=== PATIENT | female | born 1955 | race Caucasian/White ===

== ENCOUNTER → 2017-09-20 08:01 | Outpatient (CLI) | payer OTHER, BC, SELFPAY ==
--- NOTE | 2017-09-20 08:04 | HPBI_ITS ---
MAMMOGRAPHY - BILATERAL SCREENING REASON FOR EXAM: Female, 62 years old. Routine annual screening examination. PERTINENT HISTORY: Remote left excisional breast biopsy. Prior right stereotactic breast biopsy. TECHNIQUE: Digital bilateral breast shirin (3D mammographic acquisition) in the CC and MLO projections. 2-D mediolateral oblique (MLO) and craniocaudad (CC) views of both breasts were obtained. CAD: Full Field Digital Mammography with Computer Added Detection was performed. COMPARISON: Comparison is made with prior study dated August 24, 2016 and February 26, 2016. FINDINGS: Breast Composition: There are scattered areas of fibroglandular density. There are no dominant masses or suspicious calcifications. A tissue clip marker is seen in the inferior retroareolar region of the right breast. No other significant abnormalities are identified. There has been no significant change since the prior study. HPBI/SCREENING MAMM (CAD), BILAT IMPRESSION: Stable bilateral screening mammogram. Yearly follow-up mammogram recommended. (A) ASSESSMENT CATEGORY: BIRADS Category 2: Benign. A letter regarding these results will be sent to the patient by the facility within 30 days. Approximately 10% of breast cancers are not detected by mammography. A normal mammogram should not delay biopsy of a clinically suspicious abnormality. [id number] Electronically Signed: Justo Gautam MD at 10:33 EST Tel [phone], Service support ,
== END ==
PROVIDERS: Family Provider Family Medicine; PCP Family Medicine; Visit Provider Family Medicine
DX: Z12.31 Encounter for screening mammogram for malignant neoplasm of breast (principal)
CPT/HCPCS: 77063; 77067

== ENCOUNTER → 2018-09-25 07:48 | Outpatient (CLI) | payer OTHER, SELFPAY ==
--- NOTE | 2018-09-25 07:51 | BI_ITS ---
MAMMOGRAPHY - BILATERAL SCREENING REASON FOR EXAM: Female, 63 years old. Routine annual screening examination. PERTINENT HISTORY: Non-contributory. Remote left excisional and right stereotactic breast biopsies. TECHNIQUE: Digital bilateral breast shirin (3D mammographic acquisition) in the CC and MLO projections. 2-D mediolateral oblique (MLO) and craniocaudad (CC) views of both breasts were obtained. CAD: Full Field Digital Mammography with Computer Added Detection was performed. COMPARISON: Comparison is made with prior examination dated September 20, 2017 and August 24, 2016. FINDINGS: Breast Composition: There are scattered areas of fibroglandular density. There are no dominant masses or suspicious calcifications. A tissue clip marker is once again seen in the anterior inferior medial retroareolar region of the right breast. No other significant abnormalities are identified. There has been no significant change since the prior study. BI/SCREENING MAMM (CAD), BILAT IMPRESSION: Stable bilateral screening mammogram. Yearly follow-up mammogram recommended. (A) ASSESSMENT CATEGORY: BIRADS Category 2: Benign. A letter regarding these results will be sent to the patient by the facility within 30 days. Approximately 10% of breast cancers are not detected by mammography. A normal mammogram should not delay biopsy of a clinically suspicious abnormality. [id number] Electronically Signed: Justo Gautam MD at 9:41 EST , Service support ,
== END ==
PROVIDERS: Family Provider Family Medicine; PCP Family Medicine
DX: Z12.31 Encounter for screening mammogram for malignant neoplasm of breast (principal)
CPT/HCPCS: 77063; 77067

== ENCOUNTER → 2020-02-13 07:10 | Outpatient (CLI) | payer OTHER, SELFPAY ==
--- NOTE | 2020-02-13 07:13 | BI_ITS ---
MAMMOGRAPHY - BILATERAL SCREENING REASON FOR EXAM: Female, 64 years old. Routine annual screening examination. PERTINENT HISTORY: Non-contributory. Prior left excisional breast biopsy and right Sterotactic breast biopsy. TECHNIQUE: Digital bilateral breast cm (3D mammographic acquisition) in the CC and MLO projections. 2-D mediolateral oblique (MLO) and craniocaudad (CC) views of both breasts were obtained. CAD: Full Field Digital Mammography with Computer Added Detection was performed. COMPARISON: Comparison is made with prior study dated September 25, 2018 and September 20, 2017. FINDINGS: Breast Composition: There are scattered areas of fibroglandular density. There are no dominant masses or suspicious calcifications. No other significant abnormalities are identified. There has been no significant change since the prior study. BI/SCREEN MAMM (CAD) W/CM BILAT IMPRESSION: Stable bilateral screening mammogram. Yearly follow-up mammogram recommended. (A) ASSESSMENT CATEGORY: BIRADS Category 1: Negative. A letter regarding these results will be sent to the patient by the facility within 30 days. Approximately 10% of breast cancers are not detected by mammography. A normal mammogram should not delay biopsy of a clinically suspicious abnormality. [id number] Electronically Signed: Justo Gautam, at 10:01 EDT , Service support ,
== END ==
PROVIDERS: PCP Family Medicine
DX: Z12.31 Encounter for screening mammogram for malignant neoplasm of breast (principal)
CPT/HCPCS: 77063; 77067

== ENCOUNTER → 2020-02-20 09:32 | Outpatient (CLI) | payer OTHER, SELFPAY ==
--- NOTE | 2020-02-20 09:46 | BD_ITS ---
STUDY: DUAL ENERGY X-RAY ABSORPTIOMETRY / DXA REASON FOR EXAM: Female, 64 years old. [employer] PROCESSING -- HX OF SMOKING- QUIT 25 YRS AGO -- TAKES VITAMIN D -- DOES LITTLE EXERCISE -- NANNETTE OF 1.5 INCHES TECHNIQUE: Bone Mineral Density (BMD) measurements of lumbar spine and bilateral hips were obtained. COMPARISON: Comparison is made with prior examination dated 08-24-16. FINDINGS: Lumbar Spine (L1-L4): g/cm2 (0.952) / T-score (-1.8) / Z-score (-0.2) Findings are suggestive of osteopenia with a moderate fracture risk. Left Femur Total: g/cm2 (0.837) / T-score (-1.4) / Z-score (-0.2) Left Femoral Neck: g/cm2 (0.785) / T-score (-1.8) / Z-score (-0.4) Right Femur Total: g/cm2 (0.876) / T-score (-1.0) / Z-score (0.1) Right Femoral Neck: g/cm2 (0.808) / T-score (-1.7) / Z-score (-0.2) The T-Scores on the most recent prior examination were: Lumbar Spine (L1-L4): There has been improvement of bone density since the previous examination. Left Femur Total: which represents a worsening of 3.7%. Right Femur Total: which represents a worsening of 4.6%. BD/Dexa Bone Density Study IMPRESSION: The patient is considered osteopenic as outlined below according to World Doug Organization (WHO) criteria with a moderate fracture risk. There has been worsening of bone density since the previous examination. Reference Information: The T-score is the number of standard deviations above or below the standard which is normal for young adults at their peak bone mineral density. The World Health Organization (WHO) interprets the T-scores as follows: Above -1 Normal bone density Between -1 and -2.5 Osteopenia Equal to / or below -2.5 Osteoporosis As a practical clinical guideline, osteopenia may be graded as follows: Mild -1 through -1.5 Moderate -1.6 through -2.0 Severe -2.1 through -2.4 The Z-score is the number of standard deviations above or below age-matched controls. A Z-score of less than -1.5 would be considered abnormal. References: 1. NIH Osteoporosis and Related Bone Diseases http://www.osteo.org 2. International Society for Clinical Densitometry http://www.iscd.org 3. National Osteoporosis Foundation http://www.nof.org Electronically Signed: Justo Gautam, at 15:49 EDT , Service support ,
== END ==
PROVIDERS: PCP Family Medicine
DX: M81.0 Age-related osteoporosis without current pathological fracture (principal); Z13.820 Encounter for screening for osteoporosis
CPT/HCPCS: 77080

== ENCOUNTER 2021-05-15 05:17 | Day surgery (SDC) | payer MEDICARE, OTHER, SELFPAY ==
[2021-05-15] VITALS (15 sets, daily range): BP systolic 62–120; BP diastolic 54–88; PULSE 56–78; RESP 12–18; TEMP 36.2–36.6; O2SAT 92–99; BMI 27.3
--- NOTE | 2021-05-15 | COLBX_PTH ---
PATIENT: ALYCE PENA LOC: EN U#:[id number] AGE/SX: 66/F ROOM: RE05/15/[address]: Dr. Hipolito Walker MD : 1955 BED: DIS: 05/15/2021 SPEC #: [id number] RECD: 05/15/21 10:56 STATUS: MARIBEL SUSAN #: [id number] ROXY: 05/15/21 00:[address]: Hipolito Walker DEPT: SURGICAL PATHOLOGY RECD BY: Ravindra Carpenter ENTERED: 05/15/21 10:56 SP TYPE: COLON BX OTHR DR: Dr. Olena Hooper, DO Tissues: Transverse colon Procedures: Surgery Specimen Level IV HEADER OPERATION: Colonoscopy ? open access (MOD) PRE-OP DIAGNOSIS: Screening colonoscopy TISSUE SUBMITTED: Mid transverse polyp biopsy MICROSCOPIC DIAGNOSIS Mid transverse colon polyp, biopsy: A fragment of colonic mucosa, no pathologic diagnosis. See comment. SJ:kranthi 05/18/2021 COMMENT Adenomatous changes or hyperplastic changes are not seen. MICROSCOPIC DESCRIPTION Slides are reviewed. GROSS DESCRIPTION Received in fixative is one container labeled with the patient's name and designated mid transverse polyp biopsy. The specimen consists of one irregular fragment of light hubbard soft tissue that measures 0.3 x 0.3 x 0.1 cm. The specimen is totally submitted in one cassette. / IDALIA:kranthi 05/15/21 TC:4 CPT: 47080
[2021-05-15] MEDS: Lactated Ringers 1,000 ML 100 ML IV ×2 (06:00→06:58)
--- NOTE | 2021-05-15 06:12 | HP.PCM_ITS ---
HPI - General HPI Narrative ALYCE PENA, is a 66 F who presents for surveillance colonoscopy. 5 years ago was her previous colonoscopy. She has a personal history of colon polyps. She denies bright red blood per rectum or melena. No abdominal pain. She has not had COVID-19. She just successfully had her second vaccination. No history of DVT. [facility] Medical History (Updated 05/15/21 @ 06:[address] Hipolito Walker MD) Blood disorder Cyst of right kidney Former smoker Gastric reflux High cholesterol History of ITP History of stress test Hypertension Post-menopausal Rheumatoid arthritis Wears glasses Home Medications acetaminophen [Tylenol] 325 mg PO Q6H PRN 05/11/21 [History Last Taken Unknown] calcium carbonate [Tums 500] 1,000 mg PO PRN PRN 05/11/21 [History Last Taken Unknown] cholecalciferol (vitamin D3) [Vitamin D3] 25 mcg PO DAILY 05/11/21 [History Last Taken Unknown] losartan 50 mg PO DAILY 05/11/21 [History Last Taken 1 Day Ago ~05/14/21] tofacitinib [Xeljanz XR] 11 mg PO DAILY 05/11/21 [History Last Taken Unknown] Allergy/AdvReac Type Severity Reaction Status Date / Time ciprofloxacin [From Cipro] Allergy Severe tendinopath Verified 07/31/17 08:54 y nitrofurantoin Allergy Other Verified 05/11/21 10:40 [From Macrobid] Sulfa (Sulfonamide Allergy Pain in Verified 08/10/17 12:24 Antibiotics) joints sulfamethoxazole Allergy Pain in Verified 08/10/17 12:24 [From Bactrim] joints trimethoprim [From Bactrim] Allergy Pain in Verified 08/10/17 12:24 joints Surgical History (Updated 05/11/21 @ 10:57 by Anitha Nichols) Hx of arthroscopic knee surgery Hx of bilateral cataract extraction Hx of breast biopsy Hx of colonoscopy Social History (Updated 07/31/17 @ 09:06 by BAY Thompson) Smoking Status: Never smoker alcohol intake: never ROS Constitutional Constitutional: Reports systems reviewed and no addt'l complaints, except as documented Cardiovascular Cardiovascular: Denies chest pain Respiratory/Chest Respiratory/Chest: Denies shortness of breath at rest Gastrointestinal Gastrointestinal: Denies abdominal pain, change in bowel habits, hematochezia or melena Vital Signs Vital Signs Vital Signs: 10/15/21 05:45 Respiratory Pattern Normal Physical Exam Const alert, oriented x3 and no apparent distress General Appearance: cooperative and comfortable Eyes General Eye: normal appearance of both eyes Neck General: normal visual inspection Chest inspection of chest normal Resp Effort and Inspection: able to speak in complete sentences and symmetric chest movement Auscultation: clear to auscultation bilaterally Cardio regular rate and regular rhythm GI soft to palpation, non-tender and non-distended Extremity no calf tenderness Neuro oriented x3 Psych thought process normal Assessment & Plan Assessment/Plan (1) Personal history of colonic polyps: PLAN: 66-year-old female presents via open access today as she has a personal history of colon polyps and her previous colonoscopy was 5 years ago. I plan to proceed with a colonoscopy with possible biopsy or polypectomy as indicated. She is aware of technique, benefit, risk, alternatives. We will proceed as noted. Hipolito Walker M.D., F.A.C.S.
[2021-05-15] MEDS: Midazolam 5 MG/ML Syringe (06:28)
--- NOTE | 2021-05-15 06:45 | OP.COLON_ITS ---
Patient Name: Sanaz Delcid Procedure Date: 05/15/2021 6:09 AM Date of : 1955 Age: 66 Procedure: Colonoscopy Indications: High risk colon cancer surveillance: Personal history of colonic polyps Providers: Hipolito Walker MD Referring MD: Olena Hooper Medicines: Midazolam 3.5 mg IV, Meperidine 100 mg IV Patient Profile: Last Colonoscopy: 5 years ago. Complications: No immediate complications. Procedure: Pre-Anesthesia Assessment: - Prior to the procedure, a History and Physical was performed, and patient medications and allergies were reviewed. The patient's tolerance of previous anesthesia was also reviewed. The risks and benefits of the procedure and the sedation options and risks were discussed with the patient. All questions were answered, and informed consent was obtained. Prior Anticoagulants: The patient has taken no previous anticoagulant or antiplatelet agents. ASA Grade Assessment: II - A patient with mild systemic disease. After reviewing the risks and benefits, the patient was deemed in satisfactory condition to undergo the procedure. After I obtained informed consent, the scope was passed under direct vision. Throughout the procedure, the patient's blood pressure, pulse, and oxygen saturations were monitored continuously. The Colonoscope was introduced through the anus and advanced to the cecum, identified by appendiceal orifice and ileocecal valve. The colonoscopy was performed without difficulty. The patient tolerated the procedure well. The quality of the bowel preparation was good. The ileocecal valve and the appendiceal orifice were photographed. Moderate Sedation: Moderate (conscious) sedation was personally administered by the endoscopist. The following parameters were monitored: oxygen saturation, heart rate, blood pressure, and response to care. Total physician intraservice time was 15 minutes. Scope In: 6:29:50 AM Scope Withdrawal Time 0 hours 6 minutes 28 seconds Scope Out: 6:40:41 AM Total Procedure Duration Time 0 hours 10 minutes 51 seconds Findings: Hemorrhoids were found on perianal exam. A 3 mm polyp was found in the mid transverse colon. The polyp was sessile. The polyp was removed with a cold biopsy forceps. Resection and retrieval were complete. Multiple diverticula were found in the sigmoid colon and descending colon. Impression: - Hemorrhoids found on perianal exam. - One 3 mm polyp in the mid transverse colon, removed with a cold biopsy forceps. Resected and retrieved. - Diverticulosis in the sigmoid colon and in the descending colon. Recommendation: - Discharge patient to home. - Resume previous diet. - Continue present medications. - Repeat colonoscopy in 5 years for surveillance based on pathology results. - Telephone my office for pathology results in 1 week. Procedure Code(s): --- Professional --- 73986, Colonoscopy, flexible; with biopsy, single or multiple 80024, 59, Moderate sedation services provided by the same physician or other qualified health home care nurse performing the diagnostic or therapeutic service that the sedation supports, requiring the presence of an independent trained observer to assist in the monitoring of the patient's level of consciousness and physiological status; initial 15 minutes of intraservice time, patient age 5 years or older Diagnosis Code(s): --- Professional --- Z86.010, Personal history of colonic polyps K64.9, Unspecified hemorrhoids D12.3, Benign neoplasm of transverse colon (hepatic flexure or splenic flexure) K57.30, Diverticulosis of large intestine without perforation or abscess without bleeding CPT copyright 2017 [employer]. All rights reserved. The codes documented in this report are preliminary and upon supervisor of instruction review may be revised to meet current compliance requirements. Hipolito Walker MD 05/15/2021 6:45:23 AM This report has been signed electronically. Number of Addenda: 0 Note Initiated On: 05/15/2021 6:09 AM
--- NOTE | 2021-05-15 06:45 | OP.CCLET_ITS ---
05/15/2021 Olena Hooper Re : Colonoscopy procedure for Sanaz Larios Rufus This procedure was performed on Saturday, May 15, 2021. My impressions and recommendations are as follows: Impressions : - Hemorrhoids found on perianal exam. - One 3 mm polyp in the mid transverse colon, removed with a cold biopsy forceps. Resected and retrieved. - Diverticulosis in the sigmoid colon and in the descending colon. Recommendations : - Discharge patient to home. - Resume previous diet. - Continue present medications. - Repeat colonoscopy in 5 years for surveillance based on pathology results. - Telephone my office for pathology results in 1 week. My findings are described in the full procedure note, which is enclosed. If I can be of further assistance, please feel free to contact me at Doctor phone number(s): Work: . Sincerely, Hipolito Walker MD 05/15/2021 6:45:23 AM This report has been signed electronically.
== END 2021-05-15 07:50 ==
LOC: EN 05:17 → AC 05:18
PROVIDERS: Visit Provider Surgery
PROC: 0DJD8ZZ Inspection of Lower Intestinal Tract, Via Natural or Artificial Opening Endoscopic (ICD-10-PCS; CPT 45378; principal; 2021-05-15 06:25)
DX: Z12.11 Encounter for screening for malignant neoplasm of colon (principal); K63.5 Polyp of colon; K64.9 Unspecified hemorrhoids; K57.30 Diverticulosis of large intestine without perforation or abscess without bleeding; M06.9 Rheumatoid arthritis, unspecified; I10 Essential (primary) hypertension; K21.9 Gastro-esophageal reflux disease without esophagitis; Z79.899 Other long term (current) drug therapy; Z87.891 Personal history of nicotine dependence
CPT/HCPCS: 45380; 88305; 99152; 99153; J7120

== ENCOUNTER → 2021-05-26 07:45 | Outpatient (CLI) | payer MEDICARE, OTHER, SELFPAY ==
--- NOTE | 2021-05-26 07:48 | BI_ITS ---
MAMMOGRAPHY - BILATERAL SCREENING REASON FOR EXAM: Female, 66 years old. Routine annual screening examination. PERTINENT HISTORY: Non-contributory. TECHNIQUE: Digital bilateral breast cm (3D mammographic acquisition) in the CC and MLO projections. 2-D mediolateral oblique (MLO) and craniocaudad (CC) views of both breasts were obtained. CAD: Full Field Digital Mammography with Computer Added Detection was performed. COMPARISON: Comparison is made with prior study dated 02/13/2020 and 09/25/2018. FINDINGS: Breast Composition: There are scattered areas of fibroglandular density. There are no dominant masses or suspicious calcifications. No other significant abnormalities are identified. There has been no significant change since the prior study. BI/SCRN MAMM (CAD)W/CM BILAT IMPRESSION: Stable bilateral screening mammogram. Yearly follow-up mammogram recommended. (A) ASSESSMENT CATEGORY: BIRADS Category 1: Negative. A letter regarding these results will be sent to the patient by the facility within 30 days. Approximately 10% of breast cancers are not detected by mammography. A normal mammogram should not delay biopsy of a clinically suspicious abnormality. [id number] Electronically Signed: Justo Gautam MD at 9:10 EDT , Service support ,
== END ==
DX: Z12.31 Encounter for screening mammogram for malignant neoplasm of breast (principal)
CPT/HCPCS: 77063; 77067

== ENCOUNTER → 2022-06-03 | Outpatient (CLI) | payer MEDICARE, OTHER, SELFPAY ==
--- NOTE | 2022-06-03 09:54 | BI_ITS ---
MAMMOGRAPHY - BILATERAL SCREENING REASON FOR EXAM: Female, 67 years old. Routine annual screening examination. PERTINENT HISTORY: Non-contributory. Remote left excisional breast biopsy and right stereotactic breast biopsy. TECHNIQUE: Digital bilateral breast cm (3D mammographic acquisition) in the CC and MLO projections. 2-D mediolateral oblique (MLO) and craniocaudad (CC) views of both breasts were obtained. CAD: Full Field Digital Mammography with Computer Added Detection was performed. COMPARISON: Comparison is made with prior study dated 05/26/2021 and 02/13/2020. FINDINGS: Breast Composition: There are scattered areas of fibroglandular density. There are no dominant masses or suspicious calcifications. No other significant abnormalities are identified. There has been no significant change since the prior study. BI/SCRN MAMM (CAD)W/CM BILAT IMPRESSION: Stable bilateral screening mammogram. Yearly follow-up mammogram recommended. (A) ASSESSMENT CATEGORY: BIRADS Category 1: Negative. A letter regarding these results will be sent to the patient by the facility within 30 days. Approximately 10% of breast cancers are not detected by mammography. A normal mammogram should not delay biopsy of a clinically suspicious abnormality. [id number] Electronically Signed: Justo Gautam MD at 10:54 EDT ,
--- NOTE | 2022-06-03 10:02 | BD_ITS ---
STUDY: DUAL ENERGY X-RAY ABSORPTIOMETRY / DXA REASON FOR EXAM: Female, 67 years old. Z780 TECHNIQUE: Bone Mineral Density (BMD) measurements of lumbar spine and bilateral hips were obtained. COMPARISON: Comparison is made with prior study dated 02/20/2020. FINDINGS: Lumbar Spine (L1-L4): g/cm2 (0.880) / T-score (-1.5) / Z-score (0.4) Findings are suggestive of osteopenia with a low fracture risk. Left Femur Total: g/cm2 (0.783) / T-score (-1.3) / Z-score (0.0) Left Femoral Neck: g/cm2 (0.600) / T-score (-2.2) / Z-score (-0.6) Right Femur Total: g/cm2 (0.832) / T-score (-0.9) / Z-score (0.4) Right Femoral Neck: g/cm2 (0.658) / T-score (-1.7) / Z-score (-0.3) The T-Scores on the most recent prior examination were: Lumbar Spine (L1-L4): There has been worsening of bone density since the previous examination. Left Femur Total: which represents an improvement of 0.9%. Right Femur Total: which represents an improvement of 2.3%. BD/Dexa Bone Density Study IMPRESSION: The patient is considered osteopenic as outlined below according to World Doug Organization (WHO) criteria with a moderate fracture risk. There has been improvement of bone density since the previous examination. Reference Information: The T-score is the number of standard deviations above or below the standard which is normal for young adults at their peak bone mineral density. The World Health Organization (WHO) interprets the T-scores as follows: Above -1 Normal bone density Between -1 and -2.5 Osteopenia Equal to / or below -2.5 Osteoporosis As a practical clinical guideline, osteopenia may be graded as follows: Mild -1 through -1.5 Moderate -1.6 through -2.0 Severe -2.1 through -2.4 The Z-score is the number of standard deviations above or below age-matched controls. A Z-score of less than -1.5 would be considered abnormal. References: 1. NIH Osteoporosis and Related Bone Diseases www osteo.org 2. International Society for Clinical Densitometry www iscd.org 3. National Osteoporosis Foundation www nof.org Electronically Signed: Justo Gautam MD at 15:38 EDT ,
== END | disposition home or self-care (01) ==
LOC: OPBD 09:50
DX: Z78.0 Asymptomatic menopausal state (principal); Z12.31 Encounter for screening mammogram for malignant neoplasm of breast
CPT/HCPCS: 77063; 77067; 77080

== ENCOUNTER → 2023-06-09 | Outpatient (CLI) | payer MEDICARE, OTHER, SELFPAY ==
--- NOTE | 2023-06-09 07:55 | BI_ITS ---
MAMMOGRAPHY - BILATERAL SCREENING REASON FOR EXAM: Female, 68 years old. Routine annual screening examination. PERTINENT HISTORY: Non-contributory. History of prior left excisional breast biopsy and right stereotactic breast biopsy. TECHNIQUE: Digital bilateral breast cm (3D mammographic acquisition) in the CC and MLO projections. 2-D mediolateral oblique (MLO) and craniocaudad (CC) views of both breasts were obtained. CAD: Full Field Digital Mammography with Computer Added Detection was performed. COMPARISON: Comparison is made with prior study June 03, 2022 and May 26, 2021. FINDINGS: Breast Composition: The breasts are almost entirely fatty. There are no dominant masses or suspicious calcifications. A tissue clip marker is seen in the inferior medial retroareolar region of the right breast. No other significant abnormalities are identified. There has been no significant change since the prior study. BI/SCRN MAMM (CAD)W/CM BILAT IMPRESSION: Stable bilateral screening mammogram. Yearly follow-up mammogram recommended. (A) ASSESSMENT CATEGORY: BIRADS Category 2: Benign. A letter regarding these results will be sent to the patient by the facility within 30 days. Approximately 10% of breast cancers are not detected by mammography. A normal mammogram should not delay biopsy of a clinically suspicious abnormality. [id number] Electronically Signed: Justo Gautam MD at 9:15 EST ,
== END | disposition home or self-care (01) ==
LOC: OPBI 07:54
DX: Z12.31 Encounter for screening mammogram for malignant neoplasm of breast (principal)
CPT/HCPCS: 77063; 77067

== ENCOUNTER → 2025-06-28 | Outpatient (CLI) | payer MEDICARE, OTHER, SELFPAY ==
--- NOTE | 2025-06-28 07:48 | BI_ITS ---
EXAM: SCRN MAMM (CAD)W/CM BILAT DATE: 06/28/2025 CLINICAL HISTORY: F, Age 70 y/o , SCREENING TECHNIQUE: Procedure Code: [id number] Modality: MG Procedure: SCRN MAMM (CAD)W/CM BILAT COMPARISON: Prior exam(s) dated 06/26/2024, 06/09/2023, and 06/03/2022. FINDINGS: TISSUE DENSITY: There are scattered areas of fibroglandular density. Bilateral Breast Mammographic Findings: No significant masses, calcifications or other abnormalities are identified. There are benign-appearing round microcalcifications and secretory type calcifications in both breasts. A stable 1 cm density in the slightly superior far anterior aspect of the right breast is noted. A stable asymmetric density in the lateral far anterior aspect of the left breast is noted. This appears to represent residual fibroglandular tissue. BI/SCRN MAMM (CAD)W/CM BILAT IMPRESSION: Benign screening mammogram OVERALL FINAL ASSESSMENT BI-RADS 2: BENIGN RECOMMENDATION: Routine annual follow-up in 1 Year Additional Recommendation none A letter with findings and recommendations will be mailed to the patient. Reading Location: [id number]
--- OUTSIDE RECORDS SUMMARY | 2025-06-28 07:50 | XMS RPT_ITS | CCD ---
Author Organization [facility] Care Team Providers Care Joint Cutter Machine Name Role Phone Peggy Miguel Unavailable Unavailable Chapincito, Samantha A Unavailable Unavailable Loren Green Unavailable Unavailable Loren Green Unavailable Unavailable Chapincito, Samantha A Unavailable Unavailable Loren Green Unavailable Unavailable Unavailable RUFUS DUNHAM, DR PIMENTEL Primary Care Physician Dickson RAYA, Lacey Unavailable Unavailable Maria L, Dr. Woods Referring Unavailable Trung, MsGabriel Bryan Attending Nancy vailable Rufus, Dr. Loren Butterfield Primary Care Unavailab mavis Green, Dr. Loren Butterfield Primary Care Unavailab mavis Green, Dr. Loren Butterfield Referring Unavailab mavis Miguel, Dr. Woods Attending Unavailable Rufus, Dr. Loren Butterfield Primary Care Unavailab mavis Green, Dr. Loren Butterfield Attending Unavailab mavis Green, Dr. Loren Butterfield Referring Unavailab Peggy Stevens MD Unavailable [phone] Loren Green DO Primary Care Provider RUFUS DUNHAM, DR PIMENTEL Attending Unavailable RUFUS DUNHAM, DR PIMENTEL Primary Care Unavailable RUFUS DUNHAM, DR PIMENTEL Attending Unavailable RUFUS DUNHAM, DR PIMENTEL Primary Care Unavailable Peggy Miguel MD Unavailable Lyly Barillas Unavailable Unavailable ANDREW ROSA Referring Unavailable ANDREW ROSA Admitting Unavailable MONICA ROGERS-DELILAH, LACEY M Consulting Unavaila ble RUFUS DUNHAM, DR PIMENTEL Primary Care Unavailable ANDREW ROSA Attending Unavailable RUFUS DO, DR PIMENTEL Primary Care Unavailable MOEANDREW Attending Unavailable RUFUS DO, DR PIMENTEL Primary Care Unavailable MOE, ANDREW Attending Unavailable RUFUS DO, DR PIMENTEL Primary Care Unavailable RUFUS DO, DR PIMENTEL Attending Unavailable RUFUS DO, DR PIMENTEL Primary Care Unavailable RUFUS DO, DR PIMENTEL Attending Unavailable RUFUS DO, DR PIMENTEL Primary Care Unavailable RUFUS DO, DR PIMENTEL Attending Unavailable RUFUS DO, DR PIMENTEL Primary Care Unavailable MOE, ANDREW Attending Unavailable RUFUS DO, DR PIMENTEL Attending Unavailable RUFUS DO, DR PIMENTEL Primary Care Unavailable RUFUS DO, DR PIMENTEL Attending Unavailable RUFUS DO, DR PIMENTEL Primary Care Unavailable MOE, ANDREW Attending Unavailable RUFUS DO, DR PIMENTEL Primary Care Unavailable RUFUS DO, DR PIMENTEL Consulting Unavailable MOE, ANDREW Admitting Unavailable KENYOANNA ROGERS-COMPLAINT SUPERVISOR, KRAIG Fernández Consulting Loren Vázquez Referring Unavailable Rufus, Loren Butterfield Attending Unavailable Rufus, Loren Butterfield Primary Care Unavailable RUFUS, LOREN BUTTERFIELD Primary Care Unavailable PEGGY MIGUEL Attending Unavailable RUFUS, LOREN BUTTERFIELD Primary Care Unavailable PEGGY MIGUEL Attending Unavailable RUFUS, LOREN BUTTERFIELD Primary Care Unavailable PEGGY MIGUEL Attending Unavailable PEGGY MIGUEL Referring Unavailable RUFUS, LOREN BUTTERFIELD Primary Care Unavailable Allergies Allergy Classification Reported Allergen(s) Allergy Type Date of Onset Reaction(s) Facility NITROFURANTOIN, MACROCRYSTALS / Nitrofurantoin, Monohydrate (1 source) NITROFURANTOIN, MACROCRYSTALS / Nitrofurantoin, Monohydrate; Translations: [Macrobid] Drug Allergy [facility] Work Phone: NSAIDs (1 source) NSAIDs; Translations: [NSAIDs] Drug Allergy [facility] Work Phone: Quinolones (antibiotic) (1 source) Ciprofloxacin; Translations: [ciprofloxacin] Drug Allergy [facility] Work Phone: Sulfamethoxazole / Trimethoprim (1 source) Sulfamethoxazole / Trimethoprim; Translations: [Bactrim] Drug Allergy [facility] Work Phone: [phone] Sulfonamides (antibiotic) (1 source) Sulfonamides (Antibiotic); Translations: [Sulfa Drugs] Drug Allergy [facility] Work Phone: [phone] (20 sources) Ciprofloxacin; Translations: [ciprofloxacin] Drug Allergy 07-31-20 17 Muscle pain (finding), Unknown [facility] (19 sources) Nitrofurantoin; Translations: [Macrobid] Drug Allergy [facility] Work Phone: [phone] (19 sources) NSAIDs; Translations: [NSAIDs] drug allergy [facility] Work Phone: [phone] (19 sources) Sulfonamides (Antibiotic); Translations: [Sulfa Drugs] drug allergy [facility] Work Phone: [phone] (20 sources) Sulfamethoxazole / Trimethoprim; Translations: [Bactrim] Drug Allergy 03-25-20 23 Swelling (morphologic abnormality), Unknown [facility] (8 sources) Sulfonamides (Antibiotic); Translations: [sulfa drugs] Drug allergy 03-25-20 23 Muscle pain (finding), Unknown [facility] (2 sources) Nitrofurantoin Drug Allergy 05-11-20 21 Other [facility] (2 sources) Sulfamethoxazole Drug Allergy 08-10-19 18 Pain in joints [facility] (4 sources) Sulfonamides (Antibiotic); Translations: [SULFA (SULFONAMIDE ANTIBIOTICS)] Allergy to substance 08-10-19 18 Pain in joints [facility] (2 sources) Trimethoprim Drug Allergy 08-10-19 18 Pain in joints [facility] (14 sources) NITROFURANTOIN, MACROCRYSTALS / Nitrofurantoin, Monohydrate; Translations: [nitrofurantoin] Drug Allergy 03-25-20 23 Tendinitis (disorder), Unknown [facility] Comment on above: antibiotic induced tendonitis (7 sources) Acetaminophen / HYDROcodone; Translations: [HYDROCODONE-ACETAM INOPHEN] Drug Allergy 06-20-20 15 Other [facility] (7 sources) Non-steroidal anti-inflammatory agent; Translations: [NSAIDS (NON-STEROIDAL ANTI-INFLAMMATORY DRUG)] Drug Allergy 03-25-20 Unknown [facility] Work Phone: (12 sources) Pravastatin; Translations: [pravastatin] Drug Allergy 11-08-19 Cramp in calf (finding), Myalgia [facility] (12 sources) rosuvastatin; Translations: [rosuvastatin] Drug Allergy 11-08-19 Flushed complexion (finding), Rash [facility] (8 sources) Sulfonamide; Translations: [sulfa drugs] Drug allergy Muscle pain (finding) [facility] (1 source) Nitrofurantoin Drug Allergy 06-20-20 [facility] (1 source) Sulfamethoxazole Drug Allergy 06-20-20 [facility] (1 source) Sulfonamides (Antibiotic) Drug allergy (disorder) 06-20-20 [facility] (1 source) Trimethoprim Drug Allergy 06-20-20 [facility] (2 sources) Sulfamethoxazole / Trimethoprim; Translations: [SULFAMETHOXAZOLE-T RIMETHOPRIM] Drug Allergy 03-25-20 [facility] (2 sources) NITROFURANTOIN MONOHYD/M-CRYST; Translations: [NITROFURANTOIN MONOHYD/M-CRYST] Propensity to adverse reactions to drug (disorder) 03-25-20 [facility] Medications Current Medications Medication Drug Class(es) Dates Sig (Normalized) Sig (Original) acetaminophen 1000 mg oral tablet (10 sources) Start: 11-21-2024 take 1 tablet by mouth once daily Tylenol Dose : 1,000 mg = 2 tab(s), Oral, TID, not to exceed 3000 mg/day, 0 Refill(s) Start Date: 11/21/24 Status: Ordered Medication Dispense Status: Completed Total Allowed Fills: 1 Fills Dispensed: 0 Start: 07-11-2024 End: 07-25-2024 take 1 tablet by mouth once daily acetaminophen 500 mg oral tablet Dose : 1,000 mg = 2 tab(s), Oral, TID, PRN as needed for pain, not to exceed 3000 mg/day, # 100 tab(s), 0 Refill(s), 07/25/24 9:39:00 AM EST, Pharmacy: [facility]30, 157.44, cm, 07/10/24 13:31:00 EST, Height, kg, 07/10/24 13:31:00 EST, Dosing Weight Start Date: 07/11/24 Stop Date: 07/25/24 Status: Ordered Start: 06-15-2024 Tylenol 8 HR A rthritis Pain 650 mg oral tablet, extended release Dose : 1,300 mg = 2 tab(s), Oral, q8h, PRN as needed for pain Start Date: 06/15/24 Status: Ordered Start: 05-11-2021 take 1 tablet by heidi th every six hours Acetaminophen (Tylenol) 325 mg Tablet Active 325 MG PO EVERY 6 HOURS May 10, 2021 11:00pm calcium carbonate 1500 mg or al tablet (7 sources) Start: 07-10-2024 calcium (as ca rbonate) 600 mg oral tablet Dose : 600 mg = 1 tab(s), Oral, BIDM, 0 Refill(s) Start Date: 07/10/24 Status: Ordered Medication Dispense Status: Completed Total Allowed Fills: 1 Fills Dispensed: 0 Start: 05-11-2021 Calcium Carbon ate (Tums 500) 500 mg calcium (1,250 mg) Tablet,Chewable Active 1000 MG PO NEEDED May 10, 2021 11:00pm cholecalciferol 0.025 mg oral tablet (20 sources) Vitamin D Start: 03-19-2020 take 1 tablet by mouth once daily cholecalciferol (Vitamin D-3) 25 MCG (1000 UT) tablet Take 1 tablet (25 mcg) by mouth once daily. 03/19/2020 Active Co Q-10 100 mg oral capsule (8 sources) Start: 12-06-2023 Co Q-10 100 mg oral capsule Dose : 100 mg = 1 cap(s), Oral, Daily, 0 Refill(s) Start Date: 12/06/23 Status: Ordered Medication Dispense Status: Completed Total Allowed Fills: 1 Fills Dispensed: 0 Start: 12-06-2023 Co Q-10 100 mg oral capsule Dose : 100 mg = 1 cap(s), Oral, Daily, 0 Refill(s) Start Date: 12/06/23 Status: Ordered Repeat number: 1 Start: 12-06-2023 Co Q-10 100 mg oral capsule Dose : 100 mg = 1 cap(s), Oral, Daily, 0 Refill(s) Start Date: 12/06/23 Status: Ordered docusate sodium 50 mg / sennosides, fdc 8.6 mg oral tablet (1 source) Start: 11-21-2024 End: 11-24-2024 take 1 tablet by mouth twice daily Senokot S 50 mg-8.6 mg oral tablet Dose = 2 tab(s), Oral, BID, Take until first bowel movement, then as needed, X 3 day(s), # 12 tab(s), 0 Refill(s), Pharmacy: [facility], 157.4, cm, 11/20/24 15:20:00 EDT, Height, kg, 11/20/24 15:20:00 EDT, Dosing Weight Start Date: 11/21/24 Stop Date: 11/24/24 Status: Ordered Quantity: 12.0 Unit: tab(s) Repeat number: 1 famotidine 20 mg oral tablet (4 sources) Histamine-2 Receptor Antagonist Start: 11-21-2024 Pepcid 20 mg oral tablet Dose : 20 mg = 1 tab(s), Oral, qDay, # 30 tab(s), 0 Refill(s), Pharmacy: [facility], 157.4, cm, 11/20/24 15:20:00 EDT, Height, kg, 11/20/24 15:20:00 EDT, Dosing Weight Start Date: 11/21/24 Status: Ordered Quantity: 30.0 Unit: tab(s) Repeat number: 1 Start: 07-11-2024 Pepcid 20 mg o ral tablet Dose : 20 mg = 1 tab(s), Oral, qDay, # 30 tab(s), 0 Refill(s), Pharmacy: [facility], 157.44, cm, 07/10/24 13:31:00 EST, Height, kg, 07/10/24 13:31:00 EST, Dosing Weight Start Date: 07/11/24 Status: Ordered Fish Oils (8 sources) Start: 12-06-2023 Fish Oil 1000 mg oral capsule Dose : 1,000 mg = 1 cap(s), Oral, qDay, # 90 cap(s), 0 Refill(s) Start Date: 12/06/23 Status: Ordered Medication Dispense Status: Completed Quantity: 90.0 Unit: cap(s) Total Allowed Fills: 1 Fills Dispensed: 0 Start: 12-06-2023 Fish Oil 1000 mg oral capsule Dose : 1,000 mg = 1 cap(s), Oral, qDay, # 90 cap(s), 0 Refill(s) Start Date: 12/06/23 Status: Ordered Quantity: 90.0 Unit: cap(s) Repeat number: 1 Start: 12-06-2023 Fish Oil 1000 mg oral capsule Dose : 1,000 mg = 1 cap(s), Oral, qDay, # 90 cap(s), 0 Refill(s) Start Date: 12/06/23 Status: Ordered losartan potassium 50 mg oral tablet (20 sources) Angiotensin 2 Receptor Josue Start: 01-05-2021 End: 12-19-2025 losartan 50 mg oral tablet Dose : 50 mg = 1 tab(s), Oral, qDay, # 30 tab(s), 0 Refill(s) Start Date: 03/17/21 Status: Ordered Medication Dispense Status: Completed Quantity: 30.0 Unit: tab(s) Total Allowed Fills: 1 Fills Dispensed: 0 omega 0-vip-ogp-fish oil (Fish OiL) 100-160-1,000 mg capsule (5 sources) take 100-160 capsules by mouth once daily omega 3-wkc-ehi-fish oil (Fish OiL) 100-160-1,000 mg capsule Take 2 capsules by mouth once daily. Active take 100-160 capsule s by mouth once daily omega 4-qnw-rea-fish oil (Fish OiL) 100-160-1,000 mg capsule Take 2 capsules by mouth once daily. 0 Active oxyCODONE hydrochloride 5 mg oral tablet (2 sources) Opioid Agonist Start: 11-21-2024 End: 11-28-2024 take 1-2 tablets by mouth every four hours as needed for pain oxyCODONE 5 mg oral tablet ( IMMEDIATE release ) See Instructions, PRN as needed for pain, 1-2 tab(s) Oral q4h, # 42 tab(s), 0 Refill(s), 11/28/24 8:10:00 AM EDT, Pharmacy: [facility], S/P total right hip arthroplasty, 157.4, cm, 11/20/24 15:20:00 EDT, Height, 63.6, kg, 11/20/24 15:20:00 EDT, Dosing Weight Start Date: 11/21/24 Stop Date: 11/28/24 Status: Ordered Quantity: 42.0 Unit: tab(s) Repeat number: 1 Indications: Presence of right artificial hip joint; Start: 07-11-2024 End: 07-18-2024 take 1-2 tablets by mouth every four hours as needed for pain oxyCODONE 5 mg oral tablet ( IMMEDIATE release ) See Instructions, PRN as needed for pain, 1-2 tab(s) Oral q4h, # 42 tab(s), 0 Refill(s), 07/18/24 9:41:00 AM EST, Pharmacy: [facility], Status post left hip replacement, 157.44, cm, 07/10/24 13:31:00 EST, Height, 64.5, kg, 07/10/24 13:31:00 EST, Dosing Weight Start Date: 07/11/24 Stop Date: 07/18/24 Status: Ordered pravastatin sodium 10 mg oral tablet (1 source) HMG-CoA Reductase Inhibitor Start: 04-28-2023 End: 09-29-2023 take 1 tablet by mouth once daily pravastatin (Pravachol) 10 mg tablet Take 1 tablet (10 mg) by mouth once daily. 0 04/28/2023 09/29/2023 Discontinued (Med List Cleanup) red yeast rice 600 mg oral tablet (5 sources) take 2 tablets by mouth twice daily red yeast rice 600 mg tablet Take 2 tablets by mouth 2 times a day. Active Red Yeast Rice 600 mg oral capsule (8 sources) Start: 12-06-2023 take 1 capsule by mouth once daily Red Yeast Rice 600 mg oral capsule Dose : 1,200 mg =, Oral, Daily, 0 Refill(s) Start Date: 12/06/23 Status: Ordered Medication Dispense Status: Completed Total Allowed Fills: 1 Fills Dispensed: 0 Start: 12-06-2023 take 1 capsule by [facility] once daily Red Yeast Rice 600 mg oral capsule Dose : 1,200 mg =, Oral, Daily, 0 Refill(s) Start Date: 12/06/23 Status: Ordered Repeat number: 1 Start: 12-06-2023 take 1 capsule by [facility] once daily Red Yeast Rice 600 mg oral capsule Dose : 1,200 mg =, Oral, Daily, 0 Refill(s) Start Date: 12/06/23 Status: Ordered 24 hr tofacitinib 11 mg exte nded release oral tablet (20 sources) Start: 12-27-2024 Xeljanz XR 11 mg oral tablet, extended release Dose : 11 mg = 1 tab(s), Oral, qDay, # 30 tab(s), 0 Refill(s) Start Date: 12/27/24 Status: Ordered Medication Dispense Status: Completed Quantity: 30.0 Unit: tab(s) Total Allowed Fills: 1 Fills Dispensed: 0 Start: 11-14-2023 End: 11-13-2024 take 1 tablet by mouth once daily tofacitinib ER (Xeljanz XR) 11 mg tablet extended release 24 hr Indications: Rheumatoid arthritis involving multiple sites with positive rheumatoid factor (Multi) TAKE ONE (1) TABLET BY MOUTH ONCE DAILY 30 tablet 11 02/19/2025 12:34 PM EDT 11/07/2024 Active Start: 12-19-2019 End: 10-28-2023 Xeljanz XR 11 mg oral tablet , extended release Dose : 11 mg = 1 tab(s), Oral, qDay, # 30 tab(s), 0 Refill(s) Start Date: 06/19/20 Status: Ordered ubidecarenone 100 mg oral capsule (5 sources) take 1 capsule by mouth once daily coenzyme Q-10 100 mg capsule Take 1 capsule (100 mg) by mouth once daily. Active Vitamin D3 (11 sources) Start: 03-17-2021 Vitamin D3 Dose : 1,000 unit(s) = 1 tab(s), Oral, Daily, 0 Refill(s) Start Date: 03/17/21 Status: Ordered Medication Dispense Status: Completed Total Allowed Fills: 1 Fills Dispensed: 0 Start: 03-17-2021 Vitamin D3 Dos e : 1,000 unit(s) = 1 tab(s), Oral, Daily, 0 Refill(s) Start Date: 03/17/21 Status: Ordered Repeat number: 1 Start: 03-17-2021 Vitamin D3 Dos e : 1,000 unit(s) = 1 tab(s), Oral, Daily, 0 Refill(s) Start Date: 03/17/21 Status: Ordered Completed/Discontinued Medications Medication Drug Class(es) Dates Sig (Normalized) Sig (Original) aspirin 81 mg oral tablet (4 sources) Platelet Aggregation Inhibitor, Nonsteroidal Anti-inflammatory Drug Start: 11-21-2024 End: 12-21-2024 take 1 tablet by mouth twice daily at mealtime aspirin Dose : 81 mg = 1 tab(s), Oral, BIDM, Take 81 mg aspirin twice daily with food for 4 weeks postoperatively for DVT prophylaxis., 0 Refill(s) Start Date: 11/21/24 Stop Date: 12/21/24 Status: Ordered Repeat number: 1 Start: 07-11-2024 End: 08-10-2024 take 1 tablet by mouth twice daily aspirin 81 mg oral delayed release tablet Dose : 81 mg = 1 tab(s), Oral, BID, Take 81 mg aspirin twice daily with food for 4 weeks postoperatively for DVT prophylaxis., # 60 tab(s), 0 Refill(s), Pharmacy: [facility] #30, 157.44, cm, 07/10/24 13:31:00 EST, Height, kg, 07/10/24 13:31:00 EST, Dosing Weight Start Date: 07/11/24 Stop Date: 08/10/24 Status: Ordered folic acid 1 mg oral tablet (2 sources) Start: 05-17-2019 take 1 tablet by mouth once daily Folic Acid 1 MG Oral Tablet Take 1 tablet daily Quantity: 30 Refills: 5 Peggy Miguel MD Start : 17-May-2019 Active meloxicam 7.5 mg oral tablet (4 sources) Nonsteroidal Anti-inflammatory Drug Start: 11-21-2024 End: 12-21-2024 Mobic 7.5 mg oral tablet Dose : 7.5 mg = 1 tab(s), Oral, BIDM, Do not take any other nonsteroidal anti-inflammatories while on meloxicam/Mobic., # 60 tab(s), 0 Refill(s), Pharmacy: [facility], 157.4, cm, 11/20/24 15:20:00 EDT, Height, kg, 11/20/24 15:20:00 EDT, Dosing Weight Start Date: 11/21/24 Stop Date: 12/21/24 Status: Ordered Quantity: 60.0 Unit: tab(s) Repeat number: 1 Start: 07-11-2024 Mobic 7.5 mg o ral tablet Dose : 7.5 mg = 1 tab(s), Oral, BIDM, Do not take any other nonsteroidal anti-inflammatories while on meloxicam/Mobic., # 60 tab(s), 0 Refill(s), Pharmacy: [facility], 157.44, cm, 07/10/24 13:31:00 EST, Height, kg, 07/10/24 13:31:00 EST, Dosing Weight Start Date: 07/11/24 Status: Ordered methotrexate 2.5 mg oral tablet (2 sources) Folate Analog Metabolic Inhibitor Start: 05-17-2019 take 6 tablets by mouth every week Methotrexate 2.5 MG Oral Tablet TAKE 6 TABLETS BY MOUTH ONCE WEEKLY. Quantity: 24 Refills: Peggy Davis MD Start : 17-May-2019 Active Start: 05-17-2019 take 4 tablets by mo uth every week Methotrexate 2.5 MG Oral Tablet TAKE 4 TABLETS WEEKLY. Quantity: 16 Refills: Peggy Davis MD Start : 17-May-2019 Active Problems Active Problems Problem Classification Problem Date Documented Date Episodic/Chronic Cataract (20 sources) Bilateral cataracts; Translations: [Unspecified cataract] Chronic Coagulation and hemorrhagic disorders (20 sources) Idiopathic thrombocytopenic purpura; Translations: [Immune thrombocytopenic purpura] Onset: 03-25-2023 02-18-2020 Chronic Comment on above: Idiopathic thrombocy topenic purpura; Disorders of lipid metabolism (20 sources) Mixed hyperlipidemia; Translations: [Mixed hyperlipidemia] Onset: 05-04-2023 02-18-2020 Chronic Essential hypertension (20 sources) Hypertensive disorder; Translations: [Unspecified essential hypertension] Onset: 03-25-2023 03-25-2023 Chronic Immunity disorders (9 sources) Drug-induced immunodeficiency ; Translations: [Immunosuppression] 12-06-2023 Chronic Immunizations and screening for infectious disease (17 sources) Tuberculosis screening status; Translations: [Screening examination for pulmonary tuberculosis] Resolved: 09-06-2021 Episodic Menopausal disorders (10 sources) Menopausal and postmenopausal disorders 02-18-2020 Chronic Osteoarthritis (6 sources) Osteoarthritis of right hip joint; Translations: [Unilateral primary osteoarthritis, right hip] Onset: 06-14-2024 Resolved: 03-14-2025 06-14-2024 Chronic Other aftercare (20 sources) Long-term current use of tofacitinib; Translations: [Long-term (current) use of other medications] Onset: 03-25-2023 09-29-2023 Episodic Other aftercare (13 sources) Immunosuppression; Translations: [Long-term (current) use of other medications] Onset: 03-25-2023 09-29-2023 Episodic Other bone disease and musculoskeletal deformities (11 sources) Osteopenia 03-25-2022 Episodic Other connective tissue disease (1 source) Hip joint prosthesis present; Translations: [Presence of right artificial hip joint] Onset: 11-21-2024 Chronic Other connective tissue disease (1 source) Presence of right artificial hip joint; Translations: [Presence of right artificial hip joint] Onset: 11-20-2024 Chronic Other connective tissue disease (1 source) Presence of left artificial hip joint; Translations: [Presence of left artificial hip joint] Onset: 11-20-2024 Chronic Other non-traumatic joint disorders (3 sources) Joint pain 02-18-2020 Episodic Other nutritional; endocrine; and metabolic disorders (4 sources) Body mass index 25-29 - overweight; Translations: [BMI 28.0-28.9,adult] Chronic Other nutritional; endocrine; and metabolic disorders (1 source) Obesity, unspecified; Translations: [Obesity, unspecified] Onset: 11-20-2024 Chronic Other nutritional; endocrine; and metabolic disorders (13 sources) Overweight in adulthood with body mass index of 25 or more but less than 30; Translations: [Overweight] Resolved: 06-23-2020 Episodic Other screening for suspected conditions (not mental disorders or infectious disease) (2 sources) Blood chemistry abnormal; Translations: [Abnormal finding of blood chemistry, unspecified] Onset: 05-29-2025 01-27-2024 Episodic Residual codes; unclassified (10 sources) Postmenopausal state 03-25-2022 Episodic Residual codes; unclassified (10 sources) Requires vaccination 04-14-2020 Episodic Rheumatoid arthritis and related disease (20 sources) Rheumatoid arthritis of multiple joints; Translations: [Rheumatoid arthritis] Onset: 03-25-2023 09-29-2023 Chronic Unclassified (20 sources) Patient encounter status; Translations: [History of Encounter for monitoring leflunomide therapy] 03-25-2022 Unclassified (2 sources) Long-term current use of tofacitinib; Translations: [Long-term current use of tofacitinib] 11-07-2024 Unclassified (10 sources) Osteopenia 02-18-2020 Comment on above: of multiple sites Unclassified (1 source) Immunodeficiency due to drugs; 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] Onset: 11-20-2024 Unclassified (1 source) predatory animal exterminator (current) use of Janus kinase inhibitor; Translations: [predatory animal exterminator (current) use of Janus kinase inhibitor] Onset: 11-20-2024 Unclassified (1 source) 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); 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)] Onset: 03-25-2023 Unclassified (1 source) predatory animal exterminator (current) use of janus kinase inhibitor; Translations: [predatory animal exterminator (current) use of janus kinase inhibitor] Onset: 03-25-2023 Past or Other Problems Problem Classification Problem Date Documented Da te Episodic/Chronic Allergic reactions (4 sources) Allergy status to other antibiotic agents status; Translations: [Allergy status to sulfonamides status] Onset: 5 Episodic Other aftercare (20 sources) Drug therapy finding; Translations: [Long-term (current) use of other medications] Resolved: 0 Episodic Other aftercare (20 sources) Patient encounter status; Translations: [Encounter for therapeutic drug monitoring] Resolved: 0 Episodic Other aftercare (1 source) Encounter for therapeutic drug level monitoring; Translations: [Encounter for therapeutic drug level monitoring] Onset: 5 Episodic Other aftercare (3 sources) Other meterman (current) drug therapy; Translations: [Other meterman (current) drug therapy] Onset: 3 Episodic Other and unspecified benign neoplasm (7 sources) History of polyp of colon; Translations: [Personal history of colonic polyps] Onset: 6 Resolved: 3 05-15-2021 Episodic Other bone disease and musculoskeletal deformities (3 sources) Other specified disorders of bone density and structure, unspecified site; Translations: [Other specified disorders of bone density and structure, unspecified site] Onset: 5 Episodic Other connective tissue disease (20 sources) Tendinitis of wrist; Translations: [Other tenosynovitis of hand and wrist] Resolved: 1 Episodic Other gastrointestinal disorders (1 source) Other constipation; Translations: [Other constipation] Onset: 5 Episodic Other nutritional; endocrine; and metabolic disorders (20 sources) Body mass index 25-29 - overweight; Translations: [Body Mass Index 28.0-28.9, adult] Resolved: 0 Episodic Other nutritional; endocrine; and metabolic disorders (1 source) Body mass index (BMI) 25.0-25.9, adult; Translations: [Body mass index [BMI] 25.0-25.9, adult] Onset: 5 Episodic Screening and history of mental health and substance abuse codes (1 source) Personal history of nicotine dependence; Translations: [Personal history of nicotine dependence] Onset: 5 Episodic Unclassified (6 sources) Drug therapy finding; Translations: [On methotrexate therapy] Unclassified (5 sources) Onset: 4 Resolved: 5 09-29-2023 Unclassified (1 source) 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); 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)] Onset: 5 Unclassified (1 source) predatory animal exterminator (current) use of janus kinase inhibitor; Translations: [USP (current) use of janus kinase inhibitor] Onset: 5 NEGATED: Highlighted row has not occurred!Residual codes; unclassified (17 sources) Disease Episodic Results Test Name Value Interpretation Reference Range Facility C-REACTIVE PROTEINon 025 CRP [Mass/Vol] mg/L Normal <8.0 [facility] Comment on above: Performed By: #### 6 399, 48776, 809 #### [facility] of [place] [address] Buttermaker: Bijan Linn MD CBC (INCLUDES DIFF/PLT)on Basophils (Bld) [#/Vol] 0.059 10*3/uL Normal 0-200 [facility] Comment on above: Performed By: #### 6 399, 86453, 809 #### [facility] of [place] [address] Buttermaker: Bijan Linn MD Basophils/100 WBC (Bld) 0.8 % Normal [facility] Comment on above: Performed By: #### 6 399, 42265, 809 #### [facility] [place] [address] Buttermaker: Bijan Linn MD Eosinophils (Bld) [#/Vol] 0.289 10*3/uL Normal 15-500 [facility] Comment on above: Performed By: #### 6 399, 23906, 809 #### [facility] [place] [address] Buttermaker: Bijan Linn MD Eosinophils/100 WBC (Bld) 3.9 % Normal [facility] Comment on above: Performed By: #### 6 399, 00123, 809 #### [facility] [place] [address] Buttermaker: Bijan Linn MD Erythrocyte distribution width (RBC) [Ratio] 12.7 % Normal 11.0-15.0 [facility] Comment on above: Performed By: #### 6 399, 87062, 809 #### [facility] [place] [address] Buttermaker: Bijan Linn MD Hematocrit (Bld) [Volume fraction] 39.6 % Normal 35.0-45.0 [facility] Comment on above: Performed By: #### 6 399, 66555, 809 #### [facility] of [address], [address] [place] [address] Buttermaker: Bijan Linn MD Hemoglobin (Bld) [Mass/Vol] 13.0 g/dL Normal 11.7-15.5 [facility] Comment on above: Performed By: #### 6 399, 88161, 809 #### [facility] [place] [address] Buttermaker: Bijan Linn MD Lymphocytes (Bld) [#/Vol] 1.85 10*3/uL Normal 850-3900 [facility] Comment on above: Performed By: #### 6 399, 57302, 809 #### [facility] [place] [address] Buttermaker: Bijan Linn MD Lymphocytes/100 WBC (Bld) 25.0 % Normal [facility] Comment on above: Performed By: #### 6 399, 35929, 809 #### [facility] [place] [address] Buttermaker: Bijan Linn MD MCH (RBC) [Entitic mass] 30.6 pg Normal 27.0-33.0 [facility] Comment on above: Performed By: #### 6 399, 51421, 809 #### [facility] [place] [address] Buttermaker: Bijan Linn MD MCHC (RBC) [Mass/Vol] 32.8 g/dL Normal 32.0-36.0 [facility] Comment on above: Result Comment: For adults, a slight decrease in the calculated MCHC value (in the range of 30 to 32 g/dL) is most likely not clinically significant; however, it should be interpreted with caution in correlation with other red cell parameters and the patient's clinical condition. Performed By: #### 6 399, 40593, 809 #### [facility] of [place] [address] Buttermaker: Bijan Linn MD MCV (RBC) [Entitic vol] 93.2 fL Normal 80.0-100.0 [facility] Comment on above: Performed By: #### 6 399, 01189, 809 #### [facility] of [place] [address] Buttermaker: Bijan Linn MD Monocytes (Bld) [#/Vol] 0.777 10*3/uL Normal 200-950 [facility] Comment on above: Performed By: #### 6 399, 08578, 809 #### [facility] of [place] [address] Buttermaker: Bijan Linn MD Monocytes/100 WBC (Bld) 10.5 % Normal [facility] Comment on above: Performed By: #### 6 399, 83342, 809 #### [facility] of [place] [address] Buttermaker: Bijan Linn MD Neutrophils (Bld) [#/Vol] 4.425 10*3/uL Normal 7006-3074 [facility] Comment on above: Performed By: #### 6 399, 16601, 809 #### [facility] of [place] [address] Buttermaker: Bijan Linn MD Neutrophils/100 WBC (Bld) 59.8 % Normal [facility] Comment on above: Performed By: #### 6 399, 01971, 809 #### [facility] of [place] [address] Buttermaker: Bijan Linn MD Platelet mean volume (Bld) [Entitic vol] 10.0 fL Normal 7.5-12.5 [facility] Comment on above: Performed By: #### 6 399, 68956, 809 #### [facility] of [place] [address] Buttermaker: Bijan Linn MD Platelets (Bld) [#/Vol] 221 10*3/uL Normal 140-400 [facility] Comment on above: Performed By: #### 6 399, 72529, 809 #### [facility] of [address], [address] [place] [address] Buttermaker: Bijan Linn MD RBC (Bld) [#/Vol] 4.25 10*6/uL Normal 3.80-5.10 [facility] Comment on above: Performed By: #### 6 399, 58420, 809 #### [facility] of [address], [address] [place] [address] Buttermaker: Bijan Linn MD WBC (d) [#/Vol] 7.4 10*3/uL Normal 3.8-10.8 [facility] Comment on above: Performed By: #### 6 399, 98728, 809 #### [facility] of [address], [address] [place] [address] Buttermaker: Bijan Linn MD COMPREHENSIVE METABOLIC PANE L W/ANION GAPon 06-12-2025 Albumin [Mass/Vol] 4.3 g/dL Normal 3.6-5.1 [facility] Comment on above: Order Comment: FASTI NG:YES FASTING: YES Performed By: #### 6 399, 77684, 809 #### [facility] of [place] [address] Buttermaker: Bijan Linn MD ALP [Catalytic activity/Vol] 55 U/L Normal 37-153 [facility] Comment on above: Order Comment: FASTI NG:YES FASTING: YES Performed By: #### 6 399, 87189, 809 #### [facility] of [address], [address] [place] [address] Buttermaker: Bijan Linn MD ALT [Catalytic activity/Vol] 17 U/L Normal 6-29 [facility] Comment on above: Order Comment: FASTI NG:YES FASTING: YES Performed By: #### 6 399, 80529, 809 #### [facility] of [place] [address] Buttermaker: Bijna Linn MD AST [Catalytic activity/Vol] 18 U/L Normal 10-35 [facility] Comment on above: Order Comment: FASTI NG:YES FASTING: YES Performed By: #### 6 399, 09231, 809 #### [facility] [place] [address] Buttermaker: Bijan Linn MD Bilirubin [Mass/Vol] 0.4 mg/dL Normal 0.2-1.2 [facility] Comment on above: Order Comment: FASTI NG:YES FASTING: YES Performed By: #### 6 399, 00225, 809 #### [facility] [place] [address] Buttermaker: Bijan Linn MD Calcium [Mass/Vol] 9.4 mg/dL Normal 8.6-10.4 [facility] Comment on above: Order Comment: FASTI NG:YES FASTING: YES Performed By: #### 6 399, 28127, 809 #### [facility] [address], [address] [place] [address] Buttermaker: Bijan Linn MD Chloride [Moles/Vol] 105 mmol/L Normal 98-110 [facility] Comment on above: Order Comment: FASTI NG:YES FASTING: YES Performed By: #### 6 399, 51916, 809 #### [facility] [place] [address] Buttermaker: Bijan Linn MD CO2 [Moles/Vol] 24 mmol/L Normal 20-32 [facility] Comment on above: Order Comment: FASTI NG:YES FASTING: YES Performed By: #### 6 399, 62226, 809 #### [facility] [place] [address] Buttermaker: Bijan Linn MD Creatinine [Mass/Vol] 0.83 mg/dL Normal 0.60-1.00 [facility] Comment on above: Order Comment: FASTI NG:YES FASTING: YES Performed By: #### 6 399, 30215, 809 #### [facility] [address], [address] [place] [address] Buttermaker: Bijan Linn MD ELECTROLYTE BALANCE 10 mmol/L (calc) Normal 7-17 [facility] Comment on above: Order Comment: FASTI NG:YES FASTING: YES Performed By: #### 6 399, 67990, 809 #### [facility] [address], [address] [place] [address] Buttermaker: Bijan Linn MD GFR/1.73 sq M.predicted among non-blacks MDRD (S/P/Bld) [Vol rate/Area] 76 mL/min/{1.73_m2} Normal > OR = 60 [facility] Comment on above: Order Comment: FASTI NG:YES FASTING: YES Performed By: #### 6 399, 12284, 809 #### [facility] [address], [address] [place] [address] Buttermaker: Bijan Linn MD Glucose [Mass/Vol] 78 mg/dL Normal 65-99 [facility] Comment on above: Order Comment: FASTI NG:YES FASTING: YES Result Comment: Fasting reference interval Performed By: #### 6 399, 38151, 809 #### [facility] [address], [address] [place] [address] Buttermaker: Bijan Linn MD Potassium [Moles/Vol] 4.1 mmol/L Normal 3.5-5.3 [facility] Comment on above: Order Comment: FASTI NG:YES FASTING: YES Performed By: #### 6 399, 87253, 809 #### [facility] [address], [address] [place] [address] Buttermaker: Bijan Linn MD Protein [Mass/Vol] 7.1 g/dL Normal 6.1-8.1 [facility] Comment on above: Order Comment: FASTI NG:YES FASTING: YES Performed By: #### 6 399, 13519, 809 #### [facility] [address], [address] [place] [address] Buttermaker: Bijan Linn MD Sodium [Moles/Vol] 139 mmol/L Normal 135-146 [facility] Comment on above: Order Comment: FASTI NG:YES FASTING: YES Performed By: #### 6 399, 10972, 809 #### [facility] [place] [address] Buttermaker: Bijan Linn MD Urea nitrogen [Mass/Vol] 17 mg/dL Normal 7-25 [facility] Comment on above: Order Comment: FASTI NG:YES FASTING: YES Performed By: #### 6 399, 56577, 809 #### [facility] [place] [address] Buttermaker: Bijan Linn MD SED RATE BY MODIFIED WESTERG RENon 06-12-2025 SED RATE BY MODIFIED WESTERGREN 22 mm/h Normal < OR = 30 [facility] Comment on above: Performed By: #### 6 399, 71408, 809 #### [facility] [place] [address] Buttermaker: Bijan Linn MD .Auto Diffon 05-07-2025 Basophil, Absolute 0.1 10 3/mcL Normal 0.0-0.3 [facility] Comment on above: Performed By: #### A IVELISSE, CBC, ADIFF, GFR, BMP #### [address] [address] Basophils/100 WBC (Bld) 1.0 % Normal 0.0-2.5 [facility] Comment on above: Performed By: #### A IVELISSE, CBC, ADIFF, GFR, BMP #### [address] [address] Eosinophil, Absolute 0.2 10 3/mcL Normal 0.0-0.7 [facility] Comment on above: Performed By: #### A IVELISSE, CBC, ADIFF, GFR, BMP #### [address] [address] Eosinophils/100 WBC (Bld) 4.4 % Normal 0.0-6.0 [facility] Comment on above: Performed By: #### A IVELISSE, CBC, ADIFF, GFR, BMP #### [address] [address] Lymphocyte, Absolute 1.6 10 3/mcL Normal 0.9-4.3 [facility] Comment on above: Performed By: #### A IVELISSE, CBC, ADIFF, GFR, BMP #### [address] [address] Lymphocytes/100 WBC (Bld) 30.3 % Normal 20.0-40.0 [facility] Comment on above: Performed By: #### A IVELISSE, CBC, ADIFF, GFR, BMP #### [address] [address] Monocyte, Absolute 0.6 10 3/mcL Normal 0.1-1.4 [facility] Comment on above: Performed By: #### A IVELISSE, CBC, ADIFF, GFR, BMP #### [address] [address] Monocytes/100 WBC (Bld) 11.1 % Normal 2.0-13.0 [facility] Comment on above: Performed By: #### A IVELISSE, CBC, ADIFF, GFR, BMP #### [address] [address] Neutrophils/100 WBC (Bld) 53.2 % Normal 50.0-75.0 [facility] Comment on above: Performed By: #### A IVELISSE, CBC, ADIFF, GFR, BMP #### [address] [address] .GFRon 05-07-2025 Estimated Glomerular Filtration Rate 69 ml/min/1.73sqm Normal [facility] Comment on above: Result Comment: Stages of Chronic Kidney Disease (CKD) Stage Description eGFR(ml/min/1.73 sq.m.) CKD 1 Normal kidney function or >=90 normal kindney function with possible kidney damage (ex. Proteinuria) CKD 2 Kidney damage with mild loss 60-89 of kidney function CKD 3a Mild to moderate loss of kidney 45-59 function CKD 3b Moderate to severe loss of 30-44 of kindey function CKD 4 Severe loss of kidney function 15-29 CKD 5 Kidney failure <15 Note: (go live 2024) the eGFR calculation was updated to the 2020 CKD-EPI creatinine equation without a race factor to calculate the eGFR results. Performed By: #### A IVELISSE, CBC, ADIFF, GFR, BMP #### [place] [address] .NEUABSon 05-07-2025 Neutrophil, Absolute 2.8 10 3/mcL Normal 2.3-8.1 [facility] Comment on above: Performed By: #### A IVELISSE, CBC, ADIFF, GFR, BMP #### [place] [address] CBCon 05-07-2025 Erythrocyte distribution width (RBC) [Ratio] 13.0 % Normal 11.5-15.5 [facility] Comment on above: Performed By: #### A IVELISSE, CBC, ADIFF, GFR, BMP #### [place] [address] Hematocrit (Bld) [Volume fraction] 38.5 % Normal 34.0-46.0 [facility] Comment on above: Performed By: #### A IVELISSE, CBC, ADIFF, GFR, BMP #### [place] [address] Hgb 13.1 G/dL Normal 12.0-16.0 [facility] Comment on above: Performed By: #### A IVELISSE, CBC, ADIFF, GFR, BMP #### [place] [address] MCH (RBC) [Entitic mass] 30.7 pg Normal 27.0-33.0 [facility] Comment on above: Performed By: #### A IVELISSE, CBC, ADIFF, GFR, BMP #### [place] [address] MCHC 34.0 G/dL Normal 32.0-36.0 [facility] Comment on above: Performed By: #### A IVELISSE, CBC, ADIFF, GFR, BMP #### [address] [address] MCV (RBC) [Entitic vol] 90.4 fL Normal 80.0-99.0 [facility] Comment on above: Performed By: #### A IVELISSE, CBC, ADIFF, GFR, BMP #### [address] [address] Platelet 206 10 3/mcL Normal 150-450 [facility] Comment on above: Performed By: #### A IVELISSE, CBC, ADIFF, GFR, BMP #### [address] [address] Platelet mean volume (Bld) [Entitic vol] 7.9 fL Normal 6.6-10.5 [facility] Comment on above: Performed By: #### A IVELISSE, CBC, ADIFF, GFR, BMP #### [address] [address] RBC 4.26 10 6/mcL Normal 4.10-5.30 [facility] Comment on above: Performed By: #### A IVELISSE, CBC, ADIFF, GFR, BMP #### [address] [address] WBC 5.3 10 3/mcL Normal 4.5-10.8 [facility] Comment on above: Performed By: #### A IVELISSE, CBC, ADIFF, GFR, BMP #### [address] [address] CMPon 05-07-2025 Albumin Level 3.8 G/dL Normal 3.4-4.8 [facility] Comment on above: Performed By: #### A IVELISSE, CBC, ADIFF, GFR, BMP #### [address] [address] Albumin/Globulin [Mass ratio] 1.0 {ratio} Low 1.1-2.5 [facility] Comment on above: Performed By: #### A IVELISSE, CBC, ADIFF, GFR, BMP #### [address] [address] ALP [Catalytic activity/Vol] 73 U/L Normal 40-135 [facility] Comment on above: Performed By: #### A IVELISSE, CBC, ADIFF, GFR, BMP #### [address] [address] ALT [Catalytic activity/Vol] 28 U/L Normal 14-59 [facility] Comment on above: Performed By: #### A IVELISSE, CBC, ADIFF, GFR, BMP #### [address] [address] AST [Catalytic activity/Vol] 21 U/L Normal 10-40 [facility] Comment on above: Performed By: #### A IVELISSE, CBC, ADIFF, GFR, BMP #### [address] [address] Bili Total 0.4 mg/dL Normal 0.2-1.0 [facility] Comment on above: Result Comment: Use of this assay is not recommended for patients undergoing treatment with eltrombopag due to the potential for falsely elevated results. Performed By: #### A IVELISSE, CBC, ADIFF, GFR, BMP #### [place] [id number] BUN/Creatinine Ratio 12 ratio Normal 7-27 [facility] Comment on above: Performed By: #### A IVELISSE, CBC, ADIFF, GFR, BMP #### [address] [address] Calcium [Mass/Vol] 9.5 mg/dL Normal 8.4-10.2 [facility] Comment on above: Performed By: #### A IVELISSE, CBC, ADIFF, GFR, BMP #### [address] [address] Chloride [Moles/Vol] 103 mmol/L Normal 98-107 [facility] Comment on above: Performed By: #### A IVELISSE, CBC, ADIFF, GFR, BMP #### [address] [address] CO2 [Moles/Vol] 28 mmol/L Normal 23-31 [facility] Comment on above: Performed By: #### A IVELISSE, CBC, ADIFF, GFR, BMP #### [address] [address] Creatinine [Mass/Vol] 0.90 mg/dL Normal 0.51-0.95 [facility] Comment on above: Performed By: #### A IVELISSE, CBC, ADIFF, GFR, BMP #### [address] [address] Electrolyte Balance 8.0 mEq/L Normal 4.0-15.0 [facility] Comment on above: Performed By: #### A IVELISSE, CBC, ADIFF, GFR, BMP #### [address] [address] Globulin 3.9 G/dL Normal 2.7-4.4 [facility] Comment on above: Performed By: #### A IVELISSE, CBC, ADIFF, GFR, BMP #### [address] [address] Glucose [Mass/Vol] 89 mg/dL Normal 83-110 [facility] Comment on above: Performed By: #### A IVELISSE, CBC, ADIFF, GFR, BMP #### [address] [address] Potassium [Moles/Vol] 4.3 mmol/L Normal 3.5-5.1 [facility] Comment on above: Performed By: #### A IVELISSE, CBC, ADIFF, GFR, BMP #### [address] [address] Sodium [Moles/Vol] 139 mmol/L Normal 136-145 [facility] Comment on above: Performed By: #### A IVELISSE, CBC, ADIFF, GFR, BMP #### [address] [address] Total Protein 7.7 G/dL Normal 6.4-8.2 [facility] Comment on above: Performed By: #### A IVELISSE, CBC, ADIFF, GFR, BMP #### [facility] [address] [place], [place] [address] Urea nitrogen [Mass/Vol] 11 mg/dL Normal 7-18 [facility] Comment on above: Performed By: #### A IVELISSE, CBC, ADIFF, GFR, BMP #### [facility] [address] [place], [place] [address] LABORATORYOrdered By: SYSTEM SYSTEM on 05-07-2025 25-hydroxyvitamin D3 [Mass/Vol] 45.6 ng/mL Invalid Interpretation Code AO ADM SS Comment on above: Interpretive Data: I nterpretive Values Based on Total 25(OH) Vitamin D: Deficient <20 ng/mL Insufficient 20 - <30 ng/mL Sufficient 30-100 ng/mL Albumin BCP dye [Mass/Vol] 3.8 G/dL Normal 3.4 - 4.8 G/dL AO ADM SS Albumin/Globulin [Mass ratio] 1.0 {ratio} Low 1.1 - 2.5 ratio AO ADM SS ALP [Catalytic activity/Vol] 73 U/L Normal 40 - 135 U/L AO ADM SS ALT With P-5'-P [Catalytic activity/Vol] 28 U/L Normal 14 - 59 U/L AO ADM SS AST With P-5'-P [Catalytic activity/Vol] 21 U/L Normal 10 - 40 U/L AO ADM SS Basophils (Bld) [#/Vol] 0.1 103/mcL Normal 0.0 - 0.3 10^3/mcL AO Workflow SS Basophils/100 WBC (Bld) 1.0 % Normal 0.0 - 2.5 % AO Workflow SS Bilirubin [Mass/Vol] 0.4 mg/dL Normal 0.2 - 1 .0 mg/dL AO ADM SS Comment on above: Interpretive Data: U se of this assay is not recommended for patients undergoing treatment with eltrombopag due to the potential for falsely elevated results. Calcium [Mass/Vol] 9.5 mg/dL Normal 8.4 - 10. 2 mg/dL AO ADM SS Chloride [Moles/Vol] 103 mmol/L Normal 98 - 10 7 mmol/L AO ADM SS CO2 [Moles/Vol] 28 mmol/L Normal 23 - 31 mmol/L AO ADM SS Creatinine [Mass/Vol] 0.90 mg/dL Normal 0.51 - 0.95 mg/dL AO ADM SS Electrolyte Balance 8.0 mEq/L Normal 4.0 - 15 .0 mEq/L AO ADM SS Eosinophil, Absolute 0.2 103/mcL Normal 0.0 - 0 .7 10^3/mcL AO Workflow SS Eosinophils/100 WBC (Bld) 4.4 % Normal 0.0 - 6.0 % AO Workflow SS Erythrocyte distribution width (RBC) [Ratio] 13.0 % Normal 11.5 - 15.5 % AO Workflow SS Globulin 3.9 G/dL Normal 2.7 - 4.4 G/dL AO ADM SS GLOMERULAR FILTRATION RATE/1.73 SQ M.PREDICTED:ARVRAT:PT :SER/PLAS/BLD:QN:CREA TININE-BASED FORMULA (CKD-EPI 2020) 69 ml/min/1.73sqm Invalid Interpretation Code AO Chemistry S Comment on above: Interpretive Data: Stages of Chronic Kidney Disease (CKD) Stage Description eGFR(ml/min/1.73 sq.m.) CKD 1 Normal kidney function or >=90 normal kindney function with possible kidney damage (ex. Proteinuria) CKD 2 Kidney damage with mild loss 60-89 of kidney function CKD 3a Mild to moderate loss of kidney 45-59 function CKD 3b Moderate to severe loss of 30-44 of kindey function CKD 4 Severe loss of kidney function 15-29 CKD 5 Kidney failure <15 Note: (go live 2024) the eGFR calculation was updated to the 2020 CKD-EPI creatinine equation without a race factor to calculate the eGFR results. Glucose [Mass/Vol] 89 mg/dL Normal 83 - 110 mg/dL AO ADM SS Hematocrit (Bld) [Volume fraction] 38.5 % Normal 34.0 - 46.0 % AO Workflow SS Hemoglobin (Bld) [Mass/Vol] 13.1 G/dL Normal 12.0 - 16.0 G/dL AO Workflow SS Lymphocytes (Bld) [#/Vol] 1.6 103/mcL Normal 0.9 - 4.3 10^3/mcL AO Workflow SS Lymphocytes/100 WBC (Bld) 30.3 % Normal 20.0 - 40.0 % AO Workflow SS MCH (RBC) [Entitic mass] 30.7 pg Normal 27.0 - 33.0 pg AO Workflow SS MCHC 34.0 G/dL Normal 32.0 - 36.0 G/dL AO Workflow SS MCV (RBC) [Entitic vol] 90.4 fL Normal 80.0 - 99.0 fL AO Workflow SS Monocytes (Bld) [#/Vol] 0.6 103/mcL Normal 0.1 - 1.4 10^3/mcL AO Workflow SS Monocytes/100 WBC (Bld) 11.1 % Normal 2.0 - 13.0 % AO Workflow SS Neutrophils (Bld) [#/Vol] 2.8 103/mcL Normal 2.3 - 8.1 10^3/mcL AO Workflow SS Neutrophils/100 WBC (Bld) 53.2 % Normal 50.0 - 75.0 % AO Workflow SS Platelet mean volume (Bld) [Entitic vol] 7.9 fL Normal 6.6 - 10.5 fL AO Workflow SS Platelets (Bld) [#/Vol] 206 103/mcL Normal 150 - 450 10^3/mcL AO Workflow SS Potassium [Moles/Vol] 4.3 mmol/L Normal 3.5 - 5.1 mmol/L AO ADM SS Protein [Mass/Vol] 7.7 G/dL Normal 6.4 - 8.2 G/dL AO ADM SS RBC (Bld) [#/Vol] 4.26 106/mcL Normal 4.10 - 5.3 0 10^6/mcL AO Workflow SS Sodium [Moles/Vol] 139 mmol/L Normal 136 - 145 mmol/L AO ADM SS TSH Qn 2.08 m[IU]/L Normal 0.36 - 3.74 mcIU/mL AO ADM SS Urea nitrogen [Mass/Vol] 11 mg/dL Normal 7 - 18 mg/dL AO ADM SS Urea nitrogen/Creatinine [Mass ratio] 12 ratio Normal 7 - 27 ratio AO ADM SS WBC (Bld) [#/Vol] 5.3 103/mcL Normal 4.5 - 10.8 10^3/mcL AO Workflow SS LABORATORYOrdered By: Luis F Harkins on 05-07-2025 Cholesterol [Mass/Vol] 199 mg/dL Normal 0 - 200 mg/dL AO ADM SS Comment on above: Interpretive Data: C holesterol Reference Interval: Less than 200 Desirable 200-239 Borderline high risk 240 and above High risk Cholesterol in HDL [Mass/Vol] 68 mg/dL High 40 - 60 mg/dL AO ADM SS Cholesterol in LDL [Mass/Vol] 116 mg/dL Normal 0 - 130 mg/dL AO ADM SS Triglyceride [Mass/Vol] 76 mg/dL Normal 0 - 150 mg/dL AO ADM SS Comment on above: Interpretive Data: T riglyceride Reference Interval: Less than 150 Normal 150-199 Borderline high risk 200-499 High risk 500 or higher Very high risk LIPIDon 05-07-2025 Cholesterol [Mass/Vol] 199 mg/dL Normal 0-200 [facility] Comment on above: Result Comment: Chol esterol Reference Interval: Less than 200 Desirable 200-239 Borderline high risk 240 and above High risk Performed By: #### A IVELISSE, CBC, ADIFF, GFR, BMP #### [address] [address] Cholesterol in HDL [Mass/Vol] 68 mg/dL High 40-60 [facility] Comment on above: Performed By: #### A IVELISSE, CBC, ADIFF, GFR, BMP #### [address] [address] Cholesterol in LDL [Mass/Vol] 116 mg/dL Normal 0-130 [facility] Comment on above: Performed By: #### A IVELISSE, CBC, ADIFF, GFR, BMP #### [address] [address] Triglyceride [Mass/Vol] 76 mg/dL Normal 0-150 [facility] Comment on above: Result Comment: Trig lyceride Reference Interval: Less than 150 Normal 150-199 Borderline high risk 200-499 High risk 500 or higher Very high risk Performed By: #### A IVELISSE, CBC, ADIFF, GFR, BMP #### [address] [address] TSHon 05-07-2025 TSH Qn 2.08 m[IU]/L Normal 0.36-3.74 [facility] Comment on above: Performed By: #### A IVELISSE, CBC, ADIFF, GFR, BMP #### [address] [address] VIDHon 05-07-2025 Vit. D 25-Hydroxy 45.6 ng/mL Normal [facility] Comment on above: Result Comment: Inte rpretive Values Based on Total 25(OH) Vitamin D: Deficient <20 ng/mL Insufficient 20 - <30 ng/mL Sufficient 30-100 ng/mL Performed By: #### A IVELISSE, CBC, ADIFF, GFR, BMP #### [place] [id number] [place], [place] [address] C-REACTIVE PROTEINon 025 C-REACTIVE PROTEIN Normal [facility] Comment on above: Performed By: #### 8 , 63, [address] #### [facility] [address], [address] [place] [address] Buttermaker: Bijan Linn MD CBC (INCLUDES DIFF/PLT)on Basophils (Bld) [#/Vol] 0.059 10*3/uL Normal 0-200 [facility] Comment on above: Performed By: #### 8 , 44, [address] #### [facility] [place] [address] Buttermaker: Bijan Linn MD Basophils/100 WBC (Bld) 1.1 % Normal [facility] Diagnostics Comment on above: Performed By: #### 8 , 57, 75915 #### [facility] [place] [address] Buttermaker: Bijan Linn MD Eosinophils (Bld) [#/Vol] 0.27 10*3/uL Normal 15-500 [facility] Comment on above: Performed By: #### 8 , 40, 52173 #### [facility] [place] [address] Buttermaker: Bijan Linn MD Eosinophils/100 WBC (Bld) 5.0 % Normal [facility] Comment on above: Performed By: #### 8 , 49, 87576 #### [facility] [place] [address] Buttermaker: Bijan Linn MD Erythrocyte distribution width (RBC) [Ratio] 13.4 % Normal 11.0-15.0 [facility] Comment on above: Performed By: #### 8 , 63, 41439 #### [facility] of [place] [address] Buttermaker: Bijan Linn MD Hematocrit (Bld) [Volume fraction] 41.8 % Normal 35.0-45.0 [facility] Comment on above: Performed By: #### 8 , 63, 82583 #### [facility] [place] [address] Buttermaker: Bijan Linn MD Hemoglobin (Bld) [Mass/Vol] 13.1 g/dL Normal 11.7-15.5 [facility] Comment on above: Performed By: #### 8 , 6398, 13611 #### [facility] [place] [address] Buttermaker: Bijan Linn MD Lymphocytes (Bld) [#/Vol] 1.706 10*3/uL Normal 850-3900 [facility] Comment on above: Performed By: #### 8 , 6398, 86153 #### [facility] [place] [address] Buttermaker: Bijan Linn MD Lymphocytes/100 WBC (Bld) 31.6 % Normal [facility] Comment on above: Performed By: #### 8 , 68, 19368 #### [facility] [place] [address] Buttermaker: Bijan Linn MD MCH (RBC) [Entitic mass] 30.3 pg Normal 27.0-33.0 [facility] Comment on above: Performed By: #### 8 , 93, 81795 #### [facility] [place] [address] Buttermaker: Bijan Linn MD MCHC (RBC) [Mass/Vol] 31.3 g/dL Low 32.0-36.[address] [facility] Comment on above: Result Comment: For adults, a slight decrease in the calculated MCHC value (in the range of 30 to 32 g/dL) is most likely not clinically significant; however, it should be interpreted with caution in correlation with other red cell parameters and the patient's clinical condition. Performed By: #### 8 , 63, 33842 #### [facility] of [address], [address] [place] [address] Buttermaker: Bijan Linn MD MCV (RBC) [Entitic vol] 96.8 fL Normal 80.0-100.0 [facility] Comment on above: Performed By: #### 8 , 6398, 61470 #### [facility] [place] [address] Buttermaker: Bijan Linn MD Monocytes (Bld) [#/Vol] 0.589 10*3/uL Normal 200-950 [facility] Comment on above: Performed By: #### 8 , 6398, 54980 #### [facility] of [address], [address] [place] [address] Buttermaker: Bijan Linn MD Monocytes/100 WBC (Bld) 10.9 % Normal [facility] Comment on above: Performed By: #### 8 , 30, 54517 #### [facility] [place] [address] Buttermaker: Bijan Linn MD Neutrophils (Bld) [#/Vol] 2.776 10*3/uL Normal 4974-1326 [facility] Comment on above: Performed By: #### 8 , 32, 89095 #### [facility] [place] [address] Buttermaker: Bijan Linn MD Neutrophils/100 WBC (Bld) 51.4 % Normal [facility] Comment on above: Performed By: #### 8 , 86, 59210 #### [facility] [place] [address] Buttermaker: Bijan Linn MD Platelet mean volume (Bld) [Entitic vol] 10.3 fL Normal 7.5-12.5 [facility] Comment on above: Performed By: #### 8 , 63, 37724 #### [facility] [place] [address] Buttermaker: Bijan Linn MD Platelets (Bld) [#/Vol] 227 10*3/uL Normal 140-400 [facility] Comment on above: Performed By: #### 8 09, 63, 83098 #### [facility] [place] [address] Buttermaker: Bijan Linn MD RBC (Bld) [#/Vol] 4.32 10*6/uL Normal 3.80-5.10 [facility] Comment on above: Performed By: #### 8 , 16, 17945 #### [facility] [place] [address] Buttermaker: Bijan Linn MD WBC (Bld) [#/Vol] 5.4 10*3/uL Normal 3.8-10.8 [facility] Comment on above: Performed By: #### 8 , 00, 47907 #### [facility] [place] [address] Buttermaker: Bijan Linn MD COMPREHENSIVE METABOLIC PANE L W/ANION GAPon 02-26-2025 Albumin [Mass/Vol] 4.4 g/dL Normal 3.6-5.1 [facility] Comment on above: Order Comment: FASTI NG:YES FASTING: YES Performed By: #### 8 , 26, 37804 #### [facility] [place] [address] Buttermaker: Bijan Linn MD ALP [Catalytic activity/Vol] 68 U/L Normal 37-153 [facility] Comment on above: Order Comment: FASTI NG:YES FASTING: YES Performed By: #### 8 , 36, 37483 #### [facility] [place] [address] Buttermaker: Bijan Linn MD ALT [Catalytic activity/Vol] 23 U/L Normal 6-29 [facility] Comment on above: Order Comment: FASTI NG:YES FASTING: YES Performed By: #### 8 09, 6399, 03909 #### [facility] [place] [address] Buttermaker: Bijan Linn MD AST [Catalytic activity/Vol] 23 U/L Normal 10-35 [facility] Comment on above: Order Comment: FASTI NG:YES FASTING: YES Performed By: #### 8 09, 63, 85509 #### [facility] [place] [address] Buttermaker: Bijan Linn MD Bilirubin [Mass/Vol] 0.3 mg/dL Normal 0.2-1.2 [facility] Comment on above: Order Comment: FASTI NG:YES FASTING: YES Performed By: #### 8 09, 97, 40772 #### [facility] [place] [address] Buttermaker: Bijan Linn MD Calcium [Mass/Vol] 9.9 mg/dL Normal 8.6-10.4 [facility] Comment on above: Order Comment: FASTI NG:YES FASTING: YES Performed By: #### 8 09, 41, 27203 #### [facility] [place] [address] Buttermaker: Bijan Linn MD Chloride [Moles/Vol] 103 mmol/L Normal 98-110 [facility] Comment on above: Order Comment: FASTI NG:YES FASTING: YES Performed By: #### 8 09, 7599, 01404 #### [facility] [place] [address] Buttermaker: Bijan Linn MD CO2 [Moles/Vol] 26 mmol/L Normal 20-32 [facility] Comment on above: Order Comment: FASTI NG:YES FASTING: YES Performed By: #### 8 09, 08, 28085 #### [facility] [address], [address] [place] [address] Buttermaker: Bijan Linn MD Creatinine [Mass/Vol] 0.79 mg/dL Normal 0.50-1.05 [facility] Comment on above: Order Comment: FASTI NG:YES FASTING: YES Performed By: #### 8 , 39, 79571 #### [facility] [address], [address] [place] [address] Buttermaker: Bijan Linn MD ELECTROLYTE BALANCE 8 mmol/L (calc) Normal 7-17 [facility] Comment on above: Order Comment: FASTI NG:YES FASTING: YES Performed By: #### 8 , 49, 70308 #### [facility] [address], [address] [place] [address] Buttermaker: Bijan Linn MD GFR/1.73 sq M.predicted among non-blacks MDRD (S/P/Bld) [Vol rate/Area] 81 mL/min/{1.73_m2} Normal > OR = 60 [facility] Comment on above: Order Comment: FASTI NG:YES FASTING: YES Performed By: #### 8 , 29, 63662 #### [facility] [address], [address] [place] [address] Buttermaker: Bijan Linn MD Glucose [Mass/Vol] 82 mg/dL Normal 65-99 [facility] Comment on above: Order Comment: FASTI NG:YES FASTING: YES Result Comment: Fasting reference interval Performed By: #### 8 , 21, 41573 #### [facility] [address], [address] [place] [address] Buttermaker: Bijan Linn MD Potassium [Moles/Vol] 4.3 mmol/L Normal 3.5-5.3 [facility] Comment on above: Order Comment: FASTI NG:YES FASTING: YES Performed By: #### 8 , 95, 90117 #### [facility] [place] [address] Buttermaker: Bijan Linn MD Protein [Mass/Vol] 7.3 g/dL Normal 6.1-8.1 [facility] Comment on above: Order Comment: FASTI NG:YES FASTING: YES Performed By: #### 8 09, 63, 39005 #### [facility] [place] [address] Buttermaker: Bijan Linn MD Sodium [Moles/Vol] 137 mmol/L Normal 135-146 [facility] Comment on above: Order Comment: FASTI NG:YES FASTING: YES Performed By: #### 8 , 63, 32227 #### [facility] [place] [address] Buttermaker: Bijan Linn MD Urea nitrogen [Mass/Vol] 15 mg/dL Normal 7-25 [facility] Comment on above: Order Comment: FASTI NG:YES FASTING: YES Performed By: #### 8 , 63, 50513 #### [facility] [place] [address] Buttermaker: Bijan Linn MD SED RATE BY MODIFIED WESTERG RENon 02-26-2025 SED RATE BY MODIFIED WESTERGREN 11 mm/h Normal < OR = 30 [facility] Comment on above: Performed By: #### 8 , 36, 49716 #### [facility] [place] [address] Buttermaker: Bijan Linn MD .Auto Diffon 12-19-2024 Basophil, Absolute 0.1 10 3/mcL Normal 0.0-0.3 [facility] Comment on above: Performed By: #### A IVELISSE, CBC, ADIFF, GFR, BMP #### [facility] [address] [place] [address] Basophils/100 WBC (Bld) 1.2 % Normal 0.0-2.5 [facility] Comment on above: Performed By: #### A IVELISSE, CBC, ADIFF, GFR, BMP #### [address] [address] Eosinophil, Absolute 0.4 10 3/mcL Normal 0.0-0.7 [facility] Comment on above: Performed By: #### A IVELISSE, CBC, ADIFF, GFR, BMP #### [address] [address] Eosinophils/100 WBC (Bld) 5.8 % Normal 0.0-6.0 [facility] Comment on above: Performed By: #### A IVELISSE, CBC, ADIFF, GFR, BMP #### [address] [address] Lymphocyte, Absolute 1.5 10 3/mcL Normal 0.9-4.3 [facility] Comment on above: Performed By: #### A IVELISSE, CBC, ADIFF, GFR, BMP #### [address] [address] Lymphocytes/100 WBC (Bld) 21.7 % Normal 20.0-40.0 [facility] Comment on above: Performed By: #### A IVELISSE, CBC, ADIFF, GFR, BMP #### [address] [address] Monocyte, Absolute 0.6 10 3/mcL Normal 0.1-1.4 [facility] Comment on above: Performed By: #### A IVELISSE, CBC, ADIFF, GFR, BMP #### [address] [address] Monocytes/100 WBC (Bld) 8.8 % Normal 2.0-13.0 [facility] Comment on above: Performed By: #### A IVELISSE, CBC, ADIFF, GFR, BMP #### [address] [address] Neutrophils/100 WBC (Bld) 62.5 % Normal 50.0-75.0 [facility] Comment on above: Performed By: #### A IVELISSE, CBC, ADIFF, GFR, BMP #### [address] [address] .GFRon 12-19-2024 Estimated Glomerular Filtration Rate 77 ml/min/1.73sqm Normal [facility] Comment on above: Result Comment: Stages of Chronic Kidney Disease (CKD) Stage Description eGFR(ml/min/1.73 sq.m.) CKD 1 Normal kidney function or >=90 normal kindney function with possible kidney damage (ex. Proteinuria) CKD 2 Kidney damage with mild loss 60-89 of kidney function CKD 3a Mild to moderate loss of kidney 45-59 function CKD 3b Moderate to severe loss of 30-44 of kindey function CKD 4 Severe loss of kidney function 15-29 CKD 5 Kidney failure <15 Note: (go live 2024) the eGFR calculation was updated to the 2020 CKD-EPI creatinine equation without a race factor to calculate the eGFR results. Performed By: #### A IVELISSE, CBC, ADIFF, GFR, BMP #### [place] [address] .NEUABSon 12-19-2024 Neutrophil, Absolute 4.5 10 3/mcL Normal 2.3-8.1 [facility] Comment on above: Performed By: #### A IVELISSE, CBC, ADIFF, GFR, BMP #### [place] [address] CBCon 12-19-2024 Erythrocyte distribution width (RBC) [Ratio] 14.0 % Normal 11.5-15.5 [facility] Comment on above: Performed By: #### A IVELISSE, CBC, ADIFF, GFR, BMP #### [place] [address] Hematocrit (Bld) [Volume fraction] 38.2 % Normal 34.0-46.0 [facility] Comment on above: Performed By: #### A IVELISSE, CBC, ADIFF, GFR, BMP #### [place] [address] Hgb 12.7 G/dL Normal 12.0-16.0 [facility] Comment on above: Performed By: #### A IVELISSE, CBC, ADIFF, GFR, BMP #### [address] [address] MCH (RBC) [Entitic mass] 30.5 pg Normal 27.0-33.0 [facility] Comment on above: Performed By: #### A IVELISSE, CBC, ADIFF, GFR, BMP #### [address] [address] MCHC 33.3 G/dL Normal 32.0-36.0 [facility] Comment on above: Performed By: #### A IVELISSE, CBC, ADIFF, GFR, BMP #### [address] [address] MCV (RBC) [Entitic vol] 91.6 fL Normal 80.0-99.0 [facility] Comment on above: Performed By: #### A IVELISSE, CBC, ADIFF, GFR, BMP #### [address] [address] Platelet 251 10 3/mcL Normal 150-450 [facility] Comment on above: Performed By: #### A IVELISSE, CBC, ADIFF, GFR, BMP #### [address] [address] Platelet mean volume (Bld) [Entitic vol] 8.6 fL Normal 6.6-10.5 [facility] Comment on above: Performed By: #### A IVELISSE, CBC, ADIFF, GFR, BMP #### [address] [address] RBC 4.17 10 6/mcL Normal 4.10-5.30 [facility] Comment on above: Performed By: #### A IVELISSE, CBC, ADIFF, GFR, BMP #### [address] [address] WBC 7.1 10 3/mcL Normal 4.5-10.8 [facility] Comment on above: Performed By: #### A IVELISSE, CBC, ADIFF, GFR, BMP #### [address] [address] CMPon 12-19-2024 Albumin Level 3.8 G/dL Normal 3.4-4.8 [facility] Comment on above: Performed By: #### A IVELISSE, CBC, ADIFF, GFR, BMP #### [place] [id number] Albumin/Globulin [Mass ratio] 0.9 {ratio} Low 1.1-2.5 [facility] Comment on above: Performed By: #### A IVELISSE, CBC, ADIFF, GFR, BMP #### [place] [id number] ALP [Catalytic activity/Vol] 123 U/L Normal 40-135 [facility] Comment on above: Performed By: #### A IVELISSE, CBC, ADIFF, GFR, BMP #### [place] [address] ALT [Catalytic activity/Vol] 34 U/L Normal 14-59 [facility] Comment on above: Performed By: #### A IVELISSE, CBC, ADIFF, GFR, BMP #### [place] [id number] AST [Catalytic activity/Vol] 23 U/L Normal 10-40 [facility] Comment on above: Performed By: #### A IVELISSE, CBC, ADIFF, GFR, BMP #### [address] [address] Bili Total 0.4 mg/dL Normal 0.2-1.0 [facility] Comment on above: Result Comment: Use of this assay is not recommended for patients undergoing treatment with eltrombopag due to the potential for falsely elevated results. Performed By: #### A IVELISSE, CBC, ADIFF, GFR, BMP #### [address] [address] BUN/Creatinine Ratio 18 ratio Normal 7-27 [facility] Comment on above: Performed By: #### A IVELISSE, CBC, ADIFF, GFR, BMP #### [address] [address] Calcium [Mass/Vol] 9.9 mg/dL Normal 8.4-10.2 [facility] Comment on above: Performed By: #### A IVELISSE, CBC, ADIFF, GFR, BMP #### [address] [address] Chloride [Moles/Vol] 101 mmol/L Normal 98-107 [facility] Comment on above: Performed By: #### A IVELISSE, CBC, ADIFF, GFR, BMP #### [place] [address] CO2 [Moles/Vol] 26 mmol/L Normal 23-31 [facility] Comment on above: Performed By: #### A IVELISSE, CBC, ADIFF, GFR, BMP #### [place] [address] Creatinine [Mass/Vol] 0.82 mg/dL Normal 0.51-0.95 [facility] Comment on above: Performed By: #### A IVELISSE, CBC, ADIFF, GFR, BMP #### [place] [address] Electrolyte Balance 9.0 mEq/L Normal 4.0-15.0 [facility] Comment on above: Performed By: #### A IVELISSE, CBC, ADIFF, GFR, BMP #### [place] [address] Globulin 4.1 G/dL Normal 2.7-4.4 [facility] Comment on above: Performed By: #### A IVELISSE, CBC, ADIFF, GFR, BMP #### [place] [address] Glucose [Mass/Vol] 86 mg/dL Normal 80-115 [facility] Comment on above: Performed By: #### A IVELISSE, CBC, ADIFF, GFR, BMP #### [place] [address] Potassium [Moles/Vol] 4.3 mmol/L Normal 3.5-5.1 [facility] Comment on above: Performed By: #### A IVELISSE, CBC, ADIFF, GFR, BMP #### [place] [address] Sodium [Moles/Vol] 136 mmol/L Normal 136-145 [facility] Comment on above: Performed By: #### A IVELISSE, CBC, ADIFF, GFR, BMP #### [place] [address] [place], [place] [address] Total Protein 7.9 G/dL Normal 6.4-8.2 [facility] Comment on above: Performed By: #### A IVELISSE, CBC, ADIFF, GFR, BMP #### [place] [address] [place], [place] [address] Urea nitrogen [Mass/Vol] 15 mg/dL Normal 7-18 [facility] Comment on above: Performed By: #### A IVELISSE, CBC, ADIFF, GFR, BMP #### [place] [address] [place], [place] [address] LABORATORYOrdered By: SYSTEM SYSTEM on 12-19-2024 25-hydroxyvitamin D3 [Mass/Vol] 47.8 ng/mL Invalid Interpretation Code AO ADM SS Comment on above: Interpretive Data: I nterpretive Values Based on Total 25(OH) Vitamin D: Deficient <20 ng/mL Insufficient 20 - <30 ng/mL Sufficient 30-100 ng/mL Albumin BCP dye [Mass/Vol] 3.8 G/dL Normal 3.4 - 4.8 G/dL AO ADM SS Albumin/Globulin [Mass ratio] 0.9 {ratio} Low 1.1 - 2.5 ratio AO ADM SS ALP [Catalytic activity/Vol] 123 U/L Normal 40 - 135 U/L AO ADM SS ALT With P-5'-P [Catalytic activity/Vol] 34 U/L Normal 14 - 59 U/L AO ADM SS AST With P-5'-P [Catalytic activity/Vol] 23 U/L Normal 10 - 40 U/L AO ADM SS Basophils (Bld) [#/Vol] 0.1 103/mcL Normal 0.0 - 0.3 10^3/mcL AO Workflow SS Basophils/100 WBC (Bld) 1.2 % Normal 0.0 - 2.5 % AO Workflow SS Bilirubin [Mass/Vol] 0.4 mg/dL Normal 0.2 - 1 .0 mg/dL AO ADM SS Comment on above: Interpretive Data: U se of this assay is not recommended for patients undergoing treatment with eltrombopag due to the potential for falsely elevated results. Calcium [Mass/Vol] 9.9 mg/dL Normal 8.4 - 10. 2 mg/dL AO ADM SS Chloride [Moles/Vol] 101 mmol/L Normal 98 - 10 7 mmol/L AO ADM SS CO2 [Moles/Vol] 26 mmol/L Normal 23 - 31 mmol/L AO ADM SS Creatinine [Mass/Vol] 0.82 mg/dL Normal 0.51 - 0.95 mg/dL AO ADM SS Electrolyte Balance 9.0 mEq/L Normal 4.0 - 15 .0 mEq/L AO ADM SS Eosinophil, Absolute 0.4 103/mcL Normal 0.0 - 0 .7 10^3/mcL AO Workflow SS Eosinophils/100 WBC (Bld) 5.8 % Normal 0.0 - 6.0 % AO Workflow SS Erythrocyte distribution width (RBC) [Ratio] 14.0 % Normal 11.5 - 15.5 % AO Workflow SS Estimated Glomerular Filtration Rate 77 ml/min/1.73sqm Invalid Interpretation Code AO Chemistry S Comment on above: Interpretive Data: Stages of Chronic Kidney Disease (CKD) Stage Description eGFR(ml/min/1.73 sq.m.) CKD 1 Normal kidney function or >=90 normal kindney function with possible kidney damage (ex. Proteinuria) CKD 2 Kidney damage with mild loss 60-89 of kidney function CKD 3a Mild to moderate loss of kidney 45-59 function CKD 3b Moderate to severe loss of 30-44 of kindey function CKD 4 Severe loss of kidney function 15-29 CKD 5 Kidney failure <15 Note: (go live 2024) the eGFR calculation was updated to the 2020 CKD-EPI creatinine equation without a race factor to calculate the eGFR results. Globulin 4.1 G/dL Normal 2.7 - 4.4 G/dL AO ADM SS Glucose [Mass/Vol] 86 mg/dL Normal 80 - 115 mg/dL AO ADM SS Hematocrit (Bld) [Volume fraction] 38.2 % Normal 34.0 - 46.0 % AO Workflow SS Hemoglobin (Bld) [Mass/Vol] 12.7 G/dL Normal 12.0 - 16.0 G/dL AO Workflow SS Lymphocytes (Bld) [#/Vol] 1.5 103/mcL Normal 0.9 - 4.3 10^3/mcL AO Workflow SS Lymphocytes/100 WBC (Bld) 21.7 % Normal 20.0 - 40.0 % AO Workflow SS MCH (RBC) [Entitic mass] 30.5 pg Normal 27.0 - 33.0 pg AO Workflow SS MCHC 33.3 G/dL Normal 32.0 - 36.0 G/dL AO Workflow SS MCV (RBC) [Entitic vol] 91.6 fL Normal 80.0 - 99.0 fL AO Workflow SS Monocytes (Bld) [#/Vol] 0.6 103/mcL Normal 0.1 - 1.4 10^3/mcL AO Workflow SS Monocytes/100 WBC (Bld) 8.8 % Normal 2.0 - 13.0 % AO Workflow SS Neutrophils (Bld) [#/Vol] 4.5 103/mcL Normal 2.3 - 8.1 10^3/mcL AO Workflow SS Neutrophils/100 WBC (Bld) 62.5 % Normal 50.0 - 75.0 % AO Workflow SS Platelet mean volume (Bld) [Entitic vol] 8.6 fL Normal 6.6 - 10.5 fL AO Workflow SS Platelets (Bld) [#/Vol] 251 103/mcL Normal 150 - 450 10^3/mcL AO Workflow SS Potassium [Moles/Vol] 4.3 mmol/L Normal 3.5 - 5.1 mmol/L AO ADM SS Protein [Mass/Vol] 7.9 G/dL Normal 6.4 - 8.2 G/dL AO ADM SS RBC (Bld) [#/Vol] 4.17 106/mcL Normal 4.10 - 5.3 0 10^6/mcL AO Workflow SS Sodium [Moles/Vol] 136 mmol/L Normal 136 - 145 mmol/L AO ADM SS Urea nitrogen [Mass/Vol] 15 mg/dL Normal 7 - 18 mg/dL AO ADM SS Urea nitrogen/Creatinine [Mass ratio] 18 ratio Normal 7 - 27 ratio AO ADM SS WBC (Bld) [#/Vol] 7.1 103/mcL Normal 4.5 - 10.8 10^3/mcL AO Workflow SS LABORATORYOrdered By: Carol Pereira on 12-19-2024 Cholesterol [Mass/Vol] 219 mg/dL High 0 - 200 mg/dL AO ADM SS Comment on above: Interpretive Data: C holesterol Reference Interval: Less than 200 Desirable 200-239 Borderline high risk 240 and above High risk Cholesterol in HDL [Mass/Vol] 64 mg/dL High 40 - 60 mg/dL AO ADM SS Cholesterol in LDL [Mass/Vol] 126 mg/dL Normal 0 - 130 mg/dL AO ADM SS Triglyceride [Mass/Vol] 143 mg/dL Normal 0 - 150 mg/dL AO ADM SS Comment on above: Interpretive Data: T riglyceride Reference Interval: Less than 150 Normal 150-199 Borderline high risk 200-499 High risk 500 or higher Very high risk LIPIDon 12-19-2024 Cholesterol [Mass/Vol] 219 mg/dL High 0-200 [facility] Comment on above: Result Comment: Chol esterol Reference Interval: Less than 200 Desirable 200-239 Borderline high risk 240 and above High risk Performed By: #### A IVELISSE, CBC, ADIFF, GFR, BMP #### [address] [address] Cholesterol in HDL [Mass/Vol] 64 mg/dL High 40-60 [facility] Comment on above: Performed By: #### A IVELISSE, CBC, ADIFF, GFR, BMP #### [address] [address] Cholesterol in LDL [Mass/Vol] 126 mg/dL Normal 0-130 [facility] Comment on above: Performed By: #### A IVELISSE, CBC, ADIFF, GFR, BMP #### [address] [address] Triglyceride [Mass/Vol] 143 mg/dL Normal 0-150 [facility] Comment on above: Result Comment: Trig lyceride Reference Interval: Less than 150 Normal 150-199 Borderline high risk 200-499 High risk 500 or higher Very high risk Performed By: #### A IVELISSE, CBC, ADIFF, GFR, BMP #### [address] [address] VIDHon 12-19-2024 Vit. D 25-Hydroxy 47.8 ng/mL Normal [facility] Comment on above: Result Comment: Inte rpretive Values Based on Total 25(OH) Vitamin D: Deficient <20 ng/mL Insufficient 20 - <30 ng/mL Sufficient 30-100 ng/mL Performed By: #### A IVELISSE, CBC, ADIFF, GFR, BMP #### [place] [address] .Auto Diffon 11-21-2024 Basophil, Absolute 0.1 10 3/mcL Normal 0.0-0.3 [facility] Comment on above: Performed By: #### A IVELISSE, CBC, ADIFF, GFR, BMP #### [place] [address] Lymphocyte, Absolute 1.4 10 3/mcL Normal 0.9-4.3 [facility] Comment on above: Performed By: #### A IVELISSE, CBC, ADIFF, GFR, BMP #### [place] [address] Monocyte, Absolute 1.8 10 3/mcL High 0.1-1.4 [facility] Comment on above: Performed By: #### A IVELISSE, CBC, ADIFF, GFR, BMP #### [place] [address] .Auto DiffOrdered By: SYSTEM SYSTEM on 11-21-2024 Basophils/100 WBC (Bld) 0.6 % Normal 0.0-2.5 AO Workflow SS Comment on above: Performed By: #### A IVELISSE, CBC, ADIFF, GFR, BMP #### [place] [address] Eosinophil, Absolute 0.0 103/mcL Normal 0.0-0.7 AO Workflow SS Comment on above: Performed By: #### A IVELISSE, CBC, ADIFF, GFR, BMP #### [place] [address] Eosinophils/100 WBC (Bld) 0.1 % Normal 0.0-6.0 AO Workflow SS Comment on above: Performed By: #### A IVELISSE, CBC, ADIFF, GFR, BMP #### [place] [address] Lymphocytes/100 WBC (Bld) 9.1 % Low 20.0-40.0 AO Workflow SS Comment on above: Performed By: #### A IVELISSE, CBC, ADIFF, GFR, BMP #### [address] [address] Monocytes/100 WBC (Bld) 11.5 % Normal 2.0-13.0 AO Workflow SS Comment on above: Performed By: #### A IVELISSE, CBC, ADIFF, GFR, BMP #### [address] [address] Neutrophils/100 WBC (Bld) 78.7 % High 50.0-75.0 AO Workflow SS Comment on above: Performed By: #### A IVELISSE, CBC, ADIFF, GFR, BMP #### [address] [address] .GFRon 11-21-2024 Estimated Glomerular Filtration Rate 90 ml/min/1.73sqm Normal [facility] Comment on above: Result Comment: Stages of Chronic Kidney Disease (CKD) Stage Description eGFR(ml/min/1.73 sq.m.) CKD 1 Normal kidney function or >=90 normal kindney function with possible kidney damage (ex. Proteinuria) CKD 2 Kidney damage with mild loss 60-89 of kidney function CKD 3a Mild to moderate loss of kidney 45-59 function CKD 3b Moderate to severe loss of 30-44 of kindey function CKD 4 Severe loss of kidney function 15-29 CKD 5 Kidney failure <15 Note: (go live 2024) the eGFR calculation was updated to the 2020 CKD-EPI creatinine equation without a race factor to calculate the eGFR results. Performed By: #### A IVELISSE, CBC, ADIFF, GFR, BMP #### [address] [address] .NEUABSon 11-21-2024 Neutrophil, Absolute 12.0 10 3/mcL High 2.3-8.1 A [facility] Comment on above: Performed By: #### A IVELISSE, CBC, ADIFF, GFR, BMP #### [address] [address] BMPon 11-21-2024 BUN/Creatinine Ratio 36 ratio High 7-27 [facility] Comment on above: Performed By: #### A IVELISSE, CBC, ADIFF, GFR, BMP #### [address] [address] Calcium [Mass/Vol] 9.4 mg/dL Normal 8.4-10.2 [facility] Comment on above: Performed By: #### A IVELISSE, CBC, ADIFF, GFR, BMP #### [place] [address] Chloride [Moles/Vol] 104 mmol/L Normal 98-107 [facility] Comment on above: Performed By: #### A IVELISSE, CBC, ADIFF, GFR, BMP #### [place] [address] CO2 [Moles/Vol] 28 mmol/L Normal 23-31 [facility] Comment on above: Performed By: #### A IVELISSE, CBC, ADIFF, GFR, BMP #### [place] [address] Creatinine [Mass/Vol] 0.72 mg/dL Normal 0.51-0.95 [facility] Comment on above: Performed By: #### A IVELISSE, CBC, ADIFF, GFR, BMP #### [place] [address] Electrolyte Balance 4.0 mEq/L Normal 4.0-15.0 [facility] Comment on above: Performed By: #### A IVELISSE, CBC, ADIFF, GFR, BMP #### [place] [address] Glucose [Mass/Vol] 112 mg/dL Normal 80-115 [facility] Comment on above: Performed By: #### A IVELISSE, CBC, ADIFF, GFR, BMP #### [place] [address] Potassium [Moles/Vol] 4.6 mmol/L Normal 3.5-5.1 [facility] Comment on above: Performed By: #### A IVELISSE, CBC, ADIFF, GFR, BMP #### [place] [address] Sodium [Moles/Vol] 136 mmol/L Normal 136-145 [facility] Comment on above: Performed By: #### A IVELISSE, CBC, ADIFF, GFR, BMP #### [address] [address] Urea nitrogen [Mass/Vol] 26 mg/dL High 7-18 [facility] Comment on above: Performed By: #### A IVELISSE, CBC, ADIFF, GFR, BMP #### [address] [address] CBCon 11-21-2024 Hgb 12.4 G/dL Normal 12.0-16.0 [facility] Comment on above: Performed By: #### A IVELISSE, CBC, ADIFF, GFR, BMP #### [address] [address] Platelet 187 10 3/mcL Normal 150-450 [facility] Comment on above: Performed By: #### A IVELISSE, CBC, ADIFF, GFR, BMP #### [address] [address] RBC 4.08 10 6/mcL Low 4.10-5.30 [facility] Comment on above: Performed By: #### A IVELISSE, CBC, ADIFF, GFR, BMP #### [address] [address] WBC 15.3 10 3/mcL High 4.5-10.8 [facility] Comment on above: Performed By: #### A IVELISSE, CBC, ADIFF, GFR, BMP #### [address] [address] CBCOrdered By: SYSTEM SYSTEM on 11-21-2024 Erythrocyte distribution width (RBC) [Ratio] 13.5 % Normal 11.5-15.5 AO [facility] Comment on above: Performed By: #### A IVELISSE, CBC, ADIFF, GFR, BMP #### [address] [address] Hematocrit (Bld) [Volume fraction] 36.5 % Normal 34.0-46.0 [facility] Comment on above: Performed By: #### A IVELISSE, CBC, ADIFF, GFR, BMP #### [address] [address] MCH (RBC) [Entitic mass] 30.4 pg Normal 27.0-33.0 [facility] Comment on above: Performed By: #### A IVELISSE, CBC, ADIFF, GFR, BMP #### [place] [id number] MCHC 34.1 G/dL Normal 32.0-36.0 [facility] Comment on above: Performed By: #### A IVELISSE, CBC, ADIFF, GFR, BMP #### [address] [address] MCV (RBC) [Entitic vol] 89.4 fL Normal 80.0-99.0 [facility] Comment on above: Performed By: #### A IVELISSE, CBC, ADIFF, GFR, BMP #### [address] [address] Platelet mean volume (Bld) [Entitic vol] 7.1 fL Normal 6.6-10.5 AO [facility] Comment on above: Performed By: #### A IVELISSE, CBC, ADIFF, GFR, BMP #### [address] [address] LABORATORYOrdered By: SYSTEM SYSTEM on 11-21-2024 Basophils (Bld) [#/Vol] 0.1 103/mcL Normal 0.0 - 0.3 10^3/mcL AO Workflow SS Calcium [Mass/Vol] 9.4 mg/dL Normal 8.4 - 10. 2 mg/dL AO ADM SS Chloride [Moles/Vol] 104 mmol/L Normal 98 - 10 7 mmol/L AO ADM SS CO2 [Moles/Vol] 28 mmol/L Normal 23 - 31 mmol/L AO ADM SS Creatinine [Mass/Vol] 0.72 mg/dL Normal 0.51 - 0.95 mg/dL AO ADM SS Electrolyte Balance 4.0 mEq/L Normal 4.0 - 15 .0 mEq/L AO ADM SS Estimated Glomerular Filtration Rate 90 ml/min/1.73sqm Invalid Interpretation Code AO Chemistry S Comment on above: Interpretive Data: Stages of Chronic Kidney Disease (CKD) Stage Description eGFR(ml/min/1.73 sq.m.) CKD 1 Normal kidney function or >=90 normal kindney function with possible kidney damage (ex. Proteinuria) CKD 2 Kidney damage with mild loss 60-89 of kidney function CKD 3a Mild to moderate loss of kidney 45-59 function CKD 3b Moderate to severe loss of 30-44 of kindey function CKD 4 Severe loss of kidney function 15-29 CKD 5 Kidney failure <15 Note: (go live 2024) the eGFR calculation was updated to the 2020 CKD-EPI creatinine equation without a race factor to calculate the eGFR results. Glucose [Mass/Vol] 112 mg/dL Normal 80 - 115 mg/dL AO ADM SS Hemoglobin (Bld) [Mass/Vol] 12.4 G/dL Normal 12.0 - 16.0 G/dL AO Workflow SS Lymphocytes (Bld) [#/Vol] 1.4 103/mcL Normal 0.9 - 4.3 10^3/mcL AO Workflow SS Monocytes (Bld) [#/Vol] 1.8 103/mcL High 0.1 - 1.4 10^3/mcL AO Workflow SS Neutrophils (Bld) [#/Vol] 12.0 103/mcL High 2.3 - 8.1 10^3/mcL AO Workflow SS Platelets (Bld) [#/Vol] 187 103/mcL Normal 150 - 450 10^3/mcL AO Workflow SS Potassium [Moles/Vol] 4.6 mmol/L Normal 3.5 - 5.1 mmol/L AO ADM SS RBC (Bld) [#/Vol] 4.08 106/mcL Low 4.10 - 5.3 0 10^6/mcL AO Workflow SS Sodium [Moles/Vol] 136 mmol/L Normal 136 - 145 mmol/L AO ADM SS Urea nitrogen [Mass/Vol] 26 mg/dL High 7 - 18 mg/dL AO ADM SS Urea nitrogen/Creatinine [Mass ratio] 36 ratio High 7 - 27 ratio AO ADM SS WBC (Bld) [#/Vol] 15.3 103/mcL High 4.5 - 10.8 10^3/mcL AO Workflow SS ABO/Rh (Gel)on 11-20-2024 ABO/Rh Interp Positive Invalid Interpretation Code [facility] Comment on above: Performed By: #### A BSGEL, ABOGEL #### [place] [address] [place], [place] [address] ABS (Gel)on 11-20-2024 ABSC Interp (Gel) Negative Normal [facility] Comment on above: Performed By: #### A BSGEL, ABOGEL #### [place] [address] [place], [place] [address] LABORATORYOrdered By: Luis F Harkins on 11-20-2024 ABO and Rh group Nom (Bld) Blood group A Rh(D) positive Invalid Interpretation Code AO BB Auto SS Blood group antibody screen Ql Negative ABSC (11/20/24 10:18 AM) Normal AO BB Auto SS XR FLUORO 1-2 HRS TECH TIMEo n 11-20-2024 XR FLUORO 1-2 HRS TECH TIME ORIGINAL Images acquired, not reported on this accession number. Normal [facility] XR HIP RIGHT W/PELVIS 4 VIEW Son 11-20-2024 XR HIP RIGHT W/PELVIS 4 VIEWS ORIGINAL EXAMINATION: 1 x-ray view of the pelvis and 2 x-ray views of the right hip. COMPARISON: None. HISTORY: ORDERING SYSTEM PROVIDED HISTORY: Reason for Exam: Status Post Arthroplasty FINDINGS: Status post right hip arthroplasty. Hardware appears intact and in appropriate alignment. No evidence of periprosthetic fracture. Visualized pelvic ring is intact. Left hip arthroplasty is unchanged. SI joints are symmetric. 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 Soft tissue gas along the right hip joint is likely postoperative in etiology. IMPRESSION: Expected postsurgical changes of right hip arthroplasty. Interpreted by: Neeraj Khan Preliminary Report By: Neeraj Khan Electronically signed By Neeraj Khan Dictated Date: 11/20/2024 2:50:47 PM Prelim Date: 11/20/2024 2:52:23 PM Sign Date: 11/20/2024 2:52:23 PM Ordering Provider: ANDREW ROSA Normal [facility] .Auto Diffon 10-22-2024 Basophil, Absolute 0.0 10 3/mcL Normal 0.0-0.2 [facility] Comment on above: Performed By: #### A IVELISSE, CBC, ADIFF, GFR, BMP #### [place] [address] [place], [place] [address] Basophils/100 WBC (Bld) 0.6 % Normal 0.0-2.5 [facility] Comment on above: Performed By: #### A IVELISSE, CBC, ADIFF, GFR, BMP #### [address] [address] Eosinophil, Absolute 0.3 10 3/mcL Normal 0.0-0.7 [facility] Comment on above: Performed By: #### A IVELISSE, CBC, ADIFF, GFR, BMP #### [address] [address] Eosinophils/100 WBC (Bld) 3.7 % Normal 0.0-7.0 [facility] Comment on above: Performed By: #### A IVELISSE, CBC, ADIFF, GFR, BMP #### [address] [address] Lymphocyte, Absolute 1.5 10 3/mcL Normal 0.9-4.3 [facility] Comment on above: Performed By: #### A IVELISSE, CBC, ADIFF, GFR, BMP #### [address] [address] Lymphocytes/100 WBC (Bld) 19.3 % Low 20.0-40.0 [facility] Comment on above: Performed By: #### A IVELISSE, CBC, ADIFF, GFR, BMP #### [address] [address] Monocyte, Absolute 0.7 10 3/mcL Normal 0.1-1.4 [facility] Comment on above: Performed By: #### A IVELISSE, CBC, ADIFF, GFR, BMP #### [address] [address] Monocytes/100 WBC (Bld) 8.4 % Normal 2.0-13.0 [facility] Comment on above: Performed By: #### A IVELISSE, CBC, ADIFF, GFR, BMP #### [address] [address] Neutrophils/100 WBC (Bld) 68.0 % Normal 50.0-75.0 [facility] Comment on above: Performed By: #### A IVELISSE, CBC, ADIFF, GFR, BMP #### [address] [address] .GFRon 10-22-2024 Estimated Glomerular Filtration Rate 82 ml/min/1.73sqm Normal [facility] Comment on above: Result Comment: Stages of Chronic Kidney Disease (CKD) Stage Description eGFR(ml/min/1.73 sq.m.) CKD 1 Normal kidney function or >=90 normal kindney function with possible kidney damage (ex. Proteinuria) CKD 2 Kidney damage with mild loss 60-89 of kidney function CKD 3a Mild to moderate loss of kidney 45-59 function CKD 3b Moderate to severe loss of 30-44 of kindey function CKD 4 Severe loss of kidney function 15-29 CKD 5 Kidney failure <15 Note: (go live 2024) the eGFR calculation was updated to the 2020 CKD-EPI creatinine equation without a race factor to calculate the eGFR results. Performed By: #### A IVELISSE, CBC, ADIFF, GFR, BMP #### [address] [address] .NEUABSon 10-22-2024 Neutrophil, Absolute 5.4 10 3/mcL Normal 2.3-8.1 [facility] Comment on above: Performed By: #### A IVELISSE, CBC, ADIFF, GFR, BMP #### [address] [address] ALBon 10-22-2024 Albumin Level 4.0 G/dL Normal 3.4-4.8 [facility] Comment on above: Performed By: #### A IVELISSE, CBC, ADIFF, GFR, BMP #### [address] [address] BMPon 10-22-2024 BUN/Creatinine Ratio 22 ratio Normal 7-27 [facility] Comment on above: Performed By: #### A IVELISSE, CBC, ADIFF, GFR, BMP #### [address] [address] Calcium [Mass/Vol] 9.7 mg/dL Normal 8.4-10.2 [facility] Comment on above: Performed By: #### A IVELISSE, CBC, ADIFF, GFR, BMP #### [address] [address] Chloride [Moles/Vol] 102 mmol/L Normal 98-107 [facility] Comment on above: Performed By: #### A IVELISSE, CBC, ADIFF, GFR, BMP #### [address] [address] CO2 [Moles/Vol] 27 mmol/L Normal 23-31 [facility] Comment on above: Performed By: #### A IVELISSE, CBC, ADIFF, GFR, BMP #### [address] [address] Creatinine [Mass/Vol] 0.78 mg/dL Normal 0.55-1.02 [facility] Comment on above: Result Comment: Test ing performed on Siemens Dimension EXL analyzer using a modified kinetic Lauren technique. Performed By: #### A IVELISSE, CBC, ADIFF, GFR, BMP #### [address] [address] Electrolyte Balance 9.0 mEq/L Normal 4.0-15.0 [facility] Comment on above: Performed By: #### A IVELISSE, CBC, ADIFF, GFR, BMP #### [address] [address] Glucose [Mass/Vol] 95 mg/dL Normal 80-115 [facility] Comment on above: Performed By: #### A IVELISSE, CBC, ADIFF, GFR, BMP #### [address] [address] Potassium [Moles/Vol] 4.3 mmol/L Normal 3.5-5.1 [facility] Comment on above: Performed By: #### A IVELISSE, CBC, ADIFF, GFR, BMP #### [address] [address] Sodium [Moles/Vol] 138 mmol/L Normal 136-145 [facility] Comment on above: Performed By: #### A IVELISSE, CBC, ADIFF, GFR, BMP #### [address] [address] Urea nitrogen [Mass/Vol] 17 mg/dL Normal 7-18 [facility] Comment on above: Performed By: #### A IVELISSE, CBC, ADIFF, GFR, BMP #### [address] [address] CBCon 10-22-2024 Erythrocyte distribution width (RBC) [Ratio] 13.3 % Normal 11.5-15.5 [facility] Comment on above: Order Comment: Pre-A dmission Testing Performed By: #### A IVELISSE, CBC, ADIFF, GFR, BMP #### [place] [address] Hematocrit (Bld) [Volume fraction] 41.1 % Normal 34.0-46.0 [facility] Comment on above: Order Comment: Pre-A dmission Testing Performed By: #### A IVELISSE, CBC, ADIFF, GFR, BMP #### [place] [address] Hgb 13.8 G/dL Normal 12.0-16.0 [facility] Comment on above: Order Comment: Pre-A dmission Testing Performed By: #### A IVELISSE, CBC, ADIFF, GFR, BMP #### [address] [address] MCH (RBC) [Entitic mass] 30.2 pg Normal 27.0-33.0 [facility] Comment on above: Order Comment: Pre-A dmission Testing Performed By: #### A IVELISSE, CBC, ADIFF, GFR, BMP #### [place] [address] MCHC 33.6 G/dL Normal 32.0-36.0 [facility] Comment on above: Order Comment: Pre-A dmission Testing Performed By: #### A IVELISSE, CBC, ADIFF, GFR, BMP #### [place] [id number] MCV (RBC) [Entitic vol] 90.0 fL Normal 80.0-99.0 [facility] Comment on above: Order Comment: Pre-A dmission Testing Performed By: #### A IVELISSE, CBC, ADIFF, GFR, BMP #### [address] [address] Platelet 214 10 3/mcL Normal 150-450 [facility] Comment on above: Order Comment: Pre-A dmission Testing Performed By: #### A IVELISSE, CBC, ADIFF, GFR, BMP #### [place] [address] Platelet mean volume (Bld) [Entitic vol] 7.4 fL Normal 6.6-10.5 [facility] Comment on above: Order Comment: Pre-A dmission Testing Performed By: #### A IVELISSE, CBC, ADIFF, GFR, BMP #### [address] [address] RBC 4.56 10 6/mcL Normal 4.10-5.30 [facility] Comment on above: Order Comment: Pre-A dmission Testing Performed By: #### A IVELISSE, CBC, ADIFF, GFR, BMP #### [place] [address] WBC 7.9 10 3/mcL Normal 4.5-10.8 [facility] Comment on above: Order Comment: Pre-A dmission Testing Performed By: #### A IVELISSE, CBC, ADIFF, GFR, BMP #### [place] [address] MRSAPCRon 10-22-2024 MRSA (PCR) Not detected Normal Not Detected [facility] Comment on above: Result Comment: [place] s [id number] Performed By: #### A IVELISSE, CBC, ADIFF, GFR, BMP #### [place] [address] MRSA PCR Int Normal [facility] Comment on above: Result Comment: MRSA DNA not detected by Real-Time Polymerase Chain Reaction (PCR). A negative result may be due to intermittent colonization. Colonization may vary depending on patient treatment, patient status, or exposure to high-risk environments. As with all PCR based in vitro diagnostic tests, extremely low levels of target below the limit of detection of the assay may be detected, but results may not be reproducible. See Below Performed By: #### A IVELISSE, CBC, ADIFF, GFR, BMP #### Diya Becker [address] [place], [place] [address] C-REACTIVE PROTEINon 025 CRP [Mass/Vol] mg/L Normal <8.0 [facility] Comment on above: Performed By: #### 8 , 63, [address] #### [facility] [place] [address] Buttermaker: Bijan Linn MD CBC (INCLUDES DIFF/PLT)on Basophils (Bld) [#/Vol] 0.097 10*3/uL Normal 0-200 [facility] Comment on above: Performed By: #### 8 , 6398, [address] #### [facility] [place] [address] Buttermaker: Bijan Linn MD Basophils/100 WBC (Bld) 1.0 % Normal [facility] Comment on above: Performed By: #### 8 , 6398, [address] #### [facility] [place] [address] Buttermaker: Bijan Linn MD Eosinophils (Bld) [#/Vol] 0.301 10*3/uL Normal 15-500 [facility] Comment on above: Performed By: #### 8 , 07, [address] #### [facility] [place] [address] Buttermaker: Bijan Linn MD Eosinophils/100 WBC (Bld) 3.1 % Normal [facility] Comment on above: Performed By: #### 8 , 68, [address] #### [facility] [place] [address] Buttermaker: Bijan Linn MD Erythrocyte distribution width (RBC) [Ratio] 12.5 % Normal 11.0-15.0 [facility] Comment on above: Performed By: #### 8 , 63, [address] #### [facility] of [place] [address] Buttermaker: Bijan Linn MD Hematocrit (Bld) [Volume fraction] 42.3 % Normal 35.0-45.0 [facility] Comment on above: Performed By: #### 8 , 63, [address] #### [facility] [place] [address] Buttermaker: Bijan Linn MD Hemoglobin (Bld) [Mass/Vol] 13.4 g/dL Normal 11.7-15.5 [facility] Comment on above: Performed By: #### 8 , 6398, [address] #### [facility] of [place] [address] Buttermaker: Bijan Linn MD Lymphocytes (Bld) [#/Vol] 1.882 10*3/uL Normal 850-3900 [facility] Comment on above: Performed By: #### 8 , 6398, [address] #### [facility] of [place] [address] Buttermaker: Bijan Linn MD Lymphocytes/100 WBC (Bld) 19.4 % Normal [facility] Comment on above: Performed By: #### 8 , 63, [address] #### [facility] [place] [address] Buttermaker: Bijan Linn MD MCH (RBC) [Entitic mass] 29.8 pg Normal 27.0-33.0 [facility] Comment on above: Performed By: #### 8 , 45, [address]645 #### [facility] [place] [address] Buttermaker: Bijan Linn MD MCHC (RBC) [Mass/Vol] 31.7 g/dL Low 32.0-36.[address] [facility] Comment on above: Result Comment: For adults, a slight decrease in the calculated MCHC value (in the range of 30 to 32 g/dL) is most likely not clinically significant; however, it should be interpreted with caution in correlation with other red cell parameters and the patient's clinical condition. Performed By: #### 8 , 63, [address] #### [facility] of [place] [address] Buttermaker: Bijan Linn MD MCV (RBC) [Entitic vol] 94.0 fL Normal 80.0-100.0 [facility] Comment on above: Performed By: #### 8 , 6398, [address] #### [facility] [place] [address] Buttermaker: Bijan Linn MD Monocytes (Bld) [#/Vol] 0.922 10*3/uL Normal 200-950 [facility] Comment on above: Performed By: #### 8 , 41, [address] #### [facility] [place] [address] Buttermaker: Bijan Linn MD Monocytes/100 WBC (Bld) 9.5 % Normal [facility] Comment on above: Performed By: #### 8 , 00, [address] #### [facility] [place] [address] Buttermaker: Bijan Linn MD Neutrophils (Bld) [#/Vol] 6.499 10*3/uL Normal 2587-0521 [facility] Comment on above: Performed By: #### 8 , 79, [address] #### [facility] [place] [address] Buttermaker: Bijan Linn MD Neutrophils/100 WBC (Bld) 67 % Normal [facility] Comment on above: Performed By: #### 8 , 61, [address] #### [facility] [place] [address] Buttermaker: Bijan Linn MD Platelet mean volume (Bld) [Entitic vol] 10.7 fL Normal 7.5-12.5 [facility] Comment on above: Performed By: #### 8 09, 6399, 79[address] #### [facility] [place] [address] Buttermaker: Bijan Linn MD Platelets (Bld) [#/Vol] 239 10*3/uL Normal 140-400 [facility] Comment on above: Performed By: #### 8 09, 63, 0[address] #### [facility] [place] [address] Buttermaker: Bijan Linn MD RBC (Bld) [#/Vol] 4.50 10*6/uL Normal 3.80-5.10 [facility] Comment on above: Performed By: #### 8 09, 63, 117[address] #### [facility] [place] [address] Buttermaker: Bijan Linn MD WBC (Bld) [#/Vol] 9.7 10*3/uL Normal 3.8-10.8 [facility] Comment on above: Performed By: #### 8 09, 6399, 12962 #### [facility] [place] [address] Buttermaker: Bijan Linn MD COMPREHENSIVE METABOLIC PANE L W/ANION GAPon 10-16-2024 Albumin [Mass/Vol] 4.3 g/dL Normal 3.6-5.1 [facility] Comment on above: Order Comment: FASTI NG:NO FASTING: NO Performed By: #### 9 5155, 809, 6399 #### [facility] [place] [address] Buttermaker: Bijan Linn MD ALP [Catalytic activity/Vol] 54 U/L Normal 37-153 [facility] Comment on above: Order Comment: FASTI NG:NO FASTING: NO Performed By: #### 9 1945, 809, 6899 #### [facility] of [address] [address] Buttermaker: Bijan Linn MD ALT [Catalytic activity/Vol] 14 U/L Normal 6-29 [facility] Comment on above: Order Comment: FASTI NG:NO FASTING: NO Performed By: #### 9 2545, 809, 6399 #### [facility] [address], [address] [place] [address] Buttermaker: Bijan Linn MD AST [Catalytic activity/Vol] 17 U/L Normal 10-35 [facility] Comment on above: Order Comment: FASTI NG:NO FASTING: NO Performed By: #### 9 8835, 809, 6399 #### [facility] [place] [address] Buttermaker: Bijan Linn MD Bilirubin [Mass/Vol] 0.4 mg/dL Normal 0.2-1.2 [facility] Comment on above: Order Comment: FASTI NG:NO FASTING: NO Performed By: #### 9 3665, 809, 6399 #### [facility] [place] [address] Buttermaker: Bijan Linn MD Calcium [Mass/Vol] 9.7 mg/dL Normal 8.6-10.4 [facility] Comment on above: Order Comment: FASTI NG:NO FASTING: NO Performed By: #### 9 2185, 809, 6399 #### [facility] [place] [address] Buttermaker: Bijan Linn MD Chloride [Moles/Vol] 104 mmol/L Normal 98-110 [facility] Comment on above: Order Comment: FASTI NG:NO FASTING: NO Performed By: #### 9 2375, 809, 6399 #### [facility] [place] [address] Buttermaker: Bijan Linn MD CO2 [Moles/Vol] 25 mmol/L Normal 20-32 [facility] Comment on above: Order Comment: FASTI NG:NO FASTING: NO Performed By: #### 9 6565, 809, 6399 #### [facility] [place] [address] Buttermaker: Bijan Linn MD Creatinine [Mass/Vol] 0.78 mg/dL Normal 0.50-1.[address] [facility] Comment on above: Order Comment: FASTI NG:NO FASTING: NO Performed By: #### 9 2345, 809, 6399 #### [facility] [address], [address] [place] [address] Buttermaker: Bijan Linn MD ELECTROLYTE BALANCE 10 mmol/L (calc) Normal 7-17 [facility] Comment on above: Order Comment: FASTI NG:NO FASTING: NO Performed By: #### 9 1955, 809, 6399 #### [facility] [place] [address] Buttermaker: Bijan Linn MD GFR/1.73 sq M.predicted among non-blacks MDRD (S/P/Bld) [Vol rate/Area] 82 mL/min/{1.73_m2} Normal > OR = 60 [facility] Comment on above: Order Comment: FASTI NG:NO FASTING: NO Performed By: #### 9 0945, 809, 6399 #### [facility] [place] [address] Buttermaker: Bijan Linn MD Glucose [Mass/Vol] 78 mg/dL Normal 65-139 [facility] Comment on above: Order Comment: FASTI NG:NO FASTING: NO Result Comment: Non-fasting reference interval Performed By: #### 9 4235, 809, 6399 #### [facility] [place] [address] Buttermaker: Bijan Linn MD Potassium [Moles/Vol] 4.4 mmol/L Normal 3.5-5.[address] [facility] Comment on above: Order Comment: FASTI NG:NO FASTING: NO Performed By: #### 9 5765, 809, 6399 #### [facility] of [place] [address] Buttermaker: Bijan Linn MD Protein [Mass/Vol] 7.2 g/dL Normal 6.1-8.1 [facility] Comment on above: Order Comment: FASTI NG:NO FASTING: NO Performed By: #### 9 1775, 809, 6399 #### [facility] [place] [address] Buttermaker: Bijan Linn MD Sodium [Moles/Vol] 139 mmol/L Normal 135-146 [facility] Comment on above: Order Comment: FASTI NG:NO FASTING: NO Performed By: #### 9 5425, 809, 6399 #### [facility] [place] [address] Buttermaker: Bijan Linn MD Urea nitrogen [Mass/Vol] 19 mg/dL Normal 7-25 [facility] Comment on above: Order Comment: FASTI NG:NO FASTING: NO Performed By: #### 9 2665, 809, 6399 #### [facility] [place] [address] Buttermaker: Bijan Linn MD SED RATE BY MODIFIED WESTERG RENon 10-16-2024 SED RATE BY MODIFIED WESTERGREN 19 mm/h Normal < OR = 30 [facility] Comment on above: Performed By: #### 9 4195, 809, 6399 #### [facility] [place] [address] Buttermaker: Bijan Linn MD .Auto Diffon 07-16-2024 Basophil, Absolute 0.1 10 3/mcL Normal 0.0-0.2 [facility] Comment on above: Performed By: #### A IVELISSE, CBC, ADIFF, GFR, BMP #### [facility] [address] [place], [place] [address] Basophils/100 WBC (Bld) 0.8 % Normal 0.0-2.5 [facility] Comment on above: Performed By: #### A IVELISSE, CBC, ADIFF, GFR, BMP #### [address] [address] Eosinophil, Absolute 0.3 10 3/mcL Normal 0.0-0.7 [facility] Comment on above: Performed By: #### A IVELISSE, CBC, ADIFF, GFR, BMP #### [address] [address] Eosinophils/100 WBC (Bld) 2.6 % Normal 0.0-7.0 [facility] Comment on above: Performed By: #### A IVELISSE, CBC, ADIFF, GFR, BMP #### [address] [address] Lymphocyte, Absolute 1.2 10 3/mcL Normal 0.9-4.3 [facility] Comment on above: Performed By: #### A IVELISSE, CBC, ADIFF, GFR, BMP #### [address] [address] Lymphocytes/100 WBC (Bld) 11.9 % Low 20.0-40.0 [facility] Comment on above: Performed By: #### A IVELISSE, CBC, ADIFF, GFR, BMP #### [address] [address] Monocyte, Absolute 1.2 10 3/mcL Normal 0.1-1.4 [facility] Comment on above: Performed By: #### A IVELISSE, CBC, ADIFF, GFR, BMP #### [address] [address] Monocytes/100 WBC (Bld) 11.9 % Normal 2.0-13.0 [facility] Comment on above: Performed By: #### A IVELISSE, CBC, ADIFF, GFR, BMP #### [address] [address] Neutrophils/100 WBC (Bld) 72.8 % Normal 50.0-75.0 [facility] Comment on above: Performed By: #### A IVELISSE, CBC, ADIFF, GFR, BMP #### [address] [address] .GFRon 07-16-2024 GFR 89 ml/min/1.73sqm Normal [facility] Comment on above: Result Comment: GFR Population mean for , Non- Americans Ages 20-29 = 116 mL/min/1.73 sq.m. Ages 30-39 = 107 mL/min/1.73 sq.m. Ages 40-49 = 99 mL/min/1.73 sq.m. Ages 50-59 = 93 mL/min/1.73 sq.m. Ages 60-69 = 85 mL/min/1.73 sq.m. Ages 70+ = 75 mL/min/1.73 sq.m. Chronic Kidney Disease: Less than 60 mL/min/1.73 square meters End Stage Renal Disease: Less than 15 mL/min/1.73 square meters Performed By: #### A IVELISSE, CBC, ADIFF, GFR, BMP #### [address] [address] GFR Non- 73 ml/min/1.73sqm Normal [facility] Comment on above: Result Comment: GFR Population mean for , Non- Americans Ages 20-29 = 116 mL/min/1.73 sq.m. Ages 30-39 = 107 mL/min/1.73 sq.m. Ages 40-49 = 99 mL/min/1.73 sq.m. Ages 50-59 = 93 mL/min/1.73 sq.m. Ages 60-69 = 85 mL/min/1.73 sq.m. Ages 70+ = 75 mL/min/1.73 sq.m. Chronic Kidney Disease: Less than 60 mL/min/1.73 square meters End Stage Renal Disease: Less than 15 mL/min/1.73 square meters Performed By: #### A IVELISSE, CBC, ADIFF, GFR, BMP #### [address] [address] .NEUABSon 07-16-2024 Neutrophil, Absolute 7.3 10 3/mcL Normal 2.3-8.1 [facility] Comment on above: Performed By: #### A IVELISSE, CBC, ADIFF, GFR, BMP #### [address] [address] BMPon 07-16-2024 BUN/Creatinine Ratio 19 ratio Normal 7-27 [facility] Comment on above: Performed By: #### A IVELISSE, CBC, ADIFF, GFR, BMP #### [address] [address] Calcium [Mass/Vol] 9.6 mg/dL Normal 8.4-10.2 [facility] Comment on above: Performed By: #### A IVELISSE, CBC, ADIFF, GFR, BMP #### [address] [address] Chloride [Moles/Vol] 100 mmol/L Normal 98-107 [facility] Comment on above: Performed By: #### A IVELISSE, CBC, ADIFF, GFR, BMP #### [address] [address] CO2 [Moles/Vol] 29 mmol/L Normal 23-31 [facility] Comment on above: Performed By: #### A IVELISSE, CBC, ADIFF, GFR, BMP #### [address] [address] Creatinine [Mass/Vol] 0.78 mg/dL Normal 0.55-1.02 [facility] Comment on above: Result Comment: Test ing performed on Siemens Dimension EXL analyzer using a modified kinetic Lauren technique. Performed By: #### A IVELISSE, CBC, ADIFF, GFR, BMP #### [address] [address] Electrolyte Balance 10.0 mEq/L Normal 4.0-15.0 [facility] Comment on above: Performed By: #### A IVELISSE, CBC, ADIFF, GFR, BMP #### [address] [address] Glucose [Mass/Vol] 89 mg/dL Normal 80-115 [facility] Comment on above: Performed By: #### A IVELISSE, CBC, ADIFF, GFR, BMP #### [address] [address] Potassium [Moles/Vol] 4.6 mmol/L Normal 3.5-5.1 [facility] Comment on above: Performed By: #### A IVELISSE, CBC, ADIFF, GFR, BMP #### [address] [address] Sodium [Moles/Vol] 139 mmol/L Normal 136-145 [facility] Comment on above: Performed By: #### A IVELISSE, CBC, ADIFF, GFR, BMP #### [place] [id number] Urea nitrogen [Mass/Vol] 15 mg/dL Normal 7-18 [facility] Comment on above: Performed By: #### A IVELISSE, CBC, ADIFF, GFR, BMP #### [address] [address] CBCon 07-16-2024 Erythrocyte distribution width (RBC) [Ratio] 13.2 % Normal 11.5-15.5 [facility] Comment on above: Performed By: #### A IVELISSE, CBC, ADIFF, GFR, BMP #### [address] [address] Hematocrit (Bld) [Volume fraction] 32.7 % Low 34.0-46.0 [facility] Comment on above: Performed By: #### A IVELISSE, CBC, ADIFF, GFR, BMP #### [address] [address] Hgb 11.2 G/dL Low 12.0-16.0 [facility] Comment on above: Performed By: #### A IVELISSE, CBC, ADIFF, GFR, BMP #### [address] [address] MCH (RBC) [Entitic mass] 31.4 pg Normal 27.0-33.0 [facility] Comment on above: Performed By: #### A IVELISSE, CBC, ADIFF, GFR, BMP #### [address] [address] MCHC 34.2 G/dL Normal 32.0-36.0 [facility] Comment on above: Performed By: #### A IVELISSE, CBC, ADIFF, GFR, BMP #### [address] [address] MCV (RBC) [Entitic vol] 91.9 fL Normal 80.0-99.0 [facility] Comment on above: Performed By: #### A IVELISSE, CBC, ADIFF, GFR, BMP #### [place] [address] Platelet 323 10 3/mcL Normal 150-450 [facility] Comment on above: Performed By: #### A IVELISSE, CBC, ADIFF, GFR, BMP #### [place] [address]17 Platelet mean volume (Bld) [Entitic vol] 7.4 fL Normal 6.6-10.5 [facility] Comment on above: Performed By: #### A IVELISSE, CBC, ADIFF, GFR, BMP #### [place] [address] RBC 3.56 10 6/mcL Low 4.10-5.30 [facility] Comment on above: Performed By: #### A IVELISSE, CBC, ADIFF, GFR, BMP #### [place] [id number] WBC 10.1 10 3/mcL Normal 4.5-10.8 [facility] Comment on above: Performed By: #### A IVELISSE, CBC, ADIFF, GFR, BMP #### [place] [id number] LABORATORYOrdered By: SYSTEM SYSTEM on 07-16-2024 Basophils (Bld) [#/Vol] 0.1 103/mcL Normal 0.0 - 0.2 10^3/mcL AO Workflow SS Basophils/100 WBC (Bld) 0.8 % Normal 0.0 - 2.5 % AO Workflow SS Calcium [Mass/Vol] 9.6 mg/dL Normal 8.4 - 10. 2 mg/dL AO ADM SS Chloride [Moles/Vol] 100 mmol/L Normal 98 - 10 7 mmol/L AO ADM SS CO2 [Moles/Vol] 29 mmol/L Normal 23 - 31 mmol/L AO ADM SS Creatinine [Mass/Vol] 0.78 mg/dL Normal 0.55 - 1.02 mg/dL AO ADM SS Comment on above: Interpretive Data: T esting performed on Siemens Dimension EXL analyzer using a modified kinetic Lauren technique. Electrolyte Balance 10.0 mEq/L Normal 4.0 - 15 .0 mEq/L AO ADM SS Eosinophil, Absolute 0.3 103/mcL Normal 0.0 - 0 .7 10^3/mcL AO Workflow SS Eosinophils/100 WBC (Bld) 2.6 % Normal 0.0 - 7.0 % AO Workflow SS Erythrocyte distribution width (RBC) [Ratio] 13.2 % Normal 11.5 - 15.5 % AO Workflow SS GFR/1.73 sq M.predicted among blacks MDRD (S/P/Bld) [Vol rate/Area] 89 ml/min/1.73sqm Invalid Interpretation Code AO Chemistry S Comment on above: Interpretive Data: GFR Population mean for , Non- Americans Ages 20-29 = 116 mL/min/1.73 sq.m. Ages 30-39 = 107 mL/min/1.73 sq.m. Ages 40-49 = 99 mL/min/1.73 sq.m. Ages 50-59 = 93 mL/min/1.73 sq.m. Ages 60-69 = 85 mL/min/1.73 sq.m. Ages 70+ = 75 mL/min/1.73 sq.m. Chronic Kidney Disease: Less than 60 mL/min/1.73 square meters End Stage Renal Disease: Less than 15 mL/min/1.73 square meters GFR/1.73 sq M.predicted among non-blacks MDRD (S/P/Bld) [Vol rate/Area] 73 ml/min/1.73sqm Invalid Interpretation Code AO Chemistry S Comment on above: Interpretive Data: GFR Population mean for , Non- Americans Ages 20-29 = 116 mL/min/1.73 sq.m. Ages 30-39 = 107 mL/min/1.73 sq.m. Ages 40-49 = 99 mL/min/1.73 sq.m. Ages 50-59 = 93 mL/min/1.73 sq.m. Ages 60-69 = 85 mL/min/1.73 sq.m. Ages 70+ = 75 mL/min/1.73 sq.m. Chronic Kidney Disease: Less than 60 mL/min/1.73 square meters End Stage Renal Disease: Less than 15 mL/min/1.73 square meters Glucose [Mass/Vol] 89 mg/dL Normal 80 - 115 mg/dL AO ADM SS Hematocrit (Bld) [Volume fraction] 32.7 % Low 34.0 - 46.0 % AO Workflow SS Hemoglobin (Bld) [Mass/Vol] 11.2 G/dL Low 12.0 - 16.0 G/dL AO Workflow SS Lymphocytes (Bld) [#/Vol] 1.2 103/mcL Normal 0.9 - 4.3 10^3/mcL AO Workflow SS Lymphocytes/100 WBC (Bld) 11.9 % Low 20.0 - 40.0 % AO Workflow SS MCH (RBC) [Entitic mass] 31.4 pg Normal 27.0 - 33.0 pg AO Workflow SS MCHC 34.2 G/dL Normal 32.0 - 36.0 G/dL AO Workflow SS MCV (RBC) [Entitic vol] 91.9 fL Normal 80.0 - 99.0 fL AO Workflow SS Monocytes (Bld) [#/Vol] 1.2 103/mcL Normal 0.1 - 1.4 10^3/mcL AO Workflow SS Monocytes/100 WBC (Bld) 11.9 % Normal 2.0 - 13.0 % AO Workflow SS Neutrophils (Bld) [#/Vol] 7.3 103/mcL Normal 2.3 - 8.1 10^3/mcL AO Workflow SS Neutrophils/100 WBC (Bld) 72.8 % Normal 50.0 - 75.0 % AO Workflow SS Platelet mean volume (Bld) [Entitic vol] 7.4 fL Normal 6.6 - 10.5 fL AO Workflow SS Platelets (Bld) [#/Vol] 323 103/mcL Normal 150 - 450 10^3/mcL AO Workflow SS Potassium [Moles/Vol] 4.6 mmol/L Normal 3.5 - 5.1 mmol/L AO ADM SS RBC (Bld) [#/Vol] 3.56 106/mcL Low 4.10 - 5.3 0 10^6/mcL AO Workflow SS Sodium [Moles/Vol] 139 mmol/L Normal 136 - 145 mmol/L AO ADM SS Urea nitrogen [Mass/Vol] 15 mg/dL Normal 7 - 18 mg/dL AO ADM SS Urea nitrogen/Creatinine [Mass ratio] 19 ratio Normal 7 - 27 ratio AO ADM SS WBC (Bld) [#/Vol] 10.1 103/mcL Normal 4.5 - 10.8 10^3/mcL AO Workflow SS XR FLUORO 1-2 HRS TECH TIMEo n 07-13-2024 XR FLUORO 1-2 HRS TECH TIME ORIGINAL Images acquired, not reported on this accession number. Normal [facility] .Auto Diffon 07-11-2024 Basophil, Absolute 0.0 10 3/mcL Normal 0.0-0.2 [facility] Comment on above: Performed By: #### A IVELISSE, CBC, ADIFF, GFR, BMP #### [address] [address] Basophils/100 WBC (Bld) 0.4 % Normal 0.0-2.5 [facility] Comment on above: Performed By: #### A IVELISSE, CBC, ADIFF, GFR, BMP #### [address] [address] Eosinophil, Absolute 0.0 10 3/mcL Normal 0.0-0.7 [facility] Comment on above: Performed By: #### A IVELISSE, CBC, ADIFF, GFR, BMP #### [address] [address] Eosinophils/100 WBC (Bld) 0.0 % Normal 0.0-7.0 [facility] Comment on above: Performed By: #### A IVELISSE, CBC, ADIFF, GFR, BMP #### [address] [address] Lymphocyte, Absolute 1.2 10 3/mcL Normal 0.9-4.3 [facility] Comment on above: Performed By: #### A IVELISSE, CBC, ADIFF, GFR, BMP #### [address] [address] Lymphocytes/100 WBC (Bld) 10.5 % Low 20.0-40.0 [facility] Comment on above: Performed By: #### A IVELISSE, CBC, ADIFF, GFR, BMP #### [address] [address] Monocyte, Absolute 1.5 10 3/mcL High 0.1-1.4 [facility] Comment on above: Performed By: #### A IVELISSE, CBC, ADIFF, GFR, BMP #### [address] [address] Monocytes/100 WBC (Bld) 12.7 % Normal 2.0-13.0 [facility] Comment on above: Performed By: #### A IVELISSE, CBC, ADIFF, GFR, BMP #### [address] [address] Neutrophils/100 WBC (Bld) 76.4 % High 50.0-75.0 [facility] Comment on above: Performed By: #### A IVELISSE, CBC, ADIFF, GFR, BMP #### [address] [address] .GFRon 07-11-2024 GFR 76 ml/min/1.73sqm Normal [facility] Comment on above: Result Comment: GFR Population mean for , Non- Americans Ages 20-29 = 116 mL/min/1.73 sq.m. Ages 30-39 = 107 mL/min/1.73 sq.m. Ages 40-49 = 99 mL/min/1.73 sq.m. Ages 50-59 = 93 mL/min/1.73 sq.m. Ages 60-69 = 85 mL/min/1.73 sq.m. Ages 70+ = 75 mL/min/1.73 sq.m. Chronic Kidney Disease: Less than 60 mL/min/1.73 square meters End Stage Renal Disease: Less than 15 mL/min/1.73 square meters Performed By: #### M RSAPCR #### [facility] [address] [place] [address] GFR Non- 63 ml/min/1.73sqm Normal [facility] Comment on above: Result Comment: GFR Population mean for , Non- Americans Ages 20-29 = 116 mL/min/1.73 sq.m. Ages 30-39 = 107 mL/min/1.73 sq.m. Ages 40-49 = 99 mL/min/1.73 sq.m. Ages 50-59 = 93 mL/min/1.73 sq.m. Ages 60-69 = 85 mL/min/1.73 sq.m. Ages 70+ = 75 mL/min/1.73 sq.m. Chronic Kidney Disease: Less than 60 mL/min/1.73 square meters End Stage Renal Disease: Less than 15 mL/min/1.73 square meters Performed By: #### M RSAPCR #### [address] [address] .NEUABSon 07-11-2024 Neutrophil, Absolute 9.0 10 3/mcL High 2.3-8.1 [facility] Comment on above: Performed By: #### M RSAPCR #### [address] [address] BMPon 07-11-2024 BUN/Creatinine Ratio 27 ratio Normal 7-27 [facility] Comment on above: Performed By: #### M RSAPCR #### [address] [address] Calcium [Mass/Vol] 9.6 mg/dL Normal 8.4-10.2 [facility] Comment on above: Performed By: #### M RSAPCR #### [address] [address] Chloride [Moles/Vol] 104 mmol/L Normal 98-107 [facility] Comment on above: Performed By: #### M RSAPCR #### [address] [address] CO2 [Moles/Vol] 30 mmol/L Normal 23-31 [facility] Comment on above: Performed By: #### M RSAPCR #### [place] [id number] Creatinine [Mass/Vol] 0.89 mg/dL Normal 0.55-1.02 [facility] Comment on above: Result Comment: Test ing performed on Siemens Dimension EXL analyzer using a modified kinetic Lauren technique. Performed By: #### M RSAPCR #### [address] [address] Electrolyte Balance 4.0 mEq/L Normal 4.0-15.0 [facility] Comment on above: Performed By: #### M RSAPCR #### [address] [address] Glucose [Mass/Vol] 101 mg/dL Normal 80-115 [facility] Comment on above: Performed By: #### M RSAPCR #### [address] [address] Potassium [Moles/Vol] 5.4 mmol/L High 3.5-5.1 [facility] Comment on above: Performed By: #### M RSAPCR #### [address] [address] Sodium [Moles/Vol] 138 mmol/L Normal 136-145 [facility] Comment on above: Performed By: #### M RSAPCR #### [address] [address] Urea nitrogen [Mass/Vol] 24 mg/dL High 7-18 [facility] Comment on above: Performed By: #### M RSAPCR #### [address] [address] CBCon 07-11-2024 Erythrocyte distribution width (RBC) [Ratio] 13.1 % Normal 11.5-15.5 [facility] Comment on above: Performed By: #### A IVELISSE, CBC, ADIFF, GFR, BMP #### [address] [address] Hematocrit (Bld) [Volume fraction] 33.0 % Low 34.0-46.0 [facility] Comment on above: Performed By: #### A IVELISSE, CBC, ADIFF, GFR, BMP #### [address] [address] Hgb 11.2 G/dL Low 12.0-16.0 [facility] Comment on above: Performed By: #### A IVELISSE, CBC, ADIFF, GFR, BMP #### [address] [address] MCH (RBC) [Entitic mass] 31.2 pg Normal 27.0-33.0 [facility] Comment on above: Performed By: #### A IVELISSE, CBC, ADIFF, GFR, BMP #### [address] [address] MCHC 33.9 G/dL Normal 32.0-36.0 [facility] Comment on above: Performed By: #### A IVELISSE, CBC, ADIFF, GFR, BMP #### [address] [address] MCV (RBC) [Entitic vol] 92.0 fL Normal 80.0-99.0 [facility] Comment on above: Performed By: #### A IVELISSE, CBC, ADIFF, GFR, BMP #### [place] [id number] Platelet 209 10 3/mcL Normal 150-450 [facility] Comment on above: Performed By: #### A IVELISSE, CBC, ADIFF, GFR, BMP #### [address] [address] Platelet mean volume (Bld) [Entitic vol] 7.5 fL Normal 6.6-10.5 [facility] Comment on above: Performed By: #### A IVELISSE, CBC, ADIFF, GFR, BMP #### [address] [address] RBC 3.59 10 6/mcL Low 4.10-5.30 [facility] Comment on above: Performed By: #### A IVELISSE, CBC, ADIFF, GFR, BMP #### [address] [address] WBC 11.8 10 3/mcL High 4.5-10.8 [facility] Comment on above: Performed By: #### A IVELISSE, CBC, ADIFF, GFR, BMP #### [address] [address] ABO/Rh (Gel)on 07-10-2024 ABO/Rh Interp Positive Invalid Interpretation Code [facility] Comment on above: Performed By: #### A IVELISSE, CBC, ADIFF, GFR, BMP #### [place] [address] [place], [place] [address] ABS (Gel)on 07-10-2024 ABSC Interp (Gel) Negative Normal [facility] Comment on above: Performed By: #### A IVELISSE, CBC, ADIFF, GFR, BMP #### [place] [address] [place], [place] [address] XR HIP LEFT W/PELVIS 4 VIEWS on 07-10-2024 XR HIP LEFT W/PELVIS 4 VIEWS ORIGINAL EXAMINATION: ONE XRAY VIEW OF THE PELVIS AND TWO XRAY VIEWS LEFT HIP 07/10/2024 12:35 pm COMPARISON: None. HISTORY: ORDERING SYSTEM PROVIDED HISTORY: Reason for Exam: Status Post Arthroplasty FINDINGS: Intact left hip prosthesis noted in functional alignment. Moderate joint space narrowing affects the [place] right hip. There is no acute fracture or subluxation. IMPRESSION: 1. Left hip prosthesis in functional alignment. 2. No acute fracture. Interpreted by: Toni Belcher DO Preliminary Report By: Toni Belcher DO Electronically signed By Toni Belcher DO Dictated Date: 07/10/2024 12:42:20 PM Prelim Date: 07/10/2024 12:43:07 PM Sign Date: 07/10/2024 12:43:07 PM Ordering Provider: ANDREW Hair [facility] BD BONE DENSITY DEXA AXIAL S Jhon 06-26-2024 BD BONE DENSITY DEXA AXIAL SKELETON ORIGINAL EXAMINATION: BONE DENSITOMETRY 06/26/2024 11:58 am TECHNIQUE: A bone density dual x-ray absorptiometry (DEXA) scan was performed of the axial (e.g. hips, spine) and/or appendicular (e.g. radius) skeleton as appropriate. COMPARISON: None. HISTORY: Reason for Exam: screening FINDINGS: T Score Left Femoral Neck: -2.5 Left Femoral Neck: 0.569 (g/cm2) T Score Left Hip: -2.2 Left Hip: 0.675 (g/cm2) T Score Lumbar Spine: -1.7 Lumbar Spine: 0.855 (g/cm2) FRAX score: Not calculated The BHOF f/k/a NOF recommends that FDA-approved medical therapies be considered in post-menopausal women and men age >/= 50 years with a: * Hip or vertebral fracture, or * T-score of /= 20% for major osteoporotic fractures or * >/= 3% for hip fractures All treatment decisions require clinical judgement and consideration of individual patient factors, including patient preferences, comorbidities, previous drug use, risk factors not captured in the FRAX registered model (e.g., frailty, falls, vitamin D deficiency, increased bone turnover, interval significant decline in bone density) and possible under- or over-estimation of fracture risk by FRAX. IMPRESSION: Osteoporosis by WHO criteria. I have personally reviewed the images of this examination and agree with the resident's findings and interpretations. Interpreted by: Kamaljit Kearns MD Preliminary Report By: Tex Manrique Electronically signed By Kamaljit Kearns MD Dictated Date: 06/26/2024 1:43:53 PM Prelim Date: 06/26/2024 3:51:44 PM Sign Date: 06/26/2024 3:51:44 PM Ordering Provider: LOREN GREEN [facility] MA MAMMOGRAM SCREENING BILAT ERAL W/TOMOon 06-26-2024 NE MAMMOGRAM SCREENING BILATERAL W/RICARDO ORIGINAL FROM: [place] [address] PROCEDURE FOR: ALYCE PENA [address] [place] [address] Home: PID#: [id number] Exam#: [id number] : 1955 Age: 69 TO: LOREN GREEN [place] [address] Fax: NO FAX EXAMINATION: SCREENING DIGITAL BILATERAL MAMMOGRAM WITH TOMOSYNTHESIS, 06/26/2024 11:11 am TECHNIQUE: Screening mammography of the bilateral breasts was performed with tomosynthesis. 2D standard and 3D tomosynthesis combination imaging performed through both breasts in the MLO and CC projection. Computer aided detection was utilized in the interpretation of this exam. COMPARISON: 06/09/2023, 06/03/2022 HISTORY: Breast cancer screening. FINDINGS: BREAST DENSITY: There are scattered areas of fibroglandular density. There are benign appearing calcifications in both breasts. There are postoperative changes in the left breast. There are no significant masses or calcifications. IMPRESSION: No mammographic evidence of malignancy. Continued screening with annual mammograms is recommended. Sunita Ashley risk calculations, generated with the history provided, report this patient's 10 year risk and lifetime risk for developing breast cancer at 3.2% and 5.5%, respectively. Based on this assessment tool, if the patient's calculated lifetime risk is below 20%, then the patient is considered at average risk for developing breast cancer. If the patient's calculated lifetime risk is at or above 20%, then the patient is considered high risk for developing breast cancer and may be a candidate for supplemental breast MRI screening in addition to annual mammographic screening per the [employer]. BIRADS: BI-RADS: 2: Benign RECALL: 1 year screening RECALL TYPE: mammo LETTER SENT: Normal BI-RADS 1 and 2 Interpreted by: Del Kern MD Preliminary Report By: Del Kern MD Electronically signed By Del Kern MD Dictated Date: 06/26/2024 8:22:25 PM Prelim Date: 06/26/2024 8:24:41 PM Sign Date: 06/26/2024 8:24:41 PM Ordering Provider: LOREN GREEN CLINICAL: Outside mamms. [employer] Liqu[employer] Maker: OLGA SANTIAGO RT (R)(M) letter sent: Normal BI-RADS 1 and 2 Mammogram BI-RADS: 2 Benign Normal [facility] .Auto Diffon 06-19-2024 Basophil, Absolute 0.1 10 3/mcL Normal 0.0-0.2 [facility] Comment on above: Performed By: #### A IVELISSE, CBC, ADIFF, GFR, BMP #### [address] [address] Basophils/100 WBC (Bld) 0.6 % Normal 0.0-2.5 [facility] Comment on above: Performed By: #### A IVELISSE, CBC, ADIFF, GFR, BMP #### Diya [address] [address] Eosinophil, Absolute 0.1 10 3/mcL Normal 0.0-0.7 [facility] Comment on above: Performed By: #### A IVELISSE, CBC, ADIFF, GFR, BMP #### [address] [address] Eosinophils/100 WBC (Bld) 1.5 % Normal 0.0-7.0 [facility] Comment on above: Performed By: #### A IVELISSE, CBC, ADIFF, GFR, BMP #### [address] [address] Lymphocyte, Absolute 1.3 10 3/mcL Normal 0.9-4.3 [facility] Comment on above: Performed By: #### A IVELISSE, CBC, ADIFF, GFR, BMP #### [address] [address] Lymphocytes/100 WBC (Bld) 15.8 % Low 20.0-40.0 [facility] Comment on above: Performed By: #### A IVELISSE, CBC, ADIFF, GFR, BMP #### [address] [address] Monocyte, Absolute 0.7 10 3/mcL Normal 0.1-1.4 [facility] Comment on above: Performed By: #### A IVELISSE, CBC, ADIFF, GFR, BMP #### [address] [address] Monocytes/100 WBC (Bld) 8.4 % Normal 2.0-13.0 [facility] Comment on above: Performed By: #### A IVELISSE, CBC, ADIFF, GFR, BMP #### [address] [address] Neutrophils/100 WBC (Bld) 73.7 % Normal 50.0-75.0 [facility] Comment on above: Performed By: #### A IVELISSE, CBC, ADIFF, GFR, BMP #### [address] [address] .GFRon 06-19-2024 GFR Non- 60 ml/min/1.73sqm Normal [facility] Comment on above: Result Comment: GFR Population mean for , Non- Americans Ages 20-29 = 116 mL/min/1.73 sq.m. Ages 30-39 = 107 mL/min/1.73 sq.m. Ages 40-49 = 99 mL/min/1.73 sq.m. Ages 50-59 = 93 mL/min/1.73 sq.m. Ages 60-69 = 85 mL/min/1.73 sq.m. Ages 70+ = 75 mL/min/1.73 sq.m. Chronic Kidney Disease: Less than 60 mL/min/1.73 square meters End Stage Renal Disease: Less than 15 mL/min/1.73 square meters Performed By: #### A IVELISSE, CBC, ADIFF, GFR, BMP #### [address] [address] GFR 72 ml/min/1.73sqm Normal [facility] Comment on above: Result Comment: GFR Population mean for , Non- Americans Ages 20-29 = 116 mL/min/1.73 sq.m. Ages 30-39 = 107 mL/min/1.73 sq.m. Ages 40-49 = 99 mL/min/1.73 sq.m. Ages 50-59 = 93 mL/min/1.73 sq.m. Ages 60-69 = 85 mL/min/1.73 sq.m. Ages 70+ = 75 mL/min/1.73 sq.m. Chronic Kidney Disease: Less than 60 mL/min/1.73 square meters End Stage Renal Disease: Less than 15 mL/min/1.73 square meters Performed By: #### A IVELISSE, CBC, ADIFF, GFR, BMP #### [address] [address] .NEUABSon 06-19-2024 Neutrophil, Absolute 6.1 10 3/mcL Normal 2.3-8.1 [facility] Comment on above: Performed By: #### A IVELISSE, CBC, ADIFF, GFR, BMP #### [address] [address] CBCon 06-19-2024 Erythrocyte distribution width (RBC) [Ratio] 13.8 % Normal 11.5-15.5 [facility] Comment on above: Performed By: #### A IVELISSE, CBC, ADIFF, GFR, BMP #### [address] [address] Hematocrit (Bld) [Volume fraction] 41.4 % Normal 34.0-46.0 [facility] Comment on above: Performed By: #### A IVELISSE, CBC, ADIFF, GFR, BMP #### [address] [address] Hgb 14.1 G/dL Normal 12.0-16.0 [facility] Comment on above: Performed By: #### A IVELISSE, CBC, ADIFF, GFR, BMP #### [address] [address] MCH (RBC) [Entitic mass] 31.6 pg Normal 27.0-33.0 [facility] Comment on above: Performed By: #### A IVELISSE, CBC, ADIFF, GFR, BMP #### [address] [address] MCHC 34.0 G/dL Normal 32.0-36.0 [facility] Comment on above: Performed By: #### A IVELISSE, CBC, ADIFF, GFR, BMP #### [address] [address] MCV (RBC) [Entitic vol] 92.8 fL Normal 80.0-99.0 [facility] Comment on above: Performed By: #### A IVELISSE, CBC, ADIFF, GFR, BMP #### [address] [address] Platelet 256 10 3/mcL Normal 150-450 [facility] Comment on above: Performed By: #### A IVELISSE, CBC, ADIFF, GFR, BMP #### [address] [address] Platelet mean volume (Bld) [Entitic vol] 7.3 fL Normal 6.6-10.5 [facility] Comment on above: Performed By: #### A IVELISSE, CBC, ADIFF, GFR, BMP #### [address] [address] RBC 4.47 10 6/mcL Normal 4.10-5.30 [facility] Comment on above: Performed By: #### A IVELISSE, CBC, ADIFF, GFR, BMP #### [address] [address] WBC 8.3 10 3/mcL Normal 4.5-10.8 [facility] Comment on above: Performed By: #### A IVELISSE, CBC, ADIFF, GFR, BMP #### [address] [address] CMPon 06-19-2024 Albumin Level 4.0 G/dL Normal 3.4-4.8 [facility] Comment on above: Performed By: #### A IVELISSE, CBC, ADIFF, GFR, BMP #### [address] [address] Albumin/Globulin [Mass ratio] 1.2 {ratio} Normal 1.1-2.5 [facility] Comment on above: Performed By: #### A IVELISSE, CBC, ADIFF, GFR, BMP #### [address] [address] ALP [Catalytic activity/Vol] 86 U/L Normal 40-135 [facility] Comment on above: Performed By: #### A IVELISSE, CBC, ADIFF, GFR, BMP #### [address] [address] ALT [Catalytic activity/Vol] 27 U/L Normal 14-59 [facility] Comment on above: Performed By: #### A IVELISSE, CBC, ADIFF, GFR, BMP #### [address] [address] AST [Catalytic activity/Vol] 14 U/L Normal 10-40 [facility] Comment on above: Performed By: #### A IVELISSE, CBC, ADIFF, GFR, BMP #### [address] [address] Bili Total 0.4 mg/dL Normal 0.2-1.0 [facility] Comment on above: Result Comment: Use of this assay is not recommended for patients undergoing treatment with eltrombopag due to the potential for falsely elevated results. Performed By: #### A IVELISSE, CBC, ADIFF, GFR, BMP #### [place] [address] BUN/Creatinine Ratio 18 ratio Normal 7-27 [facility] Comment on above: Performed By: #### A IVELISSE, CBC, ADIFF, GFR, BMP #### [place] [address] Calcium [Mass/Vol] 10.0 mg/dL Normal 8.4-10.2 [facility] Comment on above: Performed By: #### A IVELISSE, CBC, ADIFF, GFR, BMP #### [place] [address] Chloride [Moles/Vol] 103 mmol/L Normal 98-107 [facility] Comment on above: Performed By: #### A IVELISSE, CBC, ADIFF, GFR, BMP #### [place] [address] CO2 [Moles/Vol] 29 mmol/L Normal 23-31 [facility] Comment on above: Performed By: #### A IVELISSE, CBC, ADIFF, GFR, BMP #### [address] [address] Creatinine [Mass/Vol] 0.93 mg/dL Normal 0.55-1.02 [facility] Comment on above: Result Comment: Test ing performed on Siemens Dimension EXL analyzer using a modified kinetic Lauren technique. Performed By: #### A IVELISSE, CBC, ADIFF, GFR, BMP #### [place] [address] Electrolyte Balance 8.0 mEq/L Normal 4.0-15.0 [facility] Comment on above: Performed By: #### A IVELISSE, CBC, ADIFF, GFR, BMP #### [address] [address] Globulin 3.2 G/dL Normal [facility] Comment on above: Performed By: #### A IVELISSE, CBC, ADIFF, GFR, BMP #### [address] [address] Glucose [Mass/Vol] 95 mg/dL Normal 80-115 [facility] Comment on above: Performed By: #### A IVELISSE, CBC, ADIFF, GFR, BMP #### [address] [address] Potassium [Moles/Vol] 4.1 mmol/L Normal 3.5-5.1 [facility] Comment on above: Performed By: #### A IVELISSE, CBC, ADIFF, GFR, BMP #### [address] [address] Sodium [Moles/Vol] 140 mmol/L Normal 136-145 [facility] Comment on above: Performed By: #### A IVELISSE, CBC, ADIFF, GFR, BMP #### [address] [address] Total Protein 7.2 G/dL Normal 6.4-8.2 [facility] Comment on above: Performed By: #### A IVELISSE, CBC, ADIFF, GFR, BMP #### [address] [address] Urea nitrogen [Mass/Vol] 17 mg/dL Normal 7-18 [facility] Comment on above: Performed By: #### A IVELISSE, CBC, ADIFF, GFR, BMP #### [address] [address] LABORATORYOrdered By: SYSTEM SYSTEM on 06-19-2024 25-hydroxyvitamin D3 [Mass/Vol] 44.8 ng/mL Invalid Interpretation Code AO ADM SS Comment on above: Interpretive Data: I nterpretive Values Based on Total 25(OH) Vitamin D: Deficient <20 ng/mL Insufficient 20 - <30 ng/mL Sufficient 30-100 ng/mL Albumin BCP dye [Mass/Vol] 4.0 G/dL Normal 3.4 - 4.8 G/dL AO ADM SS Albumin/Globulin [Mass ratio] 1.2 {ratio} Normal 1.1 - 2.5 ratio AO ADM SS ALP [Catalytic activity/Vol] 86 U/L Normal 40 - 135 U/L AO ADM SS ALT With P-5'-P [Catalytic activity/Vol] 27 U/L Normal 14 - 59 U/L AO ADM SS AST With P-5'-P [Catalytic activity/Vol] 14 U/L Normal 10 - 40 U/L AO ADM SS Basophils (Bld) [#/Vol] 0.1 103/mcL Normal 0.0 - 0.2 10^3/mcL AO Workflow SS Basophils/100 WBC (Bld) 0.6 % Normal 0.0 - 2.5 % AO Workflow SS Bilirubin [Mass/Vol] 0.4 mg/dL Normal 0.2 - 1 .0 mg/dL AO ADM SS Comment on above: Interpretive Data: U se of this assay is not recommended for patients undergoing treatment with eltrombopag due to the potential for falsely elevated results. Calcium [Mass/Vol] 10.0 mg/dL Normal 8.4 - 10. 2 mg/dL AO ADM SS Chloride [Moles/Vol] 103 mmol/L Normal 98 - 10 7 mmol/L AO ADM SS CO2 [Moles/Vol] 29 mmol/L Normal 23 - 31 mmol/L AO ADM SS Creatinine [Mass/Vol] 0.93 mg/dL Normal 0.55 - 1.02 mg/dL AO ADM SS Comment on above: Interpretive Data: T esting performed on Siemens Dimension EXL analyzer using a modified kinetic Lauren technique. Electrolyte Balance 8.0 mEq/L Normal 4.0 - 15 .0 mEq/L AO ADM SS Eosinophil, Absolute 0.1 103/mcL Normal 0.0 - 0 .7 10^3/mcL AO Workflow SS Eosinophils/100 WBC (Bld) 1.5 % Normal 0.0 - 7.0 % AO Workflow SS Erythrocyte distribution width (RBC) [Ratio] 13.8 % Normal 11.5 - 15.5 % AO Workflow SS GFR/1.73 sq M.predicted among blacks MDRD (S/P/Bld) [Vol rate/Area] 72 ml/min/1.73sqm Invalid Interpretation Code AO Chemistry S Comment on above: Interpretive Data: GFR Population mean for , Non- Americans Ages 20-29 = 116 mL/min/1.73 sq.m. Ages 30-39 = 107 mL/min/1.73 sq.m. Ages 40-49 = 99 mL/min/1.73 sq.m. Ages 50-59 = 93 mL/min/1.73 sq.m. Ages 60-69 = 85 mL/min/1.73 sq.m. Ages 70+ = 75 mL/min/1.73 sq.m. Chronic Kidney Disease: Less than 60 mL/min/1.73 square meters End Stage Renal Disease: Less than 15 mL/min/1.73 square meters GFR/1.73 sq M.predicted among non-blacks MDRD (S/P/Bld) [Vol rate/Area] 60 ml/min/1.73sqm Invalid Interpretation Code AO Chemistry S Comment on above: Interpretive Data: GFR Population mean for , Non- Americans Ages 20-29 = 116 mL/min/1.73 sq.m. Ages 30-39 = 107 mL/min/1.73 sq.m. Ages 40-49 = 99 mL/min/1.73 sq.m. Ages 50-59 = 93 mL/min/1.73 sq.m. Ages 60-69 = 85 mL/min/1.73 sq.m. Ages 70+ = 75 mL/min/1.73 sq.m. Chronic Kidney Disease: Less than 60 mL/min/1.73 square meters End Stage Renal Disease: Less than 15 mL/min/1.73 square meters Globulin 3.2 G/dL Invalid Interpretation Code AO ADM SS Glucose [Mass/Vol] 95 mg/dL Normal 80 - 115 mg/dL AO ADM SS Hematocrit (Bld) [Volume fraction] 41.4 % Normal 34.0 - 46.0 % AO Workflow SS Hemoglobin (Bld) [Mass/Vol] 14.1 G/dL Normal 12.0 - 16.0 G/dL AO Workflow SS Lymphocytes (Bld) [#/Vol] 1.3 103/mcL Normal 0.9 - 4.3 10^3/mcL AO Workflow SS Lymphocytes/100 WBC (Bld) 15.8 % Low 20.0 - 40.0 % AO Workflow SS MCH (RBC) [Entitic mass] 31.6 pg Normal 27.0 - 33.0 pg AO Workflow SS MCHC 34.0 G/dL Normal 32.0 - 36.0 G/dL AO Workflow SS MCV (RBC) [Entitic vol] 92.8 fL Normal 80.0 - 99.0 fL AO Workflow SS Monocytes (Bld) [#/Vol] 0.7 103/mcL Normal 0.1 - 1.4 10^3/mcL AO Workflow SS Monocytes/100 WBC (Bld) 8.4 % Normal 2.0 - 13.0 % AO Workflow SS Neutrophils (Bld) [#/Vol] 6.1 103/mcL Normal 2.3 - 8.1 10^3/mcL AO Workflow SS Neutrophils/100 WBC (Bld) 73.7 % Normal 50.0 - 75.0 % AO Workflow SS Platelet mean volume (Bld) [Entitic vol] 7.3 fL Normal 6.6 - 10.5 fL AO Workflow SS Platelets (Bld) [#/Vol] 256 103/mcL Normal 150 - 450 10^3/mcL AO Workflow SS Potassium [Moles/Vol] 4.1 mmol/L Normal 3.5 - 5.1 mmol/L AO ADM SS Protein [Mass/Vol] 7.2 G/dL Normal 6.4 - 8.2 G/dL AO ADM SS RBC (Bld) [#/Vol] 4.47 106/mcL Normal 4.10 - 5.3 0 10^6/mcL AO Workflow SS Sodium [Moles/Vol] 140 mmol/L Normal 136 - 145 mmol/L AO ADM SS TSH Qn 1.39 m[IU]/L Normal 0.36 - 3.74 mcIU/mL AO ADM SS Urea nitrogen [Mass/Vol] 17 mg/dL Normal 7 - 18 mg/dL AO ADM SS Urea nitrogen/Creatinine [Mass ratio] 18 ratio Normal 7 - 27 ratio AO ADM SS WBC (Bld) [#/Vol] 8.3 103/mcL Normal 4.5 - 10.8 10^3/mcL AO Workflow SS LABORATORYOrdered By: Juan M Kearns on 06-19-2024 Cholesterol [Mass/Vol] 235 mg/dL High 0 - 200 mg/dL AO ADM SS Comment on above: Interpretive Data: C holesterol Reference Interval: Less than 200 Desirable 200-239 Borderline high risk 240 and above High risk Cholesterol in HDL [Mass/Vol] 76 mg/dL High 40 - 60 mg/dL AO ADM SS Cholesterol in LDL [Mass/Vol] 130 mg/dL Normal 0 - 130 mg/dL AO ADM SS Triglyceride [Mass/Vol] 143 mg/dL Normal 0 - 150 mg/dL AO ADM SS Comment on above: Interpretive Data: T riglyceride Reference Interval: Less than 150 Normal 150-199 Borderline high risk 200-499 High risk 500 or higher Very high risk LIPIDon 06-19-2024 Cholesterol [Mass/Vol] 235 mg/dL High 0-200 [facility] Comment on above: Result Comment: Chol esterol Reference Interval: Less than 200 Desirable 200-239 Borderline high risk 240 and above High risk Performed By: #### A IVELISSE, CBC, ADIFF, GFR, BMP #### [address] [address] Cholesterol in HDL [Mass/Vol] 76 mg/dL High 40-60 [facility] Comment on above: Performed By: #### A IVELISSE, CBC, ADIFF, GFR, BMP #### [address] [address] Cholesterol in LDL [Mass/Vol] 130 mg/dL Normal 0-130 [facility] Comment on above: Performed By: #### A IVELISSE, CBC, ADIFF, GFR, BMP #### [address] [address] Triglyceride [Mass/Vol] 143 mg/dL Normal 0-150 [facility] Comment on above: Result Comment: Trig lyceride Reference Interval: Less than 150 Normal 150-199 Borderline high risk 200-499 High risk 500 or higher Very high risk Performed By: #### A IVELISSE, CBC, ADIFF, GFR, BMP #### [address] [address] TSHon 06-19-2024 TSH Qn 1.39 m[IU]/L Normal 0.36-3.74 [facility] Comment on above: Performed By: #### A IVELISSE, CBC, ADIFF, GFR, BMP #### [address] [address] VIDHon 06-19-2024 Vit. D 25-Hydroxy 44.8 ng/mL Normal [facility] Comment on above: Result Comment: Inte rpretive Values Based on Total 25(OH) Vitamin D: Deficient <20 ng/mL Insufficient 20 - <30 ng/mL Sufficient 30-100 ng/mL Performed By: #### A IVELISSE, CBC, ADIFF, GFR, BMP #### [facility] [address] [place], [place] [address] .Auto Diffon 06-15-2024 Basophil, Absolute 0.0 10 3/mcL Normal 0.0-0.2 [facility] Comment on above: Performed By: #### M RSAPCR #### [address] [address] Basophils/100 WBC (Bld) 0.6 % Normal 0.0-2.5 [facility] Comment on above: Performed By: #### M RSAPCR #### [address] [address] Eosinophil, Absolute 0.2 10 3/mcL Normal 0.0-0.7 [facility] Comment on above: Performed By: #### M RSAPCR #### [address] [address] Eosinophils/100 WBC (Bld) 3.5 % Normal 0.0-7.0 [facility] Comment on above: Performed By: #### M RSAPCR #### [address] [address] Lymphocyte, Absolute 1.2 10 3/mcL Normal 0.9-4.3 [facility] Comment on above: Performed By: #### M RSAPCR #### [address] [address] Lymphocytes/100 WBC (Bld) 17.8 % Low 20.0-40.0 [facility] Comment on above: Performed By: #### M RSAPCR #### [address] [address] Monocyte, Absolute 0.6 10 3/mcL Normal 0.1-1.4 [facility] Comment on above: Performed By: #### M RSAPCR #### [address] [address] Monocytes/100 WBC (Bld) 8.5 % Normal 2.0-13.0 [facility] Comment on above: Performed By: #### M RSAPCR #### [address] [address] Neutrophils/100 WBC (Bld) 69.6 % Normal 50.0-75.0 [facility] Comment on above: Performed By: #### M RSAPCR #### [address] [address] .GFRon 06-15-2024 GFR 83 ml/min/1.73sqm Normal [facility] Comment on above: Result Comment: GFR Population mean for , Non- Americans Ages 20-29 = 116 mL/min/1.73 sq.m. Ages 30-39 = 107 mL/min/1.73 sq.m. Ages 40-49 = 99 mL/min/1.73 sq.m. Ages 50-59 = 93 mL/min/1.73 sq.m. Ages 60-69 = 85 mL/min/1.73 sq.m. Ages 70+ = 75 mL/min/1.73 sq.m. Chronic Kidney Disease: Less than 60 mL/min/1.73 square meters End Stage Renal Disease: Less than 15 mL/min/1.73 square meters Performed By: #### M RSAPCR #### [address] [address] GFR Non- 68 ml/min/1.73sqm Normal [facility] Comment on above: Result Comment: GFR Population mean for , Non- Americans Ages 20-29 = 116 mL/min/1.73 sq.m. Ages 30-39 = 107 mL/min/1.73 sq.m. Ages 40-49 = 99 mL/min/1.73 sq.m. Ages 50-59 = 93 mL/min/1.73 sq.m. Ages 60-69 = 85 mL/min/1.73 sq.m. Ages 70+ = 75 mL/min/1.73 sq.m. Chronic Kidney Disease: Less than 60 mL/min/1.73 square meters End Stage Renal Disease: Less than 15 mL/min/1.73 square meters Performed By: #### M RSAPCR #### [address] [address] .NEUABSon 06-15-2024 Neutrophil, Absolute 4.8 10 3/mcL Normal 2.3-8.1 [facility] Comment on above: Performed By: #### M RSAPCR #### [address] [address] ABO/Rh (Gel)on 06-15-2024 ABO/Rh Interp Positive Invalid Interpretation Code [facility] Comment on above: Performed By: #### A BSGEL, ABOGEL #### [facility] [address] [place], [place] [address] ABS (Gel)on 06-15-2024 ABSC Interp (Gel) Negative Normal [facility] Comment on above: Performed By: #### M RSAPCR #### [address] [address] ALBon 06-15-2024 Albumin Level 3.9 G/dL Normal 3.4-4.8 [facility] Comment on above: Performed By: #### M RSAPCR #### [address] [address] BMPon 06-15-2024 BUN/Creatinine Ratio 18 ratio Normal 7-27 [facility] Comment on above: Performed By: #### M RSAPCR #### [address] [address] Calcium [Mass/Vol] 9.7 mg/dL Normal 8.4-10.2 [facility] Comment on above: Performed By: #### M RSAPCR #### [address] [address] Chloride [Moles/Vol] 103 mmol/L Normal 98-107 [facility] Comment on above: Performed By: #### M RSAPCR #### [address] [address] CO2 [Moles/Vol] 29 mmol/L Normal 23-31 [facility] Comment on above: Performed By: #### M RSAPCR #### [address] [address] Creatinine [Mass/Vol] 0.83 mg/dL Normal 0.55-1.02 [facility] Comment on above: Result Comment: Test ing performed on Siemens Dimension EXL analyzer using a modified kinetic Lauren technique. Performed By: #### M RSAPCR #### [address] [address] Electrolyte Balance 9.0 mEq/L Normal 4.0-15.0 [facility] Comment on above: Performed By: #### M RSAPCR #### [place] [id number] Glucose [Mass/Vol] 93 mg/dL Normal 80-115 [facility] Comment on above: Performed By: #### M RSAPCR #### [place] [id number] Potassium [Moles/Vol] 4.2 mmol/L Normal 3.5-5.1 [facility] Comment on above: Performed By: #### M RSAPCR #### [place] [id number] Sodium [Moles/Vol] 141 mmol/L Normal 136-145 [facility] Comment on above: Performed By: #### M RSAPCR #### [address] [address] Urea nitrogen [Mass/Vol] 15 mg/dL Normal 7-18 [facility] Comment on above: Performed By: #### M RSAPCR #### [address] [address] CBCon 06-15-2024 Erythrocyte distribution width (RBC) [Ratio] 13.8 % Normal 11.5-15.5 [facility] Comment on above: Order Comment: Pre-A dmission Testing Performed By: #### M RSAPCR #### [address] [address] Hematocrit (Bld) [Volume fraction] 40.4 % Normal 34.0-46.0 [facility] Comment on above: Order Comment: Pre-A dmission Testing Performed By: #### M RSAPCR #### [place] [address] Hgb 13.9 G/dL Normal 12.0-16.0 [facility] Comment on above: Order Comment: Pre-A dmission Testing Performed By: #### M RSAPCR #### [place] [address] MCH (RBC) [Entitic mass] 31.8 pg Normal 27.0-33.0 [facility] Comment on above: Order Comment: Pre-A dmission Testing Performed By: #### M RSAPCR #### [place] [address] MCHC 34.3 G/dL Normal 32.0-36.0 [facility] Comment on above: Order Comment: Pre-A dmission Testing Performed By: #### M RSAPCR #### [place] [address] MCV (RBC) [Entitic vol] 92.8 fL Normal 80.0-99.0 [facility] Comment on above: Order Comment: Pre-A dmission Testing Performed By: #### M RSAPCR #### [place] [address] Platelet 240 10 3/mcL Normal 150-450 [facility] Comment on above: Order Comment: Pre-A dmission Testing Performed By: #### M RSAPCR #### [place] [address] Platelet mean volume (Bld) [Entitic vol] 7.1 fL Normal 6.6-10.5 [facility] Comment on above: Order Comment: Pre-A dmission Testing Performed By: #### M RSAPCR #### [place] [address] RBC 4.36 10 6/mcL Normal 4.10-5.30 [facility] Comment on above: Order Comment: Pre-A dmission Testing Performed By: #### M RSAPCR #### [place] [address] WBC 6.9 10 3/mcL Normal 4.5-10.8 [facility] Comment on above: Order Comment: Pre-A dmission Testing Performed By: #### M RSAPCR #### [facility] [address] [place] [address] LABORATORYOrdered By: Bettie Purcell on 06-15-2024 ABO and Rh group Nom (Bld) Blood group A Rh(D) positive Invalid Interpretation Code AO BB Auto SS Blood group antibody screen Ql Negative ABSC (06/15/24 9:27 AM) Normal AO BB Auto SS LABORATORYOrdered By: SYSTEM SYSTEM on 06-15-2024 Albumin BCP dye [Mass/Vol] 3.9 G/dL Normal 3.4 - 4.8 G/dL AO ADM SS Basophils (Bld) [#/Vol] 0.0 103/mcL Normal 0.0 - 0.2 10^3/mcL AO Workflow SS Basophils/100 WBC (Bld) 0.6 % Normal 0.0 - 2.5 % AO Workflow SS Calcium [Mass/Vol] 9.7 mg/dL Normal 8.4 - 10. 2 mg/dL AO ADM SS Chloride [Moles/Vol] 103 mmol/L Normal 98 - 10 7 mmol/L AO ADM SS CO2 [Moles/Vol] 29 mmol/L Normal 23 - 31 mmol/L AO ADM SS Creatinine [Mass/Vol] 0.83 mg/dL Normal 0.55 - 1.02 mg/dL AO ADM SS Comment on above: Interpretive Data: T esting performed on Siemens Dimension EXL analyzer using a modified kinetic Lauren technique. Electrolyte Balance 9.0 mEq/L Normal 4.0 - 15 .0 mEq/L AO ADM SS Eosinophil, Absolute 0.2 103/mcL Normal 0.0 - 0 .7 10^3/mcL AO Workflow SS Eosinophils/100 WBC (Bld) 3.5 % Normal 0.0 - 7.0 % AO Workflow SS Erythrocyte distribution width (RBC) [Ratio] 13.8 % Normal 11.5 - 15.5 % AO Workflow SS GFR/1.73 sq M.predicted among blacks MDRD (S/P/Bld) [Vol rate/Area] 83 ml/min/1.73sqm Invalid Interpretation Code AO Chemistry S Comment on above: Interpretive Data: GFR Population mean for , Non- Americans Ages 20-29 = 116 mL/min/1.73 sq.m. Ages 30-39 = 107 mL/min/1.73 sq.m. Ages 40-49 = 99 mL/min/1.73 sq.m. Ages 50-59 = 93 mL/min/1.73 sq.m. Ages 60-69 = 85 mL/min/1.73 sq.m. Ages 70+ = 75 mL/min/1.73 sq.m. Chronic Kidney Disease: Less than 60 mL/min/1.73 square meters End Stage Renal Disease: Less than 15 mL/min/1.73 square meters GFR/1.73 sq M.predicted among non-blacks MDRD (S/P/Bld) [Vol rate/Area] 68 ml/min/1.73sqm Invalid Interpretation Code AO Chemistry S Comment on above: Interpretive Data: GFR Population mean for , Non- Americans Ages 20-29 = 116 mL/min/1.73 sq.m. Ages 30-39 = 107 mL/min/1.73 sq.m. Ages 40-49 = 99 mL/min/1.73 sq.m. Ages 50-59 = 93 mL/min/1.73 sq.m. Ages 60-69 = 85 mL/min/1.73 sq.m. Ages 70+ = 75 mL/min/1.73 sq.m. Chronic Kidney Disease: Less than 60 mL/min/1.73 square meters End Stage Renal Disease: Less than 15 mL/min/1.73 square meters Glucose [Mass/Vol] 93 mg/dL Normal 80 - 115 mg/dL AO ADM SS Hematocrit (Bld) [Volume fraction] 40.4 % Normal 34.0 - 46.0 % AO Workflow SS Hemoglobin (Bld) [Mass/Vol] 13.9 G/dL Normal 12.0 - 16.0 G/dL AO Workflow SS Lymphocytes (Bld) [#/Vol] 1.2 103/mcL Normal 0.9 - 4.3 10^3/mcL AO Workflow SS Lymphocytes/100 WBC (Bld) 17.8 % Low 20.0 - 40.0 % AO Workflow SS MCH (RBC) [Entitic mass] 31.8 pg Normal 27.0 - 33.0 pg AO Workflow SS MCHC 34.3 G/dL Normal 32.0 - 36.0 G/dL AO Workflow SS MCV (RBC) [Entitic vol] 92.8 fL Normal 80.0 - 99.0 fL AO Workflow SS Monocytes (Bld) [#/Vol] 0.6 103/mcL Normal 0.1 - 1.4 10^3/mcL AO Workflow SS Monocytes/100 WBC (Bld) 8.5 % Normal 2.0 - 13.0 % AO Workflow SS Neutrophils (Bld) [#/Vol] 4.8 103/mcL Normal 2.3 - 8.1 10^3/mcL AO Workflow SS Neutrophils/100 WBC (Bld) 69.6 % Normal 50.0 - 75.0 % AO Workflow SS Platelet mean volume (Bld) [Entitic vol] 7.1 fL Normal 6.6 - 10.5 fL AO Workflow SS Platelets (Bld) [#/Vol] 240 103/mcL Normal 150 - 450 10^3/mcL AO Workflow SS Potassium [Moles/Vol] 4.2 mmol/L Normal 3.5 - 5.1 mmol/L AO ADM SS RBC (Bld) [#/Vol] 4.36 106/mcL Normal 4.10 - 5.3 0 10^6/mcL AO Workflow SS Sodium [Moles/Vol] 141 mmol/L Normal 136 - 145 mmol/L AO ADM SS Urea nitrogen [Mass/Vol] 15 mg/dL Normal 7 - 18 mg/dL AO ADM SS Urea nitrogen/Creatinine [Mass ratio] 18 ratio Normal 7 - 27 ratio AO ADM SS WBC (Bld) [#/Vol] 6.9 103/mcL Normal 4.5 - 10.8 10^3/mcL AO Workflow SS LABORATORYOrdered By: Yamel Galan on 06-15-2024 MRSA (PCR) Not Detected 1 (06/15/24 9:27 AM) Normal Not Detected Auto Viro/Sero SS Comment on above: Result Comment: [place] [id number] MRSA PCR Int MRSA DNA not detected by Real-Time Polymerase Chain Reaction (PCR). A negative result may be due to intermittent colonization. Colonization may vary depending on patient treatment, patient status, or exposure to high-risk environments.As with all PCR based in vitro diagnostic tests, extremely low levels of target below the limit of detection of the assay may be detected, but results may not be reproducible. Invalid Interpretation Code [facility] SS MRSAPCRon 06-15-2024 MRSA (PCR) Not detected Normal Not Detected [facility] Comment on above: Result Comment: [place] [id number] Performed By: #### M RSAPCR #### [facility] [address] [place] [id number] MRSA PCR Int Normal [facility] Comment on above: Result Comment: MRSA DNA not detected by Real-Time Polymerase Chain Reaction (PCR). A negative result may be due to intermittent colonization. Colonization may vary depending on patient treatment, patient status, or exposure to high-risk environments. As with all PCR based in vitro diagnostic tests, extremely low levels of target below the limit of detection of the assay may be detected, but results may not be reproducible. See Below Performed By: #### M RSAPCR #### [facility] [address] [place] [id number] .GFRon 11-29-2023 GFR 75 ml/min/1.73sqm Normal [facility] ([place]) Comment on above: Result Comment: GFR Population mean for , Non- Americans Ages 20-29 = 116 mL/min/1.73 sq.m. Ages 30-39 = 107 mL/min/1.73 sq.m. Ages 40-49 = 99 mL/min/1.73 sq.m. Ages 50-59 = 93 mL/min/1.73 sq.m. Ages 60-69 = 85 mL/min/1.73 sq.m. Ages 70+ = 75 mL/min/1.73 sq.m. Chronic Kidney Disease: Less than 60 mL/min/1.73 square meters End Stage Renal Disease: Less than 15 mL/min/1.73 square meters Performed By: #### T SH, CMP, GFR, LIPID #### [id number] [place], [place] [address] GFR Non- 61 ml/min/1.73sqm Normal [facility] ([place]) Comment on above: Result Comment: GFR Population mean for , Non- Americans Ages 20-29 = 116 mL/min/1.73 sq.m. Ages 30-39 = 107 mL/min/1.73 sq.m. Ages 40-49 = 99 mL/min/1.73 sq.m. Ages 50-59 = 93 mL/min/1.73 sq.m. Ages 60-69 = 85 mL/min/1.73 sq.m. Ages 70+ = 75 mL/min/1.73 sq.m. Chronic Kidney Disease: Less than 60 mL/min/1.73 square meters End Stage Renal Disease: Less than 15 mL/min/1.73 square meters Performed By: #### T SH, CMP, GFR, LIPID #### [address] [address] CMPon 11-29-2023 Albumin Level 3.8 G/dL Normal 3.4-4.8 [facility] ([place]) Comment on above: Performed By: #### T SH, CMP, GFR, LIPID #### [address] [address] Albumin/Globulin [Mass ratio] 1.2 {ratio} Normal 1.1-2.5 [facility] ([place]) Comment on above: Performed By: #### T SH, CMP, GFR, LIPID #### [address] [address] ALP [Catalytic activity/Vol] 60 U/L Normal 40-135 [facility] ([place]) Comment on above: Performed By: #### T SH, CMP, GFR, LIPID #### [address] [address] ALT [Catalytic activity/Vol] 28 U/L Normal 14-59 [facility] ([place]) Comment on above: Performed By: #### T SH, CMP, GFR, LIPID #### [address] [address] AST [Catalytic activity/Vol] 15 U/L Normal 10-40 [facility] ([place]) Comment on above: Performed By: #### T SH, CMP, GFR, LIPID #### [address] [address] Bili Total 0.3 mg/dL Normal 0.2-1.0 [facility] ([place]) Comment on above: Result Comment: Use of this assay is not recommended for patients undergoing treatment with eltrombopag due to the potential for falsely elevated results. Performed By: #### T SH, CMP, GFR, LIPID #### [address] [address] BUN/Creatinine Ratio 16 ratio Normal 7-27 [facility] ([place]) Comment on above: Performed By: #### T SH, CMP, GFR, LIPID #### [address] [address] Calcium [Mass/Vol] 9.3 mg/dL Normal 8.4-10.2 [facility] ([place]) Comment on above: Performed By: #### T SH, CMP, GFR, LIPID #### [address] [address] Chloride [Moles/Vol] 104 mmol/L Normal 98-107 [facility] ([place]) Comment on above: Performed By: #### T SH, CMP, GFR, LIPID #### [address] [address] CO2 [Moles/Vol] 27 mmol/L Normal 23-31 [facility] ([place]) Comment on above: Performed By: #### T SH, CMP, GFR, LIPID #### [address] [address] Creatinine [Mass/Vol] 0.91 mg/dL Normal 0.55-1.02 [facility] ([place]) Comment on above: Performed By: #### T SH, CMP, GFR, LIPID #### [address] [address] Electrolyte Balance 9.0 mEq/L Normal 4.0-15.0 [facility] ([place]) Comment on above: Performed By: #### T SH, CMP, GFR, LIPID #### [address] [address] Globulin 3.3 G/dL Normal [facility] ([place]) Comment on above: Performed By: #### T SH, CMP, GFR, LIPID #### [address] [place] [address] Glucose [Mass/Vol] 89 mg/dL Normal 80-115 [facility] ([place]) Comment on above: Performed By: #### T SH, CMP, GFR, LIPID #### [address] [address] Potassium [Moles/Vol] 4.9 mmol/L Normal 3.5-5.1 [facility] ([place]) Comment on above: Performed By: #### T SH, CMP, GFR, LIPID #### [address] [address] Sodium [Moles/Vol] 140 mmol/L Normal 136-145 [facility] ([place]) Comment on above: Performed By: #### T SH, CMP, GFR, LIPID #### [address] [address] Total Protein 7.1 G/dL Normal 6.4-8.2 [facility] ([place]) Comment on above: Performed By: #### T SH, CMP, GFR, LIPID #### [address] [address] Urea nitrogen [Mass/Vol] 15 mg/dL Normal 7-18 [facility] ([place]) Comment on above: Performed By: #### T SH, CMP, GFR, LIPID #### [address] [address] LIPIDon 11-29-2023 Cholesterol [Mass/Vol] 223 mg/dL High 0-200 [facility] ([place]) Comment on above: Result Comment: Chol esterol Reference Interval: Less than 200 Desirable 200-239 Borderline high risk 240 and above High risk Performed By: #### T SH, CMP, GFR, LIPID #### [address] [address] Cholesterol in HDL [Mass/Vol] 66 mg/dL High 40-60 [facility] ([place]) Comment on above: Performed By: #### T SH, CMP, GFR, LIPID #### [address] [address] Cholesterol in LDL [Mass/Vol] 128 mg/dL Normal 0-130 [facility] ([place]) Comment on above: Performed By: #### T SH, CMP, GFR, LIPID #### [address] [place], [place] [address] Triglyceride [Mass/Vol] 147 mg/dL Normal 0-150 [facility] ([place]) Comment on above: Result Comment: Trig lyceride Reference Interval: Less than 150 Normal 150-199 Borderline high risk 200-499 High risk 500 or higher Very high risk Performed By: #### T SH, CMP, GFR, LIPID #### [address] [place], [place] [address] TSHon 11-29-2023 TSH Qn 1.68 m[IU]/L Normal 0.36-3.74 [facility] ([place]) Comment on above: Performed By: #### T SH, CMP, GFR, LIPID #### [address] [place], [place] [address] C Reactive Protein, Serumon 04-26-2023 CRP [Mass/Vol] mg/L [facility] Work Phone: Comment on above: REF VALUE< 1.00 C-REACTIVE PROTEINon 023 CRP [Mass/Vol] mg/L Normal [facility] Comment on above: Result Comment: REF VALUE < 1.00 Performed By: #### C RP #### [address] [address] CBC AND DIFFERENTIALon 04-26 % AUTOMATED IMMATURE GRAN 2.3 % High 0.0 - 0.9 [facility] Comment on above: Result Comment: Florinda ture Granulocyte Count (IG) includes promyelocytes, myelocytes and metamyelocytes but does not include bands. Percent differential counts (%) should be interpreted in the context of the absolute cell counts (cells/L). Performed By: #### C BCDF #### [address] [address] Basophils (Bld) [#/Vol] 0.06 10*3/uL Normal 0.00 - 0.10 [facility] Comment on above: Performed By: #### C BCDF #### [address] [address] Basophils/100 WBC (Bld) 0.9 % Normal 0.0 - 2.0 [facility] Comment on above: Performed By: #### C BCDF #### [address] [address] Eosinophils (Bld) [#/Vol] 0.07 10*3/uL Normal 0.00 - 0.70 [facility] Comment on above: Performed By: #### C BCDF #### [address] [address] Eosinophils/100 WBC (Bld) 1.0 % Normal 0.0 - 6.0 [facility] Comment on above: Performed By: #### C BCDF #### [address] [address] Erythrocyte distribution width (RBC) [Ratio] 12.3 % Normal 11.5 - 14.5 [facility] Comment on above: Performed By: #### C BCDF #### [address] [address] Hematocrit (Bld) [Volume fraction] 41.7 % Normal 36.0 - 46.0 [facility] Comment on above: Performed By: #### C BCDF #### [address] [address] Hemoglobin (Bld) [Mass/Vol] 13.7 g/dL Normal 12.0 - 16.0 [facility] Comment on above: Performed By: #### C BCDF #### [address] [address] Lymphocytes (Bld) [#/Vol] 1.65 10*3/uL Normal 1.20 - 4.80 [facility] Comment on above: Performed By: #### C BCDF #### [address] [address] Lymphocytes/100 WBC (Bld) 23.9 % Normal 13.0 - 44.0 [facility] Comment on above: Performed By: #### C BCDF #### [address] [address] MCHC (RBC) [Mass/Vol] 32.9 g/dL Normal 32.0 - 36.0 [facility] Comment on above: Performed By: #### C BCDF #### [address] [address] MCV (RBC) [Entitic vol] 93 fL Normal 80 - 100 [facility] Comment on above: Performed By: #### C BCDF #### [address] [address] Monocytes (Bld) [#/Vol] 0.72 10*3/uL Normal 0.10 - 1.00 [facility] Comment on above: Performed By: #### C BCDF #### [address] [address] Monocytes/100 WBC (Bld) 10.4 % Normal 2.0 - 10.0 [facility] Comment on above: Performed By: #### C BCDF #### [address] [address] Neutrophils (Bld) [#/Vol] 4.25 10*3/uL Normal 1.20 - 7.70 [facility] Comment on above: Result Comment: Perc ent differential counts (%) should be interpreted in the context of the absolute cell counts (cells/L). Performed By: #### C BCDF #### [address] [address] Neutrophils/100 WBC (Bld) 61.5 % Normal 40.0 - 80.0 [facility] Comment on above: Performed By: #### C BCDF #### [address] [address] Platelets (Bld) [#/Vol] 298 10*3/uL Normal 150 - 450 [facility] Comment on above: Performed By: #### C BCDF #### [address] [address] RBC 4.48 x10E12/L Normal 4.00 - 5.20 [facility] Comment on above: Performed By: #### C BCDF #### [address] [address] WBC (Bld) [#/Vol] 6.9 10*3/uL Normal 4.4 - 11.3 [facility] [place] Comment on above: Performed By: #### C BCDF #### [address] [address] COMPREHENSIVE PANELon 2022 Albumin [Mass/Vol] 4.3 g/dL Normal 3.4 - 5.0 [facility] [place] Comment on above: Performed By: #### C BCDF #### [address] [address] ALP [Catalytic activity/Vol] 54 U/L Normal 33 - 136 [facility] Comment on above: Performed By: #### C BCDF #### [address] [address] ALT [Catalytic activity/Vol] 13 U/L Normal 7 - 45 [facility] Comment on above: Result Comment: Daija ents treated with Sulfasalazine may generate falsely decreased results for ALT. Performed By: #### C BCDF #### [address] [address] Anion gap [Moles/Vol] 10 mmol/L Normal 10 - 20 [facility] Comment on above: Performed By: #### C BCDF #### [address] [address] AST [Catalytic activity/Vol] 13 U/L Normal 9 - 39 [facility] Comment on above: Performed By: #### C BCDF #### [address] [address] Bilirubin [Mass/Vol] 0.5 mg/dL Normal 0.0 - 1.2 [facility] Comment on above: Performed By: #### C BCDF #### [address] [address] Calcium [Mass/Vol] 9.8 mg/dL Normal 8.6 - 10.3 [facility] [place] Comment on above: Performed By: #### C BCDF #### [address] [address] Chloride [Moles/Vol] 105 mmol/L Normal 98 - 107 [facility] Comment on above: Performed By: #### C BCDF #### [address] [address] Creatinine [Mass/Vol] 0.81 mg/dL Normal 0.50 - 1.05 [facility] Comment on above: Performed By: #### C BCDF #### [address] [address] GFR/1.73 sq M.predicted among non-blacks MDRD (S/P/Bld) [Vol rate/Area] 79 mL/min/{1.73_m2} Normal >90 [facility] Comment on above: Result Comment: CALC ULATIONS OF ESTIMATED GFR ARE PERFORMED USING THE 2020 CKD-EPI STUDY REFIT EQUATION WITHOUT THE RACE VARIABLE FOR THE IDMS-TRACEABLE CREATININE METHODS. https://jasn.asnjournals.org/content/early//ASN.747275 2909 Performed By: #### C BCDF #### [address] [address] Glucose [Mass/Vol] 90 mg/dL Normal 74 - 99 [facility] [place] Comment on above: Performed By: #### C BCDF #### [address] [address] HCO3 (Bld) [Moles/Vol] 27 mmol/L Normal 21 - 32 [facility] Comment on above: Performed By: #### C BCDF #### [address] [address] Potassium [Moles/Vol] 4.2 mmol/L Normal 3.5 - 5.3 [facility] Comment on above: Performed By: #### C BCDF #### [address] [address] Protein [Mass/Vol] 7.4 g/dL Normal 6.4 - 8.2 [facility] [place] Comment on above: Performed By: #### C BCDF #### [id number] [place] [address] Sodium [Moles/Vol] 138 mmol/L Normal 136 - 145 [facility] [place] Comment on above: Performed By: #### C BCDF #### [address] [place] [address] Urea nitrogen [Mass/Vol] 23 mg/dL Normal 6 - 23 [facility] Comment on above: Performed By: #### C BCDF #### [address] [place] [address] Complete Blood Count + Diffe rentialon 04-26-2022 Basophils/100 WBC (Bld) 0.9 % 0.0 - 2.0 [employer] [facility] Work Phone: Erythrocyte distribution width (RBC) [Ratio] 12.3 % See Below [employer] [facility] Work Phone: Comment on above: Reference Range: 11. 5 - 14.5 Hematocrit (Bld) [Volume fraction] 41.7 % See Below [employer] [facility] Work Phone: Comment on above: Reference Range: 36. 0 - 46.0 Hemoglobin (Bld) [Mass/Vol] 13.7 g/dL See Below [employer] [facility] Work Phone: Comment on above: Reference Range: 12. 0 - 16.0 Lymphocytes/100 WBC (Bld) 23.9 % See Below [employer] [facility] [employer] Work Phone: Comment on above: Reference Range: 13. 0 - 44.0 MCHC (RBC) [Mass/Vol] 32.9 g/dL See Below [employer] [facility] [employer] Work Phone: Comment on above: Reference Range: 32. 0 - 36.0 MCV (RBC) [Entitic vol] 93 fL 80 - 100 [employer] [facility] Work Phone: Monocytes/100 WBC (Bld) 10.4 % 2.0 - 10.0 [facility] Work Phone: Neutrophils/100 WBC (Bld) 61.5 % See Below [facility] Work Phone: Comment on above: Reference Range: 40. 0 - 80.0 Platelets (Bld) [#/Vol] 298 10*3/uL 150 - 450 [facility] Work Phone: RBC (Bld) [#/Vol] 4.48 {x10E12/L} See Below [facility] Work Phone: Comment on above: Reference Range: 4.0 0 - 5.20 WBC (Bld) [#/Vol] 6.9 10*3/uL 4.4 - 11.3 [employer] Work Phone: Complete Blood Count + Differential 0.06 {x10E9/L} See Below [facility] Work Phone: Comment on above: Reference Range: 0.0 0 - 0.10 Complete Blood Count + Differential 0.07 {x10E9/L} See Below [facility] Work Phone: Comment on above: Reference Range: 0.0 0 - 0.70 Complete Blood Count + Differential 0.72 {x10E9/L} See Below [facility] Work Phone: Comment on above: Reference Range: 0.1 0 - 1.00 Complete Blood Count + Differential 1.65 {x10E9/L} See Below [facility] Work Phone: Comment on above: Reference Range: 1.2 0 - 4.80 Complete Blood Count + Differential 4.25 {x10E9/L} See Below [facility] Work Phone: Comment on above: Reference Range: 1.2 0 - 7.70 Percent differential counts (%) should be interpreted in the context of the absolute cell counts (cells/L). Complete Blood Count + Differential 1.0 % 0.0 - 6.0 [facility] Work Phone: Complete Blood Count + Differential 2.3 % above high threshold 0.0 - 0.9 [facility] Work Phone: Comment on above: Immature Granulocyte Count (IG) includes promyelocytes, myelocytes and metamyelocytes but does not include bands. Percent differential counts (%) should be interpreted in the context of the absolute cell counts (cells/L). Laboratory - Chemistry and C hemistry - challengeon 04-26-2023 Albumin BCP dye [Mass/Vol] 4.3 g/dL 3.4 - 5.0 [facility] Work Phone: ALP [Catalytic activity/Vol] 54 U/L 33 - 136 [facility] Work Phone: ALT With P-5'-P [Catalytic activity/Vol] 13 U/L 7 - 45 [facility] Work Phone: Comment on above: Patients treated wit h Sulfasalazine may generate falsely decreased results for ALT. Anion gap [Moles/Vol] 10 mmol/L 10 - 20 [facility] Work Phone: AST With P-5'-P [Catalytic activity/Vol] 13 U/L 9 - 39 -[facility] Work Phone: Bilirubin [Mass/Vol] 0.5 mg/dL 0.0 - 1.2 -[facility] Work Phone: Calcium [Mass/Vol] 9.8 mg/dL 8.6 - 10.3 -[facility] Work Phone: Chloride [Moles/Vol] 105 mmol/L 98 - 107 -[facility] Work Phone: CO2 [Moles/Vol] 27 mmol/L 21 - 32 -[facility] Work Phone: Creatinine [Mass/Vol] 0.81 mg/dL See Below [facility] Work Phone: Comment on above: Reference Range: 0.5 0 - 1.05 Glucose [Mass/Vol] 90 mg/dL 74 - 99 -[facility] Work Phone: Potassium [Moles/Vol] 4.2 mmol/L 3.5 - 5.3 - [facility] Work Phone: Protein [Mass/Vol] 7.4 g/dL 6.4 - 8.2 -[facility] Work Phone: Sodium [Moles/Vol] 138 mmol/L 136 - 145 [employer] Work Phone: Urea nitrogen [Mass/Vol] 23 mg/dL 6 - 23 [facility] Work Phone: No Panel Informationon 04-26 79 {mL/min/1.73m2} >90 [employer] Work Phone: Comment on above: CALCULATIONS OF BJ MATED GFR ARE PERFORMED USING THE 2020 CKD-EPI STUDY REFIT EQUATION WITHOUT THE RACE VARIABLE FOR THE IDMS-TRACEABLE CREATININE METHODS.https://jasn.asnjournals.org/content/early/ N.8644654910 SEDIMENTATION RATE, ERYTHROC YTEon 04-26-2023 SEDIMENTATION RATE, ERYTHROCYTE 7 mm/h Normal 0 - 30 [facility] Comment on above: Performed By: #### E WS #### [id number] Sedimentation Rate, Erythroc yteon 04-26-2023 ESR (Bld) [Velocity] 7 mm/h 0 - 30 [facility] Work Phone: .Auto Diffon 09-14-2023 Basophil, Absolute 0.1 10 3/mcL Normal 0.0-0.2 [facility] ([place]) Comment on above: Performed By: #### L IPID, CBC, ADIFF, ANEU, TSH, VIDH, CMP, GFR #### [address] [address] Basophils/100 WBC (Bld) 1.0 % Normal 0.0-2.5 [facility] ([place]) Comment on above: Performed By: #### L IPID, CBC, ADIFF, ANEU, TSH, VIDH, CMP, GFR #### [address] [address] Eosinophil, Absolute 0.1 10 3/mcL Normal 0.0-0.4 [facility] ([place]) Comment on above: Performed By: #### L IPID, CBC, ADIFF, ANEU, TSH, VIDH, CMP, GFR #### [address] [address] Eosinophils/100 WBC (Bld) 2.5 % Normal 0.0-7.0 [facility] ([place]) Comment on above: Performed By: #### L IPID, CBC, ADIFF, ANEU, TSH, VIDH, CMP, GFR #### [address] [address] Lymphocyte, Absolute 1.4 10 3/mcL Normal 0.8-3.9 [facility] ([place]) Comment on above: Performed By: #### L IPID, CBC, ADIFF, ANEU, TSH, VIDH, CMP, GFR #### [address] [address] Lymphocytes/100 WBC (Bld) 23.4 % Normal 10.0-50.0 [facility] ([place]) Comment on above: Performed By: #### L IPID, CBC, ADIFF, ANEU, TSH, VIDH, CMP, GFR #### [address] [address] Monocyte, Absolute 0.6 10 3/mcL Normal 0.2-1.0 [facility] ([place]) Comment on above: Performed By: #### L IPID, CBC, ADIFF, ANEU, TSH, VIDH, CMP, GFR #### [address] [address] Monocytes/100 WBC (Bld) 9.8 % Normal 1.7-13.0 [facility] ([place]) Comment on above: Performed By: #### L IPID, CBC, ADIFF, ANEU, TSH, VIDH, CMP, GFR #### [address] [address] Neutrophils/100 WBC (Bld) 63.3 % Normal 37.0-80.0 [facility] ([place]) Comment on above: Performed By: #### L IPID, CBC, ADIFF, ANEU, TSH, VIDH, CMP, GFR #### [address] [address] .GFRon 04-14-2023 GFR 78 ml/min/1.73sqm Normal [facility] ([place]) Comment on above: Result Comment: GFR Population mean for , Non- Americans Ages 20-29 = 116 mL/min/1.73 sq.m. Ages 30-39 = 107 mL/min/1.73 sq.m. Ages 40-49 = 99 mL/min/1.73 sq.m. Ages 50-59 = 93 mL/min/1.73 sq.m. Ages 60-69 = 85 mL/min/1.73 sq.m. Ages 70+ = 75 mL/min/1.73 sq.m. Chronic Kidney Disease: Less than 60 mL/min/1.73 square meters End Stage Renal Disease: Less than 15 mL/min/1.73 square meters Performed By: #### T SH, CMP, GFR, LIPID #### [address] [address] GFR Non- 65 ml/min/1.73sqm Normal [facility] ([place]) Comment on above: Result Comment: GFR Population mean for , Non- Americans Ages 20-29 = 116 mL/min/1.73 sq.m. Ages 30-39 = 107 mL/min/1.73 sq.m. Ages 40-49 = 99 mL/min/1.73 sq.m. Ages 50-59 = 93 mL/min/1.73 sq.m. Ages 60-69 = 85 mL/min/1.73 sq.m. Ages 70+ = 75 mL/min/1.73 sq.m. Chronic Kidney Disease: Less than 60 mL/min/1.73 square meters End Stage Renal Disease: Less than 15 mL/min/1.73 square meters Performed By: #### T SH, CMP, GFR, LIPID #### [place] [id number] .NEUABSon 04-14-2023 Neutrophil, Absolute 3.7 10 3/mcL Normal 2.9-6.2 [facility] ([place]) Comment on above: Performed By: #### L IPID, CBC, ADIFF, ANEU, TSH, VIDH, CMP, GFR #### [place] [id number] CBCon 04-14-2023 Erythrocyte distribution width (RBC) [Ratio] 13.1 % Normal 11.5-14.5 [facility] ([place]) Comment on above: Performed By: #### L IPID, CBC, ADIFF, ANEU, TSH, VIDH, CMP, GFR #### [place] [id number] Hematocrit (Bld) [Volume fraction] 40.3 % Normal 37.0-47.0 [facility] ([place]) Comment on above: Performed By: #### L IPID, CBC, ADIFF, ANEU, TSH, VIDH, CMP, GFR #### [address] [address] Hgb 13.6 G/dL Normal 12.0-16.0 [facility] ([place]) Comment on above: Performed By: #### L IPID, CBC, ADIFF, ANEU, TSH, VIDH, CMP, GFR #### [address] [address] MCH (RBC) [Entitic mass] 30.3 pg Normal 27.0-31.2 [facility] ([place]) Comment on above: Performed By: #### L IPID, CBC, ADIFF, ANEU, TSH, VIDH, CMP, GFR #### [address] [address] MCHC 33.8 G/dL Normal 33.0-37.0 [facility] ([place]) Comment on above: Performed By: #### L IPID, CBC, ADIFF, ANEU, TSH, VIDH, CMP, GFR #### [address] [address] MCV (RBC) [Entitic vol] 89.7 fL Normal 80.0-94.0 [facility] ([place]) Comment on above: Performed By: #### L IPID, CBC, ADIFF, ANEU, TSH, VIDH, CMP, GFR #### [address] [address] Platelet 262 10 3/mcL Normal 130-400 [facility] ([place]) Comment on above: Performed By: #### L IPID, CBC, ADIFF, ANEU, TSH, VIDH, CMP, GFR #### [address] [address] Platelet mean volume (Bld) [Entitic vol] 7.3 fL Low 7.4-10.4 [facility] ([place]) Comment on above: Performed By: #### L IPID, CBC, ADIFF, ANEU, TSH, VIDH, CMP, GFR #### [address] [address] RBC 4.50 10 6/mcL Normal 4.20-5.40 [facility] ([place]) Comment on above: Performed By: #### L IPID, CBC, ADIFF, ANEU, TSH, VIDH, CMP, GFR #### [place] [id number] WBC 5.8 10 3/mcL Normal 4.6-10.8 [facility] ([place]) Comment on above: Performed By: #### L IPID, CBC, ADIFF, ANEU, TSH, VIDH, CMP, GFR #### [address] [address] CMPon 04-14-2023 Albumin Level 4.1 G/dL Normal 3.4-4.8 [facility] ([place]) Comment on above: Performed By: #### L IPID, CBC, ADIFF, ANEU, TSH, VIDH, CMP, GFR #### [address] [address] Albumin/Globulin [Mass ratio] 1.1 {ratio} Normal 1.1-2.5 [facility] ([place]) Comment on above: Performed By: #### L IPID, CBC, ADIFF, ANEU, TSH, VIDH, CMP, GFR #### [place] [id number] ALP [Catalytic activity/Vol] 70 U/L Normal 40-135 [facility] ([place]) Comment on above: Performed By: #### L IPID, CBC, ADIFF, ANEU, TSH, VIDH, CMP, GFR #### [place] [address] ALT [Catalytic activity/Vol] 27 U/L Normal 14-59 [facility] ([place]) Comment on above: Performed By: #### L IPID, CBC, ADIFF, ANEU, TSH, VIDH, CMP, GFR #### [place] [id number] AST [Catalytic activity/Vol] 19 U/L Normal 10-40 [facility] ([place]) Comment on above: Performed By: #### L IPID, CBC, ADIFF, ANEU, TSH, VIDH, CMP, GFR #### [address] [address] Bili Total 0.4 mg/dL Normal 0.2-1.0 [facility] ([place]) Comment on above: Result Comment: Use of this assay is not recommended for patients undergoing treatment with eltrombopag due to the potential for falsely elevated results. Performed By: #### L IPID, CBC, ADIFF, ANEU, TSH, VIDH, CMP, GFR #### [place] [id number] BUN/Creatinine Ratio 15 ratio Normal 7-27 [facility] ([place]) Comment on above: Performed By: #### L IPID, CBC, ADIFF, ANEU, TSH, VIDH, CMP, GFR #### [address] [address] Calcium [Mass/Vol] 9.7 mg/dL Normal 8.4-10.2 [facility] ([place]) Comment on above: Performed By: #### L IPID, CBC, ADIFF, ANEU, TSH, VIDH, CMP, GFR #### [address] [address] Chloride [Moles/Vol] 102 mmol/L Normal 98-107 [facility] ([place]) Comment on above: Performed By: #### L IPID, CBC, ADIFF, ANEU, TSH, VIDH, CMP, GFR #### [address] [address] CO2 [Moles/Vol] 29 mmol/L Normal 23-31 [facility] ([place] Comment on above: Performed By: #### L IPID, CBC, ADIFF, ANEU, TSH, VIDH, CMP, GFR #### [address] [address] Creatinine [Mass/Vol] 0.87 mg/dL Normal 0.55-1.02 [facility] ([place]) Comment on above: Performed By: #### L IPID, CBC, ADIFF, ANEU, TSH, VIDH, CMP, GFR #### [address] [address] Electrolyte Balance 8.0 mEq/L Normal 4.0-15.0 [facility] ([place]) Comment on above: Performed By: #### L IPID, CBC, ADIFF, ANEU, TSH, VIDH, CMP, GFR #### [address] [address] Globulin 3.8 G/dL Normal [facility] ([place]) Comment on above: Performed By: #### L IPID, CBC, ADIFF, ANEU, TSH, VIDH, CMP, GFR #### [address] [address] Glucose [Mass/Vol] 97 mg/dL Normal 80-115 [facility] ([place]) Comment on above: Performed By: #### L IPID, CBC, ADIFF, ANEU, TSH, VIDH, CMP, GFR #### [address] [address] Potassium [Moles/Vol] 4.2 mmol/L Normal 3.5-5.1 [facility] ([place]) Comment on above: Performed By: #### L IPID, CBC, ADIFF, ANEU, TSH, VIDH, CMP, GFR #### [address] [address] Sodium [Moles/Vol] 139 mmol/L Normal 136-145 [facility] Comment on above: Performed By: #### L IPID, CBC, ADIFF, ANEU, TSH, VIDH, CMP, GFR #### [address] [address] Total Protein 7.9 G/dL Normal 6.4-8.2 [facility] ([place]) Comment on above: Performed By: #### L IPID, CBC, ADIFF, ANEU, TSH, VIDH, CMP, GFR #### [address] [address] Urea nitrogen [Mass/Vol] 13 mg/dL Normal 7-18 Replaced by [facility]) Comment on above: Performed By: #### L IPID, CBC, ADIFF, ANEU, TSH, VIDH, CMP, GFR #### [address] [address] LABORATORYOrdered By: SYSTEM SYSTEM on 04-14-2023 25-hydroxyvitamin D3 [Mass/Vol] 44.2 ng/mL Invalid Interpretation Code AO ADM SS Comment on above: Interpretive Data: I nterpretive Values Based on Total 25(OH) Vitamin D: Deficient <20 ng/mL Insufficient 20 - <30 ng/mL Sufficient 30-100 ng/mL Albumin BCP dye [Mass/Vol] 4.1 G/dL Invalid Interpretation Code 3.4 - 4.8 G/dL AO ADM SS Albumin/Globulin [Mass ratio] 1.1 {ratio} Invalid Interpretation Code 1.1 - 2.5 ratio AO ADM SS ALP [Catalytic activity/Vol] 70 U/L Invalid Interpretation Code 40 - 135 U/L AO ADM SS ALT With P-5'-P [Catalytic activity/Vol] 27 U/L Invalid Interpretation Code 14 - 59 U/L AO ADM SS AST With P-5'-P [Catalytic activity/Vol] 19 U/L Invalid Interpretation Code 10 - 40 U/L AO ADM SS Basophil, Absolute 0.1 103/mcL Invalid Interpretation Code 0.0 - 0.2 10^3/mcL AO Workflow SS Basophils/100 WBC (Bld) 1.0 % Invalid Interpretation Code 0.0 - 2.5 % AO Workflow SS Bilirubin [Mass/Vol] 0.4 mg/dL Invalid Interpretation Code 0.2 - 1.0 mg/dL AO ADM SS Comment on above: Interpretive Data: U se of this assay is not recommended for patients undergoing treatment with eltrombopag due to the potential for falsely elevated results. Calcium [Mass/Vol] 9.7 mg/dL Invalid Interpretation Code 8.4 - 10.2 mg/dL AO ADM SS Chloride [Moles/Vol] 102 mmol/L Invalid Interpretation Code 98 - 107 mmol/L AO ADM SS CO2 [Moles/Vol] 29 mmol/L Invalid Interpretation Code 23 - 31 mmol/L AO ADM SS Creatinine [Mass/Vol] 0.87 mg/dL Invalid Interpretation Code 0.55 - 1.02 mg/dL AO ADM SS Electrolyte Balance 8.0 mEq/L Invalid Interpretation Code 4.0 - 15.0 mEq/L AO ADM SS Eosinophil, Absolute 0.1 103/mcL Invalid Interpretation Code 0.0 - 0.4 10^3/mcL AO Workflow SS Eosinophils/100 WBC (Bld) 2.5 % Invalid Interpretation Code 0.0 - 7.0 % AO Workflow SS Erythrocyte distribution width (RBC) [Ratio] 13.1 % Invalid Interpretation Code 11.5 - 14.5 % AO Workflow SS GFR/1.73 sq M.predicted among blacks MDRD (S/P/Bld) [Vol rate/Area] 78 ml/min/1.73sqm Invalid Interpretation Code AO Chemistry S Comment on above: Interpretive Data: GFR Population mean for , Non- Americans Ages 20-29 = 116 mL/min/1.73 sq.m. Ages 30-39 = 107 mL/min/1.73 sq.m. Ages 40-49 = 99 mL/min/1.73 sq.m. Ages 50-59 = 93 mL/min/1.73 sq.m. Ages 60-69 = 85 mL/min/1.73 sq.m. Ages 70+ = 75 mL/min/1.73 sq.m. Chronic Kidney Disease: Less than 60 mL/min/1.73 square meters End Stage Renal Disease: Less than 15 mL/min/1.73 square meters GFR/1.73 sq M.predicted among non-blacks MDRD (S/P/Bld) [Vol rate/Area] 65 ml/min/1.73sqm Invalid Interpretation Code AO Chemistry S Comment on above: Interpretive Data: GFR Population mean for , Non- Americans Ages 20-29 = 116 mL/min/1.73 sq.m. Ages 30-39 = 107 mL/min/1.73 sq.m. Ages 40-49 = 99 mL/min/1.73 sq.m. Ages 50-59 = 93 mL/min/1.73 sq.m. Ages 60-69 = 85 mL/min/1.73 sq.m. Ages 70+ = 75 mL/min/1.73 sq.m. Chronic Kidney Disease: Less than 60 mL/min/1.73 square meters End Stage Renal Disease: Less than 15 mL/min/1.73 square meters Globulin 3.8 G/dL Invalid Interpretation Code AO ADM SS Glucose [Mass/Vol] 97 mg/dL Invalid Interpretation Code 80 - 115 mg/dL AO ADM SS Hematocrit (Bld) [Volume fraction] 40.3 % Invalid Interpretation Code 37.0 - 47.0 % AO Workflow SS Hemoglobin (Bld) [Mass/Vol] 13.6 G/dL Invalid Interpretation Code 12.0 - 16.0 G/dL AO Workflow SS Lymphocyte, Absolute 1.4 103/mcL Invalid Interpretation Code 0.8 - 3.9 10^3/mcL AO Workflow SS Lymphocytes/100 WBC (Bld) 23.4 % Invalid Interpretation Code 10.0 - 50.0 % AO Workflow SS MCH (RBC) [Entitic mass] 30.3 pg Invalid Interpretation Code 27.0 - 31.2 pg AO Workflow SS MCHC 33.8 G/dL Invalid Interpretation Code 33.0 - 37.0 G/dL AO Workflow SS MCV (RBC) [Entitic vol] 89.7 fL Invalid Interpretation Code 80.0 - 94.0 fL AO Workflow SS Monocyte, Absolute 0.6 103/mcL Invalid Interpretation Code 0.2 - 1.0 10^3/mcL AO Workflow SS Monocytes/100 WBC (Bld) 9.8 % Invalid Interpretation Code 1.7 - 13.0 % AO Workflow SS Neutrophil, Absolute 3.7 103/mcL Invalid Interpretation Code 2.9 - 6.2 10^3/mcL AO Workflow SS Neutrophils/100 WBC (Bld) 63.3 % Invalid Interpretation Code 37.0 - 80.0 % AO Workflow SS Platelet mean volume (Bld) [Entitic vol] 7.3 fL Invalid Interpretation Code 7.4 - 10.4 fL AO Workflow SS Platelets (Bld) [#/Vol] 262 103/mcL Invalid Interpretation Code 130 - 400 10^3/mcL AO Workflow SS Potassium [Moles/Vol] 4.2 mmol/L Invalid Interpretation Code 3.5 - 5.1 mmol/L AO ADM SS Protein [Mass/Vol] 7.9 G/dL Invalid Interpretation Code 6.4 - 8.2 G/dL AO ADM SS RBC (Bld) [#/Vol] 4.50 106/mcL Invalid Interpretation Code 4.20 - 5.40 10^6/mcL AO Workflow SS Sodium [Moles/Vol] 139 mmol/L Invalid Interpretation Code 136 - 145 mmol/L AO ADM SS TSH Qn 1.19 m[IU]/L Invalid Interpretation Code 0.36 - 3.74 mcIU/mL AO ADM SS Urea nitrogen [Mass/Vol] 13 mg/dL Invalid Interpretation Code 7 - 18 mg/dL AO ADM SS Urea nitrogen/Creatinine [Mass ratio] 15 ratio Invalid Interpretation Code 7 - 27 ratio AO ADM SS WBC (Bld) [#/Vol] 5.8 103/mcL Invalid Interpretation Code 4.6 - 10.8 10^3/mcL AO Workflow SS LABORATORYOrdered By: Carol Pereira on 04-14-2023 Cholesterol [Mass/Vol] 244 mg/dL Invalid Interpretation Code 0 - 200 mg/dL AO ADM SS Comment on above: Interpretive Data: C holesterol Reference Interval: Less than 200 Desirable 200-239 Borderline high risk 240 and above High risk Cholesterol in HDL [Mass/Vol] 64 mg/dL Invalid Interpretation Code 40 - 60 mg/dL AO ADM SS Cholesterol in LDL [Mass/Vol] 141 mg/dL Invalid Interpretation Code 0 - 130 mg/dL AO ADM SS Triglyceride [Mass/Vol] 195 mg/dL Invalid Interpretation Code 0 - 150 mg/dL AO ADM SS Comment on above: Interpretive Data: T riglyceride Reference Interval: Less than 150 Normal 150-199 Borderline high risk 200-499 High risk 500 or higher Very high risk LIPIDon 04-14-2023 Cholesterol [Mass/Vol] 244 mg/dL High 0-200 [facility] ([place]) Comment on above: Result Comment: Chol esterol Reference Interval: Less than 200 Desirable 200-239 Borderline high risk 240 and above High risk Performed By: #### T SH, CMP, GFR, LIPID #### [address] [address] Cholesterol in HDL [Mass/Vol] 64 mg/dL High 40-60 [facility] ([place]) Comment on above: Performed By: #### T SH, CMP, GFR, LIPID #### [address] [address] Cholesterol in LDL [Mass/Vol] 141 mg/dL High 0-130 [facility] ([place]) Comment on above: Performed By: #### T SH, CMP, GFR, LIPID #### [address] [address] Triglyceride [Mass/Vol] 195 mg/dL High 0-150 [facility] ([place]) Comment on above: Result Comment: Trig lyceride Reference Interval: Less than 150 Normal 150-199 Borderline high risk 200-499 High risk 500 or higher Very high risk Performed By: #### T SH, CMP, GFR, LIPID #### [address] [address] TSHon 04-14-2023 TSH Qn 1.19 m[IU]/L Normal 0.36-3.74 [facility] ([place]) Comment on above: Performed By: #### L IPID, CBC, ADIFF, ANEU, TSH, VIDH, CMP, GFR #### [address] [place], [place] [address] VIDHon 04-14-2023 Vit. 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 #30; Last Updated By: SystemYerdle; 01/05/2023 8:29:32 AM Patient Discussion/Summary It was a pleasure seeing you today Please call if symptoms worsen Follow up in 4 months Patient Education Homegoing instructions As always, a healthy lifestyle helps chronic diseases. These are all the goals you should strive to achieve to improve your overall health: blood pressure less than 130/85 BMI of 21-29.99 or a waist circumference that is 1/2 of your height fasting blood sugar less than 107 (if you are diabetic, aim for your A1c to be below 6.4% LDL cholesterol below 130 avoid smoking manage your stress see your primary care doctor for preventive exams get your immunizations Provider Impressions Rheumatoid arthritis on Xeljanz therapy. Patient is in clinical remission. Patient is doing well without any side effects occasion. Labs did not reveal any signs of any increased disease activity or any signs of drug toxicity. Patient is continue medication. Patient's hypertension is optimized and refills were done today. Gaps in care reviewed and pt is up to date Chief Complaint ra follow up History of Present IllnessThe patient states her rheumatoid arthritis has been stable since the last visit. Interval Events: Patient reports she is doing well with very minimal symptoms. She has only very mild pain and has no swelling. No new joints are involved patient continues to be active. Symptoms: Associated Symptoms: fatigue. Systemically the patient has positive rheumatoid factor testing. Activities: no limitations. Medications: the patient is adherent with her medication regimen. She denies medication side effects. Review of Systems Constitutional: no fever and not feeling tired. Respiratory: no cough and no shortness of breath during exertion. Musculoskeletal: no arthralgias, no joint swelling and no joint stiffness. Integumentary: no skin rashes. All other systems have been reviewed and are negative for complaint. 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.69) (D84.821,Z79.899) Overweight with body mass index (BMI) of 28 to 28.9 in adult (278.02,V85.24) (E66.3,Z68.28) Rheumatoid arthritis involving multiple sites with positive rheumatoid factor (714.0) (M05.79) Past Medical History Problems History of Cataracts, bilateral (366.9) (H26.9) History of Encounter for monitoring azathioprine therapy (V58.83,V58.69) (Z51.81,Z79.624) Resolved Date: 19 Dec 2019 History of Encounter for monitoring leflunomide therapy (V58.83,V58.69) (Z51.81,Z79.899) Resolved Date: 17 May 2019 History of Long-term use of Plaquenil (V58.69) (Z79.899) Resolved Date: 11 Jan 2019 History of On methotrexate therapy (V58.69) (Z79.631) Resolved Date: 12 Sep 2019 History of Right wrist tendinitis (727.05) (M77.8) Resolved Date: 03 May 2021 Surgical History Problems No history of surgery Family History Mother Family history of myocardial infarction (V17.3) (Z82.49) Family history of Osteoarthritis, chronic Father Family history of Benign essential hypertension Family history of chronic obstructive pulmonary disease (V17.6) (Z82.5) Sister Family history of Benign essential hypertension Brother Family history of Benign essential hypertension Grandmother Family history of cerebrovascular accident (CVA) (V17.1) (Z82.3) Social History Problems Born in [place] Daily caffeine consumption, 4-5 servings a day Former tobacco use (V15.82) (Z87.891) No alcohol use Retired Allergies Medication Bactrim Recorded By: Jane Huitron; 01/05/2021 8:43:04 AM ciprofloxacin Recorded By: Peggy Miguel; 01/25/2018 6:34:06 PM Macrobid Recorded By: Peggy Miguel; 01/26/2018 1:08:42 PM NSAIDs Recorded By: Peggy Miguel; 01/26/2018 1:08:42 PM Sulfa Drugs Recorded By: Peggy Miguel; 01/25/2018 6:34:06 PM Current Meds Medication NameInstruction Losartan Potassium 50 MG Oral TabletTAKE 1 TABLET DAILY. Vitamin D3 25 MCG (1000 UT) Oral TabletTAKE 1 TABLET DAILY. Xeljanz XR 11 MG Oral Tablet Extended Release 24 Hourtake 1 tablet by mouth once daily Immunizations Printed in Appendix #1 below. Vitals Vital Signs Recorded: 05Jan2023 08:22AM Lyqumgywywt63.9 F Heart Rate69 Qpcruetr078 Eucxixasc47 Height5 ft 2 in Cfmaza436 lb BMI Egkqzqkaan25.72 kg/m2 BSA Calculated1.72 Tobacco (more content not included)... Normal [employer] Tobacco Screening.on 023 Adult depression screening assessment No [employer] [facility] [employer] Work Phone: Fall risk assessment a) No falls within the last year [employer] [facility] Work Phone: Tobacco use status [facility] b) No [employer] [facility] Work Phone: ALBUMINon 12-24-2022 Albumin [Mass/Vol] 4.3 g/dL Normal 3.4 - 5.0 [facility] [place] Comment on above: Performed By: #### A LB #### [address] [address] Raffi 12-24-2022 ALT [Catalytic activity/Vol] 16 U/L Normal 7 - 45 [facility] Comment on above: Result Comment: Daija ents treated with Sulfasalazine may generate falsely decreased results for ALT. Performed By: #### A LT #### [address] [address] ALT - Alanine Aminotransfera se, Serumon 12-24-2022 ALT With P-5'-P [Catalytic activity/Vol] 16 U/L 7 - 45 [facility] Work Phone: Comment on above: Patients treated wit h Sulfasalazine may generate falsely decreased results for ALT. Bebe 12-24-2022 AST [Catalytic activity/Vol] 17 U/L Normal 9 - 39 [facility] Comment on above: Performed By: #### A ST #### [address] [address] Albumin, Serumon 12-24-2022 Albumin BCP dye [Mass/Vol] 4.3 g/dL 3.4 - 5.0 [facility] Work Phone: Blood Urea Nitrogen, Serumon 12-24-2022 Urea nitrogen [Mass/Vol] 18 mg/dL 6 - 23 [facility] Work Phone: C Reactive Protein, Serumon 12-24-2022 CRP [Mass/Vol] 0.26 mg/dL [facility] Work Phone: Comment on above: REF VALUE< 1.00 C-REACTIVE PROTEINon 023 C-REACTIVE PROTEIN 0.26 mg/dL Normal [facility] [place] Comment on above: Result Comment: REF VALUE < 1.00 Performed By: #### C BCDF #### [address] [address] CBC AND DIFFERENTIALon 12-24 % AUTOMATED IMMATURE GRAN 0.4 % Normal 0.0 - 0.9 [facility] Comment on above: Result Comment: Florinda ture Granulocyte Count (IG) includes promyelocytes, myelocytes and metamyelocytes but does not include bands. Percent differential counts (%) should be interpreted in the context of the absolute cell counts (cells/L). Performed By: #### C BCDF #### [address] [address] Basophils (Bld) [#/Vol] 0.06 10*3/uL Normal 0.00 - 0.10 [facility] Comment on above: Performed By: #### C BCDF #### [address] [address] Basophils/100 WBC (Bld) 1.2 % Normal 0.0 - 2.0 [facility] Comment on above: Performed By: #### C BCDF #### [address] [address] Eosinophils (Bld) [#/Vol] 0.22 10*3/uL Normal 0.00 - 0.70 [facility] Comment on above: Performed By: #### C BCDF #### [address] [address] Eosinophils/100 WBC (Bld) 4.3 % Normal 0.0 - 6.0 [facility] Comment on above: Performed By: #### C BCDF #### [address] [address] Erythrocyte distribution width (RBC) [Ratio] 12.5 % Normal 11.5 - 14.5 [facility] Comment on above: Performed By: #### C BCDF #### [address] [address] Hematocrit (Bld) [Volume fraction] 41.5 % Normal 36.0 - 46.0 [facility] Comment on above: Performed By: #### C BCDF #### [address] [address] Hemoglobin (Bld) [Mass/Vol] 13.4 g/dL Normal 12.0 - 16.0 [facility] Comment on above: Performed By: #### C BCDF #### [address] [address] Lymphocytes (Bld) [#/Vol] 1.87 10*3/uL Normal 1.20 - 4.80 [facility] Comment on above: Performed By: #### C BCDF #### [address] [address] Lymphocytes/100 WBC (Bld) 36.7 % Normal 13.0 - 44.0 [facility] Comment on above: Performed By: #### C BCDF #### [address] [address] MCHC (RBC) [Mass/Vol] 32.3 g/dL Normal 32.0 - 36.0 [facility] Comment on above: Performed By: #### C BCDF #### [address] [address] MCV (RBC) [Entitic vol] 92 fL Normal 80 - 100 [facility] Comment on above: Performed By: #### C BCDF #### [address] [address] Monocytes (Bld) [#/Vol] 0.54 10*3/uL Normal 0.10 - 1.00 [facility] Comment on above: Performed By: #### C BCDF #### [address] [address] Monocytes/100 WBC (Bld) 10.6 % Normal 2.0 - 10.0 [facility] Comment on above: Performed By: #### C BCDF #### [address] [address] Neutrophils (Bld) [#/Vol] 2.38 10*3/uL Normal 1.20 - 7.70 [facility] Comment on above: Result Comment: Perc ent differential counts (%) should be interpreted in the context of the absolute cell counts (cells/L). Performed By: #### C BCDF #### [address] [address] Neutrophils/100 WBC (Bld) 46.8 % Normal 40.0 - 80.0 [facility] Comment on above: Performed By: #### C BCDF #### [address] [address] Platelets (Bld) [#/Vol] 217 10*3/uL Normal 150 - 450 [facility] Comment on above: Performed By: #### C BCDF #### [address] [address] RBC 4.50 x10E12/L Normal 4.00 - 5.20 [facility] Comment on above: Performed By: #### C BCDF #### [address] [address] WBC (Bld) [#/Vol] 5.1 10*3/uL Normal 4.4 - 11.3 [facility] [place] Comment on above: Performed By: #### C BCDF #### [address] [address] CREATININEon 12-24-2022 Creatinine [Mass/Vol] 0.92 mg/dL Normal 0.50 - 1.05 [facility] Comment on above: Performed By: #### C BCDF #### [address] [address] GFR/1.73 sq M.predicted among non-blacks MDRD (S/P/Bld) [Vol rate/Area] 68 mL/min/{1.73_m2} Normal >90 [facility] Comment on above: Result Comment: CALC ULATIONS OF ESTIMATED GFR ARE PERFORMED USING THE 2020 CKD-EPI STUDY REFIT EQUATION WITHOUT THE RACE VARIABLE FOR THE IDMS-TRACEABLE CREATININE METHODS. https://jasn.asnjournals.org/content/early//ASN.926249 6035 Performed By: #### C BCDF #### [address] [address] Complete Blood Count + Diffe rentialon 12-24-2022 Basophils/100 WBC (Bld) 1.2 % 0.0 - 2.0 [facility] Work Phone: Erythrocyte distribution width (RBC) [Ratio] 12.5 % See Below [facility] Work Phone: Comment on above: Reference Range: 11. 5 - 14.5 Hematocrit (Bld) [Volume fraction] 41.5 % See Below -[facility] Work Phone: Comment on above: Reference Range: 36. 0 - 46.0 Hemoglobin (Bld) [Mass/Vol] 13.4 g/dL See Below -[facility] Work Phone: Comment on above: Reference Range: 12. 0 - 16.0 Lymphocytes/100 WBC (Bld) 36.7 % See Below -[facility] Work Phone: Comment on above: Reference Range: 13. 0 - 44.0 MCHC (RBC) [Mass/Vol] 32.3 g/dL See Below - [facility] Work Phone: Comment on above: Reference Range: 32. 0 - 36.0 MCV (RBC) [Entitic vol] 92 fL 80 - 100 -[facility] Work Phone: Monocytes/100 WBC (Bld) 10.6 % 2.0 - 10.0 -[facility] Work Phone: Neutrophils/100 WBC (Bld) 46.8 % See Below [facility] Work Phone: Comment on above: Reference Range: 40. 0 - 80.0 Platelets (Bld) [#/Vol] 217 10*3/uL 150 - 450 -[facility] Work Phone: RBC (Bld) [#/Vol] 4.50 {x10E12/L} See Below [facility] Work Phone: Comment on above: Reference Range: 4.0 0 - 5.20 WBC (Bld) [#/Vol] 5.1 10*3/uL 4.4 - 11.3 [facility] Work Phone: Complete Blood Count + Differential 0.06 {x10E9/L} See Below [facility] Work Phone: Comment on above: Reference Range: 0.0 0 - 0.10 Complete Blood Count + Differential 0.22 {x10E9/L} See Below [facility] Work Phone: Comment on above: Reference Range: 0.0 0 - 0.70 Complete Blood Count + Differential 0.54 {x10E9/L} See Below [facility] Work Phone: Comment on above: Reference Range: 0.1 0 - 1.00 Complete Blood Count + Differential 1.87 {x10E9/L} See Below [facility] Work Phone: Comment on above: Reference Range: 1.2 0 - 4.80 Complete Blood Count + Differential 2.38 {x10E9/L} See Below [facility] Work Phone: Comment on above: Reference Range: 1.2 0 - 7.70 Percent differential counts (%) should be interpreted in the context of the absolute cell counts (cells/L). Complete Blood Count + Differential 4.3 % 0.0 - 6.0 [facility] Work Phone: Complete Blood Count + Differential 0.4 % 0.0 - 0.9 [facility] Work Phone: Comment on above: Immature Granulocyte Count (IG) includes promyelocytes, myelocytes and metamyelocytes but does not include bands. Percent differential counts (%) should be interpreted in the context of the absolute cell counts (cells/L). Creatinine, Serumon 12-25-19 Creatinine [Mass/Vol] 0.92 mg/dL See Below [facility] Work Phone: Comment on above: Reference Range: 0.5 0 - 1.05 Creatinine, Serum 68 {mL/min/1.73m2} >90 [employer] [facility] [employer] Work Phone: Comment on above: CALCULATIONS OF BJ MATED GFR ARE PERFORMED USING THE 2020 CKD-EPI STUDY REFIT EQUATION WITHOUT THE RACE VARIABLE FOR THE IDMS-TRACEABLE CREATININE METHODS.https://jasn.asnjournals.org/content/early/ N.9493792357 Laboratory - Chemistry and C hemistry - challengeon 12-24-2022 AST With P-5'-P [Catalytic activity/Vol] 17 U/L 9 - 39 [employer] [employer] Work Phone: SEDIMENTATION RATE, ERYTHROC YTEon 12-24-2022 SEDIMENTATION RATE, ERYTHROCYTE 6 mm/h Normal 0 - 30 [facility] Comment on above: Performed By: #### E SRWS #### [address] [address] Sedimentation Rate, Erythroc yteon 12-24-2022 ESR (Bld) [Velocity] 6 mm/h 0 - 30 [facility] [employer] Work Phone: UREA NITROGENon 12-24-2022 Urea nitrogen [Mass/Vol] 18 mg/dL Normal 6 - 23 [facility] Comment on above: Performed By: #### U TSERING #### [address] [address] Follow Up (Rheumatology)on 0 09-09-2022 Follow Up (Rheumatology) Diagnoses/Problems Assessed Rheumatoid arthritis involving multiple sites with positive rheumatoid factor (714.0) (M05.79) Idiopathic thrombocytopenic purpura (287.31) (D69.3) Idiopathic thrombocytopenic purpura Chronic Condition Documentation: Asymptomatic based on symptoms and exam. Continue established treatment plan and follow-up at least yearly. Long-term current use of tofacitinib (V58.69) (Z79.622) Former tobacco use (V15.82) (Z87.891) Patient Discussion/Summary It was a pleasure seeing you today Please call if symptoms worsen Follow up in 4 months Patient Education Homegoing instructions As always, a healthy lifestyle helps chronic diseases. These are all the goals you should strive to achieve to improve your overall health: blood pressure less than 130/85 BMI of 21-29.99 or a waist circumference that is 1/2 of your height fasting blood sugar less than 107 (if you are diabetic, aim for your A1c to be below 6.4% LDL cholesterol below 130 avoid smoking manage your stress see your primary care doctor for preventive exams get your immunizations Provider Impressions Patient seen primarily today for rheumatoid arthritis on xeljanz therapy. Pt meets remission critieria with minimal symptoms and no clinical signs of disease progression on exam or by lab. Pt to continue meds To assess diagnosis and determine treatment plan, the following occurred today --Lab and xray tests were reviewed This visit has a moderate risk for morbidity as ---prescription drugs are being prescribed and monitored Gaps in care reviewed and pt is up to date ---last COVID vaccination: 03/22 Chief Complaint pt here for RA follow up History of Present Illness Interval Events: pt has some mild R elbow and R ankle discomfort Per pt--not enough to complain about Otherwise feels well with minimal AM stiffness No swelling. Symptoms: Associated Symptoms: fatigue. Systemically the patient has positive rheumatoid factor testing. Activities: no limitations. Medications: the patient is adherent with her medication regimen. She denies medication side effects. Review of Systems Constitutional: no fever and not feeling tired. Respiratory: no cough and no shortness of breath during exertion. Musculoskeletal: no arthralgias, no joint swelling and no joint stiffness. Integumentary: no skin rashes. All other systems have been reviewed and are negative for complaint. Active Problems Problems Hypertension (401.9) (I10) Idiopathic thrombocytopenic purpura (287.31) (D69.3) Idiopathic thrombocytopenic purpura Long-term current use of tofacitinib (V58.69) (Z79.622) Overweight with body mass index (BMI) of 28 to 28.9 in adult (278.02,V85.24) (E66.3,Z68.28) Rheumatoid arthritis involving multiple sites with positive rheumatoid factor (714.0) (M05.79) Past Medical History Problems History of Cataracts, bilateral (366.9) (H26.9) History of Encounter for monitoring azathioprine therapy (V58.83,V58.69) (Z51.81,Z79.624) Resolved Date: 19 Dec 2019 History of Encounter for monitoring leflunomide therapy (V58.83,V58.69) (Z51.81,Z79.899) Resolved Date: 17 May 2019 History of Long-term use of Plaquenil (V58.69) (Z79.899) Resolved Date: 11 Jan 2019 History of On methotrexate therapy (V58.69) (Z79.631) Resolved Date: 12 Sep 2019 History of Right wrist tendinitis (727.05) (M77.8) Resolved Date: 03 May 2021 Surgical History Problems No history of surgery Family History Mother Family history of myocardial infarction (V17.3) (Z82.49) Family history of Osteoarthritis, chronic Father Family history of Benign essential hypertension Family history of chronic obstructive pulmonary disease (V17.6) (Z82.5) Sister Family history of Benign essential hypertension Brother Family history of Benign essential hypertension Grandmother Family history of cerebrovascular accident (CVA) (V17.1) (Z82.3) Social History Problems Born in [place] Daily caffeine consumption, 4-5 servings a day Former tobacco use (V15.82) (Z87.891) No alcohol use Retired Allergies Medication Bactrim Recorded By: Jane Huitron; 01/05/2021 8:43:04 AM ciprofloxacin Recorded By: Peggy Miguel; 01/25/2018 6:34:06 PM Macrobid Recorded By: Peggy Miguel; 01/26/2018 1:08:42 PM NSAIDs Recorded By: Peggy Miguel; 01/26/2018 1:08:42 PM Sulfa Drugs Recorded By: Peggy Miguel; 01/25/2018 6:34:06 PM Current Meds Medication NameInstruction Losartan Potassium 50 MG Oral TabletTAKE 1 TABLET DAILY. Vitamin D3 25 MCG (1000 UT) Oral TabletTAKE 1 TABLET DAILY. Xeljanz XR 11 MG Oral Tablet Extended Release 24 Hourtake 1 tablet by mouth once daily Immunizations Printed in Appendix #1 below. Vitals Vital Signs Recorded: [id number] 09:21AM Graminpkivq87 F Heart Rate70 Iccwcuvjgkn57 Mzumdbcn040 Pbniwojfp82 Height5 ft 2 in Ohnjas058 lb 8 oz BMI Xldrcrczgs63.99 kg/m2 BSA (more content not included)... Normal [employer] ALBUMINon 08-24-2022 Albumin [Mass/Vol] 4.2 g/dL Normal 3.4 - 5.0 [facility], [place] Comment on above: Performed By: #### C BCDF #### [address] [address] Raffi 08-24-2022 ALT [Catalytic activity/Vol] 16 U/L Normal 7 - 45 [facility] Comment on above: Result Comment: Daija ents treated with Sulfasalazine may generate falsely decreased results for ALT. Performed By: #### A LT #### [address] [address] ALT - Alanine Aminotransfera se, Serumon 08-24-2022 ALT With P-5'-P [Catalytic activity/Vol] 16 U/L 7 - 45 [facility] [employer] Work Phone: Comment on above: Patients treated wit h Sulfasalazine may generate falsely decreased results for ALT. Bebe 08-24-2022 AST [Catalytic activity/Vol] 19 U/L Normal 9 - 39 [facility] Comment on above: Performed By: #### C BCDF #### [address] [address] Albumin, Serumon 08-24-2022 Albumin BCP dye [Mass/Vol] 4.2 g/dL 3.4 - 5.0 [facility] Work [facility]: Blood Urea Nitrogen, Serumon 08-24-2022 Urea nitrogen [Mass/Vol] 16 mg/dL 6 - 23 [facility] [employer] Work Phone: C Reactive Protein, Serumon 08-24-2022 CRP [Mass/Vol] 0.28 mg/dL [facility] [employer] Work Phone: Comment on above: REF VALUE< 1.00 C-REACTIVE PROTEINon 023 C-REACTIVE PROTEIN 0.28 mg/dL Normal [facility] [place] Comment on above: Result Comment: REF VALUE < 1.00 Performed By: #### C BCDF #### [address] [address] CBC AND DIFFERENTIALon 08-24 % AUTOMATED IMMATURE GRAN 0.3 % Normal 0.0 - 0.9 [facility] Comment on above: Result Comment: Florinda ture Granulocyte Count (IG) includes promyelocytes, myelocytes and metamyelocytes but does not include bands. Percent differential counts (%) should be interpreted in the context of the absolute cell counts (cells/L). Performed By: #### C BCDF #### [address] [address] Basophils (Bld) [#/Vol] 0.06 10*3/uL Normal 0.00 - 0.10 [facility] Comment on above: Performed By: #### C BCDF #### [address] [address] Basophils/100 WBC (Bld) 1.0 % Normal 0.0 - 2.0 [facility] Comment on above: Performed By: #### C BCDF #### [address] [address] Eosinophils (Bld) [#/Vol] 0.15 10*3/uL Normal 0.00 - 0.70 [facility] Comment on above: Performed By: #### C BCDF #### [address] [address] Eosinophils/100 WBC (Bld) 2.4 % Normal 0.0 - 6.0 [facility] Comment on above: Performed By: #### C BCDF #### [address] [address] Erythrocyte distribution width (RBC) [Ratio] 12.5 % Normal 11.5 - 14.5 [facility] Comment on above: Performed By: #### C BCDF #### [address] [address] Hematocrit (Bld) [Volume fraction] 41.8 % Normal 36.0 - 46.0 [facility] Comment on above: Performed By: #### C BCDF #### [address] [address] Hemoglobin (Bld) [Mass/Vol] 13.7 g/dL Normal 12.0 - 16.0 [facility] Comment on above: Performed By: #### C BCDF #### [address] [address] Lymphocytes (Bld) [#/Vol] 1.60 10*3/uL Normal 1.20 - 4.80 [facility] Comment on above: Performed By: #### C BCDF #### [address] [address] Lymphocytes/100 WBC (Bld) 25.4 % Normal 13.0 - 44.0 [facility] Comment on above: Performed By: #### C BCDF #### [address] [address] MCHC (RBC) [Mass/Vol] 32.8 g/dL Normal 32.0 - 36.0 [facility] Comment on above: Performed By: #### C BCDF #### [address] [address] MCV (RBC) [Entitic vol] 91 fL Normal 80 - 100 [facility] Comment on above: Performed By: #### C BCDF #### [address] [address] Monocytes (Bld) [#/Vol] 0.55 10*3/uL Normal 0.10 - 1.00 [facility] Comment on above: Performed By: #### C BCDF #### [address] [address] Monocytes/100 WBC (Bld) 8.7 % Normal 2.0 - 10.0 [facility] Comment on above: Performed By: #### C BCDF #### [address] [address] Neutrophils (Bld) [#/Vol] 3.92 10*3/uL Normal 1.20 - 7.70 [facility] Comment on above: Result Comment: Perc ent differential counts (%) should be interpreted in the context of the absolute cell counts (cells/L). Performed By: #### C BCDF #### [address] [address] Neutrophils/100 WBC (Bld) 62.2 % Normal 40.0 - 80.0 [facility] Comment on above: Performed By: #### C BCDF #### [address] [address] Platelets (Bld) [#/Vol] 248 10*3/uL Normal 150 - 450 [facility] Comment on above: Performed By: #### C BCDF #### [address] [address] RBC 4.62 x10E12/L Normal 4.00 - 5.20 [facility] Comment on above: Performed By: #### C BCDF #### [address] [address] WBC (Bld) [#/Vol] 6.3 10*3/uL Normal 4.4 - 11.3 [facility] [place] Comment on above: Performed By: #### C BCDF #### [address] [address] CREATININEon 08-24-2022 Creatinine [Mass/Vol] 0.91 mg/dL Normal 0.50 - 1.05 [facility] Comment on above: Performed By: #### C BCDF #### [address] [address] GFR/1.73 sq M.predicted among non-blacks MDRD (S/P/Bld) [Vol rate/Area] 69 mL/min/{1.73_m2} Normal >90 [facility] Comment on above: Result Comment: CALC ULATIONS OF ESTIMATED GFR ARE PERFORMED USING THE 2020 CKD-EPI STUDY REFIT EQUATION WITHOUT THE RACE VARIABLE FOR THE IDMS-TRACEABLE CREATININE METHODS. https://jasn.asnjournals.org/content//ASN.114323 3059 Performed By: #### C BCDF #### [address] [address] Complete Blood Count + Yessy powers 08-24-2022 Basophils/100 WBC (Bld) 1.0 % 0.0 - 2.0 [facility] Work Phone: Erythrocyte distribution width (RBC) [Ratio] 12.5 % See Below [employer] [facility] Work Phone: Comment on above: Reference Range: 11. 5 - 14.5 Hematocrit (Bld) [Volume fraction] 41.8 % See Below [employer] [facility] Work Phone: Comment on above: Reference Range: 36. 0 - 46.0 Hemoglobin (Bld) [Mass/Vol] 13.7 g/dL See Below [employer] [facility] Work Phone: Comment on above: Reference Range: 12. 0 - 16.0 Lymphocytes/100 WBC (Bld) 25.4 % See Below [employer] [facility] Work Phone: Comment on above: Reference Range: 13. 0 - 44.0 MCHC (RBC) [Mass/Vol] 32.8 g/dL See Below [employer] [facility] Work Phone: Comment on above: Reference Range: 32. 0 - 36.0 MCV (RBC) [Entitic vol] 91 fL 80 - 100 [facility] Work Phone: Monocytes/100 WBC (Bld) 8.7 % 2.0 - 10.0 [employer] [facility] Work Phone: Neutrophils/100 WBC (Bld) 62.2 % See Below [facility] [facility] Work Phone: Comment on above: Reference Range: 40. 0 - 80.0 Platelets (Bld) [#/Vol] 248 10*3/uL 150 - 450 [employer] [facility] Work Phone: RBC (Bld) [#/Vol] 4.62 {x10E12/L} See Below [facility] Work Phone: Comment on above: Reference Range: 4.0 0 - 5.20 WBC (Bld) [#/Vol] 6.3 10*3/uL 4.4 - 11.3 [employer] Work Phone: Complete Blood Count + Differential 0.06 {x10E9/L} See Below [facility] Work Phone: Comment on above: Reference Range: 0.0 0 - 0.10 Complete Blood Count + Differential 0.15 {x10E9/L} See Below [facility] Work Phone: Comment on above: Reference Range: 0.0 0 - 0.70 Complete Blood Count + Differential 0.55 {x10E9/L} See Below [facility] Work Phone: Comment on above: Reference Range: 0.1 0 - 1.00 Complete Blood Count + Differential 1.60 {x10E9/L} See Below [facility] Work Phone: Comment on above: Reference Range: 1.2 0 - 4.80 Complete Blood Count + Differential 3.92 {x10E9/L} See Below [facility] Work Phone: Comment on above: Reference Range: 1.2 0 - 7.70 Percent differential counts (%) should be interpreted in the context of the absolute cell counts (cells/L). Complete Blood Count + Differential 2.4 % 0.0 - 6.0 [facility] Work Phone: Complete Blood Count + Differential 0.3 % 0.0 - 0.9 [facility] Work Phone: Comment on above: Immature Granulocyte Count (IG) includes promyelocytes, myelocytes and metamyelocytes but does not include bands. Percent differential counts (%) should be interpreted in the context of the absolute cell counts (cells/L). Creatinine, Serumon 08-24-19 Creatinine [Mass/Vol] 0.91 mg/dL See Below [employer] [facility] Work Phone: Comment on above: Reference Range: 0.5 0 - 1.05 Creatinine, Serum 69 {mL/min/1.73m2} >90 [employer] [facility] Work Phone: Comment on above: CALCULATIONS OF BJ MATED GFR ARE PERFORMED USING THE 2020 CKD-EPI STUDY REFIT EQUATION WITHOUT THE RACE VARIABLE FOR THE IDMS-TRACEABLE CREATININE METHODS.https://jasn.asnjournals.org/content/early// N.1022416459 Laboratory - Chemistry and C hemistry - challengeon 08-24-2022 AST With P-5'-P [Catalytic activity/Vol] 19 U/L 9 - 39 [employer] [facility] Work Phone: SEDIMENTATION RATE, ERYTHROC YTEon 08-24-2022 SEDIMENTATION RATE, ERYTHROCYTE 11 mm/h Normal 0 - 30 [facility] Comment on above: Performed By: #### C BCDF #### [address] [address] Sedimentation Rate, Erythroc yteon 08-24-2022 ESR (Bld) [Velocity] 11 mm/h 0 - 30 [facility] Work Phone: UREA NITROGENon 08-24-2022 Urea nitrogen [Mass/Vol] 16 mg/dL Normal 6 - 23 [facility] Comment on above: Performed By: #### U TSERING #### [address] [address] ALT - Alanine Aminotransfera se, Serumon 04-29-2022 ALT With P-5'-P [Catalytic activity/Vol] 15 U/L 7 - 45 [facility] Work Phone: Comment on above: Patients treated wit h Sulfasalazine may generate falsely decreased results for ALT. Albumin, Serumon 04-29-2022 Albumin BCP dye [Mass/Vol] 4.2 g/dL 3.4 - 5.0 [employer] [facility] Work Phone: Blood Urea Nitrogen, Serumon 04-29-2022 Urea nitrogen [Mass/Vol] 16 mg/dL 6 - 23 [facility] [facility] Work Phone: C Reactive Protein, Serumon 04-29-2022 CRP [Mass/Vol] 0.22 mg/dL [employer] [facility] Work Phone: Comment on above: REF VALUE< 1.00 Complete Blood Count + Diffe rentialon 04-29-2022 Basophils/100 WBC (Bld) 1.0 % 0.0 - 2.0 [employer] [facility] Work Phone: Erythrocyte distribution width (RBC) [Ratio] 12.9 % See Below [employer] [facility] Work Phone: Comment on above: Reference Range: 11. 5 - 14.5 Hematocrit (Bld) [Volume fraction] 41.5 % See Below [employer] [facility] Work Phone: Comment on above: Reference Range: 36. 0 - 46.0 Hemoglobin (Bld) [Mass/Vol] 13.7 g/dL See Below [employer] [facility] Work Phone: Comment on above: Reference Range: 12. 0 - 16.0 Lymphocytes/100 WBC (Bld) 27.0 % See Below [employer] [facility] Work Phone: Comment on above: Reference Range: 13. 0 - 44.0 MCHC (RBC) [Mass/Vol] 33.1 g/dL See Below [employer] [facility] Work Phone: Comment on above: Reference Range: 32. 0 - 36.0 MCV (RBC) [Entitic vol] 90 fL 80 - 100 [facility] Work Phone: Monocytes/100 WBC (Bld) 9.1 % 2.0 - 10.0 -[facility] Work Phone: Neutrophils/100 WBC (Bld) 58.2 % See Below [facility] Work Phone: Comment on above: Reference Range: 40. 0 - 80.0 Platelets (Bld) [#/Vol] 219 10*3/uL 150 - 450 -[facility] Work Phone: RBC (Bld) [#/Vol] 4.61 {x10E12/L} See Below [facility] Work Phone: Comment on above: Reference Range: 4.0 0 - 5.20 WBC (Bld) [#/Vol] 6.5 10*3/uL 4.4 - 11.3 -[facility] Work Phone: Complete Blood Count + Differential 0.10 {x10E9/L} See Below [facility] Work Phone: Comment on above: Reference Range: 0.0 0 - 0.10 Complete Blood Count + Differential 0.30 {x10E9/L} See Below [facility] Work Phone: Comment on above: Reference Range: 0.0 0 - 0.70 Complete Blood Count + Differential 0.60 {x10E9/L} See Below [facility] Work Phone: Comment on above: Reference Range: 0.1 0 - 1.00 Complete Blood Count + Differential 1.80 {x10E9/L} See Below [facility] Work Phone: Comment on above: Reference Range: 1.2 0 - 4.80 Complete Blood Count + Differential 3.80 {x10E9/L} See Below [facility] Work Phone: Comment on above: Reference Range: 1.2 0 - 7.70 Percent differential counts (%) should be interpreted in the context of the absolute cell counts (cells/L). Complete Blood Count + Differential 4.7 % 0.0 - 6.0 [facility] Work Phone: Complete Blood Count + Differential 0.1 {/100_WBC} [facility] Work Phone: Creatinine, Serumon 04-29-20 Creatinine [Mass/Vol] 0.94 mg/dL See Below - [facility] Work Phone: Comment on above: Reference Range: 0.5 0 - 1.05 Creatinine, Serum 66 {mL/min/1.73m2} >90 [employer] [facility] Work Phone: Comment on above: CALCULATIONS OF BJ MATED GFR ARE PERFORMED USING THE 2020 CKD-EPI STUDY REFIT EQUATION WITHOUT THE RACE VARIABLE FOR THE IDMS-TRACEABLE CREATININE METHODS.https://jasn.asnjournals.org/content/early// N.2528293024 Laboratory - Chemistry and C hemistry - challengeon 04-29-2022 AST With P-5'-P [Catalytic activity/Vol] 19 U/L 9 - 39 [facility] Work Phone: Sedimentation Rate, Erythroc yteon 04-29-2022 ESR (Bld) [Velocity] 15 mm/h 0 - 30 [facility] Work Phone: LABORATORYOrdered By: Mabel Abraham on 03-25-2022 Basophil, Absolute 0.1 103/mcL Invalid Interpretation Code 0.0 - 0.2 10^3/mcL AO Workflow SS Basophils/100 WBC (Bld) 1.1 % Invalid Interpretation Code 0.0 - 2.5 % AO Workflow SS Eosinophil, Absolute 0.2 103/mcL Invalid Interpretation Code 0.0 - 0.4 10^3/mcL AO Workflow SS Eosinophils/100 WBC (Bld) 3.4 % Invalid Interpretation Code 0.0 - 7.0 % AO Workflow SS Erythrocyte distribution width (RBC) [Ratio] 13.2 % Invalid Interpretation Code 11.5 - 14.5 % AO Workflow SS Hematocrit (Bld) [Volume fraction] 40.4 % Invalid Interpretation Code 37.0 - 47.0 % AO Workflow SS Hemoglobin (Bld) [Mass/Vol] 13.7 G/dL Invalid Interpretation Code 12.0 - 16.0 G/dL AO Workflow SS Lymphocyte, Absolute 1.7 103/mcL Invalid Interpretation Code 0.8 - 3.9 10^3/mcL AO Workflow SS Lymphocytes/100 WBC (Bld) 25.3 % Invalid Interpretation Code 10.0 - 50.0 % AO Workflow SS MCH (RBC) [Entitic mass] 30.1 pg Invalid Interpretation Code 27.0 - 31.2 pg AO Workflow SS MCHC 34.0 G/dL Invalid Interpretation Code 33.0 - 37.0 G/dL AO Workflow SS MCV (RBC) [Entitic vol] 88.5 fL Invalid Interpretation Code 80.0 - 94.0 fL AO Workflow SS Monocyte, Absolute 0.7 103/mcL Invalid Interpretation Code 0.2 - 1.0 10^3/mcL AO Workflow SS Monocytes/100 WBC (Bld) 10.7 % Invalid Interpretation Code 1.7 - 13.0 % AO Workflow SS Neutrophil, Absolute 4.1 103/mcL Invalid Interpretation Code 2.9 - 6.2 10^3/mcL AO Workflow SS Neutrophils/100 WBC (Bld) 59.5 % Invalid Interpretation Code 37.0 - 80.0 % AO Workflow SS Platelet mean volume (Bld) [Entitic vol] 8.0 fL Invalid Interpretation Code 7.4 - 10.4 fL AO Workflow SS Platelets (Bld) [#/Vol] 198 103/mcL Invalid Interpretation Code 130 - 400 10^3/mcL AO Workflow SS RBC (Bld) [#/Vol] 4.56 106/mcL Invalid Interpretation Code 4.20 - 5.40 10^6/mcL AO Workflow SS WBC 6.8 103/mcL Invalid Interpretation Code 4.6 - 10.8 10^3/mcL AO Workflow SS LABORATORYOrdered By: SYSTEM SYSTEM on 03-25-2022 25-hydroxyvitamin D3 [Mass/Vol] 40.9 ng/mL Invalid Interpretation Code AH ADM SS GFR 77 ml/min/1.73sqm Invalid Interpretation Code AO Chemistry S GFR Non- 63 ml/min/1.73sqm Invalid Interpretation Code AO Chemistry S LABORATORYOrdered By: Luis F Harkins on 03-25-2022 Albumin BCP dye [Mass/Vol] 4.0 G/dL Invalid Interpretation Code 3.4 - 4.8 G/dL AO ADM SS Albumin/Globulin [Mass ratio] 1.1 {ratio} Invalid Interpretation Code 1.1 - 2.5 ratio AO ADM SS ALP [Catalytic activity/Vol] 70 U/L Invalid Interpretation Code 40 - 135 U/L AO ADM SS ALT With P-5'-P [Catalytic activity/Vol] 31 U/L Invalid Interpretation Code 14 - 59 U/L AO ADM SS AST With P-5'-P [Catalytic activity/Vol] 22 U/L Invalid Interpretation Code 10 - 40 U/L AO ADM SS Bilirubin [Mass/Vol] 0.4 mg/dL Invalid Interpretation Code 0.2 - 1.0 mg/dL AO ADM SS Calcium [Mass/Vol] 9.3 mg/dL Invalid Interpretation Code 8.4 - 10.2 mg/dL AO ADM SS Chloride [Moles/Vol] 104 mmol/L Invalid Interpretation Code 98 - 107 mmol/L AO ADM SS Cholesterol [Mass/Vol] 245 mg/dL Invalid Interpretation Code 0 - 200 mg/dL AO ADM SS Cholesterol in HDL [Mass/Vol] 60 mg/dL Invalid Interpretation Code 40 - 60 mg/dL AO ADM SS Cholesterol in LDL [Mass/Vol] 148 mg/dL Invalid Interpretation Code 0 - 130 mg/dL AO ADM SS CO2 [Moles/Vol] 27 mmol/L Invalid Interpretation Code 23 - 31 mmol/L AO ADM SS Creatinine [Mass/Vol] 0.89 mg/dL Invalid Interpretation Code 0.55 - 1.02 mg/dL AO ADM SS Electrolyte Balance 9.0 mEq/L Invalid Interpretation Code 4.0 - 15.0 mEq/L AO ADM SS Globulin 3.6 G/dL Invalid Interpretation Code AO ADM SS Glucose [Mass/Vol] 94 mg/dL Invalid Interpretation Code 80 - 115 mg/dL AO ADM SS Potassium [Moles/Vol] 4.5 mmol/L Invalid Interpretation Code 3.5 - 5.1 mmol/L AO ADM SS Protein [Mass/Vol] 7.6 G/dL Invalid Interpretation Code 6.4 - 8.2 G/dL AO ADM SS Sodium [Moles/Vol] 140 mmol/L Invalid Interpretation Code 136 - 145 mmol/L AO ADM SS Triglyceride [Mass/Vol] 186 mg/dL Invalid Interpretation Code 0 - 150 mg/dL AO ADM SS TSH Qn 1.75 m[IU]/L Invalid Interpretation Code 0.36 - 3.74 mcIU/mL AO ADM SS Urea nitrogen [Mass/Vol] 16 mg/dL Invalid Interpretation Code 7 - 18 mg/dL AO ADM SS Urea nitrogen/Creatinine [Mass ratio] 18 ratio Invalid Interpretation Code 7 - 27 ratio AO ADM SS Tobacco Screening.on 022 Adult depression screening assessment No [address] [employer] [facility] Work Phone: Fall risk assessment a) No falls within the last year [facility] Work Phone: Tobacco use status CPHS b) No [employer] [facility] Work Phone: ALT - Alanine Aminotransfera se, Serumon 08-26-2021 ALT With P-5'-P [Catalytic activity/Vol] 20 U/L 7 - 45 [facility] Work Phone: Comment on above: Patients treated wit h Sulfasalazine may generate falsely decreased results for ALT. Albumin, Serumon 08-26-2021 Albumin BCP dye [Mass/Vol] 4.1 g/dL 3.4 - 5.0 [facility] Work Phone: Blood Urea Nitrogen, Serumon 08-26-2021 Urea nitrogen [Mass/Vol] 21 mg/dL 6 - 23 [employer] [facility] Work Phone: C Reactive Protein, Serumon 08-26-2021 CRP [Mass/Vol] 0.28 mg/dL [employer] [facility] Work Phone: Comment on above: REF VALUE< 1.00 Complete Blood Count + Diffe rentialon 08-26-2021 Basophils/100 WBC (Bld) 2.0 % 0.0 - 2.0 [facility] Work Phone: Erythrocyte distribution width (RBC) [Ratio] 13.5 % See Below [employer] [facility] Work Phone: Comment on above: Reference Range: 11. 5 - 14.5 Hematocrit (Bld) [Volume fraction] 40.6 % See Below -[facility] Work Phone: Comment on above: Reference Range: 36. 0 - 46.0 Hemoglobin (Bld) [Mass/Vol] 13.6 g/dL See Below -[facility] Work Phone: Comment on above: Reference Range: 12. 0 - 16.0 Lymphocytes/100 WBC (Bld) 37.1 % See Below -[facility] Work Phone: Comment on above: Reference Range: 13. 0 - 44.0 MCHC (RBC) [Mass/Vol] 33.6 g/dL See Below [facility] Work Phone: Comment on above: Reference Range: 32. 0 - 36.0 MCV (RBC) [Entitic vol] 90 fL 80 - 100 -[facility] Work Phone: Monocytes/100 WBC (Bld) 10.2 % 2.0 - 10.0 -[facility] Work Phone: Neutrophils/100 WBC (Bld) 46.5 % See Below [facility] Work Phone: Comment on above: Reference Range: 40. 0 - 80.0 Platelets (Bld) [#/Vol] 215 10*3/uL 150 - 450 -[facility] Work Phone: RBC (Bld) [#/Vol] 4.50 {x10E12/L} See Below -[facility] Work Phone: Comment on above: Reference Range: 4.0 0 - 5.20 WBC (Bld) [#/Vol] 5.9 10*3/uL 4.4 - 11.3 [facility] Work Phone: Complete Blood Count + Differential 0.10 {x10E9/L} See Below [employer] [facility] Work Phone: Comment on above: Reference Range: 0.0 0 - 0.10 Complete Blood Count + Differential 0.20 {x10E9/L} See Below [employer] [facility] Work Phone: Comment on above: Reference Range: 0.0 0 - 0.70 Complete Blood Count + Differential 0.60 {x10E9/L} See Below [employer] [facility] Work Phone: Comment on above: Reference Range: 0.1 0 - 1.00 Complete Blood Count + Differential 2.20 {x10E9/L} See Below [facility] Work Phone: Comment on above: Reference Range: 1.2 0 - 4.80 Complete Blood Count + Differential 2.70 {x10E9/L} See Below [employer] [facility] Work Phone: Comment on above: Reference Range: 1.2 0 - 7.70 Percent differential counts (%) should be interpreted in the context of the absolute cell counts (cells/L). Complete Blood Count + Differential 4.2 % 0.0 - 6.0 [employer] [facility] Work Phone: Complete Blood Count + Differential 0.5 {/100_WBC} [employer] [facility] Work Phone: Creatinine, Serumon 08-26-19 Creatinine [Mass/Vol] 0.88 mg/dL See Below [facility] Work Phone: Comment on above: Reference Range: 0.5 0 - 1.05 Creatinine, Serum 72 {mL/min/1.73m2} >90 [employer] [facility]HO[facility] Work Phone: Comment on above: CALCULATIONS OF BJ MATED GFR ARE PERFORMED USING THE 2020 CKD-EPI STUDY REFIT EQUATION WITHOUT THE RACE VARIABLE FOR THE IDMS-TRACEABLE CREATININE METHODS.https://jasn.asnjournals.org/content/early/ N.1679117632 Laboratory - Chemistry and C hemistry - challengeon 08-26-2021 AST With P-5'-P [Catalytic activity/Vol] 19 U/L 9 - 39 [facility] Work Phone: Sedimentation Rate, Erythroc yteon 08-26-2021 ESR (Bld) [Velocity] 13 mm/h 0 - 30 [facility] Work Phone: Tobacco Screening.on Fall risk assessment a) No falls within the last year [facility] Work Phone: Tobacco use status CPHS b) No [facility] Work Phone: ALT - Alanine Aminotransfera se, Serumon 04-21-2021 ALT With P-5'-P [Catalytic activity/Vol] 14 U/L 7 - 45 [facility] Work Phone: Comment on above: Patients treated wit h Sulfasalazine may generate falsely decreased results for ALT. Albumin, Serumon 04-21-2021 Albumin BCP dye [Mass/Vol] 4.2 g/dL 3.4 - 5.0 [facility] Work Phone: Blood Urea Nitrogen, Serumon 04-21-2021 Urea nitrogen [Mass/Vol] 18 mg/dL 6 - 23 [facility] Work Phone: C Reactive Protein, Serumon 04-21-2021 CRP [Mass/Vol] 0.24 mg/dL -[facility] Work Phone: Comment on above: REF VALUE< 1.00 Complete Blood Count + Diffe rentialon 04-21-2021 Basophils/100 WBC (Bld) 1.1 % 0.0 - 2.0 -[facility] Work Phone: Erythrocyte distribution width (RBC) [Ratio] 12.8 % See Below [employer] [facility] Work Phone: Comment on above: Reference Range: 11. 5 - 14.5 Hematocrit (Bld) [Volume fraction] 41.4 % See Below [facility] Work Phone: Comment on above: Reference Range: 36. 0 - 46.0 Hemoglobin (Bld) [Mass/Vol] 13.9 g/dL See Below [employer] [facility] Work Phone: Comment on above: Reference Range: 12. 0 - 16.0 Lymphocytes/100 WBC (Bld) 33.6 % See Below [facility] Work Phone: Comment on above: Reference Range: 13. 0 - 44.0 MCHC (RBC) [Mass/Vol] 33.6 g/dL See Below [facility] [employer] [facility] Work Phone: Comment on above: Reference Range: 32. 0 - 36.0 MCV (RBC) [Entitic vol] 92 fL 80 - 100 -[employer] [facility] Work Phone: Monocytes/100 WBC (Bld) 9.8 % 2.0 - 10.0 [employer] [facility] Work Phone: Neutrophils/100 WBC (Bld) 50.9 % See Below [employer] [facility] Work Phone: Comment on above: Reference Range: 40. 0 - 80.0 Platelets (Bld) [#/Vol] 191 10*3/uL 150 - 450 -[employer] [facility] Work Phone: RBC (Bld) [#/Vol] 4.48 {x10E12/L} See Below [facility] Work Phone: Comment on above: Reference Range: 4.0 0 - 5.20 WBC (Bld) [#/Vol] 7.0 10*3/uL 4.4 - 11.3 [facility] Work Phone: Complete Blood Count + Differential 0.08 {x10E9/L} See Below [facility] Work Phone: Comment on above: Reference Range: 0.0 0 - 0.10 Complete Blood Count + Differential 0.28 {x10E9/L} See Below [facility] Work Phone: Comment on above: Reference Range: 0.0 0 - 0.70 Complete Blood Count + Differential 0.68 {x10E9/L} See Below [facility] Work Phone: Comment on above: Reference Range: 0.1 0 - 1.00 Complete Blood Count + Differential 2.34 {x10E9/L} See Below [facility] Work Phone: Comment on above: Reference Range: 1.2 0 - 4.80 Complete Blood Count + Differential 3.54 {x10E9/L} See Below [facility] Work Phone: Comment on above: Reference Range: 1.2 0 - 7.70 Complete Blood Count + Differential 4.0 % 0.0 - 6.0 [facility] Work Phone: Complete Blood Count + Differential 0.6 % 0.0 - 0.9 [facility] Work Phone: Comment on above: Immature Granulocyte Count (IG) includes promyelocytes, myelocytes and metamyelocytes but does not include bands. Percent differential counts (%) should be interpreted in the context of the absolute cell counts (cells/L). Complete Blood Count + Differential 0.0 {/100_WBC} 0.0-0.0 [facility] Work Phone: Creatinine, Serumon 04-21-20 Creatinine [Mass/Vol] 0.93 mg/dL See Below [facility] Work Phone: Comment on above: Reference Range: 0.5 0 - 1.05 Creatinine, Serum 73 {mL/min/1.73m2} >60 [facility] Work Phone: Comment on above: CALCULATIONS OF BJ MATED GFR ARE PERFORMED USING THE MDRD STUDY EQUATION FOR THE IDMS-TRACEABLE CREATININE METHODS. CLIN CHEM 2007;53:766-72 Creatinine, Serum 60 {mL/min/1.73m2} Abnormal >60 [facility] Work Phone: Laboratory - Chemistry and C hemistry - challengeon 04-21-2021 AST With P-5'-P [Catalytic activity/Vol] 18 U/L 9 - 39 [facility] Work Phone: Sedimentation Rate, Erythroc yteon 04-21-2021 ESR (Bld) [Velocity] 17 mm/h 0 - 30 -[facility] Work Phone: Falls Risk Screeningon 01-05 Fall risk assessment a) No falls within the last year [facility] Work Phone: Falls Risk Screening b) No [facility] Work Phone: ALT - Alanine Aminotransfera se, Serumon 12-18-2020 ALT With P-5'-P [Catalytic activity/Vol] 18 U/L 7 - 45 [facility] Work Phone: Comment on above: Patients treated wit h Sulfasalazine may generate falsely decreased results for ALT. Albumin, Serumon 12-18-2020 Albumin BCP dye [Mass/Vol] 4.2 g/dL 3.4 - 5.0 [facility] Work Phone: Blood Urea Nitrogen, Serumon 12-18-2020 Urea nitrogen [Mass/Vol] 15 mg/dL 6 - 23 [employer] [facility]HO[facility] Work Phone: C Reactive Protein, Serumon 12-18-2020 CRP [Mass/Vol] 0.28 mg/dL [employer] [facility] Work Phone: Comment on above: REF VALUE< 1.00 Complete Blood Count + Diffe [facility] 12-18-2020 Basophils/100 WBC (Bld) 0.9 % 0.0 - 2.0 [facility] Work Phone: Erythrocyte distribution width (RBC) [Ratio] 12.6 % See Below [employer] [facility] Work Phone: Comment on above: Reference Range: 11. 5 - 14.5 Hematocrit (Bld) [Volume fraction] 41.3 % See Below [employer] [facility] Work Phone: Comment on above: Reference Range: 36. 0 - 46.0 Hemoglobin (Bld) [Mass/Vol] 13.8 g/dL See Below [employer] [facility] Work Phone: Comment on above: Reference Range: 12. 0 - 16.0 Lymphocytes/100 WBC (Bld) 28.0 % See Below [employer] [facility] Work Phone: Comment on above: Reference Range: 13. 0 - 44.0 MCHC (RBC) [Mass/Vol] 33.4 g/dL See Below [employer] [facility] Work Phone: Comment on above: Reference Range: 32. 0 - 36.0 MCV (RBC) [Entitic vol] 93 fL 80 - 100 [facility] Work Phone: Monocytes/100 WBC (Bld) 7.6 % 2.0 - 10.0 -[employer] Work Phone: Neutrophils/100 WBC (Bld) 60.1 % See Below [employer] [facility] Work Phone: Comment on above: Reference Range: 40. 0 - 80.0 Platelets (Bld) [#/Vol] 177 10*3/uL 150 - 450 [facility] Work Phone: RBC (Bld) [#/Vol] 4.46 {x10E12/L} See Below [facility] Work Phone: Comment on above: Reference Range: 4.0 0 - 5.20 WBC (Bld) [#/Vol] 8.0 10*3/uL 4.4 - 11.3 [employer] Work Phone: Complete Blood Count + Differential 0.07 {x10E9/L} See Below [facility] Work Phone: Comment on above: Reference Range: 0.0 0 - 0.10 Complete Blood Count + Differential 0.24 {x10E9/L} See Below [facility] Work Phone: Comment on above: Reference Range: 0.0 0 - 0.70 Complete Blood Count + Differential 0.61 {x10E9/L} See Below [facility] Work Phone: Comment on above: Reference Range: 0.1 0 - 1.00 Complete Blood Count + Differential 2.24 {x10E9/L} See Below [facility] Work Phone: Comment on above: Reference Range: 1.2 0 - 4.80 Complete Blood Count + Differential 4.82 {x10E9/L} See Below [facility] Work Phone: Comment on above: Reference Range: 1.2 0 - 7.70 Complete Blood Count + Differential 3.0 % 0.0 - 6.0 [facility] Work Phone: Complete Blood Count + Differential 0.4 % 0.0 - 0.9 [facility] Work Phone: Comment on above: Immature Granulocyte Count (IG) includes promyelocytes, myelocytes and metamyelocytes but does not include bands. Percent differential counts (%) should be interpreted in the context of the absolute cell counts (cells/L). Complete Blood Count + Differential 0.0 {/100_WBC} 0.0-0.0 [facility] Work Phone: Creatinine, Serumon 12-19-19 Creatinine [Mass/Vol] 0.87 mg/dL See Below [facility] Work Phone: Comment on above: Reference Range: 0.5 0 - 1.05 Creatinine, Serum >60 >60 [facility] Work Phone: Comment on above: CALCULATIONS OF BJ MATED GFR ARE PERFORMED USING THE MDRD STUDY EQUATION FOR THE IDMS-TRACEABLE CREATININE METHODS. CLIN CHEM 2007;53:766-72 Laboratory - Chemistry and C hemistry - challengeon 12-18-2020 AST With P-5'-P [Catalytic activity/Vol] 22 U/L 9 - 39 [facility] Work Phone: Sedimentation Rate, Erythroc yteon 12-18-2020 ESR (Bld) [Velocity] 12 mm/h 0 - 30 -[facility] Work Phone: ALT - Alanine Aminotransfera se, Serumon 03-19-2020 ALT With P-5'-P [Catalytic activity/Vol] 14 U/L 7 - 45 [facility] Work Phone: Comment on above: Patients treated wit h Sulfasalazine may generate falsely decreased results for ALT. Albumin, Serumon 03-19-2020 Albumin BCP dye [Mass/Vol] 4.4 g/dL 3.4 - 5.0 [facility] Work Phone: Blood Urea Nitrogen, Serumon 03-19-2020 Urea nitrogen [Mass/Vol] 15 mg/dL 6 - 23 [facility] Work Phone: C Reactive Protein, Serumon 03-19-2020 CRP [Mass/Vol] 0.22 mg/dL [facility] Work Phone: Comment on above: REF VALUE< 1.00 Complete Blood Count + Yessy powers 03-19-2020 Basophils (Bld) [#/Vol] 0.07 {x10E9/L} See Below [employer] [facility] Work Phone: Comment on above: Reference Range: 0.0 0 - 0.10 Basophils/100 WBC (Bld) 0.9 % 0.0 - 2.0 [employer] [facility] Work Phone: Eosinophils (Bld) [#/Vol] 0.12 {x10E9/L} See Below [employer] [facility] Work Phone: Comment on above: Reference Range: 0.0 0 - 0.70 Eosinophils/100 WBC (Bld) 1.6 % 0.0 - 6.0 [employer] [facility] Work Phone: Erythrocyte distribution width (RBC) [Ratio] 13.2 % See Below [employer] [facility] Work Phone: Comment on above: Reference Range: 11. 5 - 14.5 Hematocrit (Bld) [Volume fraction] 46.6 % above high threshold See Below [employer] [facility] Work Phone: Comment on above: Reference Range: 36. 0 - 46.0 Hemoglobin (Bld) [Mass/Vol] 15.7 g/dL See Below [employer] [facility] Work Phone: Comment on above: Reference Range: 12. 0 - 16.0 Lymphocytes (Bld) [#/Vol] 1.79 {x10E9/L} See Below [employer] [facility] Work Phone: Comment on above: Reference Range: 1.2 0 - 4.80 Lymphocytes/100 WBC (Bld) 24.1 % See Below [employer] [facility] Work Phone: Comment on above: Reference Range: 13. 0 - 44.0 MCHC (RBC) [Mass/Vol] 33.7 g/dL See Below - [employer] [facility] Work Phone: Comment on above: Reference Range: 32. 0 - 36.0 MCV (RBC) [Entitic vol] 89 fL 80 - 100 [facility] Work Phone: Monocytes (Bld) [#/Vol] 0.61 {x10E9/L} See Below -[facility] Work Phone: Comment on above: Reference Range: 0.1 0 - 1.00 Monocytes/100 WBC (Bld) 8.2 % 2.0 - 10.0 -[facility] Work Phone: Neutrophils (Bld) [#/Vol] 4.79 {x10E9/L} See Below -[employer] [facility] Work Phone: Comment on above: Reference Range: 1.2 0 - 7.70 Neutrophils/100 WBC (Bld) 64.7 % See Below -[facility] Work Phone: Comment on above: Reference Range: 40. 0 - 80.0 Platelets (Bld) [#/Vol] 171 {x10E9/L} 150 - 450 -[facility] Work Phone: RBC (Bld) [#/Vol] 5.26 {x10E12/L} above high threshold See Below -[facility] Work Phone: Comment on above: Reference Range: 4.0 0 - 5.20 WBC (Bld) [#/Vol] 0.0 {/100_WBC} 0.0-0.0 - [facility] Work Phone: WBC (Bld) [#/Vol] 7.4 {x10E9/L} 4.4 - 11.3 [facility] Work Phone: Complete Blood Count + Differential 0.5 % 0.0 - 0.9 [employer] [facility] Work Phone: Comment on above: Immature Granulocyte Count (IG) includes promyelocytes, myelocytes and metamyelocytes but does not include bands. Percent differential counts (%) should be interpreted in the context of the absolute cell counts (cells/L). Creatinine, Serumon 03-19-20 20 Creatinine [Mass/Vol] mg/dL >60 [employer] [facility] Work Phone: Comment on above: CALCULATIONS OF BJ MATED GFR ARE PERFORMED USING THE MDRD STUDY EQUATION FOR THE IDMS-TRACEABLE CREATININE METHODS. CLIN CHEM 2007;53:766-72 Creatinine [Mass/Vol] 0.86 mg/dL See Below [employer] [facility] Work Phone: Comment on above: Reference Range: 0.5 0 - 1.05 Otheron 03-19-2020 AST With P-5'-P [Catalytic activity/Vol] 21 U/L 9 - 39 [facility] Work Phone: Sedimentation Rate, Erythroc yteon 03-19-2020 ESR (Bld) [Velocity] 15 mm/h 0 - 30 [facility] Work Phone: ALT - Alanine Aminotransfera se, Serumon 08-22-2019 ALT With P-5'-P [Catalytic activity/Vol] 24 U/L 7 - 45 [facility] Work Phone: Comment on above: Patients treated wit h Sulfasalazine may generate falsely decreased results for ALT. Albumin, Serumon 08-22-2019 Albumin BCP dye [Mass/Vol] 4.2 g/dL 3.4 - 5.0 [facility] Work Phone: Blood Urea Nitrogen, Serumon 08-22-2019 Urea nitrogen [Mass/Vol] 13 mg/dL 6 - 23 [facility] Work Phone: C Reactive Protein, Serumon 08-22-2019 CRP [Mass/Vol] 3.42 mg/dL Abnormal [employer] [facility] Work Phone: Comment on above: REF VALUE< 1.00 Complete Blood Count + Diffe rentialon 08-22-2019 Basophils (Bld) [#/Vol] 0.10 {x10E9/L} See Below [employer] [facility] Work Phone: Comment on above: Reference Range: 0.0 0 - 0.10 Basophils/100 WBC (Bld) 1.1 % 0.0 - 2.0 [employer] [facility] Work Phone: Eosinophils (Bld) [#/Vol] 0.24 {x10E9/L} See Below [employer] [facility] Work Phone: Comment on above: Reference Range: 0.0 0 - 0.70 Eosinophils/100 WBC (Bld) 2.6 % 0.0 - 6.0 [employer] [facility] Work Phone: Erythrocyte distribution width (RBC) [Ratio] 14.2 % See Below [employer] [facility] Work Phone: Comment on above: Reference Range: 11. 5 - 14.5 Hematocrit (Bld) [Volume fraction] 42.9 % See Below [employer] [facility] Work Phone: Comment on above: Reference Range: 36. 0 - 46.0 Hemoglobin (Bld) [Mass/Vol] 14.1 g/dL See Below [employer] [facility] Work Phone: Comment on above: Reference Range: 12. 0 - 16.0 Lymphocytes (Bld) [#/Vol] 2.11 {x10E9/L} See Below [employer] [facility] Work Phone: Comment on above: Reference Range: 1.2 0 - 4.80 Lymphocytes/100 WBC (Bld) 22.6 % See Below [employer] [facility] Work Phone: Comment on above: Reference Range: 13. 0 - 44.0 MCHC (RBC) [Mass/Vol] 32.9 g/dL See Below - [facility] Work Phone: Comment on above: Reference Range: 32. 0 - 36.0 MCV (RBC) [Entitic vol] 90 fL 80 - 100 -[facility] Work Phone: Monocytes (Bld) [#/Vol] 0.78 {x10E9/L} See Below -[facility] Work Phone: Comment on above: Reference Range: 0.1 0 - 1.00 Monocytes/100 WBC (Bld) 8.4 % 2.0 - 10.0 -[facility] Work Phone: Neutrophils (Bld) [#/Vol] 6.08 {x10E9/L} See Below -[facility] Work Phone: Comment on above: Reference Range: 1.2 0 - 7.70 Neutrophils/100 WBC (Bld) 65.1 % See Below [facility] Work Phone: Comment on above: Reference Range: 40. 0 - 80.0 Platelets (Bld) [#/Vol] 192 {x10E9/L} 150 - 450 -[facility] Work Phone: RBC (Bld) [#/Vol] 4.77 {x10E12/L} See Below -[facility] Work Phone: Comment on above: Reference Range: 4.0 0 - 5.20 WBC (Bld) [#/Vol] 0.0 {/100_WBC} 0.0-0.0 [facility] Work Phone: WBC (Bld) [#/Vol] 9.3 {x10E9/L} 4.4 - 11.3 -[facility] Work Phone: Complete Blood Count + Differential 0.2 % 0.0 - 0.9 [facility] Work Phone: Comment on above: Percent differential counts (%) should be interpreted in the context of the absolute cell counts (cells/L). Creatinine, Serumon 08-22-19 20 Creatinine [Mass/Vol] mg/dL >60 - [facility] Work Phone: Comment on above: CALCULATIONS OF BJ MATED GFR ARE PERFORMED USING THE MDRD STUDY EQUATION FOR THE IDMS-TRACEABLE CREATININE METHODS. CLIN CHEM 2007;53:766-72 Creatinine [Mass/Vol] 0.89 mg/dL See Below [employer] [facility] Work Phone: Comment on above: Reference Range: 0.5 0 - 1.05 Otheron 08-22-2019 AST With P-5'-P [Catalytic activity/Vol] 20 U/L 9 - 39 -[facility] Work Phone: Sedimentation Rate, Erythroc yteon 08-22-2019 ESR (Bld) [Velocity] 33 mm/h above high threshold 0 - 30 [facility] Work Phone: Vital Signs Date Time Vital Sign Value Performing Clinician Facility 03-14-2025 [id number] Body height 157.5 cm Peggy Miguel MD Work Phone: [facility] 03-14-2025 09:17-0400 Body mass index (BMI) [Ratio] 24.76 kg/m2 Peggy Miguel MD Work Phone: [facility] 03-14-2025 09:17-040 Body temperature 97 [degF] Peggy Miguel MD Work Phone: [facility] 03-14-2025 09:17-040 Body weight 61.42 kg Peggy Miguel MD Work Phone: [facility] 03-14-2025 09:17-0400 Diastolic blood pressure 61 mm[Hg] Peggy Miguel MD Work Phone: [facility] 03-14-2025 09:17-0400 Heart rate 69 /min Peggy Miguel MD Work Phone: [facility] 03-14-2025 09:17-0400 SaO2% (BldA) [Mass fraction] 97 % Peggy Miguel MD Work Phone: [facility] 03-14-2025 09:17-0400 Systolic blood pressure 101 mm[Hg] Peggy Miguel MD Work Phone: [facility] 11-21-2024 11:50-0400 Body temperature 97.52 [degF] DR ANDREW ROSA MD [facility] 11-21-2024 11:50-0400 Diastolic Blood Pressure Non-Invasive 85 mm[Hg] DR ANDREW ROSA MD [facility] 11-21-2024 11:50-0400 Heart rate 70 /min DR ANDREW ROSA MD [facility] 11-21-2024 11:50-0400 Respiratory rate 16 /min DR ANDREW RSOA MD [facility] 11-21-2024 11:50-0400 Systolic Blood Pressure Non-Invasive 128 mm[Hg] DR ANDREW ROSA MD [facility] 11-21-2024 06:23-0400 Body temperature 97.7 [degF] DR ANDREW ROSA MD [facility] 11-21-2024 06:23-0400 Diastolic Blood Pressure Non-Invasive 76 mm[Hg] DR ANDREW ROSA MD [facility] 11-21-2024 06:23-0400 Heart rate 66 /min DR ANDREW ROSA MD [facility] 11-21-2024 06:23-0400 Respiratory rate 16 /min DR ANDREW ROSA MD [facility] 11-21-2024 06:23-0400 Systolic Blood Pressure Non-Invasive 117 mm[Hg] DR ANDREW ROSA MD [facility] 11-21-2024 04:21-0400 Body temperature 97.88 [degF] DR ANDREW ROSA MD [facility] 11-21-2024 04:21-0400 Diastolic Blood Pressure Non-Invasive 72 mm[Hg] DR ANDREW ROSA MD [facility] 11-21-2024 04:21-0400 Heart rate 68 /min DR ANDREW ROSA MD [facility] 11-21-2024 04:21-0400 Respiratory rate 16 /min DR ANDREW ROSA MD [facility] 11-21-2024 04:21-0400 Systolic Blood Pressure Non-Invasive 124 mm[Hg] DR ANDREW ROSA MD [facility] 11-20-2024 23:26-0400 Heart rate 83 /min DR ANDREW ROSA MD [facility] 11-20-2024 18:45-0400 Heart rate 98 /min DR ANDREW ROSA MD [facility] 11-20-2024 15:57-0400 Heart rate 73 /min DR ANDREW ROSA MD [facility] 11-20-2024 15:20-0400 Body height 157.[address] ANDREW ROSA MD [facility] 11-20-2024 15:20-0400 Body weight 63.[address] ANDREW ROSA MD [facility] 11-20-2024 15:20-0400 Body weight 25.67 kg/m2 DR ANDREW ROSA MD [facility] 11-20-2024 13:55-0400 Body temperature 96.98 [degF] DR ANDREW ROSA MD [facility] 11-20-2024 13:50-0400 Respiratory Rate - Anes 0 br/min DR ANDREW ROSA MD [facility] 11-20-2024 13:45-0400 Respiratory Rate - Anes 15 br/min DR ANDREW ROSA MD [facility] 11-20-2024 13:40-0400 Respiratory Rate - Anes 16 br/min DR ANDREW ROSA MD [facility] 11-20-2024 10:10-0400 Body height 157.[address] ANDREW ROSA MD [facility] 11-20-2024 10:10-0400 Body temperature 97.88 [degF] DR ANDREW ROSA MD [facility] 11-20-2024 10:10-0400 Body weight 63.[address] ANDREW ROSA MD [facility] 11-20-2024 10:10-0400 Heart rate 84 /min DR ANDREW ROSA MD [facility] 11-07-2024 08:51-0400 Body height 157.5 cm Peggy Miguel MD Work Phone: [facility] 11-07-2024 08:51-0400 Body mass index (BMI) [Ratio] 25.95 kg/m2 Pgegy Miguel MD Work Phone: [facility] 11-07-2024 08:51-0400 Body temperature 97.39 [degF] Peggy Miguel MD Work Phone: [facility] 11-07-2024 08:51-0400 Body weight 64.36 kg Peggy Miguel MD Work Phone: [facility] 11-07-2024 08:51-0400 Diastolic blood pressure 83 mm[Hg] Peggy Miguel MD Work Phone: [facility] 11-07-2024 08:51-0400 Heart rate 81 /min Peggy Miguel MD Work Phone: [facility] 11-07-2024 08:51-0400 SaO2% (BldA) [Mass fraction] 95 % Peggy Miguel MD Work Phone: [facility] 11-07-2024 08:51-0400 Systolic blood pressure 114 mm[Hg] Peggy Miguel MD Work Phone: [facility] 06-15-2024 08:45-0500 Body height 157.[address] ANDREW ROSA MD [facility] 06-15-2024 08:45-0500 Body weight [address] ANDREW ROSA MD [facility] 06-15-2024 08:45-0500 Body weight 25.8 kg/m2 DR ANDREW ROSA MD [facility] 06-15-2024 08:45-0500 Diastolic Blood Pressure Non-Invasive 81 mm[Hg] DR ANDREW ROSA MD [facility] 06-15-2024 08:45-0500 Heart rate 68 /min DR ANDREW ROSA MD [facility] 06-15-2024 08:45-0500 Respiratory rate 20 /min DR ANDREW ROSA MD [facility] 06-15-2024 08:45-0500 Systolic Blood Pressure Non-Invasive 112 mm[Hg] DR ANDREW ROSA MD [facility] 06-14-2024 08:24-0500 Body height 157.5 cm Peggy Miguel MD Work Phone: [facility] 06-14-2024 08:24-0500 Body mass index (BMI) [Ratio] 25.81 kg/m2 Peggy Miguel MD Work Phone: [facility] 06-14-2024 08:24-0500 Body temperature 98.2 [degF] Peggy Miguel MD Work Phone: [facility] 06-14-2024 08:24-0500 Body weight 64 kg Peggy Miguel MD Work Phone: [facility] 06-14-2024 08:24-0500 Diastolic blood pressure 85 mm[Hg] Peggy Miguel MD Work Phone: [facility] 06-14-2024 08:24-0500 Heart rate 68 /min Peggy Miguel MD Work Phone: [facility] 06-14-2024 08:24-0500 SaO2% (BldA) [Mass fraction] 98 % Peggy Miguel MD Work Phone: [facility] 06-14-2024 08:24-0500 Systolic blood pressure 114 mm[Hg] Peggy Miguel MD Work Phone: [facility] 01-27-2024 08:14-0400 Body height 157.5 cm Peggy Miguel MD Work Phone: 1(386)816-694384 [place] [address] 01-27-2024 08:14-0400 Body mass index (BMI) [Ratio] 27.67 kg/m2 Peggy Miguel MD Work Phone: 3(803)795-882284 [place] [address] 01-27-2024 08:14-0400 Body temperature 96.4 [degF] Peggy Miguel MD Work Phone: 1(273)713-205184 [place] [address] 01-27-2024 08:14-0400 Body weight 68.63 kg Peggy Miguel MD Work Phone: 7(294)754-311249 [address] 01-27-2024 08:14-0400 Diastolic blood pressure 74 mm[Hg] Peggy Miguel MD Work Phone: 2(393)576-654784 [place] [address] 01-27-2024 08:14-0400 Heart rate 64 /min Peggy Miguel MD Work Phone: 8(481)944-820684 [place] [address] 01-27-2024 08:14-0400 Systolic blood pressure 122 mm[Hg] Peggy Miguel MD Work Phone: 5(495)575-488384 [place] [address] 09-29-2023 08:50-0500 Body height 157.5 cm Peggy Miguel MD Work Phone: 0(743)501-478784 [place] [address] 09-29-2023 08:50-0500 Body mass index (BMI) [Ratio] 27.38 kg/m2 Peggy Miguel MD Work Phone: 0(974)642-700584 [place] [address] 09-29-2023 08:50-0500 Body temperature 97.7 [degF] Peggy Miguel MD Work Phone: 9(681)758-397784 [place] [address] 09-29-2023 08:50-0500 Body weight 67.9 kg Peggy Miguel MD Work Phone: [facility] 09-29-2023 08:50-0500 Diastolic blood pressure 85 mm[Hg] Peggy Miguel MD Work Phone: [facility] 09-29-2023 08:50-0500 Heart rate 60 /min Peggy Miguel MD Work Phone: [facility] 09-29-2023 08:50-0500 SaO2% (BldA) [Mass fraction] 98 % Peggy Miguel MD Work Phone: [facility] 09-29-2023 08:50-0500 Systolic blood pressure 117 mm[Hg] Peggy Miguel MD Work Phone: [facility] 01-05-2023 08:22-0400 Body height 157.48 cm Loren Green Work Phone: [facility] Work Phone: 01-05-2023 08:22-0400 Body mass index (BMI) [Ratio] 28.72 kg/m2 Loren Green Work Phone: [facility] Work Phone: 01-05-2023 08:22-0400 Body surface area Derived from formula 1.72 m2 Loren Green Work Phone: [facility] Work Phone: 01-05-2023 08:22-0400 Body temperature 96.9 [degF] Loren Green Work Phone: [facility] Work Phone: 01-05-2023 08:22-0400 Body weight 71.22 kg Loren Green Work Phone: [facility] Work Phone: 01-05-2023 08:22-0400 Diastolic blood pressure 72 mm[Hg] Loren Green Work Phone: [facility] Work Phone: 01-05-2023 08:22-0400 Heart rate 69 /min Loren Green Work Phone: [facility] Work Phone: 01-05-2023 08:22-0400 SaO2% (BldA) [Mass fraction] 96 % Loren Green Work Phone: [facility] Work Phone: 01-05-2023 08:22-0400 Systolic blood pressure 108 mm[Hg] Loren Green Work Phone: [facility] Work Phone: 01-05-2023 08:22-0400 1 1 Loren Green Work Phone: [facility] Work Phone: Comment on above: [employer] 06-03-2022 09:58-0400 Body height 157.48 cm [facility] Work Phone: 09-07-2021 08:31-0500 Diastolic blood pressure 88 mm[Hg] Loren Green Work Phone: [facility] Work Phone: 09-07-2021 08:31-0500 Systolic blood pressure 130 mm[Hg] Loren Green Work Phone: [facility] Work Phone: 09-07-2021 08:24-0500 Diastolic blood pressure 95 mm[Hg] Loren Ojedanner Work Phone: [facility] Work Phone: 09-07-2021 08:24-0500 Systolic blood pressure 133 mm[Hg] Loren Green Work Phone: [facility] Work Phone: 09-07-2021 08:20-0500 Body height 157.48 cm Loren Green Work Phone: [facility] Work Phone: 09-07-2021 08:20-0500 Body mass index (BMI) [Ratio] 28.59 kg/m2 Loren Green Work Phone: [facility] Work Phone: 09-07-2021 08:20-0500 Body surface area Derived from formula 1.72 m2 Loren Green Work Phone: [facility] Work Phone: 09-07-2021 08:20-0500 Body temperature 97.2 [degF] Loren Green Work Phone: [facility] Work Phone: 09-07-2021 08:20-0500 Body weight 70.9 kg Loren Green Work Phone: [facility] Work Phone: 09-07-2021 08:20-0500 Diastolic blood pressure 96 mm[Hg] Loren Green Work Phone: [facility] Work Phone: 09-07-2021 08:20-0500 Heart rate 77 /min Loren Green Work Phone: [facility] Work Phone: 09-07-2021 08:20-0500 Respiratory rate 16 /min Loren Green Work Phone: [facility] Work Phone: 09-07-2021 08:20-0500 SaO2% (BldA) [Mass fraction] 97 % Loren Green Work Phone: [facility] Work Phone: 09-07-2021 08:20-0500 Systolic blood pressure 134 mm[Hg] Loren Green Work Phone: [facility] Work Phone: 09-07-2021 08:20-0500 1 1 Loren Green Work Phone: [facility] Work Phone: Comment on above: [employer] 05-04-2021 09:14-0400 Body height 157.48 cm Loren Green Work Phone: [facility] Work Phone: 05-04-2021 09:14-0400 Body mass index (BMI) [Ratio] 28.4 kg/m2 Loren Green Work Phone: [facility] Work Phone: 05-04-2021 09:14-0400 Body surface area Derived from formula 1.72 m2 Loren Green Work Phone: [facility] Work Phone: 05-04-2021 09:14-0400 Body temperature 97.2 [degF] Loren Green Work Phone: [facility] Work Phone: 05-04-2021 09:14-0400 Body weight 70.42 kg Loren Green Work Phone: [facility] Work Phone: 05-04-2021 09:14-0400 Diastolic blood pressure 82 mm[Hg] Loren Green Work Phone: [facility] Work Phone: 05-04-2021 09:14-0400 Heart rate 76 /min Loren Green Work Phone: [facility] Work Phone: 05-04-2021 09:14-0400 Respiratory rate 18 /min Loren Green Work Phone: [facility] Work Phone: 05-04-2021 09:14-0400 SaO2% (BldA) [Mass fraction] 97 % Loren Green Work Phone: [facility] Work Phone: 05-04-2021 09:14-0400 Systolic blood pressure 126 mm[Hg] Loren Green Work Phone: [facility] Work Phone: 05-04-2021 09:14-0400 1 1 Loren Green Work Phone: [facility] Work Phone: Comment on above: [employer] 01-05-2021 08:41-0400 Body height 157.48 cm Loren Green Work Phone: [facility] Work Phone: 01-05-2021 08:41-0400 Body mass index (BMI) [Ratio] 28.38 kg/m2 Loren Green Work Phone: [facility] Work Phone: 01-05-2021 08:41-0400 Body surface area Derived from formula 1.72 m2 Loren Green Work Phone: [facility] Work Phone: 01-05-2021 08:41-0400 Body temperature 97.1 [degF] Loren Green Work Phone: [facility] Work Phone: 01-05-2021 08:41-0400 Body weight 70.39 kg Loren Green Work Phone: [facility] Work Phone: 01-05-2021 08:41-0400 Diastolic blood pressure 94 mm[Hg] Loren Green Work Phone: [facility] Work Phone: 01-05-2021 08:41-0400 Heart rate 80 /min Loren Green Work Phone: [facility] Work Phone: 01-05-2021 08:41-0400 Respiratory rate 18 /min Loren Green Work Phone: [facility] Work Phone: 01-05-2021 08:41-0400 SaO2% (BldA) [Mass fraction] 98 % Loren Green Work Phone: [facility] Work Phone: 01-05-2021 08:41-0400 Systolic blood pressure 141 mm[Hg] Loren Green Work Phone: [facility] Work Phone: 01-05-2021 08:41-0400 1 1 Loren Green Work Phone: [facility] Work Phone: Comment on above: [employer] 03-19-2020 11:38-0400 BMI (Body Mass Index) 27.08 kg/m2 Peggy Miguel [facility] Work Phone: 03-19-2020 11:38-0400 Body Temperature 97.3 [degF] Peggy Miguel [facility] Work Phone: 03-19-2020 11:38-0400 Body weight 67.16 kg Peggy Miguel [facility] Work Phone: 03-19-2020 11:38-0400 BP Diastolic 87 mm[Hg] Peggy Miguel [facility] Work Phone: Comment on above: Location: LUE; Position: Sitting 03-19-2020 11:38-0400 BP Systolic 149 mm[Hg] Peggy Miguel [facility] Work Phone: Comment on above: Location: LUE; Position: Sitting 03-19-2020 11:38-0400 BSA (Body Surface Area) 1.68 m2 Peggy Miguel [facility] Work Phone: 03-19-2020 11:38-0400 Pulse (Heart Rate) 69 /min Peggy Miguel [facility] Work Phone: 03-19-2020 11:38-0400 Pulse Oximetry 97 % Peggy Miguel [facility] Work Phone: Encounters Encounter Date Encounter Type Care Provider Facility Start: 06-28-2025 ambulatory Loren Green [facility] ity:[facility] Start: 06-11-2025 ambulatory LOREN GREEN [facility] Start: 05-07-2025 End: 05-07-[address] LOREN GREEN DO Facility:[facility] Start: 05-07-2025 End: 05-07-[address] LOREN GREEN DO [facility] Start: 03-14-2025 End: 03-14-2025 Office outpatient visit 25 minutes Peggy Miguel MD Work Phone: [facility] Comment on above: Rheumatoid arthritis involving multiple sites with positive rheumatoid factor (Multi) (Primary Dx); Long-term current use of tofacitinib; Immunosuppression due to drug therapy Start: 03-14-2025 End: 03-14-2025 ambulatory [facility] Start: 12-19-2024 End: 12-23-[address] LOREN GREEN DO Facility:[facility] Start: 12-19-2024 End: 12-23-[address] LOREN GREEN DO [facility] Start: 12-06-2024 End: 12-06-[address] LOREN GREEN DO Facility:[facility] Start: 12-06-2024 End: 12-06-[address] ANDREW ROSA MD [facility] Start: 11-20-2024 End: 11-21-2024 ambulatory ANDREW ROSA Facility:[facility] Start: 11-20-2024 End: 11-21-[address] ANDREW ROSA MD [facility] Start: 11-07-2024 End: 11-07-2024 Office outpatient visit 25 minutes Peggy Miguel MD Work Phone: [facility] Comment on above: Rheumatoid arthritis involving multiple sites with positive rheumatoid factor (Multi) (Primary Dx); Immunosuppression due to drug therapy; Long-term current use of tofacitinib; Idiopathic thrombocytopenic purpura (Multi); Primary osteoarthritis of right hip Start: 11-07-2024 End: 11-07-2024 ambulatory [facility] Start: 10-22-2024 End: 10-22-[address] LOREN GREEN DO Facility:[facility] Start: 07-16-2024 End: 07-16-[address] LOREN GREEN DO Facility:[facility] Start: 07-16-2024 End: 07-16-[address] LOREN GREEN DO [facility] Start: 07-10-2024 End: 07-11-2024 ambulatory ANDREW ROSA Facility:[facility] Start: 06-26-2024 End: 06-26-[address] LOREN GREEN DO Facility:[facility] Start: 06-26-2024 End: 06-26-[address] LOREN GREEN DO [facility] Start: 06-19-2024 End: 06-19-[address] LOREN GREEN DO Facility:[facility] Start: 06-19-2024 End: 06-19-[address] LOREN GREEN DO [facility] Start: 06-15-2024 End: 06-15-[address] ANDREW ROSA MD [facility] Start: 06-15-2024 End: 06-15-[address] LOREN GREEN DO Facility:[facility] Start: 06-14-2024 End: 06-14-2024 Office outpatient visit 25 minutes Peggy Miguel MD Work Phone: [facility] Comment on above: Rheumatoid arthritis involving multiple sites with positive rheumatoid factor (Multi) (Primary Dx); Immunosuppression due to drug therapy; Long-term current use of tofacitinib; Primary osteoarthritis of right hip Start: 06-14-2024 End: 06-14-2024 ambulatory [facility] Start: 01-27-2024 End: 01-27-2024 Office outpatient visit 25 minutes Peggy Miguel MD Work Phone: [facility] Comment on above: Rheumatoid arthritis involving multiple sites with positive rheumatoid factor (Multi) (Primary Dx); Immunosuppression due to drug therapy (Multi); Long-term current use of tofacitinib; Primary hypertension; Mixed hyperlipidemia; Abnormal finding of blood chemistry, unspecified Start: 11-29-2023 End: 11-30-[address] LOREN GREEN DO Facility:[facility] Start: 09-29-2023 End: 09-29-2023 Office outpatient visit 25 minutes Peggy Miguel MD Work Phone: [facility] Comment on above: Rheumatoid arthritis involving multiple sites with positive rheumatoid factor (CMS/HCC) (Primary Dx); 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); Idiopathic thrombocytopenic purpura (CMS/HCC); Long-term current use of tofacitinib Start: 06-09-2023 End: 06-09-2023 ambulatory [facility] Work Phone: Start: 06-09-2023 End: 06-09-2023 Patient encounter procedure [facility] Work Phone: Start: 04-26-2023 Chart Update Loren aquino Work Phone: [facility] Work Phone: Start: 04-14-2023 End: 04-15-[address] LOREN GREEN DO Facility:[facility] Start: 04-14-2023 End: 04-14-[address] LOREN GREEN DO [facility] Start: 01-05-2023 FUV, Provider: Peggy Miguel, Status: Pen, Time: 8:30 AM Loren Green Work Phone: [facility] Work Phone: Start: 01-05-2023 Office outpatient vi sit 25 minutes Loren Green Work Phone: [facility] Work Phone: Start: 01-05-[address] Loren Green Facility:[id number] Start: 01-03-2023 AUDIT Loren aquino Work Phone: -[facility] Work Phone: Start: 09-09-2022 FU, Provider: Peggy Miguel, Status: Pen, Time: 9:30 AM Loren Green Work Phone: [facility] Work Phone: Start: 09-09-[address] Loren Green Facility:[id number] Start: 09-07-2022 AUDIT Loren aquino Work Phone: -[facility] Work Phone: Start: 08-24-2022 Chart Update Loren aquino Work Phone: -[facility] Work Phone: Start: 06-30-[address] Peggy Miguel Fac ility:[id number] Start: 06-30-2022 Telephone encounter Loren johnson Work Phone: [facility] Work Phone: Start: 06-03-2022 End: 06-03-2022 ambulatory [facility] Work Phone: Start: 06-03-2022 End: 06-03-2022 Patient encounter procedure [facility] Start: 04-29-2022 Chart Update Loren aquino Work Phone: [facility] Work Phone: Start: 03-25-2022 End: 03-25-[address] LOREN GREEN DO [facility] Start: 03-25-2022 End: 03-25-[address] LOREN GREEN DO [facility] Start: 12-21-2021 AUDIT Loren aquino Work Phone: [facility] Work Phone: Start: 11-25-2021 Telephone encounter Loren johnson Work Phone: [facility] Work Phone: Start: 09-07-2021 Office outpatient vi sit 25 minutes Loren Green Work Phone: [facility] Work Phone: Start: 08-26-2021 Chart Update Loren aquino Work Phone: [employer] Work Phone: Start: 08-24-2021 AUDIT Loren aquino Work Phone: [facility] Work Phone: Start: 05-04-2021 FUV, Provider: Peggy Miguel, Status: Pen, Time: 9:15 AM Loren Green Work Phone: [facility] Work Phone: Start: 05-04-2021 Office outpatient vi sit 25 minutes Loren Green Work Phone: [facility] Work Phone: Start: 05-04-2021 Patient encounter procedure Loren Green Work Phone: [facility] Work Phone: Start: 05-03-2021 AUDIT Loren aquino Work Phone: [facility] Work Phone: Start: 04-23-2021 Rx Renewal Loren aquino Work Phone: [facility] Work Phone: Start: 01-05-2021 Current tobacco non- user cad cap copd pv dm Loren Green Work Phone: [facility] Work Phone: Start: 03-19-2020 Patient encounter procedure Peggy Miguel -[facility] Work Phone: Start: 12-19-2019 Patient encounter procedure Peggy Maria L [facility] Work Phone: Start: 09-12-2019 Patient encounter procedure Peggy Maria L [facility] Work Phone: Start: 05-16-2019 Patient encounter procedure Peggy Maria L -[facility] Work Phone: Start: 01-10-2019 Patient encounter procedure Peggy Maria L [facility] Work Phone: Start: 09-06-2018 Patient encounter procedure Peggy Miguel -[facility] Work Phone: Start: 05-03-2018 Patient encounter procedure Peggy Maria L -[facility] Work Phone: Start: 01-26-2018 Patient encounter procedure Peggy Miguel [facility] Work Phone: Procedures Date Procedure Procedure Detail Performing Clinician Start: 11-20-2024 Insertion of hip prosthesis DR LOREN GREEN DO Comment on above: Right Start: 05-29-2024 Lipid 1996 panel - S tonio or Plasma Peggy Miguel MD Work Phone: Start: 06-09-2023 Screening mammography Start: 06-03-2022 Dual energy X-ray absorptiometry Start: 06-03-2022 Screening mammography Start: 12-22-2021 Lipid 1996 panel - S tonio or Plasma Peggy Miguel MD Work Phone: Start: 03-19-2020 Albumin serum plasma /whole blood Peggy Miguel Start: 03-19-2020 Assay of urea nitrog en quantitative Peggy Miguel Start: 03-19-2020 AST [Catalytic activity/Vol] Peggy Miguel Start: 03-19-2020 Blood count complete auto&auto difrntl wbc Peggy Miguel Start: 03-19-2020 C-reactive protein Nakia Miguel Start: 03-19-2020 Creatinine blood Peggy Miguel Start: 03-19-2020 Sedimentation rate r bc automated Peggy Miguel Start: 03-19-2020 Transferase alanine amino alt sgpt Peggy Miguel Start: 12-21-2019 Mammography Peggy suh MD Work Phone: Start: 05-27-2016 Colonoscopy Peggy suh MD Work Phone: Arthroscopy of knee DR AMA ROSA MD Comment on above: right Breast structure (marcos dy structure) DR LOREN GREEN DO Comment on above: left breast biposy, right has marker Epidural injection o f anesthetic substance, therapeutic, caudal, continuous DR ANDREW ROSA MD Fluoroscopy guided injection of hip joint DR ANDREW ROSA MD Comment on above: left History of No histor y of surgery Peggy Miguel Insertion of hip prosthesis DR LOREN GREEN DO Comment on above: left No history of surgery Loren Green Work Phone: Plan of Treatment Date Care Activity Detail Author Start: 05-29-2029 Lipid panel Lipid Panel [facility] Start: 05-29-2027 Diabetes mellitus screening Diabetes Screening [facility] Start: 12-22-2026 Lipid panel Lipid Panel [facility] Start: 05-27-2026 Screening for malign ant neoplasm of colon [facility] Start: 07-14-2025 End: 10-12-2025 C reactive protein [Mass/volume] in Serum or Plasma C-Reactive Protein Lab Routine Rheumatoid arthritis involving multiple sites with positive rheumatoid factor (Multi) Expected: 07/14/2025, Expires: 10/12/2025 [facility] Work Phone: Comment on above: Expected: 07/14/2025 , Expires: 10/12/2025 Start: 07-14-2025 End: 10-12-2025 CBC W Auto Differential panel - Blood CBC and Auto Differential Lab Routine Rheumatoid arthritis involving multiple sites with positive rheumatoid factor (Multi) Expected: 07/14/2025, Expires: 10/12/2025 [facility] Service Area Work Phone: Comment on above: Expected: 07/14/2025 , Expires: 10/12/2025 Start: 07-14-2025 End: 10-12-2025 Comprehensive metabolic 2000 panel - Serum or Plasma Comprehensive Metabolic Panel Lab Routine Rheumatoid arthritis involving multiple sites with positive rheumatoid factor (Multi) Expected: 07/14/2025, Expires: 10/12/2025 [facility] Work Phone: Comment on above: Expected: 07/14/2025 , Expires: 10/12/2025 Start: 07-14-2025 End: 10-12-2025 Erythrocyte sedimentation rate Sedimentation Rate Lab Routine Rheumatoid arthritis involving multiple sites with positive rheumatoid factor (Multi) Expected: 07/14/2025, Expires: 10/12/2025 [facility] Work Phone: Comment on above: Expected: 07/14/2025 , Expires: 10/12/2025 Start: 06-26-2025 End: 06-26-2025 Patient encounter procedure 06/26/2025 10:40 AM EST Office Visit [address] [phone] Peggy Miguel MD [address] [place] [address] [address] [place], [place] [id number] [facility] Start: 04-01-2025 Influenza vaccination Influenza Vacc ine (#1) [facility] Start: 03-14-2025 End: 03-14-2025 Patient encounter procedure 03/14/2025 9:30 AM EDT Office Visit [address] [place] [phone] Peggy Miguel MD [address] [place] [address] [address] [place] [address] [facility] Start: 02-06-2025 End: 11-07-2025 C reactive protein [Mass/volume] in Serum or Plasma C-Reactive Protein Lab Routine Rheumatoid arthritis involving multiple sites with positive rheumatoid factor (Multi) Expected: 02/06/2025, Expires: 11/07/2025 [facility] Work Phone: Comment on above: Expected: 02/06/2025 , Expires: 11/07/2025 Start: 02-06-2025 End: 11-07-2025 CBC W Auto Differential panel - Blood CBC and Auto Differential Lab Routine Rheumatoid arthritis involving multiple sites with positive rheumatoid factor (Multi) Expected: 02/06/2025, Expires: 11/07/2025 [facility] Service Area Work Phone: Comment on above: Expected: 02/06/2025 , Expires: 11/07/2025 Start: 02-06-2025 End: 11-07-2025 Comprehensive metabolic 2000 panel - Serum or Plasma Comprehensive Metabolic Panel Lab Routine Rheumatoid arthritis involving multiple sites with positive rheumatoid factor (Multi) Expected: 02/06/2025, Expires: 11/07/2025 [facility] Work Phone: Comment on above: Expected: 02/06/2025 , Expires: 11/07/2025 Start: 02-06-2025 End: 11-07-2025 Erythrocyte sedimentation rate Sedimentation Rate Lab Routine Rheumatoid arthritis involving multiple sites with positive rheumatoid factor (Multi) Expected: 02/06/2025, Expires: 11/07/2025 [facility] Work Phone: Comment on above: Expected: 02/06/2025 , Expires: 11/07/2025 Start: 10-12-2024 End: 06-14-2025 C reactive protein [Mass/volume] in Serum or Plasma C-Reactive Protein Lab Routine Rheumatoid arthritis involving multiple sites with positive rheumatoid factor (Multi) Expected: 10/12/2024, Expires: 06/14/2025 [facility] Work Phone: Comment on above: Expected: 10/12/2024 , Expires: 06/14/2025 Start: 10-12-2024 End: 06-14-2025 CBC W Auto Differential panel - Blood CBC and Auto Differential Lab Routine Rheumatoid arthritis involving multiple sites with positive rheumatoid factor (Multi) Expected: 10/12/2024, Expires: 06/14/2025 [facility] Service Area Work Phone: Comment on above: Expected: 10/12/2024 , Expires: 06/14/2025 Start: 10-12-2024 End: 06-14-2025 Comprehensive metabolic 2000 panel - Serum or Plasma Comprehensive Metabolic Panel Lab Routine Rheumatoid arthritis involving multiple sites with positive rheumatoid factor (Multi) Expected: 10/12/2024, Expires: 06/14/2025 [facility] Work Phone: Comment on above: Expected: 10/12/2024 , Expires: 06/14/2025 Start: 10-12-2024 End: 06-14-2025 Erythrocyte sedimentation rate Sedimentation Rate Lab Routine Rheumatoid arthritis involving multiple sites with positive rheumatoid factor (Multi) Expected: 10/12/2024, Expires: 06/14/2025 [facility] Work Phone: Comment on above: Expected: 10/12/2024 , Expires: 06/14/2025 Start: 10-11-2024 End: 10-11-2024 Patient encounter procedure 10/11/2024 9:00 AM EDT Office Visit [address] [phone] Peggy Miguel MD [address] [place], [place] [id number] [facility] Start: 06-14-2024 End: 06-14-2024 Patient encounter procedure 06/14/2024 8:30 AM EST Office Visit [address] [place] [id number] Peggy Miguel MD [address] [place], [place] [id number] [facility] Start: 05-28-2024 End: 01-26-2025 C reactive protein [Mass/volume] in Serum or Plasma C-Reactive Protein Lab Routine Rheumatoid arthritis involving multiple sites with positive rheumatoid factor (Multi) Long-term current use of tofacitinib Expected: 05/28/2024, Expires: 01/26/2025 [facility] Work Phone: Comment on above: Expected: 05/28/2024 , Expires: 01/26/2025 Start: 05-28-2024 End: 01-26-2025 CBC W Auto Differential panel - Blood CBC and Auto Differential Lab Routine Rheumatoid arthritis involving multiple sites with positive rheumatoid factor (Multi) Long-term current use of tofacitinib Expected: 05/28/2024, Expires: 01/26/2025 [facility] Service Area Work Phone: Comment on above: Expected: 05/28/2024 , Expires: 01/26/2025 Start: 05-28-2024 End: 01-26-2025 Comprehensive metabolic 2000 panel - Serum or Plasma Comprehensive Metabolic Panel Lab Routine Rheumatoid arthritis involving multiple sites with positive rheumatoid factor (Multi) Long-term current use of tofacitinib Expected: 05/28/2024, Expires: 01/26/2025 [facility] Work Phone: Comment on above: Expected: 05/28/2024 , Expires: 01/26/2025 Start: 05-28-2024 End: 01-26-2025 Erythrocyte sedimentation rate Sedimentation Rate Lab Routine Rheumatoid arthritis involving multiple sites with positive rheumatoid factor (Multi) Long-term current use of tofacitinib Expected: 05/28/2024, Expires: 01/26/2025 [facility] Work Phone: Comment on above: Expected: 05/28/2024 , Expires: 01/26/2025 Start: 05-28-2024 End: 01-26-2025 Lipid Panel Non-Fasting Lipid Panel Non-Fasting Lab Routine Rheumatoid arthritis involving multiple sites with positive rheumatoid factor (Multi) Long-term current use of tofacitinib Abnormal finding of blood chemistry, unspecified Expected: 05/28/2024, Expires: 01/26/2025 [facility] Work Phone: Comment on above: Expected: 05/28/2024 , Expires: 01/26/2025 Start: 04-01-2024 COVID-19 Vaccine () COVID-19 Vaccine () [facility] Start: 02-16-2024 End: 02-16-2024 Patient encounter procedure 02/16/2024 9:00 AM EDT Office Visit [facility] [address] [place] [address] [address] [place] [phone] Peggy Miguel MD [address] [place] [address] Rd [address] [place] [id number] [facility] Start: 05-04-2023 FUV, Provider: Peggy Miguel, Status: Pen, Time: 8:30 AM FUV, Provider: Peggy Miguel, Status: Pen, Time: 8:30 AM [facility] Work Phone: Start: 04-01-2023 COVID-19 Vaccine ( season) COVID-19 Vaccine () [facility] Start: 09-09-2022 FUV, Provider: Peggy Miguel, Status: Pen, Time: 9:30 AM FUV, Provider: Peggy Miguel, Status: Pen, Time: 9:30 AM -Gastroenterology- [facility] Work Phone: Start: 05-06-2022 FUV, Provider: Peggy Miguel, Status: Pen, Time: 9:15 AM FUV, Provider: Peggy Miguel, Status: Pen, Time: 9:15 AM [employer] [facility] Work Phone: Start: 03-17-2022 Pneumococcal vaccination Pneum ococcal Vaccine (2 of 2 - PCV) [facility] Start: 03-17-2022 Pneumococcal Vaccine : 65+ Years (2 - PCV) Pneumococcal Vaccine: 65+ Years (2 - PCV) [facility] Start: 03-17-2022 Pneumococcal Vaccine : 65+ Years (2 of 2 - PCV) Pneumococcal Vaccine: 65+ Years (2 of 2 - PCV) [facility] Start: 01-04-2022 FUV, Provider: Peggy Miguel, Status: Pen, Time: 9:00 AM FUV, Provider: Peggy Miguel, Status: Pen, Time: 9:00 AM [employer] Work Phone: Start: 09-07-2021 FUV, Provider: Peggy Miguel, Status: Pen, Time: 8:15 AM FUV, Provider: Peggy Miguel, Status: Pen, Time: 8:[address] [employer] [facility] Work Phone: Start: 05-04-2021 FUV, Provider: Peggy Miguel, Status: Pen, Time: 9:15 AM FUV, Provider: Peggy Miguel, Status: Pen, Time: 9:[address] [employer] [facility] Work Phone: Start: 12-20-2020 Screening for malign ant neoplasm of breast Mammogram [facility] Start: 2020 Screening for osteoporosis Bone Density Scan [facility] Start: 08-11-2015 Zoster Vaccines (1 of 2) Zoste r Vaccines (1 of 2) [facility] Start: 07-14-2015 MMR Vaccines (1 of 1 - Standard series) MMR Vaccines (1 of 1 - Standard series) [facility] Start: 2015 RSV High Risk: (Elde rly (60+) or Population) (1 - Risk 60-74 years 1-dose series) RSV High Risk: (Elderly (60+) or Population) (1 - Risk 60-74 years 1-dose series) [facility] Start: 2015 RSV patient s and/or patients aged 60+ years (1 - 1-dose 60+ series) RSV patients and/or patients aged 60+ years (1 - 1-dose 60+ series) [facility] Start: 1977 DTaP/Tdap/Td Vaccine s (1 - Tdap) DTaP/Tdap/Td Vaccines (1 - Tdap) [facility] Start: 1973 Diabetes mellitus screening Diabetes Screening [facility] Start: 1973 Hepatitis C screening Hepatitis C [facility] Start: 1955 Medicare Annual Well ness Visit Medicare Annual Wellness Visit (AWV) [facility] Start: 1955 Screening for malign ant neoplasm of colon [facility] Start: 1955 Screening for osteoporosis Bone Density Scan [facility] Immunizations Immunization Date Immunization Notes Care Provider Fa [facility] 05-10-2024 influenza, high dose seasonal, preservative-free; Translations: [Fluad PF Prefilled Syringe ] DR ANDREW ROSA MD [facility] 05-10-2024 influenza virus vacc ine, unspecified formulation Peggy Miguel MD Work Phone: [facility] Work Phone: 05-04-2023 Flu vaccine, quadrivalent, high-dose, preservative free, age 65y+ (FLUZONE) Peggy Miguel MD Work Phone: [facility] Work Phone: 05-04-2023 influenza virus vacc ine, unspecified formulation DR ANDREW ROSA MD [facility] 05-06-2022 Fluzone High-Dose Quadrivalent 0.7 ML Intramuscular Suspension Prefilled Syringe; Translations: [Fluzone High-Dose Quadrivalent 0.7 ML Intramuscular Suspension Prefilled Syringe] Loren Green Work Phone: [facility] Work Phone: Comment on above: Series: 05-06-2022 influenza virus vacc ine, unspecified formulation Peggy Miguel MD Work Phone: [facility] Work Phone: 03-25-2022 COVID-19, mRNA, LNP- S, PF, 100 mcg or 50 mcg dose; Translations: [Moderna COVID-19 Vaccine] DR LOREN GREEN DO [facility] 10-14-2021 COVID-19, mRNA, LNP- S, PF, 100 mcg or 50 mcg dose; Translations: [Moderna COVID-19 Vaccine] DR LOREN GREEN DO [facility] 05-04-2021 Flu vaccine, quadrivalent, high-dose, preservative free, age 65y+ (FLUZONE) Peggy Miguel MD Work Phone: [facility] Work Phone: 05-04-2021 influenza virus vacc ine, unspecified formulation DR LOREN GREEN DO [facility] 05-04-2021 influenza, high dose seasonal, preservative-free; Translations: [Fluzone High-Dose 0.5 ML Intramuscular Suspension Prefilled Syringe] Loren Green Work Phone: [facility] Work Phone: Comment on above: Series: 04-22-2021 Moderna COVID-19 Vac cine 100 MCG/0.5ML Intramuscular Suspension; Translations: [Moderna COVID-19 Vaccine] Loren Green Work Phone: [facility] 03-25-2021 Moderna COVID-19 Vac cine 100 MCG/0.5ML Intramuscular Suspension; Translations: [Moderna COVID-19 Vaccine] Loren Green Work Phone: [facility] 03-17-2021 pneumococcal polysaccharide vaccine, 23 valent; Translations: [Pneumovax 23] Loren Green Work Phone: [facility] 05-23-2020 influenza virus vacc ine, unspecified formulation DR LOREN GREEN DO [facility] 05-23-2020 influenza, injectabl e, quadrivalent, contains preservative Loren Green Work Phone: [facility] Work Phone: Comment on above: Series: 04-14-2020 influenza, injectabl e, quadrivalent, preservative free; Translations: [Fluarix PF Quadrivalent ] Loren Green Work Phone: [facility] 05-16-2019 influenza, injectabl e, quadrivalent, preservative free; Translations: [Fluzone Quadrivalent 0.5 ML Intramuscular Suspension Prefilled Syringe] Pegyg Miguel [facility] Work Phone: Comment on above: Series: 05-16-2019 influenza, injectabl e, quadrivalent, contains preservative Peggy Miguel MD Work Phone: [facility] Work Phone: 05-01-2018 influenza virus vacc ine, unspecified formulation DR LOREN GREEN DO [facility] 05-01-2018 influenza, injectabl e, quadrivalent, contains preservative Peggy Miguel MD Work Phone: [facility] Work Phone: 05-01-2018 influenza, injectabl e, quadrivalent, preservative free Peggy Miguel [facility] Work Phone: Comment on above: Series: 04-26-2018 influenza virus vacc ine, unspecified formulation DR LOREN GREEN DO [facility] 04-26-2018 influenza, injectabl e, quadrivalent, preservative free Peggy Miguel MD Work Phone: [facility] Work Phone: 06-13-2017 influenza virus vacc ine, unspecified formulation DR LOREN GREEN DO [facility] 06-13-2017 influenza, injectabl e, quadrivalent, preservative free Loren Green Work Phone: [facility] Work Phone: 05-25-2016 influenza virus vacc ine, unspecified formulation DR LOREN GREEN DO [facility] 05-25-2016 influenza, seasonal, injectable, preservative free Loren Green Work Phone: [facility] Work Phone: 08-01-2015 tetanus toxoid, redu lucio diphtheria toxoid, and acellular pertussis vaccine, adsorbed DR LOREN GREEN DO [facility] 06-16-2015 zoster vaccine, live Loren Green Work Phone: [facility] 04-30-2015 influenza virus vacc ine, unspecified formulation DR LOREN GREEN DO [facility] 04-30-2015 influenza, seasonal, injectable, preservative free Loren Green Work Phone: [facility] Work Phone: 06-18-2014 influenza virus vacc ine, unspecified formulation DR LOREN GREEN DO [facility] 06-18-2014 influenza, seasonal, injectable, preservative free Loren Green Work Phone: [facility] Work Phone: 06-13-2013 influenza virus vacc ine, unspecified formulation DR LOREN GREEN DO [facility] 06-13-2013 influenza, seasonal, injectable, preservative free Loren Green Work Phone: [facility] Work Phone: 04-25-2012 influenza virus vacc ine, unspecified formulation DR LOREN GREEN DO [facility] 04-25-2012 influenza, seasonal, injectable, preservative free Loren Green Work Phone: [facility] Work Phone: Payers Date Payer Category Payer Self-pay [id number] 2024 Private Health Insurance [id number] 2022 Medicare supplementa l policy (as second payer) [employer] [id number] 2022 Unknown 2022 Unknown [id number] 2020 Medicare [id number] 2020 Medicare [id number] 2015 Unknown [facility] [id number] 2006 Unknown ANTHEM [id number] 1955 Unknown [id number] [id number] .1955 Unknown [id number] 2.840.1.214380.3.579.2 .1955 Unknown [id number] 2.840.1.887994.3.579.2 .1955 Unknown [id number] 2.16840.1.871312.3.579.2 .1955 Unknown [id number] 2.16840.1.673982.3.579.2 .1955 Unknown [id number] 2.16840.1.536726.3.579.2 .627 1955 Unknown [id number] 2.16.840.1.061175.3.579.2 .627 1955 Unknown [id number] 2.16.840.1.901289.3.579.2 .627 1955 Unknown [id number] 2.16.840.1.030104.3.579.2 .627 1955 Unknown [id number] 2.16.840.1.772690.3.579.2 .627 1955 Unknown [id number] 2.16.840.1.670437.3.579.2 .627 1955 Unknown [id number] 2.16.840.1.616735.3.579.2 .627 1955 Unknown [id number] 2.16.840.1.193135.3.579.2 .356 1955 Unknown [id number] 2.16.840.1.577776.3.579.2 .356 1955 Unknown [id number] 2.16.840.1.922950.3.579.2 .1245 1955 Unknown [id number] 2.16.840.1.106268.3.579.2 .1244 1955 Unknown [id number] 2.16.840.1.834290.3.579.2 .1244 1955 Unknown [id number] 2.16.840.1.351851.3.579.2 .1244 Unknown [id number] [id number] .462 Social History Date Type Detail Facility Start: 05-03-2023 End: 11-07-2024 Former smoker [facility] Work Phone: Start: 02-05-2020 End: 06-15-2024 Tobacco smoking status Ex-smoker (finding) [facility] Start: 1955 Sex Assigned At Female [facility] Start: 05-11-2021 Tobacco smoking stat us MEIS Unknown if ever smoked [facility] End: 06-14-1994 History of tobacco use Current smoker [facility] Work Phone: End: 06-14-1994 History of tobacco use Cigarette Smoker [facility] Work Phone: Start: 05-03-2023 End: 06-14-2024 Tobacco use and exposure Smokeless tobacco non-user [facility] Work Phone: Start: 09-29-2023 End: 03-14-2025 Alcohol intake Lifetime non-drinker (finding) [facility] Work Phone: Start: 05-03-2023 End: 11-07-2024 Social connection and isolation panel [facility] Work Phone: Start: 06-26-2022 Frequency of Communication with Friends and Family Not on file [facility] Are you now , , , , never or living with a partner? [facility] Work Phone: Start: 1955 [facility] Start: 09-19-2023 End: 11-07-2024 Exposure to SARS-CoV-2 (event) Not sure [facility] Work Phone: Sexual O[facility] Start: 01-24-2019 Sex Female (finding) [facility] NEGATED: Highlighted row - [facility] Work Phone: Functional Status Date Assessment Result Facility 03-14-2025 Patient Health Questionnaire 2 item (PHQ-2) [Reported] [facility] 11-21-2024 Functional Status Room check performed [facility] 11-21-2024 Functional Status Single level [facility] 11-21-2024 Functional Status Independent Diya Barrett [facility] 11-21-2024 [facility] Functional Status Diya Barrett [facility] 11-20-2024 Functional Status Diya Barrett [facility] 11-20-2024 Functional Status Diya Barrett [facility] 11-20-2024 Functional Status Diya Barrett [facility] 11-20-2024 Functional Status Maintained Diya Barrett [facility] 06-15-2024 Functional Status Sensory Deficits None [facility] NEGATED: Highlighted row Functional performance Functional status health issues are not documented Disease [facility] Work Phone: Mental Status Date Assessment Result Facility 11-21-2024 Mental Status Oriented x 4 [facility] 11-20-2024 Mental Status [facility] 11-20-2024 Mental Status [facility] 11-20-2024 Mental Status [facility] NEGATED: Highlighted row Cognitive function [Interpretation] Cognitive status health issues are not documented Disease [facility] Work Phone: Clinical Notes 05-06-2022 to 03-14-2025 Assessment & Plan Note - Peggy Miguel MD - 03/14/2025 9:30 AM EDTAssessment & Plan Note - Peggy Miguel MD - 03/14/2025 9:30 AM Yasir Miguel MD - 03/14/2025 9:30 AM EDT Note Date & Type Note Facility 03-14-2025 Evaluation + Plan note Associated Problem(s): Rheumatoid arthritis involving multiple sites with positive rheumatoid factor (Multi) Doing well with minimal symptoms on MARYANN inhibitor (xeljanz). No signs of arthritis progression on exam. Patient to continue medications for relief of symptoms and will continue to monitor usage and monitor for any untoward effects. Encourage mobility and exercise to help range of motion with joints. A healthy diet to maintain ideal weight helps overall joint pain. Labs reviewed with patient. Stable. Recheck lab next visit Orders: Follow Up In Rheumatology; Future CBC and Auto Differential; Future Comprehensive Metabolic Panel; Future C-Reactive Protein; Future Sedimentation Rate; Future Follow Up In Rheumatology [facility] Work Phone: 03-14-2025 Evaluation + Plan note Associated Problem(s): Long-term current use of tofacitinib Pt is on immunosuppressive medication to control disease. No signs of worrisome infections since last seen No signs of leukopenia that would increase risk. Recommend that vaccinations be kept up to date to minimize risk Orders: Follow Up In Rheumatology [facility] Work Phone: 03-14-2025 Evaluation + Plan note Associated Problem(s): Immunosuppression due to drug therapy Pt is on immunosuppressive medication to control disease. No signs of worrisome infections since last seen No signs of leukopenia that would increase risk. Recommend that vaccinations be kept up to date to minimize risk Orders: Follow Up In Rheumatology [facility] Work Phone: 03-14-2025 History of Present illness Narrative Images from the original note were not included. [facility] RHEUMATOLOGY AND INTERNAL MEDICINE RHEUMATOLOGY PROGRESS NOTE Alyce Pena 69 y.o. female : 1955 PCP: Loren Green, 03/14/25 Chief Complaint Patient presents with Rheumatoid Arthritis SUBJECTIVE Patient reports she is doing well. Has minimal pain. Since last seen, did have her R hip replaced. Still with some numbness along the lateral aspect of leg but patient is pleased that she is walking better and needs no cane/walker. Otherwise, healthwise, no other issues Tolerating medications Records since last seen reviewed in [facility] Record Patient's active problems include the following: has Hypertension; Idiopathic thrombocytopenic purpura (Multi); Long-term current use of tofacitinib; Rheumatoid arthritis involving multiple sites with positive rheumatoid factor (Multi); Immunosuppression due to drug therapy; Mixed hyperlipidemia; and Primary osteoarthritis of right hip on their problem list. Reviewed: Medical History[1] Medications Ordered Prior to Encounter[2] RX Allergies[3] Social History[4] Review of Systems Constitutional: Negative for fatigue and fever. HENT: Negative. Eyes: Negative. Respiratory: Negative for cough and shortness of breath. Cardiovascular: Negative for leg swelling. Gastrointestinal: Negative. Endocrine: Negative. Genitourinary: Negative. Musculoskeletal: Positive for arthralgias. Negative for back pain, gait problem, joint swelling and myalgias. Skin: Negative for color change and rash. Neurological: Negative for weakness and numbness. Psychiatric/Behavioral: Negative. PHYSICAL EXAM BP 101/61 Pulse 69 Temp 36.1 C (97 F) Ht 1.575 m (5' 2) Wt 61.4 kg (135 lb 6.4 oz) SpO2 97% BMI 24.76 kg/m Depression: Not at risk (03/14/2025) PHQ-2 PHQ-2 Score: 0 Physical Exam Vitals reviewed. Constitutional: General: She is not in acute distress. Appearance: Normal appearance. HENT: Head: Normocephalic and atraumatic. Eyes: General: No scleral icterus. Extraocular Movements: Extraocular movements intact. Conjunctiva/sclera: Conjunctivae normal. Pupils: Pupils are equal, round, and reactive to light. Pulmonary: Effort: Pulmonary effort is normal. No respiratory distress. Musculoskeletal: General: No swelling, tenderness or deformity. Cervical back: Normal range of motion and neck supple. No tenderness. Right lower leg: No edema. Left lower leg: No edema. Comments: No synovitis of examined joints S/P B CARLOS Skin: Coloration: Skin is not pale. Findings: No bruising, erythema or rash. Neurological: General: No focal deficit present. Mental Status: She is alert and oriented to person, place, and time. Mental status is at baseline. Gait: Gait normal. Psychiatric: Mood and Affect: Mood normal. Health Maintenance Topic Date Due Medicare Annual Wellness Visit (AWV) Never done Hepatitis C Screening Never done DTaP/Tdap/Td Vaccines (1 - Tdap) Never done RSV High Risk: (Elderly (60+) or Population) (1 - Risk 60-74 years 1-dose series) Never done MMR Vaccines (1 of 1 - Standard series) Never done Zoster Vaccines (1 of 2) 08/11/2015 Bone Density Scan Never done Mammogram 12/20/2020 Pneumococcal Vaccine (2 of 2 - PCV) 03/17/2022 COVID-19 Vaccine ( season) 2024 Influenza Vaccine (1) 04/01/2025 Colorectal Cancer Screening 05/27/2026 Diabetes Screening 05/29/2027 Lipid Panel 05/29/2029 HIB Vaccines Aged Out Hepatitis B Vaccines Aged Out IPV Vaccines Aged Out Hepatitis A Vaccines Aged Out Meningococcal Vaccine Aged Out Rotavirus Vaccines Aged Out HPV Vaccines Aged Out Irritable Bowel Syndrome Discontinued Assessment/plan Assessment & Plan Rheumatoid arthritis involving multiple sites with positive rheumatoid factor (Multi) Doing well with minimal symptoms on MARYANN inhibitor (xeljanz). No signs of arthritis progression on exam. Patient to continue medications for relief of symptoms and will continue to monitor usage and monitor for any untoward effects. Encourage mobility and exercise to help range of motion with joints. A healthy diet to maintain ideal weight helps overall joint pain. Labs reviewed with patient. Stable. Recheck lab next visit Orders: Follow Up In Rheumatology; Future CBC and Auto Differential; Future Comprehensive Metabolic Panel; Future C-Reactive Protein; Future Sedimentation Rate; Future Follow Up In Rheumatology Long-term current use of tofacitinib Immunosuppression due to drug therapy Pt is on immunosuppressive medication to control disease. No signs of worrisome infections since last seen No signs of leukopenia that would increase risk. Recommend that vaccinations be kept up to date to minimize risk Orders: Follow Up In Rheumatology Follow up: ___4__months, sooner if change in symptoms Immunization History Administered Date(s) Administered Flu vaccine (IIV4), preservative free *Check age/dose* 06/13/2017, 04/26/2018, 05/16/2019, 04/14/2020 Flu vaccine, quadrivalent, high-dose, preservative free, age 65y+ (FLUZONE) 05/04/2021, 05/06/2022, 05/04/2023 Flu vaccine, trivalent, preservative free, HIGH-DOSE, age 65y+ (Fluzone) 05/04/2021, 05/10/2024 Flu vaccine, trivalent, preservative free, age 6 months and greater (Fluarix/Fluzone/Flulaval) 04/25/2012, 06/13/2013, 06/18/2014, 04/30/2015, 05/25/2016 Influenza, Unspecified 05/06/2022 Influenza, injectable, quadrivalent 05/01/2018, 05/16/2019, 05/23/2020 Moderna SARS-CoV-2 Vaccination 03/25/2021, 04/22/2021, 10/14/2021, 03/25/2022 Pneumococcal polysaccharide vaccine, 23-valent, age 2 years and older (PNEUMOVAX 23) 03/17/2021 Zoster, live 06/16/2015 Peggy Miguel MD No visits with results within 1 Week(s) from this visit. Latest known visit with results is: Orders Only on 02/06/2025 Component Date Value Ref Range Status WHITE BLOOD CELL COUNT 02/25/2025 5.4 3.8 - 10.8 Thousand/uL Final RED BLOOD CELL COUNT 02/25/2025 4.32 3.80 - 5.10 Million/uL Final HEMOGLOBIN 02/25/2025 13.1 11.7 - 15.5 g/dL Final HEMATOCRIT 02/25/2025 41.8 35.0 - 45.0 % Final MCV 02/25/2025 96.8 80.0 - 100.0 fL Final MCH 02/25/2025 30.3 27.0 - 33.0 pg Final MCHC 02/25/2025 31.3 (L) 32.0 - 36.0 g/dL Final Comment: For adults, a slight decrease in the calculated MCHC value (in the range of 30 to 32 g/dL) is most likely not clinically significant; however, it should be interpreted with caution in correlation with other red cell parameters and the patient's clinical condition. RDW 02/25/2025 13.4 11.0 - 15.0 % Final PLATELET COUNT 02/25/2025 227 140 - 400 Thousand/uL Final MPV 02/25/2025 10.3 7.5 - 12.5 fL Final ABSOLUTE NEUTROPHILS 02/25/2025 2,776 1,500 - 7,800 cells/uL Final ABSOLUTE LYMPHOCYTES 02/25/2025 1,706 850 - 3,900 cells/uL Final ABSOLUTE MONOCYTES 02/25/2025 589 200 - 950 cells/uL Final ABSOLUTE EOSINOPHILS 02/25/2025 270 15 - 500 cells/uL Final ABSOLUTE BASOPHILS 02/25/2025 59 0 - 200 cells/uL Final NEUTROPHILS 02/25/2025 51.4 % Final LYMPHOCYTES 02/25/2025 31.6 % Final MONOCYTES 02/25/2025 10.9 % Final EOSINOPHILS 02/25/2025 5.0 % Final BASOPHILS 02/25/2025 1.1 % Final GLUCOSE 02/25/2025 82 65 - 99 mg/dL Final Comment: Fasting reference interval UREA NITROGEN (BUN) 02/25/2025 15 7 - 25 mg/dL Final CREATININE 02/25/2025 0.79 0.50 - 1.05 mg/dL Final EGFR 02/25/2025 81 > OR = 60 mL/min/1.73m2 Final SODIUM 02/25/2025 137 135 - 146 mmol/L Final POTASSIUM 02/25/2025 4.3 3.5 - 5.3 mmol/L Final CHLORIDE 02/25/2025 103 98 - 110 mmol/L Final CARBON DIOXIDE 02/25/2025 26 20 - 32 mmol/L Final ELECTROLYTE BALANCE 02/25/2025 8 7 - 17 mmol/L (calc) Final CALCIUM 02/25/2025 9.9 8.6 - 10.4 mg/dL Final PROTEIN, TOTAL 02/25/2025 7.3 6.1 - 8.1 g/dL Final ALBUMIN 02/25/2025 4.4 3.6 - 5.1 g/dL Final BILIRUBIN, TOTAL 02/25/2025 0.3 0.2 - 1.2 mg/dL Final ALKALINE PHOSPHATASE 02/25/2025 68 37 - 153 U/L Final AST 02/25/2025 23 10 - 35 U/L Final ALT 02/25/2025 23 6 - 29 U/L Final C-REACTIVE PROTEIN 02/25/2025 <3.0 <8.0 mg/L Final SED RATE BY MODIFIED WESTERGREN 02/25/2025 11 < OR = 30 mm/h Final [1] Past Medical History: Diagnosis Date Consumes 4 to 5 servings of caffeine per day Personal history of colonic polyps 04/26/2016 Right wrist tendinitis 01/26/2018 Right wrist tendinitis Unspecified cataract Cataracts, bilateral [2] Current Outpatient Medications on File Prior to Visit Medication Sig Dispense Refill cholecalciferol (Vitamin D-3) 25 MCG (1000 UT) tablet Take 1 tablet (25 mcg) by mouth once daily. coenzyme Q-10 100 mg capsule Take 1 capsule (100 mg) by mouth once daily. losartan (Cozaar) 50 mg tablet Take 1 tablet (50 mg) by mouth once daily. 90 tablet 3 omega 7-xaq-trw-fish oil (Fish OiL) 100-160-1,000 mg capsule Take 2 capsules by mouth once daily. red yeast rice 600 mg tablet Take 2 tablets by mouth 2 times a day. tofacitinib ER (Xeljanz XR) 11 mg tablet extended release 24 hr TAKE ONE (1) TABLET BY MOUTH ONCE DAILY 30 tablet 11 No current facility-administered medications on file prior to visit. [3] Allergies Allergen Reactions Ciprofloxacin Unknown Hydrocodone-Acetaminophen Other Did not like the way it made her feel Nitrofurantoin Monohyd/M-Cryst Unknown Nsaids (Non-Steroidal Anti-Inflammatory Drug) Unknown Pravastatin Myalgia Sulfa (Sulfonamide Antibiotics) Unknown Sulfamethoxazole-Trimethoprim Unknown Rosuvastatin Rash [4] Social History Tobacco Use Smoking status: Former Current packs/day: 0.00 Types: Cigarettes Quit date: 06/14/1994 Years since quittin.7 Smokeless tobacco: Never Vaping Use Vaping status: Never Used Substance Use Topics Alcohol use: Never Drug use: Never documented in this encounter [facility] Work Phone: 03-14-2025 Instructions Peggy Miguel MD - 03/14/2025 9:30 AM EDT It was a pleasure to see you today Please call if your symptoms worsen Please review your summary for education and reminders. Follow up at your next appointment. If you had labs/xrays done today, you will be able to view on TaskBeat. We will contact you when the results are reviewed for further discussion. Please note that you may receive your results before I have had a chance to review. Please know I will be contacting you for discussion Homegoing instructions for all patient A healthy lifestyle helps chronic diseases These are all the goals you should strive to improve your overall health Blood pressure <130/85 BMI of <30 or waist circumference that is 1/2 of your height Fasting blood sugar <107 (if you are diabetic, aim for an A1c <6.4%_ LDL cholesterol <130 Avoid smoking Manage your stress Get your preventive exams Get your immunizations What else for RA? Any type of exercise is better than nothing. Whether you do cardio, walking, lift weights or yoga, all can help in improving physical function. Occupational and physical therapy can improve physical function and decrease pain by providing tools and techniques to improve your day. We can do a referral if you haven't seen one yet Braces and splints for affected joints can also help If your gait is affected, strongly recommend assistive devices like canes or walkers. We don't want to risk injuries from falls. Can Diet help? Consider the Mediterranean diet There are some foods that are considered inflammatory Look up anti-inflammatory diets for a list of foods to avoid. No dietary supplements help unfortunately. Work on getting to a normal weight/BMI. This will lessen the stress on your joints. What else? Acupuncture Massage therapy Apply heat to affected joints We do not recommend medicare insurance specialist as it has not been shown to help in RA. If you smoke, stop (From CR guidelines for exercise, rehab and diet in RA) Common Emergency Awareness Tips IS IT A STROKE? Act FAST and Check for these signs: FACE Does the face look uneven? ARM Does one arm drift down? SPEECH Does their speech sound strange? TIME Call at any sign of stroke Heart Attack Signs Chest discomfort: Most heart attacks involve discomfort in the center of the chest and lasts more than a few minutes, or goes away and comes back. It can feel like uncomfortable pressure, squeezing, fullness or pain. Discomfort in upper body: Symptoms can include pain or discomfort in one or both arms, back, neck, jaw or stomach. Shortness of breath: With or without discomfort. Other signs: Breaking out in a cold sweat, nausea, or lightheaded. Remember, MINUTES DO MATTER. If you experience any of these heart attack warning signs, call to get immediate medical attention! documented in this encounter [facility] Work Phone: 03-14-2025 Miscellaneous Notes Associated Problem(s): Rheumatoid arthritis involving multiple sites with positive rheumatoid factor (Multi) Doing well with minimal symptoms on MARYANN inhibitor (xeljanz). No signs of arthritis progression on exam. Patient to continue medications for relief of symptoms and will continue to monitor usage and monitor for any untoward effects. Encourage mobility and exercise to help range of motion with joints. A healthy diet to maintain ideal weight helps overall joint pain. Labs reviewed with patient. Stable. Recheck lab next visit Orders: Follow Up In Rheumatology; Future CBC and Auto Differential; Future Comprehensive Metabolic Panel; Future C-Reactive Protein; Future Sedimentation Rate; Future Follow Up In Rheumatology Associated Problem(s): Long-term current use of tofacitinib Pt is on immunosuppressive medication to control disease. No signs of worrisome infections since last seen No signs of leukopenia that would increase risk. Recommend that vaccinations be kept up to date to minimize risk Orders: Follow Up In Rheumatology Associated Problem(s): Immunosuppression due to drug therapy Pt is on immunosuppressive medication to control disease. No signs of worrisome infections since last seen No signs of leukopenia that would increase risk. Recommend that vaccinations be kept up to date to minimize risk Orders: Follow Up In Rheumatology documented in this encounter [facility] Work Phone: 12-06-2024 Note Exam Date Time Procedure Performing Provider Status 12/06/24 9:57 AM VL Venous US/Doppler One Leg (for DVT). OTY LORD MD; Auth (Verified) [facility]04-23-2025 Note Discharge Instructions Thank you for allowing [facility] to assist you with your healthcare needs. The following is importantdischarge information regarding your hospital visit. Your Care Team Andrew Rosa MD [facility] Your Diagnosis HTN (hypertension) Rheumatoid arthritis S/P total right hip arthroplasty What to do next Scheduled Follow-Up Appointments Appointment Type When With Where Contact Information StatusPC Nurse Lab 12/19/2024 08:00 AM EDT [address] [address] Confirmed PC OV 12/27/2024 08:00 AM EDT [facility] [address] [address] Confirmed PC Wellness Medicare 05/14/2025 09:30 AM EDT [facility] [address] [address] Confirmed Follow Up Appointments Follow Up with [facility] When:11/23/2024 10:30 AM EDT Where:[address] [place] [phone] Additional Information: This is your first physical therapy appointment. Follow- up as scheduled. Follow Up with CHAPIN REVELES PA-C, Orthopedic When:12/03/2024 09:30 AM EDT Where:[facility] [address] [facility] [place] [address]- Additional Information: This is your post-op appointment. Follow-up as scheduled. Allergies Bactrim Swelling Cipro Muscle pain Crestor Flushed complexion Macrobid Tendonitis pravastatin Cramp in calf sulfa drug Muscle pain Medications Please ask your primary doctor or pharmacist before taking any other medication not listed, including over the counter drugs, herbal medications, vitamins and or supplements as they may interact withyour home medications. What How Much When Why Instructions Last Dose New acetaminophen (Tylenol) 1,000 Milligram by mouth Three (3) times a day not to exceed 3000 mg/ day New aspirin 81 Milligram by mouth Twice daily with meals Duration: 30 Days Take 81 mg aspirin twice daily with food for 4 weeks postoperatively for DVT prophylaxis. New docusate-senna (Senokot S 50 mg-8.6 mg oral tablet) 2 tab(s) by mouth Two (2) times a day Duration: 3 Days Take until first bowel movement, then as needed Pickup at [facility] New famotidine (Pepcid 20 mg oral tablet) 1 tab(s) by mouth Once a day Pickup at [facility] New meloxicam (Mobic 7.5 mg oral tablet) 1 tab(s) by mouth Twice daily with meals Duration: 30 Days Do not take any other nonsteroidal anti-inflammatories while on meloxicam/ Mobic. Pickup at [facility] New oxyCODONE (oxyCODONE 5 mg oral tablet ( IMMEDIATE release )) See instructions S/P total right hip arthroplasty 1-2 tab(s) Oral q4h, As needed for as needed for pain Pickup at [facility] Unchanged calcium carbonate (calcium (as carbonate) 600 mg oral tablet) 1 tab(s) by mouth Twice daily with meals Unchanged cholecalciferol (Vitamin D3) 1,000 unit(s) by mouth Every day Unchanged herbal/ nutritional product (Red Yeast Rice 600 mg oral capsule) 1,200 Milligram by mouth Every day Unchanged losartan (losartan 50 mg oral tablet) 1 tab(s) by mouth Once a day Unchanged omega-3 polyunsaturated fatty acids (Fish Oil 1000 mg oral capsule) 1 cap by mouth Once a day Unchanged ubiquinone (Co Q-10 100 mg oral capsule) 1 cap by mouth Every day Pharmacy Information [facility]: [address] [place], [place] [id number] [phone] What How Much When Comments Stop Taking tofacitinib (Xeljanz XR 11 mg oral tablet, extended release) 1 tab(s) by mouth Once a day Please take this list to your next doctor s visit. Bring all medications you take, including over the counter medications, herbals and other supplements with you to your doctor s visit. Patients and families are reminded to discard old lists and to update any records with all medication providers or retail pharmacies. Education Materials [facility] Post-operative Instructions PLEASE FOLLOW [facility] POST-OP INSTRUCTIONS GIVEN WATCH FOR SIGNS OF INFECTION: call the office ([phone]) if experencing any of the following: (Usually appears 36-48 hours after surgery) Increased temperature (101 degrees Fahrenheit or higher) Redness or swelling Increased uncontrolled pain Foul odor or drainage Calf discomfort Significant swelling Or if having any chest pain, shortness of breath, or difficulty breathing or swallowing call the office or go the nearest Emergency Room. If you have any questions, please call your doctor at the number listed on your follow up instructions. Form: 338A ([id number]) R: 12/05 Additional Information VACCINATE! IT SAVES LIVES! Members of the community who have not yet received the COVID-19 vaccine and would like to receive it can visit one of [facility] vaccine clinics. There are many vaccine clinic locations within the [facility]. For locations and available times, please visit [email or web address].[email or web address] It is important to note that some COVID mobile vaccine clinics are held outdoors and may be canceled in rainy or stormy conditions. To learn more about pediatric vaccinations (ages 5-11), we invite you to visit the [facility] webpage. [email or web address]/[email or web address] [email or web address] learn more about the COVID-19 vaccine, we invite you to visit the CDC website for a list of frequently asked questions.https://www.cdc.gov/coronavirus/2019-ncov/vaccines/faq.html [facility] Patient Portal Access Instructions: Stay connected with your healthcare team and access your personal medical information anytime with the [facility] Patient Portal. Please follow the directions below to create your [facility] account: 1.Access the email account you provided upon registration to the hospital/physician office.2.Look for an invitation email from [facility].3.Open the email and access the invitation link: AcceptInvitation to [facility].4.Fill in the required العراقي to create your account. To access your account, visit [employer]. Click the blue button labeled Access Patient Portal and then log in with the username and password that you created in the steps above. You will be able to view your test results, lab results, a summary of your visits, upcoming appointments and more. There is also a convenient messaging option where you can send secure messages to your p [email or web address]. In addition, you will have the ability to download any documents or summaries to your computer and/or send the information securely to a physician. Remember that your healthcare information is confidential, so carefully consider who you will allowto register on the [facility] Patient Portal for access to your information. You can also access the [facility] Patient Portal on the [employer] zach. Simply click on Patient Portal and then log into your account. If you would like to receive a full copy of your medical records, please contact the [facility] Medical Records Department by calling [phone], Tuesday through Tuesday between 8 a.m. and 4:30 p.m. HOW TO SAFELY DISPOSE OF PRESCRIPTION MEDICATIONS Please use one of the following methods to safely dispose of your unused medications. 1.Use a drug disposal kit: the drug disposal pouch allows you to safely discard your old and unuseddrugs. Ask your nurse to give you one when you are discharged.2.Visit a local take-back location: Many local pharmacies and police departments have programs that collect old and unwanted prescriptiondrugs. Call your local pharmacy or go to http://bit.Varthana/5X7Hd0v to find one close to you.3.Make use of household items: Use cat litter or old coffee grounds to dispose medications if other options arenot available. Mix your drugs with these household products, seal them in an airtight container andthrow it into the garbage. Call [facility]: [phone] to be sure your drugs can be disposed of in this way. Some medicines may require a different approach.4.Never flush your medications down the toilet. IF YOU HAVE BEEN PRESCRIBED AN OPIOID FOR PAIN If you have been prescribed an opioid (such as hydrocodone, oxycodone or morphine), it is critical to understand the possible side effects and risks of opioid pain medications. Even when taken as directed, opioids can have several side effects including: Tolerance, meaning you might need to take more of a medication for the same pain relief. Nausea, vomiting and/or constipation. Sleepiness, dizziness, dry mouth, confusion, depression or itching. Physical dependence, meaning you have withdrawal symptoms when a medication is stopped, can develop within a few days. KNOW YOUR RESPONSIBILITIES It is important to know exactly how much and how often to take the opioid pain medications you are prescribed. Never take opioids in higher amounts or more often than prescribed. Do not combine opioids with alcohol or other drugs that cause drowsiness, such as benzodiazepines, also known as benzos, including diazepam and alprazolam, muscle relaxants or sleep aids. Never sell or share prescription opioids. This is illegal. Store opioids in a secure place and out of reach of others (including children, family, friends and visitors). The last page of this document has been signed and retained as a CHART COPY. Signatures Patient Education Materials [address] [place] [address] Post-op Instruction 03/2017 (46659) Medication Leaflets My discharge plan and instructions have been reviewed and explained to me and IJEAN CONSUELO E understand my current condition and have read and understand these discharge instructions. I have received a written copy of the plan/instructions. If I have questions, I am aware that I should contact my doctor. 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: Date/Time: Relationship to Patient: Witness Name/Signature: Date/Time: [facility]04-23-2025 Hospital Discharge instructions Patient Education 11/21/2024 08:08:31 5 - [facility] Post-op Instruction 03/2017 (17813) [facility] Post-operative Instructions PLEASE FOLLOW [facility] POST-OP INSTRUCTIONS GIVEN WATCH FOR SIGNS OF INFECTION: call the office ([phone]) if experencing any of the following: (Usually appears 36-48 hours after surgery) Increased temperature (101 degrees Fahrenheit or higher) Redness or swelling Increased uncontrolled pain Foul odor or drainage Calf discomfort Significant swelling Or if having any chest pain, shortness of breath, or difficulty breathing or swallowing call the office or go the nearest Emergency Room. If you have any questions, please call your doctor at the number listed on your follow up instructions. Form: 338A [id number]) R: 12/05 Follow Up Care 10/08/2024 11:10:25 With:[facility] Address: [address] [place], [place] [address] [phone] When:11/23/2024 10:30:00 Comments:This is your first physical therapy appointment. Follow-up as scheduled. With:CHAPIN REVELES PA-C, Orthopedic Address: [facility] [address] [place], [place] [address] [address]- When:12/03/2024 09:30:00 Comments:This is your post-op appointment. Follow-up as scheduled. [facility] 04-23-2025 Pastoral care Progress note Pastoral Care Note Entered On: 11/21/2024 9:38 EDT Performed On: 11/21/2024 9:37 EDT by Chapin Groves Pastoral Jeancarlos Type of Pastoral Visit : Initial visit Spiritual Care Visit Initiated by : Consult/Referral Spiritual Care Reason for Visit : General Pastoral Care Referral From : Patient Spiritual Assessment : Spiritual, not Anabaptism, Coping well with illness, Hopeful, Positive Image of God Spiritual Care Emotional Assessment : Accepting of Situation, Optimistic, Has Support Network Spiritual Care Intervention : Affirmation, Explore Emotional Needs Spiritual Outcomes : Expresses Confidence, Set realistic goals Spiritual Plan of Care : No Further Action Pastoral Care Comments : patient states that she is doing well, has good support, others are praying for her, and that she should be able to go home; pt welcomes presence and prayer but admits no needs Pastoral Care Visit Length : 5 minute(s) Chapin Groves - 11/21/2024 9:37 EDT Digitally Signed by Chapin Groves on 11/21/2024 09:37 AM [facility]04-23-2025 Note Date of Service November 21, 2024 Subjective The patient was sitting in bed upon examination. Patient denies any chest pain, shortness of breath, dizziness, lightheadedness, nausea or vomiting, or calf pain. No adverse overnight events. Pain has been controlled on medications. Patient overall is doing well this morning. No complaints today. Patient has held her Xeljanz prior to surgery and is holding off 2 weeks postoperatively and will resume once healing is appropriate. Objective Vitals and Measurements T: 36.5 C (Oral) TMIN: 36.1 C (Oral) TMAX: 36.6 C (Temporal Artery) HR: 66 (Monitored) RR: 16 BP: 117/76 SpO2: 97% HT: 157.4 cm WT: 63.6 kg BMI: 25.67 Intake and Output 7AM Yesterday to 7AM Today Intake and Output (Last 24 hours) Intake Administration Information 1231.67 Supplement Intake 240.00 Output Intra-Op EBL 250.00 Urine Count 3.00 Total Summary Total Intake 1471.67 Total Output 250.00 Fluid Balance 1221.67 Physical Exam Vital signs stable, afebrile Right hip is soft and supple SCD's and RUIZ Hose in place bilaterally Patient is able to plantarflex and dorsiflex actively Sensation is intact to saphenous, sural, superficial and deep peroneal, and tibial distribution Dressing is clean dry and intact Negative signs and symptoms of DVT, negative Homans bilaterally Weight Dosing Weight: 63.6 kg (11/20/24) Dosing Weight: 63.6 kg (11/20/24) Medications Medications (22) Active Scheduled: (10) acetaminophen 500 mg Tablet 1,000 mg 2 tab(s), Oral, q8h aspirin 81 mg EC 81 mg 1 tab(s), Oral, BIDM docusate sodium 100 mg Capsule 100 mg 1 cap(s), Oral, BID docusate-senna (Senokot S) 50 mg-8.6 mg Tablet 2 tab(s), Oral, BID famotidine 20 mg tablet 20 mg 1 tab(s), Oral, qDay losartan 50 mg tablet 50 mg 1 tab(s), Oral, qDay magnesium hydroxide 8% Suspension 30 mL UD 30 mL, Oral, Daily meloxicam 7.5 mg tablet 7.5 mg 1 tab(s), Oral, BIDM multivitamin (Myadec) with minerals Therapeutic Multiple Vitamins with Minerals Tablet 1 tab(s), Oral, qDayM tofacitinib 11 mg ER tablet 11 mg 1 tab(s), Oral, qDay Continuous: (2) Lactated Ringers 1,000 mL 1,000 mL, Intravenous, 20 mL/hr Lactated Ringers 1000 mL 1,000 mL, Intravenous, 20 mL/hr PRN: (10) acetaminophen 325 mg Tablet 650 mg 2 tab(s), Oral, q4h diphenhydramine 25 mg tablet 25 mg 1 tab(s), Oral, q6h diphenhyDRAMINE 50 mg/mL (1 mL) INJ 25 mg 0.5 mL, IV Push, q6h ketorolac 30 mg/mL (1 mL) vial 15 mg 0.5 mL, IV Push, q6h morphine 2 mg/mL 1 mL syringe 2 mg 1 mL, IV Push, q1h ondansetron 2 mg/ 1 mL 2 mL INJ 4 mg 2 mL, IV Push, q8h oxycodone 5 mg tablet (immediate release) 5 mg 1 tab(s), Oral, q4h oxycodone 5 mg tablet (immediate release) 10 mg 2 tab(s), Oral, q4h prochlorperazine 10 mg/2 mL vial 5 mg 1 mL, IV Push, q6h sodium biphosphate-sodium phosphate 19 gm-7 gm Enema 133 mL, Rectal, qDay Lab Results 04/23 05:48 WBC: 15.3 H Hgb: 12.4 Hct: 36.5 Platelet: 187 Neutrophil %: 78.7 H Glucose Level: 112 Sodium Level: 136 Potassium Level: 4.6 BUN: 26 H Creatinine Lvl (s): 0.72 EKG No qualifying data available. Assessment/Plan 1. Status post right direct anterior total hip arthroplasty postop day #1 2. Continue pain medications: Tylenol, meloxicam, oxycodone. Do not take any other nonsteroidal anti-inflammatories while on meloxicam/Mobic. 3. DVT prophylaxis: Take 81 mg aspirin twice daily with food for 4 weeks postoperatively for DVT prophylaxis. Patient denies past history of DVT or pulmonary embolism. 4. Physical therapy: Weightbearing as tolerated with walker. Continue anterior hip precautions 5. H & H: 12.4/36.5, asymptomatic. Postoperative drop in hemoglobin from surgery without intraoperative complications. At this time there is no need for treatment. 6. Reactive Leukocytosis: currently 15.3, afebrile. Patient did receive decadron intra-operatively.No clinical signs of infection. 7. Encouraged incentive spirometry 8. Continue postoperative medical management per medicine 9. Postoperative constipation: Discussed with the patient to continue stool softener until first bowel movement. After first bowel movement patient can then take as needed. They were also instructed that if they are not able to have a bowel movement within 3 days they are to contact our office for change of medication. Patient voiced understanding. 10. Disposition: Plan will be for discharge home today as long as patient remains medically stable,tolerates therapy, and pain is adequately controlled. She will continue therapy while in the hospital. She has outpatient physical therapy established. Patient will follow-up per postoperative instructions. She would like her medications E scribed to drug [employer] in [facility]. Upon discharge she will contact our office with any concerns or questions. I have reviewed the [place] Automated Rx Reporting System (OARRS) report for this patient for refill pattern and other prescriber involvement as part of the appropriate surveillance for the provision ofacute and chronic controlled medications. The report was requested and reviewed on the date of thisentry, and was considered in the prescribing process This dictation was created using voice recognition software. Phonetic and/or grammatical errors mayexist. Digitally Signed by CHAPIN REVELES PA-C on 11/21/2024 08:08 AM [facility]04-22-2025 Note* Exam Date Time Procedure Performing Provider Status 11/20/24 2:18 PM XR Hip Right w/Pelvis 4 Views NEERAJ KHAN DO; Auth (Verified) [id number] ORIGINAL EXAMINATION: 1 x-ray view of the pelvis and 2 x-ray views of the right hip. COMPARISON: None. HISTORY: ORDERING SYSTEM PROVIDED HISTORY: Reason for Exam: Status Post Arthroplasty FINDINGS: Status post right hip arthroplasty. Hardware appears intact and in appropriate alignment. No evidence of periprosthetic fracture. Visualized pelvic ring is intact. Left hip arthroplasty is unchanged. SI joints are symmetric. 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 Soft tissue gas along the right hip joint is likely postoperative in etiology. IMPRESSION: Expected postsurgical changes of right hip arthroplasty. Interpreted by: Neeraj Khan Preliminary Report By: Neeraj Khan Electronically signed By Neeraj Khan Dictated Date: 11/20/2024 2:50:47 PM Prelim Date: 11/20/2024 2:52:23 PM Sign Date: 11/20/2024 2:52:23 PM Ordering Provider: ANDREW ROSA [facility]04-22-2025 Note* Exam Date Time Procedure Performing Provider Status 11/20/24 2:16 PM XR Fluoro 1-2 Hrs Tech Time Modified [id number] ORIGINAL Images acquired, not reported on this accession number. [facility]04-22-2025 Anesthesiology Consult note Patient: ALYCE PENA Age: 69 years Sex: Female : 1955 Associated Diagnoses: None Author: CARLOS HARRIS APRN-INSIDE SALES DIRECTOR Preoperative Information Time of last food or liquid consumption: 11/20/2024 00:00:00 Anesthesia history Patient's history: negative. Family's history: negative. Review of Systems Ear/Nose/Mouth/Throat: Negative. Respiratory: Negative. Cardiovascular: htn. Gastrointestinal: obese. Genitourinary: Negative. Endocrine: Negative. Musculoskeletal: OA. Integumentary: Negative. Neurologic: Negative. Health Status Allergies: Allergic Reactions (Selected) Severity Not Documented Bactrim- Swelling. Cipro- Muscle pain. Crestor- Flushed complexion. Macrobid- Tendonitis. Pravastatin- Cramp in calf. Sulfa drug- Muscle pain., Allergies (6) ActiveSeverityReaction CiproMuscle pain sulfa drugMuscle pain BactrimSwelling MacrobidTendonitis CrestorFlushed complexion pravastatinCramp in calf Current medications: (Selected) Inpatient Medications Ordered Betadine 10% topical solution: 17.5 mL, mL/hr, Topical (INT), PREOP pharm Bicitra: 30 mL, Oral, PREOP pharm Bolus LR 1000 mL: 1,000 mL, IV Bolus, Once Kefzol: 2 g, IV Piggyback, q8hr LR 1000 mL: 100 mL/hr, Intravenous LR 1000 mL: 20 mL/hr, Intravenous LR 1000 mL: 20 mL/hr, Intravenous LR 1000 mL: 20 mL/hr, Intravenous, Stop: 11/21/24 17:59:00 EDT Naropin 100 mg + Toradol 15 mg + morphine 2.5 mg + EPINEPHrine 0.3 m mg, 20 mL, mL/hr, Other,PREOP pharm Naropin 100 mg + Toradol 15 mg + morphine 2.5 mg + EPINEPHrine 0.3 m mg, 20 mL, mL/hr, Other,PREOP pharm Zofran ( PACU ): 4 mg, 2 mL, IV Push, AsDirected, PRN: Nausea/Vomiting morphine ( PACU ): 2 mg, 1 mL, IV Push, q5min, PRN: Pain, scale 4-6 tranexamic acid 1 g / 100 mL 0.7% NaCl PMX: 1 gram(s), 100 mL, 300 mL/hr, IV Piggyback, AsDirected Documented Medications Documented Co Q-10 100 mg oral capsule: 100 mg, 1 cap(s), Oral, Daily, 0 Refill(s) Fish Oil 1000 mg oral capsule: 1,000 mg, 1 cap(s), Oral, qDay, 90 cap(s), 0 Refill(s) Red Yeast Rice 600 mg oral capsule: 1,200 mg, Oral, Daily, 0 Refill(s) Vitamin D3: 1,000 unit(s), 1 tab(s), Oral, Daily, 0 Refill(s) Xeljanz XR 11 mg oral tablet, extended release: 11 mg, 1 tab(s), Oral, qDay, 30 tab(s), 0 Refill(s) calcium (as carbonate) 600 mg oral tablet: 600 mg, 1 tab(s), Oral, BIDM, 0 Refill(s) losartan 50 mg oral tablet: 50 mg, 1 tab(s), Oral, qDay, 30 tab(s), 0 Refill(s), Medications (13) Active Scheduled: (7) ceFAZolin 2 g, IV Piggyback, q8hr citric acid-sodium citrate 334 mg-500 mg/5 mL (30 mL) Tania UD 30 mL, Oral, PREOP pharm Lactated Ringers Injection 1000 mL * Bolus * 1,000 mL, IV Bolus, Once povidone iodine topical 17.5 mL, Topical (INT), PREOP pharm ropivacaine 100 mg + ketorolac 15 mg + morphine 2.5 mg + epinephrine 0.3 mg 100 mg 20 mL, Other, PREOP pharm ropivacaine 100 mg + ketorolac 15 mg + morphine 2.5 mg + epinephrine 0.3 mg 100 mg 20 mL, Other, PREOP pharm tranexamic acid PMX 1 gram(s) 100 mL, IV Piggyback, AsDirected Continuous: (4) Lactated Ringers 1000 mL 1,000 mL, Intravenous, 20 mL/hr Lactated Ringers Infusion 1000 mL 1,000 mL, Intravenous, 20 mL/hr Lactated Ringers Infusion 1000 mL 1,000 mL, Intravenous, 100 mL/hr Lactated Ringers Infusion 1000 mL 1,000 mL, Intravenous, 20 mL/hr PRN: (2) morphine 2 mg/mL 1 mL syringe 2 mg 1 mL, IV Push, q5min ondansetron 2 mg/ 1 mL 2 mL INJ 4 mg 2 mL, IV Push, AsDirected Problem list: Medical Immunodeficiency due to treatment with immunosuppressive medication / SNOMED CT 099068790 / Confirmed Menopausal and postmenopausal disorders / SNOMED CT 054268573 / Confirmed Mixed hyperlipidemia / SNOMED CT 805796037 / Confirmed Osteopenia / SNOMED CT 063211905 / Confirmed Osteopenia / SNOMED CT 719213071 / Confirmed Well adult health check / SNOMED CT 885343725 / Confirmed Screening for breast cancer / SNOMED CT 479598967 / Confirmed Medicare annual wellness visit, subsequent / SNOMED CT 133946039 / Confirmed Screening for colon cancer / SNOMED CT 578449178 / Confirmed Post-menopausal / SNOMED CT 626088546 / Confirmed Primary thrombocytopenia / SNOMED CT 259440293 / Confirmed Need for vaccination / SNOMED CT 6669644308 / Confirmed Rheumatoid arthritis / SNOMED CT 928811101 / Confirmed, Active Problems (16) HTN (hypertension) Immunodeficiency due to treatment with immunosuppressive medication Medicare annual wellness visit, subsequent Menopausal and postmenopausal disorders Mixed hyperlipidemia Need for vaccination OA (osteoarthritis) Osteopenia Osteopenia Post-menopausal Primary thrombocytopenia Rheumatoid arthritis Screening for breast cancer Screening for colon cancer TMJ (temporomandibular joint syndrome) Well adult health check Histories Past Medical History: No active or resolved past medical history items have been selected or recorded. Family History: Heart attack Mother COPD (Chronic Obstructive Pulmonary Disease) Assessment Test scale Father Procedure history: Arthroscopy of knee ([id number]). Comments: 06/15/2024 9:29 Ameena Stout RN right Injection of hip joint using fluoroscopic guidance ([id number]). Comments: 06/15/2024 9:29 Ameena Stout RN left Epidural injection of anesthetic substance, therapeutic, caudal, continuous ([id number]). Hip replacement ([id number]). Comments: 07/10/2024 13:39 Heather Duong RN left Breast ([id number]). Comments: 07/10/2024 13:41 Heather Duong RN left breast biposy, right has marker Social History: Social & Psychosocial Habits Alcohol 07/17/2024 Use: Past Substance Abuse 07/17/2024 Use: Never Tobacco 07/17/2024 Tobacco Use: Former smoker, quit more Type: Cigarettes Number of years: 20 Started at age: 20 Years Stopped at age: 40 Years Home/Environment 07/17/2024 Living situation: Home/Independent Domestic Concerns None Primary Colon Therapist: Self Lives In 1st floor bathroom, 1st floor bedroom, Single level home Current Home Treatments walker, cane, hand rails Special Services and Community Resources None Spouse Name Richie Marital Status of Patient if Patient Independent Adult: Nutrition/Health 07/17/2024 Type of diet: Regular Caffeine intake amount: 2-4 servings daily of coffee Appetite Good Eating Difficulties None Skin Breakdown/Decubitus Ulcers No Physical Examination Vital Signs 11/20/2024 12:35 EDT Heart Rate Monitored 89 bpm bpm Respiratory Rate - Anes 15 br/min br/min Systolic Blood Pressure Non-Invasive 80 mmHg mmHg Diastolic Blood Pressure Non-Invasive 58 mmHg mmHg 11/20/2024 12:30 EDT Heart Rate Monitored 89 bpm bpm Respiratory Rate - Anes 15 br/min br/min Systolic Blood Pressure Non-Invasive 96 mmHg mmHg Diastolic Blood Pressure Non-Invasive 60 mmHg mmHg 11/20/2024 12:25 EDT Heart Rate Monitored 96 bpm bpm Respiratory Rate - Anes 0 br/min br/min Systolic Blood Pressure Non-Invasive 128 mmHg mmHg Diastolic Blood Pressure Non-Invasive 86 mmHg mmHg 11/20/2024 12:20 EDT Respiratory Rate - Anes 0 br/min br/min Systolic Blood Pressure Non-Invasive 126 mmHg mmHg Diastolic Blood Pressure Non-Invasive 78 mmHg mmHg 11/20/2024 12:16 EDT Systolic Blood Pressure Non-Invasive 131 mmHg mmHg Diastolic Blood Pressure Non-Invasive 82 mmHg mmHg 11/20/2024 10:10 EDT Temperature Temporal Artery 36.6 DegC Apical Heart Rate 84 bpm Respiratory Rate 12 br/min LOW Systolic Blood Pressure Non-Invasive 120 mmHg Diastolic Blood Pressure Non-Invasive 83 mmHg Vital Signs (last 24 hrs) Last Charted Temp Xqltiffj71.6 DegC (NOV 20 10:10) Heart Rate [id number] bpm (NOV 20 12:35) SBP80 mmHg (NOV 20 12:35) DBP58 mmHg (NOV 20 12:35) Measurements from flowsheet : Measurements 11/20/2024 10:10 EDT Height 157.4 cm Height in inches 62 inch(es) Admission Weight 63.6 kg Weight Lbs 139.9 lb Norton Body Weight 50.03 kg Admission Body Mass Index 25.67 m2 Pain assessment: Pain Assessment 11/20/2024 10:27 EDT Primary Pain Intensity 0 11/20/2024 10:10 EDT Primary Pain Intensity 0 Pain Scale Type 0-10 Pain scale . General: Alert and oriented. Airway: Normal temporomandibular joint mobility. Mallampati classification: II (soft palate, fauces, uvula visible). Head: Normocephalic. Dentition Evaluation: Own teeth. Neck: Supple. Respiratory: Lungs are clear to auscultation. Cardiovascular: Normal rate. Heart Sounds: Normal. Gastrointestinal: Soft. Musculoskeletal Normal range of motion. Integumentary: Intact. Neurologic: Alert, Oriented. Review / Management Results review: No qualifying data available , Lab results 11/20/2024 12:44 EDT SN - PTCare - Thermals Forced Air Warming Device Upper Body 11/20/2024 12:44 EDT SN - PP - Body Position Supine Standard Intra-op 11/20/2024 12:43 EDT SN - SP - Prep Agents Chloraprep SN - SP - HR - Method Clipped 11/20/2024 12:42 EDT SN - Irl - Irrigant Sterile Water SN - Irl - Irrigant Normal Saline SN - IrI - Volume In 450 mL SN - IrI - Volume In 450 mL SN - Irl - Additive IRRIGATION CHG 0.05% IRRISEPT 12/ [id number] SN - Irl - Additive BETADINE (POVIDONE IODINE) SOLUT SN - IrI - Volume Out 450 mL SN - IrI - Volume Out 450 mL 11/20/2024 12:42 EDT SN - Cul - Culture Type No Specimen per Surgeon 11/20/2024 12:41 EDT SN - CT - Route of Administration Local SN - CT - Route of Administration Local SN - CT - By (Single) SN - CT - By (Single) SN - CT - By (Single) SN - CT - By (Single) 11/20/2024 12:40 EDT dexAMETHasone 10 mg mg 11/20/2024 12:39 EDT SN - CTm - Surgery Start 11/20/2024 12:39 11/20/2024 12:36 EDT SN - GCD - Post-operative Diagnosis UNILATERAL PRIMARY OSTEOARTHRITIS, RIGHT HIP SN - GCD - Case Level Level 5 11/20/2024 12:35 EDT Heart Rate Monitored 89 bpm bpm Respiratory Rate - Anes 15 br/min br/min Systolic Blood Pressure Non-Invasive 80 mmHg mmHg Diastolic Blood Pressure Non-Invasive 58 mmHg mmHg Oxygen Saturation 99 % % tranexamic acid 1 gram(s) gram(s) 11/20/2024 12:30 EDT Heart Rate Monitored 89 bpm bpm Respiratory Rate - Anes 15 br/min br/min Systolic Blood Pressure Non-Invasive 96 mmHg mmHg Diastolic Blood Pressure Non-Invasive 60 mmHg mmHg Oxygen Saturation 99 % % 11/20/2024 12:25 EDT Heart Rate Monitored 96 bpm bpm Respiratory Rate - Anes 0 br/min br/min Systolic Blood Pressure Non-Invasive 128 mmHg mmHg Diastolic Blood Pressure Non-Invasive 86 mmHg mmHg Oxygen Saturation 90 % % 11/20/2024 12:20 EDT SN - Proc - Anesthesia Type Spinal, MAC, Local SN - Proc - Actual Procedure DIRECT ANTERIOR RIGHT TOTAL HIP ARTHROPLASTY 11/20/2024 12:20 EDT SN - CAt - Case Attendee SN - CAt - Case Attendee SN - CAt - Role Performed Slab Installer 1 11/20/2024 12:20 EDT Respiratory Rate - Anes 0 br/min br/min Systolic Blood Pressure Non-Invasive 126 mmHg mmHg Diastolic Blood Pressure Non-Invasive 78 mmHg mmHg 11/20/2024 12:16 EDT Systolic Blood Pressure Non-Invasive 131 mmHg mmHg Diastolic Blood Pressure Non-Invasive 82 mmHg mmHg 11/20/2024 12:14 EDT cefazolin 2 gram(s) gram(s) Sodium Chloride 0.9% 100 mL mL 11/20/2024 12:07 EDT SN - XI - X-Ray Type C-Arm 11/20/2024 12:07 EDT SN - Assess - LOC Alert, Awake SN - Assess - Orientation Oriented X 3 SN - Assess - Post-op Skin Integrity Intact/Dry 11/20/2024 12:06 EDT SN - CAt - Case Attendee SN - CAt - Case Attendee SN - CAt - Case Attendee SN - CAt - Case Attendee SN - CAt - Case Attendee SN - CAt - Case Attendee SN - CAt - Case Attendee SN - CAt - Case Attendee SN - CAt - Case Attendee SN - CAt - Case Attendee SN - CAt - Case Attendee SN - CAt - Case Attendee SN - CAt - Case Attendee SN - CAt - Case Attendee SN - CAt - Case Attendee SN - CAt - Case Attendee SN - CAt - Role Performed Primary Surgeon SN - CAt - Role Performed INSIDE SALES DIRECTOR SN - CAt - Role Performed Director Of Accounting 1 SN - CAt - Role Performed Scrub 1 SN - CAt - Role Performed Slab Installer 1 SN - CAt - Role Performed X-Ray Tech SN - CAt - Role Performed Consumer Credit Counselor SN - CAt - Role Performed Physician Program Manager 11/20/2024 10:37 EDT SN - Preop - CTm Pt in SDS Room 11/20/2024 9:53 SN - Preop - CTm Pt Ready for OR/Proced 11/20/2024 10:37 11/20/2024 10:27 EDT Primary Pain Intensity 0 meloxicam 15 mg mg oxyCODONE 10 mg mg Lactated Ringers Injection 1,000 mL mL 11/20/2024 10:24 EDT famotidine 20 mg mg 11/20/2024 10:18 EDT ABO/Rh Interp A POS ABSC Interp (Gel) Negative ABSC Continuous IV Infusions LR Forearm Left 11/20/2024 20 gauge Peripheral IV Activity: Insert new site Peripheral IV Dressing Condition: Clean, Dry, Intact Peripheral IV Dressing Activity: Applied, Transparent dressing Peripheral IV Line Status/Patency: Flushes easily, Continuous infusion Peripheral IV Site Condition: No complications Peripheral IV Equipment: Extension set, PRN Adaptor 11/20/2024 10:10 EDT Height 157.4 cm Height in inches 62 inch(es) Admission Weight 63.6 kg Weight Lbs 139.9 lb Norton Body Weight 50.03 kg Admission Body Mass Index 25.67 m2 Temperature Temporal Artery 36.6 DegC Apical Heart Rate 84 bpm Respiratory Rate 12 br/min LOW Systolic Blood Pressure Non-Invasive 120 mmHg Diastolic Blood Pressure Non-Invasive 83 mmHg Primary Pain Intensity 0 Pain Scale Type 0-10 Pain scale Heart Rhythm Regular Respirations Unlabored Respiratory Pattern Regular All Lobes Breath Sounds Clear Oxygen Therapy Room air Oxygen Saturation 94 % Abdomen Description Non-distended Abdomen Palpation Non-Tender Bowel Sounds All Quadrants Present Urinary Elimination Voiding, no difficulties Skin Description [place], Normal for ethnicity, Dry Skin Temperature Warm Skin Integrity Intact Neurological Symptoms Patient denies Extremity Movement Equal Characteristics of Speech Clear Level of Consciousness Alert Strength All Extremities Strong Tone All Extremities Normal Sensation All Extremities Intact Affect/Behavior Appropriate Orientation Oriented x 4 Activity Status ADL Awake Standard Safety ID band on, Allergy Band on, Call device within reach, Bed in low position, Wheels locked, Upper/Half-Length side-rails up, Safety level maintained, Non-Slip footwear 11/20/2024 10:04 EDT IV Present Present Allergies Yes Anesthesia Extension Set Applied Yes Primer Inserting Machine Operator On Yes Consent Form Signed Yes Patient Dressed In Hospital gown CHG Preoperative Wash/Wipe Night before procedure, Day of procedure, Site specific wipe Preop Nasal Swab Povidone-Iodine CHG Skin Prep Completed for Eligible Surgery History & Physical Update On Chart Yes History & Physical On Chart Yes Obstructive Sleep Apnea Assess Completed Yes Belongings At Bedside Glasses, Luggage, Pants, Shirt, Shoes, Socks, Undergarments, Walker, Other: polar care NPO Status Maintained Allergy Band on and Verified Yes Patient ID Band on and Verified Yes Implants Verified Yes Pacemaker/AICD Verified Yes Site Verified by Patient/Family Yes Anesthesia Consent Signed Yes Blood Consent Signed Yes Last Fluid Intake 11/20/2024 0:00 Last Food Intake 11/19/2024 18:00 Patient Cleared for Surgery By LOREN GREEN DO 11/20/2024 10:03 EDT Designated Person #1 We May Share PHI Richie Pena [phone] Designated Person #1 Relationship Spouse Designated Person #2 We May Share PHI Lynnette Cancino [phone] Designated Person #2 Relationship Sibling Privacy Restrictions Requested None Status No, per patient Sensory Deficits None Sleep Apnea Snore No Sleep Apnea Tired No Sleep Apnea Obstruction No Sleep Apnea Pressure Yes Sleep Apnea BMI No Sleep Apnea Age Yes Sleep Apnea Neck No Sleep Apnea Gender No Sleep Apnea Score 2 Diagnosed With Sleep Apnea No Advanced Directives Yes Advance Directive Type [place] Durable Power of Credit Card Clerk for [facility] [place], [place] Declaration (Living Will) Advance Directive Location Patient instructed to bring in copy Infectious Disease Symptoms Patient states no symptoms Infectious Disease Recent Exposure No Alcohol and Drug Use No Employee of Institutional Living No Health Care Employee No History of Exposure to TB No History of Positive Chest X-Ray for TB No History of Positive TB Skin Test No Homeless No Known Immunosuppression No Recent Immigrant No Resident of Institutional Living No Bloody Sputum No Fatigue No Fever No Loss of Appetite No Night Sweats No Persistent Cough > 3 Weeks No Weight Loss No Pre-Op Patient Education NPO after midnight, No smoking after midnight, No makeup, No jewelry, Aware of surgery location, Pre-op education done, 1 bottle CHG wash with instructions given, No ordered medications, Anesthesia block education provided SN - Preprocedure Comments Spoke with patient, Verbalizes/Nonverbally indicates understanding Barriers to Learning None evident Teaching Method Explanation, Printed materials Preferred Spoken Language Setswana Preferred Written Language Setswana Teaching Evaluation Verbalizes/Nonverbally indicates understanding Total Joint Book Given Yes Safety Brochure Information Reviewed Unable to complete Diya Boucher Video Viewed No Patient's Current Physicians Patient's Current Physicians History of Malignant Hyperthermia No Discharge To, Anticipated Home with family care Prev Test Positive/Diagnosis w/COVID-19 No Current Quarantine/Isolated any Illness No Any Contact with Sick Animals/Birds No Traveled Anywhere in Last 30 Days No Lost Weight Unintentionally Recently No Eat Poorly Due to Decreased Appetite No Total MST Score 0 No Personal Devices, Patient Valuables Glasses Anesthesia/Transfusions Prior anesthesia Admission Note-Nursing Same Day Patient History . Assessment and Plan [place] [employer] Anesthesiologists (ASA) physical status classification: Class II. Anesthetic Preoperative Plan Premedication: intravenous. Anesthetic technique: Spinal. Induction: intravenously. Maintenance airway: Oral endotracheal tube. Postoperative pain management: Per surgeon. Risks discussed: nausea, vomiting, sore throat. Informed consent: signed by patient. Digitally Signed by CARLOS HARRIS on 11/20/2024 12:46 PM [facility]04-09-2025 Evaluation + Plan note* Assessment & Plan Note - Peggy Miguel MD - 11/07/2024 9:00 AM EDTAssociated Problem(s): Idiopathic thrombocytopenic purpura (Multi) No clinical signs of disease progression since last visit. No increase in symptoms Recent labs/imaging/procedures reviewed--labs show no recurrence Medical records reviewed Disease process and pertinent med refills are managed by PCP. I reviewed that no conflict in medications with the current condition I am treating [facility] Work Phone: [phone] 594-951504-09-2025 Evaluation + Plan note* Assessment & Plan Note - Peggy Miguel MD - 11/07/2024 9:00 AM EDTAssociated Problem(s): Rheumatoid arthritis involving multiple sites with positive rheumatoid factor (Multi) On xeljanz and doing well in a sustained remission. No signs of disease progression on exam or by lab. Orders: Follow Up In Rheumatology; Future CBC and Auto Differential; Future Comprehensive Metabolic Panel; Future C-Reactive Protein; Future Sedimentation Rate; Future [facility] Work Phone: 1(264) 977-973404-09-2025 Evaluation + Plan note* Assessment & Plan Note - Peggy Miguel MD - 11/07/2024 9:00 AM EDTAssociated Problem(s): Immunosuppression due to drug therapy Pt is on immunosuppressive medication to control disease. No signs of worrisome infections since last seen No signs of leukopenia that would increase risk. Recommend that vaccinations be kept up to date to minimize risk Orders: Follow Up In Rheumatology; Future [facility] Work Phone: 1(672) 538-575304-09-2025 Evaluation + Plan note* Assessment & Plan Note - Peggy Miguel MD - 11/07/2024 9:00 AM EDTAssociated Problem(s): Long-term current use of tofacitinib Orders: Follow Up In Rheumatology; Future [facility] Work Phone: [phone]) 955-615804-09-2025 Evaluation + Plan note* Assessment & Plan Note - Peggy Miguel MD - 11/07/2024 9:00 AM EDTAssociated Problem(s): Primary osteoarthritis of right hip Agree with plan for R CARLOS [facility] Work Phone: [phone] 161-636904-09-2025 History of Present illness Narrative* Peggy Miguel MD - 11/07/2024 9:00 AM EDT Images from the original note were not included. [facility] RHEUMATOLOGY AND INTERNAL MEDICINE RHEUMATOLOGY PROGRESS NOTE Alyce Pena 69 y.o. female : 1955 PCP: Loren Green DO Chief Complaint Patient presents with Rheumatoid Arthritis SUBJECTIVE Since last seen, pt had L hip replacement. Has recovered well and now getting R hip done later thismonth. Rest of her joints are stable and not having any other joint issues. Reports dry mouth with losartan but doesn't want to change medication right before surgery Reviewed labs with pt Records since last seen reviewed in [facility], [facility] and [facility] Record Patient Active Problem List Diagnosis Date Noted Primary osteoarthritis of right hip 06/14/2024 Mixed hyperlipidemia 05/04/2023 Hypertension 03/25/2023 Idiopathic thrombocytopenic purpura (Multi) 03/25/2023 Long-term current use of tofacitinib 03/25/2023 Rheumatoid arthritis involving multiple sites with positive rheumatoid factor (Multi) 03/25/2023 Immunosuppression due to drug therapy 03/25/2023 Past Medical History: Diagnosis Date Consumes 4 to 5 servings of caffeine per day Personal history of colonic polyps 04/26/2016 Right wrist tendinitis 01/26/2018 Right wrist tendinitis Unspecified cataract Cataracts, bilateral Current Outpatient Medications on File Prior to Visit Medication Sig Dispense Refill cholecalciferol (Vitamin D-3) 25 MCG (1000 UT) tablet Take 1 tablet (25 mcg) by mouth once daily. coenzyme Q-10 100 mg capsule Take 1 capsule (100 mg) by mouth once daily. losartan (Cozaar) 50 mg tablet Take 1 tablet (50 mg) by mouth once daily. 90 tablet 3 omega 3-ocx-obt-fish oil (Fish OiL) 100-160-1,000 mg capsule Take 2 capsules by mouth once daily. red yeast rice 600 mg tablet Take 2 tablets by mouth 2 times a day. tofacitinib ER (Xeljanz XR) 11 mg tablet extended release 24 hr TAKE ONE (1) TABLET BY MOUTH ONCE DAILY 30 tablet 5 No current facility-administered medications on file prior to visit. Allergies Allergen Reactions Ciprofloxacin Unknown Hydrocodone-Acetaminophen Other Did not like the way it made her feel Nitrofurantoin Monohyd/M-Cryst Unknown Nsaids (Non-Steroidal Anti-Inflammatory Drug) Unknown Pravastatin Myalgia Sulfa (Sulfonamide Antibiotics) Unknown Sulfamethoxazole-Trimethoprim Unknown Rosuvastatin Rash Social History Tobacco Use Smoking status: Former Current packs/day: 0.00 Types: Cigarettes Quit date: 06/14/1994 Years since quittin.4 Smokeless tobacco: Never Vaping Use Vaping status: Never Used Substance Use Topics Alcohol use: Never Drug use: Never Review of Systems Constitutional: Negative for fatigue and fever. HENT: Negative. Eyes: Negative. Respiratory: Negative for cough and shortness of breath. Cardiovascular: Negative for leg swelling. Gastrointestinal: Negative. Endocrine: Negative. Genitourinary: Negative. Musculoskeletal: Positive for arthralgias and gait problem. Negative for back pain, joint swelling and myalgias. Skin: Negative for color change and rash. Neurological: Negative for weakness and numbness. Psychiatric/Behavioral: Negative. PHYSICAL EXAM BP 114/83 Pulse 81 Temp 36.3 C (97.4 F) Ht 1.575 m (5' 2) Wt 64.4 kg (141 lb 14.4 oz) SpO2 95% BMI 25.95 kg/m Depression: Not at risk (11/07/2024) PHQ-2 PHQ-2 Score: 0 Physical Exam Vitals reviewed. Constitutional: General: She is not in acute distress. Appearance: Normal appearance. HENT: Head: Normocephalic and atraumatic. Eyes: General: No scleral icterus. Extraocular Movements: Extraocular movements intact. Conjunctiva/sclera: Conjunctivae normal. Pupils: Pupils are equal, round, and reactive to light. Pulmonary: Effort: Pulmonary effort is normal. No respiratory distress. Musculoskeletal: General: No swelling, tenderness or deformity. Cervical back: Normal range of motion and neck supple. No tenderness. Right lower leg: No edema. Left lower leg: No edema. Comments: No synovitis of examined joints Skin: Coloration: Skin is not pale. Findings: No bruising, erythema or rash. Neurological: General: No focal deficit present. Mental Status: She is alert and oriented to person, place, and time. Mental status is at baseline. Gait: Gait abnormal (using cane). Psychiatric: Mood and Affect: Mood normal. Health Maintenance Due Topic Date Due Medicare Annual Wellness Visit (AWV) Never done Bone Density Scan Never done Hepatitis C Screening Never done Diabetes Screening Never done DTaP/Tdap/Td Vaccines (1 - Tdap) Never done RSV High Risk: (Elderly (60+) or Population) (1 - Risk 60-74 years 1- dose series) Never done Zoster Vaccines (1 of 2) 08/11/2015 Mammogram 12/20/2020 Pneumococcal Vaccine (2 of 2 - PCV) 03/17/2022 COVID-19 Vaccine (5 - season) 2024 Assessment/plan Assessment & Plan Rheumatoid arthritis involving multiple sites with positive rheumatoid factor (Multi) On xeljanz and doing well in a sustained remission. No signs of disease progression on exam or by lab. Orders: Follow Up In Rheumatology; Future CBC and Auto Differential; Future Comprehensive Metabolic Panel; Future C-Reactive Protein; Future Sedimentation Rate; Future Immunosuppression due to drug therapy Pt is on immunosuppressive medication to control disease. No signs of worrisome infections since last seen No signs of leukopenia that would increase risk. Recommend that vaccinations be kept up to date to minimize risk Orders: Follow Up In Rheumatology; Future Long-term current use of tofacitinib Orders: Follow Up In Rheumatology; Future Idiopathic thrombocytopenic purpura (Multi) No clinical signs of disease progression since last visit. No increase in symptoms Recent labs/imaging/procedures reviewed--labs show no recurrence Medical records reviewed Disease process and pertinent med refills are managed by PCP. I reviewed that no conflict in medications with the current condition I am treating Primary osteoarthritis of right hip Agree with plan for R CARLOS Follow up: __4___months, sooner if change in symptoms Immunization History Administered Date(s) Administered Flu vaccine (IIV4), preservative free *Check age/dose* 06/13/2017, 04/26/2018, 05/16/2019, 04/14/2020 Flu vaccine, quadrivalent, high-dose, preservative free, age 65y+ (FLUZONE) 05/04/2021, 05/06/2022,05/04/2023 Flu vaccine, trivalent, preservative free, HIGH-DOSE, age 65y+ (Fluzone) 05/04/2021, 05/10/2024 Flu vaccine, trivalent, preservative free, age 6 months and greater (Fluarix/Fluzone/Flulaval) 04/25/2012, 06/13/2013, 06/18/2014, 04/30/2015, 05/25/2016 Influenza, Unspecified 05/06/2022 Influenza, injectable, quadrivalent 05/01/2018, 05/16/2019, 05/23/2020 Moderna SARS-CoV-2 Vaccination 03/25/2021, 04/22/2021, 10/14/2021, 03/25/2022 Pneumococcal polysaccharide vaccine, 23-valent, age 2 years and older (PNEUMOVAX 23) 03/17/2021 Zoster, live 06/16/2015 Orders Only on 10/15/2024 Component Date Value Ref Range Status GLUCOSE 10/15/2024 78 65 - 139 mg/dL Final Comment: Non-fasting reference interval UREA NITROGEN (BUN) 10/15/2024 19 7 - 25 mg/dL Final CREATININE 10/15/2024 0.78 0.50 - 1.05 mg/dL Final EGFR 10/15/2024 82 > OR = 60 mL/min/1.73m2 Final SODIUM 10/15/2024 139 135 - 146 mmol/L Final POTASSIUM 10/15/2024 4.4 3.5 - 5.3 mmol/L Final CHLORIDE 10/15/2024 104 98 - 110 mmol/L Final CARBON DIOXIDE 10/15/2024 25 20 - 32 mmol/L Final ELECTROLYTE BALANCE 10/15/2024 10 7 - 17 mmol/L (calc) Final CALCIUM 10/15/2024 9.7 8.6 - 10.4 mg/dL Final PROTEIN, TOTAL 10/15/2024 7.2 6.1 - 8.1 g/dL Final ALBUMIN 10/15/2024 4.3 3.6 - 5.1 g/dL Final BILIRUBIN, TOTAL 10/15/2024 0.4 0.2 - 1.2 mg/dL Final ALKALINE PHOSPHATASE 10/15/2024 54 37 - 153 U/L Final AST 10/15/2024 17 10 - 35 U/L Final ALT 10/15/2024 14 6 - 29 U/L Final SED RATE BY MODIFIED WESTERGREN 10/15/2024 19 < OR = 30 mm/h Final WHITE BLOOD CELL COUNT 10/15/2024 9.7 3.8 - 10.8 Thousand/uL Final RED BLOOD CELL COUNT 10/15/2024 4.50 3.80 - 5.10 Million/uL Final HEMOGLOBIN 10/15/2024 13.4 11.7 - 15.5 g/dL Final HEMATOCRIT 10/15/2024 42.3 35.0 - 45.0 % Final MCV 10/15/2024 94.0 80.0 - 100.0 fL Final MCH 10/15/2024 29.8 27.0 - 33.0 pg Final MCHC 10/15/2024 31.7 (L) 32.0 - 36.0 g/dL Final Comment: For adults, a slight decrease in the calculated MCHC value (in the range of 30 to 32 g/dL) is most likely not clinically significant; however, it should be interpreted with caution in correlation with other red cell parameters and the patient's clinical condition. RDW 10/15/2024 12.5 11.0 - 15.0 % Final PLATELET COUNT 10/15/2024 239 140 - 400 Thousand/uL Final MPV 10/15/2024 10.7 7.5 - 12.5 fL Final ABSOLUTE NEUTROPHILS 10/15/2024 6,499 1,500 - 7,800 cells/uL Final ABSOLUTE LYMPHOCYTES 10/15/2024 1,882 850 - 3,900 cells/uL Final ABSOLUTE MONOCYTES 10/15/2024 922 200 - 950 cells/uL Final ABSOLUTE EOSINOPHILS 10/15/2024 301 15 - 500 cells/uL Final ABSOLUTE BASOPHILS 10/15/2024 97 0 - 200 cells/uL Final NEUTROPHILS 10/15/2024 67 % Final LYMPHOCYTES 10/15/2024 19.4 % Final MONOCYTES 10/15/2024 9.5 % Final EOSINOPHILS 10/15/2024 3.1 % Final BASOPHILS 10/15/2024 1.0 % Final C-REACTIVE PROTEIN 10/15/2024 <3.0 <8.0 mg/L Final documented in this [facility] Work Phone: [phone]) 578-566304-09-2025 Instructions* Patient Instructions* Peggy Miguel MD - 11/07/2024 9:00 AM EDT It was a pleasure to see you today Please call if your symptoms worsen Please review your summary for education and reminders. Follow up at your next appointment. If you had labs/xrays done today, you will be able to view on [employer]. We will contact you when theresults are reviewed for further discussion. Please note that you may receive your results before I[facility]auren had a chance to review. Please know I will be contacting you for discussion Homegoing instructions for all patient A healthy lifestyle helps chronic diseases These are all the goals you should strive to improve your overall health Blood pressure <130/85 BMI of <30 or waist circumference that is 1/2 of your height Fasting blood sugar <107 (if you are diabetic, aim for an A1c <6.4%_ LDL cholesterol <130 Avoid smoking Manage your stress Get your preventive exams Get your immunizations What else for RA? Any type of exercise is better than nothing. Whether you do cardio, walking, lift weights or yoga, all can help in improving physical function. Occupational and physical therapy can improve physical function and decrease pain by providing tools and techniques to improve your day. We can do a referral if you haven't seen one yet Braces and splints for affected joints can also help If your gait is affected, strongly recommend assistive devices like canes or walkers. We don't wantto risk injuries from falls. Can Diet help? Consider the Mediterranean diet There are some foods that are considered inflammatory Look up anti- inflammatory diets for a list of foods to avoid. No dietary supplements help unfortunately. Work on getting to a normal weight/BMI. This will lessen the stress on your joints. What else? Acupuncture Massage therapy Apply heat to affected joints We do not recommend medicare insurance specialist as it has not been shown to help in RA. If you smoke, stop (From CR guidelines for exercise, rehab and diet in RA) documented in this [facility] Work Phone: 1(192) 467-897504-09-2025 Miscellaneous Notes* Assessment & Plan Note - Peggy Miguel MD - 11/07/2024 9:00 AM EDTAssociated Problem(s): Idiopathic thrombocytopenic purpura (Multi) No clinical signs of disease progression since last visit. No increase in symptoms Recent labs/imaging/procedures reviewed--labs show no recurrence Medical records reviewed Disease process and pertinent med refills are managed by PCP. I reviewed that no conflict in medications with the current condition I am treating * Assessment & Plan Note - Peggy Miguel MD - 11/07/2024 9:00 AM EDT Associated Problem(s): Rheumatoid arthritis involving multiple sites with positive rheumatoid factor (Multi) On xeljanz and doing well in a sustained remission. No signs of disease progression on exam or by lab. Orders: Follow Up In Rheumatology; Future CBC and Auto Differential; Future Comprehensive Metabolic Panel; Future C-Reactive Protein; Future Sedimentation Rate; Future * Assessment & Plan Note - Peggy Miguel MD - 11/07/2024 9:00 AM EDT Associated Problem(s): Immunosuppression due to drug therapy Pt is on immunosuppressive medication to control disease. No signs of worrisome infections since last seen No signs of leukopenia that would increase risk. Recommend that vaccinations be kept up to date to minimize risk Orders: Follow Up In Rheumatology; Future * Assessment & Plan Note - Peggy Miguel MD - 11/07/2024 9:00 AM EDT Associated Problem(s): Long-term current use of tofacitinib Orders: Follow Up In Rheumatology; Future * Assessment & Plan Note - Peggy Miguel MD - 11/07/2024 9:00 AM EDT Associated Problem(s): Primary osteoarthritis of right hip Agree with plan for R CARLOS documented in this [facility] Work Phone: [phone] 906-281411-26-2024 Note ORIGINAL EXAMINATION: BONE DENSITOMETRY 06/26/2024 11:58 am TECHNIQUE: A bone density dual x-ray absorptiometry (DEXA) scan was performed of the axial (e.g. hips, spine) and/or appendicular (e.g. radius) skeleton as appropriate. COMPARISON: None. HISTORY: Reason for Exam: screening FINDINGS: T Score Left Femoral Neck: -2.5 Left Femoral Neck: 0.569 (g/cm2) T Score Left Hip: -2.2 Left Hip: 0.675 (g/cm2) T Score Lumbar Spine: -1.7 Lumbar Spine: 0.855 (g/cm2) FRAX score: Not calculated The BHOF f/k/a NOF recommends that FDA-approved medical therapies be considered in post-menopausal women and men age >/= 50 years with a: * Hip or vertebral fracture, or * T-score of /= 20% for major osteoporotic fractures or * >/= 3% for hip fractures All treatment decisions require clinical judgement and consideration of individual patient factors, including patient preferences, comorbidities, previous drug use, risk factors not captured in the FRAX registered model (e.g., frailty, falls, vitamin D deficiency, increased bone turnover, interval significant decline in bone density) and possible under- or over-estimation of fracture risk by FRAX. IMPRESSION: Osteoporosis by WHO criteria. I have personally reviewed the images of this examination and agree with the resident's findings and interpretations. Interpreted by: Kamaljit Kearns MD Preliminary Report By: Tex Manrique Electronically signed By Kamaljit Kearns MD Dictated Date: 06/26/2024 1:43:53 PM Prelim Date: 06/26/2024 3:51:44 PM Sign Date: 06/26/2024 3:51:44 PM Ordering Provider: [facility]11-14-2024 Evaluation + Plan note* Assessment & Plan Note - Peggy Miguel MD - 06/14/2024 8:30 AM ESTAssociated Problem(s): Rheumatoid arthritis involving multiple sites with positive rheumatoid factor (Multi) Pt stable on xeljanz therapy. Advised to hold med the week of surgery. Labs without signs on disease activity and exam is otherwise unchanged Orders: CBC and Auto Differential; Future Comprehensive Metabolic Panel; Future C-Reactive Protein; Future Sedimentation Rate; Future [facility] Work Phone: [phone] 675-109311-14-2024 Evaluation + Plan note* Assessment & Plan Note - Peggy Miguel MD - 06/14/2024 8:30 AM ESTAssociated Problem(s): Immunosuppression due to drug therapy [facility] Work Phone: [phone] 554-409511-14-2024 Evaluation + Plan note* Assessment & Plan Note - Peggy Miguel MD - 06/14/2024 8:30 AM ESTAssociated Problem(s): Long-term current use of tofacitinib [facility] Work Phone: [phone]) 248-357611-14-2024 Evaluation + Plan note* Assessment & Plan Note - Peggy Miguel MD - 06/14/2024 8:30 AM ESTAssociated Problem(s): Primary osteoarthritis of right hip Agree with plans for surgery. Cleared for surgery from a rheumatologic standpoint. Pt advised on holding medications [facility] Work Phone: [phone]) 600-610411-14-2024 History of Present illness Narrative* Peggy Miguel MD - 06/14/2024 8:30 AM EST Images from the original note were not included. [facility] RHEUMATOLOGY AND INTERNAL MEDICINE RHEUMATOLOGY PROGRESS NOTE Alyce Pena 69 y.o. female Chief Complaint Patient presents with Follow-up Rheumatoid Arthritis SUBJECTIVE Pt is scheduled to have R CARLOS on July 08 due to increased pain Did have injection of back recently. Rest of joints are ok. No problems with xeljanz. Records since last seen reviewed in [facility], [facility] and [facility] Record Patient Active Problem List Diagnosis Date Noted Mixed hyperlipidemia 05/04/2023 Hypertension 03/25/2023 Idiopathic thrombocytopenic purpura (Multi) 03/25/2023 Long-term current use of tofacitinib 03/25/2023 Rheumatoid arthritis involving multiple sites with positive rheumatoid factor (Multi) 03/25/2023 Immunosuppression due to drug therapy 03/25/2023 Past Medical History: Diagnosis Date Consumes 4 to 5 servings of caffeine per day Personal history of colonic polyps 04/26/2016 Right wrist tendinitis 01/26/2018 Right wrist tendinitis Unspecified cataract Cataracts, bilateral Current Outpatient Medications on File Prior to Visit Medication Sig Dispense Refill cholecalciferol (Vitamin D-3) 25 MCG (1000 UT) tablet Take 1 tablet (25 mcg) by mouth once daily. coenzyme Q-10 100 mg capsule Take 1 capsule (100 mg) by mouth once daily. losartan (Cozaar) 50 mg tablet Take 1 tablet (50 mg) by mouth once daily. 90 tablet 3 omega 4-xdx-djg-fish oil (Fish OiL) 100-160-1,000 mg capsule Take 2 capsules by mouth once daily. red yeast rice 600 mg tablet Take 2 tablets by mouth 2 times a day. tofacitinib ER (Xeljanz XR) 11 mg tablet extended release 24 hr TAKE ONE (1) TABLET BY MOUTH ONCE DAILY 30 tablet 5 No current facility-administered medications on file prior to visit. Allergies Allergen Reactions Ciprofloxacin Unknown Hydrocodone-Acetaminophen Other Did not like the way it made her feel Nitrofurantoin Monohyd/M-Cryst Unknown Nsaids (Non-Steroidal Anti-Inflammatory Drug) Unknown Sulfa (Sulfonamide Antibiotics) Unknown Sulfamethoxazole-Trimethoprim Unknown Social History Tobacco Use Smoking status: Former Current packs/day: 0.00 Types: Cigarettes Quit date: 06/14/1994 Years since quittin.0 Smokeless tobacco: Never Vaping Use Vaping status: Never Used Substance Use Topics Alcohol use: Never Drug use: Never Review of Systems Constitutional: Negative for fatigue and fever. Respiratory: Negative for cough and shortness of breath. Cardiovascular: Negative for leg swelling. Musculoskeletal: Positive for arthralgias and gait problem. Negative for back pain, joint swelling and myalgias. Skin: Negative for color change and rash. Neurological: Negative for weakness and numbness. Hematological: Bruises/bleeds easily. PHYSICAL EXAM BP 114/85 Pulse 68 Temp 36.8 C (98.2 F) (Temporal) Ht 1.575 m (5' 2) Wt 64 kg (141 lb 1.6 oz) SpO2 98% BMI 25.81 kg/m Depression: Not at risk (06/14/2024) PHQ-2 PHQ-2 Score: 0 Physical Exam Vitals reviewed. Constitutional: General: She is not in acute distress. Appearance: Normal appearance. HENT: Head: Normocephalic and atraumatic. Eyes: General: No scleral icterus. Extraocular Movements: Extraocular movements intact. Conjunctiva/sclera: Conjunctivae normal. Pupils: Pupils are equal, round, and reactive to light. Pulmonary: Effort: Pulmonary effort is normal. No respiratory distress. Musculoskeletal: General: No swelling, tenderness or deformity. Cervical back: Normal range of motion and neck supple. No tenderness. Right lower leg: No edema. Left lower leg: No edema. Comments: No synovitis of examined joints Skin: Coloration: Skin is not pale. Findings: Bruising present. No erythema or rash. Neurological: General: No focal deficit present. Mental Status: She is alert and oriented to person, place, and time. Mental status is at baseline. Gait: Gait abnormal (using cane). Psychiatric: Mood and Affect: Mood normal. No visits with results within 2 Week(s) from this visit. Latest known visit with results is: Lab on 05/29/2024 Component Date Value Ref Range Status WBC 05/29/2024 8.6 4.4 - 11.3 x10*3/uL Final nRBC 05/29/2024 0.0 0.0 - 0.0 /100 WBCs Final RBC 05/29/2024 4.57 4.00 - 5.20 x10*6/uL Final Hemoglobin 05/29/2024 13.9 12.0 - 16.0 g/dL Final Hematocrit 05/29/2024 42.7 36.0 - 46.0 % Final MCV 05/29/2024 93 80 - 100 fL Final MCH 05/29/2024 30.4 26.0 - 34.0 pg Final MCHC 05/29/2024 32.6 32.0 - 36.0 g/dL Final RDW 05/29/2024 13.3 11.5 - 14.5 % Final Platelets 05/29/2024 365 150 - 450 x10*3/uL Final Neutrophils % 05/29/2024 59.0 40.0 - 80.0 % Final Immature Granulocytes %, Automated 05/29/2024 1.9 (H) 0.0 - 0.9 % Final Immature Granulocyte Count (IG) includes promyelocytes, myelocytes and metamyelocytes but does not include bands. Percent differential counts (%) should be interpreted in the context of the absolute cell counts (cells/UL). Lymphocytes % 05/29/2024 23.6 13.0 - 44.0 % Final Monocytes % 05/29/2024 11.4 2.0 - 10.0 % Final Eosinophils % 05/29/2024 3.4 0.0 - 6.0 % Final Basophils % 05/29/2024 0.7 0.0 - 2.0 % Final Neutrophils Absolute 05/29/2024 5.09 1.20 - 7.70 x10*3/uL Final Percent differential counts (%) should be interpreted in the context of the absolute cell counts (cells/uL). Immature Granulocytes Absolute, Au* 05/29/2024 0.16 0.00 - 0.70 x10*3/uL Final Lymphocytes Absolute 05/29/2024 2.03 1.20 - 4.80 x10*3/uL Final Monocytes Absolute 05/29/2024 0.98 0.10 - 1.00 x10*3/uL Final Eosinophils Absolute 05/29/2024 0.29 0.00 - 0.70 x10*3/uL Final Basophils Absolute 05/29/2024 0.06 0.00 - 0.10 x10*3/uL Final Glucose 05/29/2024 82 74 - 99 mg/dL Final Sodium 05/29/2024 141 136 - 145 mmol/L Final Potassium 05/29/2024 4.8 3.5 - 5.3 mmol/L Final Chloride 05/29/2024 104 98 - 107 mmol/L Final Bicarbonate 05/29/2024 29 21 - 32 mmol/L Final Anion Gap 05/29/2024 13 10 - 20 mmol/L Final Urea Nitrogen 05/29/2024 25 (H) 6 - 23 mg/dL Final Creatinine 05/29/2024 0.84 0.50 - 1.05 mg/dL Final eGFR 05/29/2024 75 >60 mL/min/1.73m*2 Final Calculations of estimated GFR are performed using the 2020 CKD-EPI Study Refit equation without therace variable for the IDMS-Traceable creatinine methods. https://jasn.asnjournals.org/content/early//ASN.1193112501 Calcium 05/29/2024 10.1 8.6 - 10.3 mg/dL Final Albumin 05/29/2024 4.4 3.4 - 5.0 g/dL Final Alkaline Phosphatase 05/29/2024 88 33 - 136 U/L Final Total Protein 05/29/2024 6.8 6.4 - 8.2 g/dL Final AST 05/29/2024 15 9 - 39 U/L Final Bilirubin, Total 05/29/2024 0.5 0.0 - 1.2 mg/dL Final ALT 05/29/2024 23 7 - 45 U/L Final Patients treated with Sulfasalazine may generate falsely decreased results for ALT. C-Reactive Protein 05/29/2024 0.20 <1.00 mg/dL Final Sedimentation Rate 05/29/2024 10 0 - 30 mm/h Final Cholesterol 05/29/2024 207 (H) 0 - 199 mg/dL Final Age Desirable Borderline High High 0-19 Y 0 - 169 170 - 199 >/= 200 20-24 Y 0 - 189 190 - 224 >/= 225 >24 Y 0 - 199 200 - 239 >/= 240 All ranges are based on fasting samples. Specific therapeutic targets will vary based on patient-specific cardiac risk. Pediatric guidelines reference:Pediatrics 2011, 128(S5).Adult guidelines reference: NCEP ATPIII Guidelines,DEBBIE 2001, 258:2486-97 Venipuncture immediately after or during the administration of Metamizole may lead to falsely low results. Testing should be performed immediately prior to Metamizole dosing. HDL-Cholesterol 05/29/2024 69.0 mg/dL Final Age Very Low Low Normal High 0-19 Y < 35 < 40 40-45 ---- 20-24 Y ---- < 40 >45 ---- >24 Y ---- < 40 40-60 >60 Cholesterol/HDL Ratio 05/29/2024 3.0 Final Ref Values Desirable < 3.4 High Risk > 5.0 Non-HDL Cholesterol 05/29/2024 138 0 - 149 mg/dL Final Age Desiable Borderline High High Very High 0-19 Y 0 - 119 120 - 144 >/= 145 >/= 160 20-24 Y 0 - 149 150 - 189 >/= 190 ---- >24 Y 30 MG/DL ABOVE LDL CHOLESTEROL GOAL Health Maintenance Due Topic Date Due Medicare Annual Wellness Visit (AWV) Never done Bone Density Scan Never done Hepatitis C Screening Never done Diabetes Screening Never done DTaP/Tdap/Td Vaccines (1 - Tdap) Never done RSV High Risk: (Elderly (60+) or Population) (1 - Risk 60-74 years 1- dose series) Never done Zoster Vaccines (1 of 2) 08/11/2015 Mammogram 12/20/2020 Pneumococcal Vaccine: 65+ Years (2 of 2 - PCV) 03/17/2022 COVID-19 Vaccine ( season) 2024 Assessment/plan Assessment & Plan Rheumatoid arthritis involving multiple sites with positive rheumatoid factor (Multi) Pt stable on xeljanz therapy. Advised to hold med the week of surgery. Labs without signs on disease activity and exam is otherwise unchanged Orders: CBC and Auto Differential; Future Comprehensive Metabolic Panel; Future C-Reactive Protein; Future Sedimentation Rate; Future Immunosuppression due to drug therapy Long-term current use of tofacitinib Primary osteoarthritis of right hip Agree with plans for surgery. Cleared for surgery from a rheumatologic standpoint. Pt advised on holding medications Follow up: __4___months Immunization History Administered Date(s) Administered Flu vaccine (IIV4), preservative free *Check age/dose* 06/13/2017, 04/26/2018, 05/16/2019, 04/14/2020 Flu vaccine, quadrivalent, high-dose, preservative free, age 65y+ (FLUZONE) 05/06/2022, 05/04/2023 Flu vaccine, trivalent, preservative free, HIGH-DOSE, age 65y+ (Fluzone) 05/04/2021 Flu vaccine, trivalent, preservative free, age 6 months and greater (Fluarix/Fluzone/Flulaval) 04/25/2012, 06/13/2013, 06/18/2014, 04/30/2015, 05/25/2016 Influenza, Unspecified 05/06/2022 Influenza, injectable, quadrivalent 05/01/2018, 05/16/2019, 05/23/2020 Moderna SARS-CoV-2 Vaccination 03/25/2021, 04/22/2021, 10/14/2021, 03/25/2022 Pneumococcal polysaccharide vaccine, 23-valent, age 2 years and older (PNEUMOVAX 23) 03/17/2021 Zoster, live 06/16/2015 documented in this [facility] Work Phone: 1(263) 309-606011-14-2024 Instructions* Patient Instructions* Peggy Miguel MD - 06/14/2024 8:30 AM EST It was a pleasure to see you today Please call if your symptoms worsen Please review your summary for education and reminders. Follow up at your next appointment. If you had labs/xrays done today, you will be able to view on [employer]. We will contact you when theresults are reviewed for further discussion. Please note that you may receive your results before [facility] had a chance to review. Please know I will be contacting you for discussion Homegoing instructions for all patient A healthy lifestyle helps chronic diseases These are all the goals you should strive to improve your overall health Blood pressure <130/85 BMI of <30 or waist circumference that is 1/2 of your height Fasting blood sugar <107 (if you are diabetic, aim for an A1c <6.4%_ LDL cholesterol <130 Avoid smoking Manage your stress Get your preventive exams Get your immunizations What else for RA? Any type of exercise is better than nothing. Whether you do cardio, walking, lift weights or yoga, all can help in improving physical function. Occupational and physical therapy can improve physical function and decrease pain by providing tools and techniques to improve your day. We can do a referral if you haven't seen one yet Braces and splints for affected joints can also help If your gait is affected, strongly recommend assistive devices like canes or walkers. We don't wantto risk injuries from falls. Can Diet help? Consider the Mediterranean diet There are some foods that are considered inflammatory Look up anti- inflammatory diets for a list of foods to avoid. No dietary supplements help unfortunately. Work on getting to a normal weight/BMI. This will lessen the stress on your joints. What else? Acupuncture Massage therapy Apply heat to affected joints We do not recommend medicare insurance specialist as it has not been shown to help in RA. If you smoke, stop (From CR guidelines for exercise, rehab and diet in RA) documented in this [facility] Work Phone: [phone]) 885-953811-14-2024 Miscellaneous Notes* Assessment & Plan Note - Peggy Miguel MD - 06/14/2024 8:30 AM ESTAssociated Problem(s): Rheumatoid arthritis involving multiple sites with positive rheumatoid factor (Multi) Pt stable on xeljanz therapy. Advised to hold med the week of surgery. Labs without signs on disease activity and exam is otherwise unchanged Orders: CBC and Auto Differential; Future Comprehensive Metabolic Panel; Future C-Reactive Protein; Future Sedimentation Rate; Future * Assessment & Plan Note - Peggy Miguel MD - 06/14/2024 8:30 AM EST Associated Problem(s): Immunosuppression due to drug therapy * Assessment & Plan Note - Peggy Miguel MD - 06/14/2024 8:30 AM EST Associated Problem(s): Long-term current use of tofacitinib * Assessment & Plan Note - Peggy Miguel MD - 06/14/2024 8:30 AM EST Associated Problem(s): Primary osteoarthritis of right hip Agree with plans for surgery. Cleared for surgery from a rheumatologic standpoint. Pt advised on holding medications [facility] [phone] Evaluation + Plan note* Assessment & Plan Note - Peggy Miguel MD - 01/27/2024 8:34 AM EDTAssociated Problem(s): Rheumatoid arthritis involving multiple sites with positive rheumatoid factor (Multi) Well controlled on xeljanz. No signs of disease progression on exam. Labs reviewed with patient andcopy provided for her Continue meds [facility] Work Phone: [phone] Miscellaneous Notes* Assessment & Plan Note - Peggy Miguel MD - 01/27/2024 8:34 AM EDTAssociated Problem(s): Rheumatoid arthritis involving multiple sites with positive rheumatoid factor (Multi) Well controlled on xeljanz. No signs of disease progression on exam. Labs reviewed with patient andcopy provided for her Continue meds * Assessment & Plan Note - Peggy Miguel MD - 01/27/2024 8:33 AM EDT Associated Problem(s): Mixed hyperlipidemia Not on medication but MARYANN inhibitors can raise levels. Will recheck next visit. Pt on RedYeast rice and fish oil * Assessment & Plan Note - Peggy Miguel MD - 01/27/2024 8:33 AM EDT Associated Problem(s): Hypertension Controlled on ARB documented in this [facility] Work Phone: [phone] Evaluation + Plan note* Assessment & Plan Note - Peggy Miguel MD - 01/27/2024 8:33 AM EDTAssociated Problem(s): Mixed hyperlipidemia Not on medication but MARYANN inhibitors can raise levels. Will recheck next visit. Pt on RedYeast rice and fish oil [facility] Work Phone: [phone] Evaluation + Plan note* Assessment & Plan Note - Peggy Miguel MD - 01/27/2024 8:33 AM EDTAssociated Problem(s): Hypertension Controlled on ARB [facility] Work Phone: [phone] History of Present illness Narrative* Peggy Miguel MD - 01/27/2024 8:30 AM EDT Images from the original note were not included. [facility] RHEUMATOLOGY AND INTERNAL MEDICINE RHEUMATOLOGY PROGRESS NOTE Alyce Pena 68 y.o. female Chief Complaint Patient presents with Rheumatoid Arthritis SUBJECTIVE Pt reports she is doing well and has minimal symptoms Has a recurrence of hip pain but trying to hold off getting injections in her hips again. It did worsen during the heat wave last week. No new areas of pain. Tolerating medications without problems Records since last seen reviewed in [facility] and [facility] Record Patient Active Problem List Diagnosis Date Noted Mixed hyperlipidemia 05/04/2023 Hypertension 03/25/2023 Idiopathic thrombocytopenic purpura (Multi) 03/25/2023 Long-term current use of tofacitinib 03/25/2023 Rheumatoid arthritis involving multiple sites with positive rheumatoid factor (Multi) 03/25/2023 Immunosuppression due to drug therapy (Multi) 03/25/2023 Past Medical History: Diagnosis Date Consumes 4 to 5 servings of caffeine per day Personal history of colonic polyps 04/26/2016 Right wrist tendinitis 01/26/2018 Right wrist tendinitis Unspecified cataract Cataracts, bilateral Current Outpatient Medications Medication Instructions cholecalciferol (Vitamin D-3) 25 MCG (1000 UT) tablet 1 tablet, oral, Daily coenzyme Q-10 100 mg, oral, Daily losartan (COZAAR) 50 mg, oral, Daily omega 1-jmx-ypg-fish oil (Fish OiL) 100-160-1,000 mg capsule 2 capsules, oral, Daily red yeast rice 600 mg tablet 2 tablets, oral, 2 times daily tofacitinib ER (Xeljanz XR) 11 mg tablet extended release 24 hr TAKE ONE (1) TABLET BY MOUTH ONCE DAILY Allergies Allergen Reactions Ciprofloxacin Unknown Hydrocodone-Acetaminophen Other Did not like the way it made her feel Nitrofurantoin Monohyd/M-Cryst Unknown Nsaids (Non-Steroidal Anti-Inflammatory Drug) Unknown Sulfa (Sulfonamide Antibiotics) Unknown Sulfamethoxazole-Trimethoprim Unknown Review of Systems Constitutional: Negative for fatigue and fever. Respiratory: Negative for cough and shortness of breath. Cardiovascular: Negative for leg swelling. Musculoskeletal: Positive for arthralgias. Negative for back pain, gait problem, joint swelling andmyalgias. Skin: Negative for color change and rash. Neurological: Negative for weakness and numbness. Social History Tobacco Use Smoking status: Former Types: Cigarettes Smokeless tobacco: Never Substance Use Topics Alcohol use: Never Drug use: Never PHYSICAL EXAM BP 122/74 Pulse 64 Temp 35.8 C (96.4 F) Ht 1.575 m (5' 2) Wt 68.6 kg (151 lb 4.8 oz) BMI27.67 kg/m Physical Exam Vitals reviewed. Constitutional: General: She is not in acute distress. Appearance: Normal appearance. HENT: Head: Normocephalic and atraumatic. Eyes: General: No scleral icterus. Extraocular Movements: Extraocular movements intact. Conjunctiva/sclera: Conjunctivae normal. Pupils: Pupils are equal, round, and reactive to light. Pulmonary: Effort: Pulmonary effort is normal. No respiratory distress. Musculoskeletal: General: No swelling, tenderness or deformity. Cervical back: Normal range of motion and neck supple. No tenderness. Right lower leg: No edema. Left lower leg: No edema. Comments: No synovitis of examined joints Skin: Coloration: Skin is not pale. Findings: No erythema or rash. Neurological: General: No focal deficit present. Mental Status: She is alert and oriented to person, place, and time. Mental status is at baseline. Gait: Gait normal. Psychiatric: Mood and Affect: Mood normal. Exam unchanged Health Maintenance Due Topic Date Due Medicare Annual Wellness Visit (AWV) Never done Bone Density Scan Never done Hepatitis C Screening Never done Diabetes Screening Never done DTaP/Tdap/Td Vaccines (1 - Tdap) Never done RSV patients and/or patients aged 60+ years (1 - 1-dose 60+ series) Never done Zoster Vaccines (1 of 2) 08/11/2015 Mammogram 12/20/2020 Pneumococcal Vaccine: 65+ Years (2 of 2 - PCV) 03/17/2022 COVID-19 Vaccine ( season) 2023 Lab on 01/23/2024 Component Date Value Ref Range Status WBC 01/23/2024 5.1 4.4 - 11.3 x10*3/uL Final nRBC 01/23/2024 0.0 0.0 - 0.0 /100 WBCs Final RBC 01/23/2024 4.32 4.00 - 5.20 x10*6/uL Final Hemoglobin 01/23/2024 13.0 12.0 - 16.0 g/dL Final Hematocrit 01/23/2024 40.2 36.0 - 46.0 % Final MCV 01/23/2024 93 80 - 100 fL Final MCH 01/23/2024 30.1 26.0 - 34.0 pg Final MCHC 01/23/2024 32.3 32.0 - 36.0 g/dL Final RDW 01/23/2024 12.4 11.5 - 14.5 % Final Platelets 01/23/2024 215 150 - 450 x10*3/uL Final Neutrophils % 01/23/2024 44.5 40.0 - 80.0 % Final Immature Granulocytes %, Automated 01/23/2024 0.4 0.0 - 0.9 % Final Immature Granulocyte Count (IG) includes promyelocytes, myelocytes and metamyelocytes but does not include bands. Percent differential counts (%) should be interpreted in the context of the absolute cell counts (cells/UL). Lymphocytes % 01/23/2024 39.0 13.0 - 44.0 % Final Monocytes % 01/23/2024 10.6 2.0 - 10.0 % Final Eosinophils % 01/23/2024 4.3 0.0 - 6.0 % Final Basophils % 01/23/2024 1.2 0.0 - 2.0 % Final Neutrophils Absolute 01/23/2024 2.27 1.20 - 7.70 x10*3/uL Final Percent differential counts (%) should be interpreted in the context of the absolute cell counts (cells/uL). Immature Granulocytes Absolute, Au* 01/23/2024 0.02 0.00 - 0.70 x10*3/uL Final Lymphocytes Absolute 01/23/2024 1.99 1.20 - 4.80 x10*3/uL Final Monocytes Absolute 01/23/2024 0.54 0.10 - 1.00 x10*3/uL Final Eosinophils Absolute 01/23/2024 0.22 0.00 - 0.70 x10*3/uL Final Basophils Absolute 01/23/2024 0.06 0.00 - 0.10 x10*3/uL Final Glucose 01/23/2024 91 74 - 99 mg/dL Final Sodium 01/23/2024 138 136 - 145 mmol/L Final Potassium 01/23/2024 4.2 3.5 - 5.3 mmol/L Final Chloride 01/23/2024 104 98 - 107 mmol/L Final Bicarbonate 01/23/2024 29 21 - 32 mmol/L Final Anion Gap 01/23/2024 9 (L) 10 - 20 mmol/L Final Urea Nitrogen 01/23/2024 15 6 - 23 mg/dL Final Creatinine 01/23/2024 0.87 0.50 - 1.05 mg/dL Final eGFR 01/23/2024 73 >60 mL/min/1.73m*2 Final Calculations of estimated GFR are performed using the 2020 CKD-EPI Study Refit equation without therace variable for the IDMS-Traceable creatinine methods. https://jasn.asnjournals.org/content/early/ASN.0560593486 Calcium 01/23/2024 9.6 8.6 - 10.3 mg/dL Final Albumin 01/23/2024 4.2 3.4 - 5.0 g/dL Final Alkaline Phosphatase 01/23/2024 53 33 - 136 U/L Final Total Protein 01/23/2024 6.8 6.4 - 8.2 g/dL Final AST 01/23/2024 17 9 - 39 U/L Final Bilirubin, Total 01/23/2024 0.4 0.0 - 1.2 mg/dL Final ALT 01/23/2024 17 7 - 45 U/L Final Patients treated with Sulfasalazine may generate falsely decreased results for ALT. C-Reactive Protein 01/23/2024 0.25 <1.00 mg/dL Final Sedimentation Rate 01/23/2024 20 0 - 30 mm/h Final Assessment/plan Problem List Items Addressed This Visit None Follow up: __4___months documented in this [facility] Work Phone: [phone] Instructions* Patient Instructions* Peggy Miguel MD - 01/27/2024 8:30 AM EDT It was a pleasure to see you today Please call if your symptoms worsen Please review your summary for education and reminders. Follow up at your next appointment. If you had labs/xrays done today, you will be able to view on [employer]. We will contact you when theresults are reviewed for further discussion. Please note that you may receive your results before Mi had a chance to review. Please know I will be contacting you for discussion Homegoing instructions for all patient A healthy lifestyle helps chronic diseases These are all the goals you should strive to improve your overall health Blood pressure <130/85 BMI of <30 or waist circumference that is 1/2 of your height Fasting blood sugar <107 (if you are diabetic, aim for an A1c <6.4%_ LDL cholesterol <130 Avoid smoking Manage your stress Get your preventive exams Get your immunizations What else for RA? Any type of exercise is better than nothing. Whether you do cardio, walking, lift weights or yoga, all can help in improving physical function. Occupational and physical therapy can improve physical function and decrease pain by providing tools and techniques to improve your day. We can do a referral if you haven't seen one yet Braces and splints for affected joints can also help If your gait is affected, strongly recommend assistive devices like canes or walkers. We don't wantto risk injuries from falls. Can Diet help? Consider the Mediterranean diet There are some foods that are considered inflammatory Look up anti- inflammatory diets for a list of foods to avoid. No dietary supplements help unfortunately. Work on getting to a normal weight/BMI. This will lessen the stress on your joints. What else? Acupuncture Massage therapy Apply heat to affected joints We do not recommend medicare insurance specialist as it has not been shown to help in RA. If you smoke, stop (From CR guidelines for exercise, rehab and diet in RA) documented in this [facility] Work Phone: [phone] Evaluation + Plan note* Assessment & Plan Note - Peggy Miguel MD - 09/29/2023 9:09 AM ESTAssociated Problem(s): Rheumatoid arthritis involving multiple sites with positive rheumatoid factor ([facility]) On xeljanz and doing well. Pt to continue meds. Lab only ran CBC and ESR. Rest of lab done today. Pt to call if not better [facility] Work Phone: [phone] Miscellaneous Notes* Assessment & Plan Note - Peggy Miguel MD - 09/29/2023 9:09 AM ESTAssociated Problem(s): Rheumatoid arthritis involving multiple sites with positive rheumatoid factor (CMS/HCC) On xeljanz and doing well. Pt to continue meds. Lab only ran CBC and ESR. Rest of lab done today. Pt to call if not better * Assessment & Plan Note - Peggy Miguel MD - 09/29/2023 9:06 AM EST Associated Problem(s): Idiopathic thrombocytopenic purpura (CMS/HCC) Chronic Condition Documentation: Stable based on symptoms and exam. Continue established treatment plan and follow-up at least yearly. stable [facility]: [phone] Evaluation + Plan note* Assessment & Plan Note - Peggy Miguel MD - 09/29/2023 9:06 AM ESTAssociated Problem(s): Idiopathic thrombocytopenic purpura (CMS/HCC) Chronic Condition Documentation: Stable based on symptoms and exam. Continue established treatment plan and follow-up at least yearly. stable [facility] Work Phone: [phone] History of Present illness Narrative* Peggy Miguel MD - 09/29/2023 9:00 AM EST RHEUMATOLOGY PROGRESS NOTE Alyce Pena 68 y.o. female Chief Complaint Patient presents with Follow-up Rheumatoid Arthritis SUBJECTIVE Re: RA Pt feels arthritis is doing well on treatment. Has had some hip pain and has been getting guided injections with relief. No other new symptoms No worsening stiffness or swelling Patient Active Problem List Diagnosis Date Noted Mixed hyperlipidemia 05/04/2023 Hypertension 03/25/2023 Idiopathic thrombocytopenic purpura (CMS/HCC) 03/25/2023 Long-term current use of tofacitinib 03/25/2023 Rheumatoid arthritis involving multiple sites with positive rheumatoid factor ([facility]/HCC) 03/25/2023 Immunosuppression due to drug therapy ([facility]) 03/25/2023 Past Medical History: Diagnosis Date Consumes 4 to 5 servings of caffeine per day Personal history of colonic polyps 04/26/2016 Right wrist tendinitis 01/26/2018 Right wrist tendinitis Unspecified cataract Cataracts, bilateral Current Outpatient Medications Medication Instructions cholecalciferol (Vitamin D-3) 25 MCG (1000 UT) tablet 1 tablet, oral, Daily coenzyme Q-10 100 mg, oral, Daily losartan (Cozaar) 50 mg tablet 1 tablet, oral, Daily omega 9-mel-ktg-fish oil (Fish OiL) 100-160-1,000 mg capsule 2 capsules, oral, Daily red yeast rice 600 mg tablet 2 tablets, oral, 2 times daily tofacitinib ER (Xeljanz XR) 11 mg tablet extended release 24 hr TAKE ONE (1) TABLET BY MOUTH ONCE DAILY Allergies Allergen Reactions Ciprofloxacin Unknown Hydrocodone-Acetaminophen Other Did not like the way it made her feel Nitrofurantoin Monohyd/M-Cryst Unknown Nsaids (Non-Steroidal Anti-Inflammatory Drug) Unknown Sulfa (Sulfonamide Antibiotics) Unknown Sulfamethoxazole-Trimethoprim Unknown Review of Systems Constitutional: Negative for fatigue and fever. Respiratory: Negative for cough and shortness of breath. Cardiovascular: Negative for leg swelling. Musculoskeletal: Positive for arthralgias. Negative for back pain, gait problem, joint swelling andmyalgias. Skin: Negative for color change and rash. Neurological: Negative for weakness and numbness. PHYSICAL EXAM BP 117/85 Pulse 60 Temp 36.5 C (97.7 F) (Temporal) Ht 1.575 m (5' 2) Wt 67.9 kg (149 lb 11.2 oz) SpO2 98% BMI 27.38 kg/m Physical Exam Vitals reviewed. Constitutional: General: She is not in acute distress. Appearance: Normal appearance. HENT: Head: Normocephalic and atraumatic. Eyes: Extraocular Movements: Extraocular movements intact. Conjunctiva/sclera: Conjunctivae normal. Pupils: Pupils are equal, round, and reactive to light. Pulmonary: Effort: Pulmonary effort is normal. No respiratory distress. Musculoskeletal: General: No swelling, tenderness or deformity. Cervical back: Normal range of motion. Right lower leg: No edema. Left lower leg: No edema. Comments: No synovitis of examined joints Skin: Coloration: Skin is not pale. Findings: No erythema or rash. Neurological: General: No focal deficit present. Mental Status: She is alert and oriented to person, place, and time. Mental status is at baseline. Gait: Gait normal. Psychiatric: Mood and Affect: Mood normal. Lab Results Component Value Date WBC 8.1 09/02/2023 HGB 13.2 09/02/2023 HCT 41.0 09/02/2023 MCV 94 09/02/2023 PLT 263 09/02/2023 Lab Results Component Value Date SEDRATE 12 09/02/2023 Assessment/plan Problem List Items Addressed This Visit Idiopathic thrombocytopenic purpura (CMS/HCC) Current Assessment & Plan Chronic Condition Documentation: Stable based on symptoms and exam. Continue established treatment plan and follow-up at least yearly. stable Long-term current use of tofacitinib Rheumatoid arthritis involving multiple sites with positive rheumatoid factor (CMS/HCC) - Primary Overview Previous plaquenil, methotrexate,arava, azathioprine Current Assessment & Plan On xeljanz and doing well. Pt to continue meds. Lab only ran CBC and ESR. Rest of lab done today. Pt to call if not better 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) Follow up: __4___months documented in this [facility] Work Phone: [phone]) [phone] Instructions* Patient Instructions* Peggy Miguel MD - 09/29/2023 9:00 AM EST It was a pleasure to see you today Please call if your symptoms worsen Please review your summary for education and reminders. Follow up at your next appointment. If you had labs/xrays done today, you will be able to view on [employer]. We will contact you when theresults are reviewed for further discussion. Please note that you may receive your results before Ihluaren had a chance to review. Please know I will be contacting you for discussion Homegoing instructions for all patient A healthy lifestyle helps chronic diseases These are all the goals you should strive to improve your overall health Blood pressure <130/85 BMI of <30 or waist circumference that is 1/2 of your height Fasting blood sugar <107 (if you are diabetic, aim for an A1c <6.4%_ LDL cholesterol <130 Avoid smoking Manage your stress Get your preventive exams Get your immunizations [facility]: [phone]) [phone] NoteDiagnoses/Problems Assessed Encounter for immunization (V03.89) (Z23) Rheumatoid arthritis involving multiple sites with positive rheumatoid factor (714.0) (M05.79) Long-term current use of tofacitinib (V58.69) (Z79.622) Orders Encounter for immunization Administered: Fluzone High-Dose Quadrivalent 0.7 ML Intramuscular Suspension Prefilled Syringe For: Encounter for immunization; Ordered By:Peggy Miguel; Effective Date:06May2022; Administered by: Jane Huitron MA: 05/06/2022 9:19:00 AM; Last Updated By: Jane Huitron; 05/06/2022 9:19:44 AM Rheumatoid arthritis involving multiple sites with positive rheumatoid factor Avoid alcoholic beverages.; Status:Complete; Done: 06May2022 Ordered; For:Rheumatoid arthritis involving multiple sites with positive rheumatoid factor; OrderedBy:Peggy Miguel; Begin a limited exercise program.; Status:Complete; Done: 06May2022 Ordered; For:Rheumatoid arthritis involving multiple sites with positive rheumatoid factor; OrderedBy:Peggy Miguel; Decreasing the stress in your life may help your condition improve.; Status:Complete; Done: 06May2022 Ordered; For:Rheumatoid arthritis involving multiple sites with positive rheumatoid factor; OrderedBy:Peggy Miguel; Warm baths may help the discomfort.; Status:Complete; Done: 06May2022 Ordered; For:Rheumatoid arthritis involving multiple sites with positive rheumatoid factor; OrderedBy:Peggy Miguel; We suggest that you do gentle exercise that does not stress your joints.; Status:Complete; Done: [id number] Ordered; For:Rheumatoid arthritis involving multiple sites with positive rheumatoid factor; OrderedBy:Peggy Miguel; You may apply heat using a heating pad turned on low or medium.; Status:Complete; Done: [id number] Ordered; For:Rheumatoid arthritis involving multiple sites with positive rheumatoid factor; OrderedBy:Peggy Miguel; Patient Discussion/Summary It was a pleasure seeing you today Please call if symptoms worsen Follow up in 4 months Patient Education Homegoing instructions As always, a healthy lifestyle helps chronic diseases. These are all the goals you should strive toachieve to improve your overall health: blood pressure less than 130/85 BMI of 21-29.99 or a waist circumference that is 1/2 of your height fasting blood sugar less than 107 (if you are diabetic, aim for your A1c to be below 6.4% LDL cholesterol below 130 avoid smoking manage your stress see your primary care doctor for preventive exams get your immunizations Provider Impressions Patient seen primarily today for rheumatoid arthritis on Xeljanz therapy. Patient is doing well without any clinical signs of disease progression on exam or by lab work. Patient is to continue on medication we will continue to monitor closely. To assess diagnosis and determine treatment plan, the following occurred today---Lab and xray testswere reviewed This visit has a moderate risk for morbidity as---prescription drugs are being prescribed and monitored Gaps in care reviewed and pt is due for---vaccinations (given today) To get shingrix soon ---COVID primary vaccination and booster completed To get bivalent omicron variant booster soon Chief Complaint RA F/U History of Present Illness Interval Events: Patient reports that she has minimal symptoms and overall is doing well without any problems. She is tolerating medication without any difficulties. Symptoms: Associated Symptoms: fatigue. Systemically the patient has positive rheumatoid factor testing. Activities: no limitations. Medications: the patient is adherent with her medication regimen. She denies medication side effects. Review of Systems Constitutional: feeling tired, but no fever. Respiratory: no cough and no shortness of breath during exertion. Musculoskeletal: myalgias and joint stiffness, but no arthralgias and no joint swelling. Integumentary: no skin rashes. All other systems have been reviewed and are negative for complaint. Active Problems Problems Hypertension (401.9) (I10) Idiopathic thrombocytopenic purpura (287.31) (D69.3) Idiopathic thrombocytopenic purpura Long-term current use of tofacitinib (V58.69) (Z79.622) Overweight with body mass index (BMI) of 28 to 28.9 in adult (278.02,V85.24) (E66.3,Z68.28) Rheumatoid arthritis involving multiple sites with positive rheumatoid factor (714.0) (M05.79) Past Medical History Problems History of BMI 26.0-26.9,adult (V85.22) (Z68.26) Resolved Date: 23 Jun 2020 History of Cataracts, bilateral (366.9) (H26.9) History of Encounter for monitoring azathioprine therapy (V58.83,V58.69) (Z51.81,Z79.624) Resolved Date: 19 Dec 2019 History of Encounter for monitoring leflunomide therapy (V58.83,V58.69) (Z51.81,Z79.899) Resolved Date: 17 May 2019 History of Long-term use of Plaquenil (V58.69) (Z79.899) Resolved Date: 11 Jan 2019 History of On methotrexate therapy (V58.69) (Z79. (more content not included)... TouchworksEvaluation + Plan note Future Appointments Appointment Date:03/29/2023 07:00:00 AM Scheduled Provider:LOREN GREEN DO Location:[facility] [place] Appointment Type:[facility] Medicare Future Scheduled Tests Radiology* MA Mammo Screening Bilateral w/ Ricardo 03/25/22 * BD Bone Density DEXA Axial Skeleton 03/25/22 [facility] Evaluation + Plan note Future Appointments Appointment Date:04/19/2024 07:00:00 AM Scheduled Provider:LOREN GREEN DO Location:[facility] [place] Appointment Type:[facility] Annual Future Scheduled Tests Radiology* MA Mammo Screening Bilateral w/ Ricardo 04/14/23 [facility] Evaluation + Plan note Future Appointments Appointment Date:06/26/2024 09:30:00 AM Scheduled Provider:LOREN GREEN DO Location:[facility] [place] Appointment Type:PC OV Pre Op Appointment Date:06/26/2024 11:30:00 AM Scheduled Provider: Location:[facility] Appointment Type:MA Mammogram Screening Bilateral w/ Ricardo Appointment Date:06/26/2024 01:00:00 PM Scheduled Provider: Location:[facility] Appointment Type:BD Bone Density DEXA Axial Skeleton Future Scheduled Tests Laboratory* Thyroid Stimulating Hormone 05/10/24 * Thyroid Stimulating Hormone 06/07/24 * Complete Blood Count 05/10/24 * Complete Blood Count 06/07/24 * Lipid Profile 05/10/24 * Lipid Profile 06/07/24 * Vitamin D Level 05/10/24 * Vitamin D Level 06/07/24 * Complete Metabolic Panel 05/10/24 * Complete Metabolic Panel 06/07/24 Radiology* MA Mammo Screening Bilateral w/ Ricardo 06/26/24 * BD Bone Density DEXA Axial Skeleton Adult (21 yrs or older) 06/26/24 [facility] Evaluation + Plan note Future Appointments Appointment Date:06/26/2024 09:30:00 AM Scheduled Provider:LOREN GREEN DO Location:[facility] Appointment Type:PC OV Pre Op Appointment Date:06/26/2024 11:30:00 AM Scheduled Provider: Location:[facility] Appointment Type:MA Mammogram Screening Bilateral w/ Ricardo Appointment Date:06/26/2024 01:00:00 PM Scheduled Provider: Location:[facility] Appointment Type:BD Bone Density DEXA Axial Skeleton Future Scheduled Tests Laboratory* Thyroid Stimulating Hormone 06/07/24 * Complete Blood Count 06/07/24 * Lipid Profile 06/07/24 * Vitamin D Level 06/07/24 * Complete Metabolic Panel 06/07/24 Radiology* MA Mammo Screening Bilateral w/ Ricardo 06/26/24 * BD Bone Density DEXA Axial Skeleton Adult (21 yrs or older) 06/26/24 [facility] evaluation + Plan note Future Appointments Appointment Date:12/19/2024 08:00:00 AM Scheduled Provider: Location:[facility] [place] Appointment Type:PC Nurse Lab Appointment Date:12/27/2024 08:00:00 AM Scheduled Provider:LOREN GREEN DO Location:[facility] [place] Appointment Type:PC OV Appointment Date:05/14/2025 09:30:00 AM Scheduled Provider:LOREN GREEN DO Location:[facility] [place] Appointment Type:[facility] Wellness Medicare Future Scheduled Tests Laboratory* Thyroid Stimulating Hormone 06/07/24 * Complete Blood Count 12/24/24 * Complete Blood Count 06/07/24 * Lipid Profile 12/24/24 * Lipid Profile 06/07/24 * Vitamin D Level 12/24/24 * Vitamin D Level 06/07/24 * Complete Metabolic Panel 12/24/24 * Complete Metabolic Panel 06/07/24 [facility] Evaluation + Plan note Future Appointments Appointment Date:07/17/2024 01:00:00 PM Scheduled Provider:LOREN GREEN DO Location:[facility] [place] Appointment Type:PC OV TCM 30 Appointment Date:12/19/2024 08:00:00 AM Scheduled Provider: Location:[facility] [place] Appointment Type:PC Nurse Lab Appointment Date:12/27/2024 08:00:00 AM Scheduled Provider:LOREN GREEN DO Location:[facility] [place] Appointment Type:PC OV Appointment Date:05/14/2025 09:30:00 AM Scheduled Provider:LOREN GREEN DO Location:[facility] [place] Appointment Type:PC Wellness Medicare Future Scheduled Tests Laboratory* Thyroid Stimulating Hormone 06/07/24 * Complete Blood Count 12/24/24 * Complete Blood Count 06/07/24 * Lipid Profile 12/24/24 * Lipid Profile 06/07/24 * Vitamin D Level 12/24/24 * Vitamin D Level 06/07/24 * Complete Metabolic Panel 12/24/24 * Complete Metabolic Panel 06/07/24 [facility] Evaluation + Plan note Future Appointments Appointment Date:12/19/2024 08:00:00 AM Scheduled Provider: Location:[facility] [place] Appointment Type:PC Nurse Lab Appointment Date:12/27/2024 08:00:00 AM Scheduled Provider:LOREN GREEN DO Location:[facility] [place] Appointment Type:PC OV Appointment Date:05/14/2025 09:30:00 AM Scheduled Provider:LOREN GREEN DO Location:[facility] [place] Appointment Type:PC Wellness Medicare Future Scheduled Tests Laboratory* Thyroid Stimulating Hormone 06/07/24 * Complete Blood Count 12/24/24 * Complete Blood Count 06/07/24 * Lipid Profile 12/24/24 * Lipid Profile 06/07/24 * Vitamin D Level 12/24/24 * Vitamin D Level 06/07/24 * Complete Metabolic Panel 12/24/24 * Complete Metabolic Panel 06/07/24 [facility] Evaluation + Plan note Future Appointments Appointment Date:12/27/2024 08:00:00 AM Scheduled Provider:LOREN GREEN DO Location:[facility] [place] Appointment Type:[facility] Appointment Date:05/14/2025 09:30:00 AM Scheduled Provider:LOREN GREEN DO Location:[facility] [place] Appointment Type:[facility] Wellness Medicare Future Scheduled Tests Laboratory* Thyroid Stimulating Hormone 06/07/24 * Complete Blood Count 06/07/24 * Lipid Profile 06/07/24 * Vitamin D Level 06/07/24 * Complete Metabolic Panel 06/07/24 [facility] Evaluation + Plan note Future Appointments Appointment Date:05/28/2025 09:30:00 AM Scheduled Provider:LOREN GREEN DO Location:[facility] Appointment Type:[facility] Wellness Medicare Future Scheduled Tests Laboratory* Thyroid Stimulating Hormone 06/29/25 * Complete Blood Count 06/29/25 * Lipid Profile 06/29/25 * Vitamin D Level 06/29/25 * Complete Metabolic Panel 06/29/25 [facility] Evaluation noteNo assessment information available [facility] Work Phone: Evaluation note* Diagnosis Rheumatoid arthritis involving multiple sites with positive rheumatoid factor (CMS/HCC)- Primary 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) Idiopathic thrombocytopenic purpura (CMS/HCC) Immune thrombocytopenic purpura Long-term current use of tofacitinib documented in this encounter [facility] Work Phone: Evaluation note* Diagnosis Rheumatoid arthritis involving multiple sites with positive rheumatoid factor (Multi)- Primary Immunosuppression due to drug therapy Long-term current use of tofacitinib Encounter for immunization Idiopathic thrombocytopenic purpura (Multi) Immune thrombocytopenic purpura Rheumatoid arthritis involving multiple sites with positive rheumatoid factor (Multi)- Primary Immunosuppression due to drug therapy Idiopathic thrombocytopenic purpura (Multi) Immune thrombocytopenic purpura Long-term current use of tofacitinib Rheumatoid arthritis involving multiple sites with positive rheumatoid factor (Multi)- Primary Immunosuppression due to drug therapy Long-term current use of tofacitinib Primary hypertension Unspecified essential hypertension Mixed hyperlipidemia Abnormal finding of blood chemistry, unspecified Rheumatoid arthritis involving multiple sites with positive rheumatoid factor (Multi)- Primary Immunosuppression due to drug therapy Long-term current use of tofacitinib Primary osteoarthritis of right hip documented in this encounter [facility] Work Phone: Evaluation note* Diagnosis Rheumatoid arthritis involving multiple sites with positive rheumatoid factor (Multi)- Primary Immunosuppression due to drug therapy (Multi) Long-term current use of tofacitinib Primary hypertension Unspecified essential hypertension Mixed hyperlipidemia Abnormal finding of blood chemistry, unspecified documented in this encounter [facility] Work Phone: Evaluation note* Diagnosis Rheumatoid arthritis involving multiple sites with positive rheumatoid factor (Multi)- Primary Immunosuppression due to drug therapy Long-term current use of tofacitinib Encounter for immunization Idiopathic thrombocytopenic purpura (Multi) Immune thrombocytopenic purpura Rheumatoid arthritis involving multiple sites with positive rheumatoid factor (Multi)- Primary Immunosuppression due to drug therapy Idiopathic thrombocytopenic purpura (Multi) Immune thrombocytopenic purpura Long-term current use of tofacitinib Rheumatoid arthritis involving multiple sites with positive rheumatoid factor (Multi)- Primary Immunosuppression due to drug therapy Long-term current use of tofacitinib Primary hypertension Unspecified essential hypertension Mixed hyperlipidemia Abnormal finding of blood chemistry, unspecified Rheumatoid arthritis involving multiple sites with positive rheumatoid factor (Multi)- Primary Immunosuppression due to drug therapy Long-term current use of tofacitinib Primary osteoarthritis of right hip Rheumatoid arthritis involving multiple sites with positive rheumatoid factor (Multi)- Primary Immunosuppression due to drug therapy Long-term current use of tofacitinib Idiopathic thrombocytopenic purpura (Multi) Immune thrombocytopenic purpura Primary osteoarthritis of right hip documented in this encounter [facility] Work Phone: Evaluation note* Diagnosis Rheumatoid arthritis involving multiple sites with positive rheumatoid factor (Multi)- Primary Immunosuppression due to drug therapy Long-term current use of tofacitinib Encounter for immunization Idiopathic thrombocytopenic purpura (Multi) Immune thrombocytopenic purpura Rheumatoid arthritis involving multiple sites with positive rheumatoid factor (Multi)- Primary Immunosuppression due to drug therapy Idiopathic thrombocytopenic purpura (Multi) Immune thrombocytopenic purpura Long-term current use of tofacitinib Rheumatoid arthritis involving multiple sites with positive rheumatoid factor (Multi)- Primary Immunosuppression due to drug therapy Long-term current use of tofacitinib Primary hypertension Unspecified essential hypertension Mixed hyperlipidemia Abnormal finding of blood chemistry, unspecified Rheumatoid arthritis involving multiple sites with positive rheumatoid factor (Multi)- Primary Immunosuppression due to drug therapy Long-term current use of tofacitinib Primary osteoarthritis of right hip Rheumatoid arthritis involving multiple sites with positive rheumatoid factor (Multi)- Primary Immunosuppression due to drug therapy Long-term current use of tofacitinib Idiopathic thrombocytopenic purpura (Multi) Immune thrombocytopenic purpura Primary osteoarthritis of right hip Rheumatoid arthritis involving multiple sites with positive rheumatoid factor (Multi)- Primary Long-term current use of tofacitinib Immunosuppression due to drug therapy documented in this encounter [facility] Work Phone: History of Present illness Narrative* Interval Events: RA is stable with minimal symptoms. * Symptoms: * Associated Symptoms: fatigue. Systemically the patient has positive rheumatoid factor testing. * Activities: no limitations. * Medications: the patient is adherent with her medication regimen. She denies medication side effects. * Additional History: never started BP med because of fear of med. We had discussion. Pt agrees to try losartan. [facility] Work Phone: History of Present illness Narrative* Interval Events: RA is stable with minimal symptoms. * Symptoms: * Associated Symptoms: fatigue. Systemically the patient has positive rheumatoid factor testing. * Activities: no limitations. * Medications: the patient is adherent with her medication regimen. She denies medication side effects. * Additional History: never started BP med because of fear of med. We had discussion. Pt agrees to try losartan. [facility] Work Phone: History of Present illness Narrative* Interval Events: RA is stable with minimal symptoms. Patient and I had a long discussion on the newA warnings for Xeljanz. At this point she is doing well on Xeljanz but may consider changing agents. Patient will think about it. * Symptoms: * Associated Symptoms: fatigue. Systemically the patient has positive rheumatoid factor testing. * Activities: no limitations. * Medications: the patient is adherent with her medication regimen. She denies medication side effects. [facility] Work Phone: History of Present illness Narrative* Interval Events: RA is stable No new symptoms. Only complains of L arm pain with movement--pain in the muscle (bicep). * Symptoms: * Associated Symptoms: fatigue. Systemically the patient has positive rheumatoid factor testing. * Activities: no limitations. * Medications: the patient is adherent with her medication regimen. She denies medication side effects. [facility]: History of Present illness Narrative* The patient states her rheumatoid arthritis has been stable since the last visit. * Interval Events: Patient reports she is doing well with very minimal symptoms. She has only very mild pain and has no swelling. No new joints are involved patient continues to be active. * Symptoms: * Associated Symptoms: fatigue. Systemically the patient has positive rheumatoid factor testing. * Activities: no limitations. * Medications: the patient is adherent with her medication regimen. She denies medication side effects. [facility] Work Phone: Hospital course Narrative No data available for this section [facility] Hospital Discharge instructions No data available for this section [facility] Progress note No data available for this section [facility] Family History No Family History Records Found Grandmother Name Dates Details Family history of cerebrovas cular accident (CVA)(V17.1, Z82.3) Status:Active Mother Name Dates Details Family history of Osteoarthr itis, chronic(715.90, M19.90) Status:Active Family history of myocardial infarction(V17.3, Z82.49) Status:Active Father Name Dates Details Family history of chronic ob structive pulmonary disease(V17.6, Z82.5) Status:Active Family history of Benign ess ential hypertension(401.1, I10) Status:Active Sister Name Dates Details Family history of Benign ess ential hypertension(401.1, I10) Status:Active Brother Name Dates Details Family history of Benign ess ential hypertension(401.1, I10) Status:Active Grandmother Name Dates Details Family history of cerebrovas cular accident (CVA)(V17.1, Z82.3) Status:Active Mother Name Dates Details Family history of Osteoarthr itis, chronic(715.90, M19.90) Status:Active Family history of myocardial infarction(V17.3, Z82.49) Status:Active Father Name Dates Details Family history of chronic ob structive pulmonary disease(V17.6, Z82.5) Status:Active Family history of Benign ess ential hypertension(401.1, I10) Status:Active Sister Name Dates Details Family history of Benign ess ential hypertension(401.1, I10) Status:Active Brother Name Dates Details Family history of Benign ess ential hypertension(401.1, I10) Status:Active Grandmother Name Dates Details Family history of cerebrovas cular accident (CVA)(V17.1, Z82.3) Status:Active Mother Name Dates Details Family history of Osteoarthr itis, chronic(715.90, M19.90) Status:Active Family history of myocardial infarction(V17.3, Z82.49) Status:Active Father Name Dates Details Family history of chronic ob structive pulmonary disease(V17.6, Z82.5) Status:Active Family history of Benign ess ential hypertension(401.1, I10) Status:Active Sister Name Dates Details Family history of Benign ess ential hypertension(401.1, I10) Status:Active Brother Name Dates Details Family history of Benign ess ential hypertension(401.1, I10) Status:Active Unknown Family Member Name Dates Details Osteoarthritis, chronic: Mot her Status:Active Family history of myocardial infarction: Mother(V17.3, Z82.49) Status:Active Family history of chronic ob structive pulmonary disease: Father(V17.6, Z82.5) Status:Active Benign essential hypertensio n: Father, Sister, Brother Status:Active Family history of cerebrovas cular accident (CVA): Grandmother(V17.1, Z82.3) Status:Active Unknown Family Member Name Dates Details Osteoarthritis, chronic: Mot her Status:Active Family history of myocardial infarction: Mother(V17.3, Z82.49) Status:Active Family history of chronic ob structive pulmonary disease: Father(V17.6, Z82.5) Status:Active Benign essential hypertensio n: Father, Sister, Brother Status:Active Family history of cerebrovas cular accident (CVA): Grandmother(V17.1, Z82.3) Status:Active Unknown Family Member Name Dates Details Osteoarthritis, chronic: Mot her Status:Active Family history of myocardial infarction: Mother(V17.3, Z82.49) Status:Active Family history of chronic ob structive pulmonary disease: Father(V17.6, Z82.5) Status:Active Benign essential hypertensio n: Father, Sister, Brother Status:Active Family history of cerebrovas cular accident (CVA): Grandmother(V17.1, Z82.3) Status:Active Unknown Family Member Name Dates Details Osteoarthritis, chronic: Mot her Status:Active Family history of myocardial infarction: Mother(V17.3, Z82.49) Status:Active Family history of chronic ob structive pulmonary disease: Father(V17.6, Z82.5) Status:Active Benign essential hypertensio n: Father, Sister, Brother Status:Active Family history of cerebrovas cular accident (CVA): Grandmother(V17.1, Z82.3) Status:Active Unknown Family Member Name Dates Details Osteoarthritis, chronic: Mot her Status:Active Family history of myocardial infarction: Mother(V17.3, Z82.49) Status:Active Family history of chronic ob structive pulmonary disease: Father(V17.6, Z82.5) Status:Active Benign essential hypertensio n: Father, Sister, Brother Status:Active Family history of cerebrovas cular accident (CVA): Grandmother(V17.1, Z82.3) Status:Active Unknown Family Member Name Dates Details Osteoarthritis, chronic: Mot her Status:Active Family history of myocardial infarction: Mother(V17.3, Z82.49) Status:Active Family history of chronic ob structive pulmonary disease: Father(V17.6, Z82.5) Status:Active Benign essential hypertensio n: Father, Sister, Brother Status:Active Family history of cerebrovas cular accident (CVA): Grandmother(V17.1, Z82.3) Status:Active Unknown Family Member Name Dates Details Family history of cerebrovas cular accident (CVA): Grandmother(V17.1, Z82.3) Status:Active Family history of chronic ob structive pulmonary disease: Father(V17.6, Z82.5) Status:Active Family history of myocardial infarction: Mother(V17.3, Z82.49) Status:Active Osteoarthritis, chronic: Mot her Status:Active Benign essential hypertensio n: Father, Sister, Brother Status:Active Unknown Family Member Name Dates Details Family history of cerebrovas cular accident (CVA): Grandmother(V17.1, Z82.3) Status:Active Benign essential hypertensio n: Father, Sister, Brother Status:Active Family history of chronic ob structive pulmonary disease: Father(V17.6, Z82.5) Status:Active Family history of myocardial infarction: Mother(V17.3, Z82.49) Status:Active Osteoarthritis, chronic: Mot her Status:Active Unknown Family Member Name Dates Details Osteoarthritis, chronic: Mot her Status:Active Family history of myocardial infarction: Mother(V17.3, Z82.49) Status:Active Family history of chronic ob structive pulmonary disease: Father(V17.6, Z82.5) Status:Active Benign essential hypertensio n: Father, Sister, Brother Status:Active Family history of cerebrovas cular accident (CVA): Grandmother(V17.1, Z82.3) Status:Active Unknown Family Member Name Dates Details Osteoarthritis, chronic: Mot her Status:Active Family history of myocardial infarction: Mother(V17.3, Z82.49) Status:Active Family history of chronic ob structive pulmonary disease: Father(V17.6, Z82.5) Status:Active Benign essential hypertensio n: Father, Sister, Brother Status:Active Family history of cerebrovas cular accident (CVA): Grandmother(V17.1, Z82.3) Status:Active Unknown Family Member Name Dates Details Osteoarthritis, chronic: Mot her Status:Active Family history of myocardial infarction: Mother(V17.3, Z82.49) Status:Active Family history of chronic ob structive pulmonary disease: Father(V17.6, Z82.5) Status:Active Benign essential hypertensio n: Father, Sister, Brother Status:Active Family history of cerebrovas cular accident (CVA): Grandmother(V17.1, Z82.3) Status:Active Unknown Family Member Name Dates Details Osteoarthritis, chronic: Mot her Status:Active Family history of myocardial infarction: Mother(V17.3, Z82.49) Status:Active Family history of chronic ob structive pulmonary disease: Father(V17.6, Z82.5) Status:Active Benign essential hypertensio n: Father, Sister, Brother Status:Active Family history of cerebrovas cular accident (CVA): Grandmother(V17.1, Z82.3) Status:Active Unknown Family Member Name Dates Details Osteoarthritis, chronic: Mot her Status:Active Family history of myocardial infarction: Mother(V17.3, Z82.49) Status:Active Family history of chronic ob structive pulmonary disease: Father(V17.6, Z82.5) Status:Active Benign essential hypertensio n: Father, Sister, Brother Status:Active Family history of cerebrovas cular accident (CVA): Grandmother(V17.1, Z82.3) Status:Active Unknown Family Member Name Dates Details Osteoarthritis, chronic: Mot her Status:Active Family history of myocardial infarction: Mother(V17.3, Z82.49) Status:Active Family history of chronic ob structive pulmonary disease: Father(V17.6, Z82.5) Status:Active Benign essential hypertensio n: Father, Sister, Brother Status:Active Family history of cerebrovas cular accident (CVA): Grandmother(V17.1, Z82.3) Status:Active Unknown Family Member Name Dates Details Osteoarthritis, chronic: Mot her Status:Active Family history of myocardial infarction: Mother(V17.3, Z82.49) Status:Active Family history of chronic ob structive pulmonary disease: Father(V17.6, Z82.5) Status:Active Benign essential hypertensio n: Father, Sister, Brother Status:Active Family history of cerebrovas cular accident (CVA): Grandmother(V17.1, Z82.3) Status:Active Unknown Family Member Name Dates Details Osteoarthritis, chronic: Mot her Status:Active Family history of myocardial infarction: Mother(V17.3, Z82.49) Status:Active Family history of chronic ob structive pulmonary disease: Father(V17.6, Z82.5) Status:Active Benign essential hypertensio n: Father, Sister, Brother Status:Active Family history of cerebrovas cular accident (CVA): Grandmother(V17.1, Z82.3) Status:Active Unknown Family Member Name Dates Details Osteoarthritis, chronic: Mot her Status:Active Family history of myocardial infarction: Mother(V17.3, Z82.49) Status:Active Family history of chronic ob structive pulmonary disease: Father(V17.6, Z82.5) Status:Active Benign essential hypertensio n: Father, Sister, Brother Status:Active Family history of cerebrovas cular accident (CVA): Grandmother(V17.1, Z82.3) Status:Active Chief Complaint RA 3 month F/URA 4 month F/URA 4 month F/URA 4 months F/Ura follow up Chief Complaint and Reason for Visit Chief Complaint screening/osteo Chief Complaint SCREENING Advance Directives No Advanced Directives Records Found Advance Directive Response Recorded Date/ Time Advance Directives Yes May 24, 2016 5:11am Living Will Yes May 11 9:57am Power of Credit Card Clerk Yes May 11, 2021 9:57am Healthcare Agents on File Name Relationship Healthcare Agent Relationshi p Communication Richie Pena Spouse Health Care Agent Healthcare Agents on File Name Relationship Healthcare Agent Relationshi p Communication Richie Pena Spouse Health Care Agent Healthcare Agents on File Name Relationship Healthcare Agent Relationshi p Communication Richie Pena Spouse Health Care Agent Healthcare Agents on File Name Relationship Healthcare Agent Relationshi p Communication Richie Pena Spouse Health Care Agent Summary Purpose Additional Source Comments Care Team (unrecognized sect ion and content) Care Team Personnel Name: [place], Quencher Operator Lacey PT Position: P3 Scheduling - Info Print Press Operator Advanced Member Role: Other Name: LOREN GREEN DO Position: P4 Physician - Primary Care Member Role: Primary Care Physician Address: Address: [address] [place] [id number] Care Team Related Persons Name: RICHIE PENA Name: LYNNETTE CANCINO Address: [address] [phone] [place] Care Team Personnel Name: Jenny Forman Clerk Lacey PT Position: P3 Scheduling - Info Print Press Operator Advanced Member Role: Other Name: LOREN GREEN DO Position: P4 Physician - Primary Care Member Role: Primary Care Physician Address: Address: [address] [place] [id number] Care Team Related Persons Name: RICHIE PENA Name: LYNNETTE CANCINO Address: [address] [phone] Goals (unrecognized section and content) Goals may be documented in a n alternate section INFORMATION SOURCE (unrecogn ized section and content) DATE CREATED AUTHOR 01/10/2023 [email or web address] DATE CREATED AUTHOR AUTHOR'S ORGANIZ ATION 05/29/2023 [facility] DATE CREATED AUTHOR AUTHOR'S ORGANIZ ATION 12/02/2023 [facility] ([place] DATE CREATED AUTHOR AUTHOR'S ORGANIZ ATION 05/09/2025 [facility] DATE CREATED AUTHOR AUTHOR'S ORGANIZ ATION 05/31/2025 [facility] DATE CREATED AUTHOR AUTHOR'S ORGANIZ ATION 06/12/2025 [facility] DATE CREATED AUTHOR AUTHOR'S ORGANIZ ATION 06/12/2025 [facility] DATE CREATED AUTHOR AUTHOR'S ORGANIZ ATION 06/13/2025 [facility] Patient Care team informatio n (unrecognized section and content) Team Status: Active Member Role Status Dates Dr. Samantha Beckham MD Family Provider Active Dr. Loren Green DO Primary Care Provider Activ e Team Status: Inactive Member Role Status Dates Dr. Loren Green DO Primary Care Provider, Attending Provider, Referring Provider Active Joint Cutter Machine Relationship Specialty Start Date End Date Loren Green DO [address] [place] [id number] PCP - General Family Medicine 09/29/23 Peggy Miguel MD [address] [address] Referring Physician Rheumatology 09/27/23 Joint Cutter Machine Relationship Specialty Start Date End Date Loren Green DO [address] [place] [id number] PCP - General Family Medicine 09/29/23 Peggy Miguel MD [address] [place] [phone] (Work) Referring Physician Rheumatology 09/27/23 Joint Cutter Machine Relationship Specialty Start Date End Date Loren Green DO [address] [place] [id number] PCP - General Family Medicine 09/29/23 Peggy Miguel MD [facility] [address] [address] Referring Physician Rheumatology 09/27/23 Joint Cutter Machine Relationship Specialty Start Date End Date Loren Green DO [address] [place] [phone] PCP - General Family Medicine 09/29/23 Peggy Miguel MD [address] [place] [id number] Referring Physician Rheumatology 09/27/23 Joint Cutter Machine Relationship Specialty Start Date End Date RufusLoren reardon DO [address] [place] [address] [place] [address] PCP - General Family Medicine 09/29/23 Peggy Miguel MD [address] [facility] [address] [place] [address] Referring Physician Rheumatology 09/27/23 Reason for Visit (unrecogniz ed section and content) Reason Comments Follow-up Rheumatoid Arthritis Reason Comments Rheumatoid Arthritis Reason Comments Rheumatoid Arthritis Specialty Diagnoses / Procedures Referred By Contac t Referred To Contact Rheumatology Diagnoses Rheumatoid arthritis involving multiple sites with positive rheumatoid factor (Multi) Immunosuppression due to drug therapy Long-term current use of tofacitinib Procedures Follow Up In Rheumatology Peggy Miguel MD [address] [address] Phone: tel: fax: Referral ID Status Reason Start Date Expiration Date V isits Requested Visits Authorized [id number] Authorized 11/07/2024 11/07/2025 1 1 FOR RECORDS PERTAINING TO PATIENTS WHO ARE OR HAVE BEEN ENROLLED IN A CHEMICAL DEPENDENCY/SUBSTANCEABUSE PROGRAM, SOME INFORMATION MAY BE OMITTED. This clinical summary was aggregated from multiple sources. Caution should be exercised in using it in the provision of clinical care. This summary normalizes information from multiple sources, and as a consequence, information in this document may materially change the coding, format and clinical context of patient data. In addition, data may be omitted in some cases. CLINICAL DECISIONS SHOULD BE BASED ON THE PRIMARY CLINICAL RECORDS. [email or web address] provides no warranty or guarantee of the accuracy or completeness of information in this document.
== END | disposition home or self-care (01) ==
LOC: OPBI 07:43
DX: Z12.31 Encounter for screening mammogram for malignant neoplasm of breast (principal)
CPT/HCPCS: 77063; 77067